=== PATIENT | male | born 1945 | race Caucasian/White ===

== ENCOUNTER → 2017-03-10 | Day surgery (SDC) | payer OTHER ==
[~2017-03-10] MED LIST: ASPI-482 PO; ATEN25TA PO; BICA50TA4 PO; CRESTOR20 MG PO; HYDROmorphone 2 MG/ML VIAL IV PRN; INSU100V13 SQ; IV RINGERS,LACTATED 1000ML 1,000 ML IV SCH; LIDOCAINE 1% 1 ML SYRINGE. ID PRN; LIDOCAINE 2% PF Vial for OR 5 ML VIAL. ONE; MORPHINE SULFATE 2 MG/ML DISP.SYRIN. IV PRN; NAPR-677 PO; ONDANSETRON PF 4 MG/2 ML VIAL. IV PRN; PIOG15TA42 PO; PROCHLORPERAZINE 10 MG/2 ML VIAL. IV PRN; PROPOFOL 20 ML IV ONE; fentaNYL PF VIAL 100 MCG/2 ML VIAL IV PRN
--- NOTE | 2017-03-10 11:42 | PDOC1 ---
History and Physical Date of Admission Date of Admission DATE: 03/10/17 TIME: 11:36 Source Source: Chart review, Patient History of Present Illness History of Present Illness 71 y/o male with h/o colon polyps due for surveillance. Last colonoscopy 5-7 years ago. Intermittent dysphagia with occasional regurgitation of offending bolus. No prior EGD. Past Medical History Cardiovascular: CAD, HTN, Hyperlipidemia Musculoskeletal: Osteoarthritis Renal/: Chronic renal insuff Endocrine: Diabetes Past Surgical History Past Surgical History: Tonsillectomy Family History Family History: No Significant Social History Smoke: Quit ALCOHOL: none Drugs: None Current Medications Current Medications Current Medications Ondansetron HCl (Zofran) 4 mg PRN Q6HRS PRN IV NAUSEA/VOMITING; Start 03/10/17 at 07:00; Stop 03/11/17 at 06:59 Fentanyl Citrate (Fentanyl 2ml Vial) 25 mcg PRN Q5MIN PRN IV MILD PAIN; Start 03/10/17 at 07:00; Stop 03/11/17 at 06:59 Fentanyl Citrate (Fentanyl 2ml Vial) 50 mcg PRN Q5MIN PRN IV MODERATE PAIN; Start 03/10/17 at 07:00; Stop 03/11/17 at 06:59 Morphine Sulfate 1 mg PRN Q10MIN PRN IV SEVERE PAIN; Start 03/10/17 at 07:00; Stop 03/11/17 at 06:59 Ringer's Solution 1,000 ml @ 30 mls/hr Q24H IV Last administered on 03/10/17t 11:04; Start 03/10/17 at 07:00; Stop 03/10/17 at 18:59 Lidocaine HCl 2 ml PRN 1X PRN ID PRIOR TO IV START; Start 03/10/17 at 07:00; Stop 03/11/17 at 06:59 Hydromorphone HCl (Dilaudid) 0.5 mg PRN Q10MIN PRN IV SEV PAIN, Second choice; Start 03/10/17 at 07:00; Stop 03/11/17 at 06:59 Prochlorperazine Edisylate (Compazine) 5 mg PACU PRN PRN IV NAUSEA, MRX1; Start 03/10/17 at 07:00; Stop 03/11/17 at 06:59 Active Scripts Active Reported Levemir (Insulin Detemir) 100 Unit/1 Ml Vial 20 Unit SQ DAILY07 Levemir (Insulin Detemir) 100 Unit/1 Ml Vial 40 Unit SQ HS Levemir (Insulin Detemir) 100 Unit/1 Ml Vial 1 Unit SQ Naproxen Sodium 550 Mg Tablet 220 Mg PO Aspir 81 (Aspirin) 81 Mg Tablet.dr 1 Tab PO DAILY Casodex (Bicalutamide) 50 Mg Tablet 1 Tab PO DAILY Actos (Pioglitazone Hcl) 15 Mg Tablet 1 Tab PO DAILY Crestor (Rosuvastatin Calcium) 20 Mg Tablet 1 Tab PO DAILY Atenolol 25 Mg Tablet 1 Tab PO DAILY Allergies Allergies: Coded Allergies: No Known Drug Allergies (Unverified , 03/10/17) ROS Review of System Otherwise negative. Physical Exam General: Alert, Oriented X3, Cooperative, No acute distress Lungs: Clear to auscultation Heart: S1S2, RRR, no gallops, no murmurs Abdomen: Normal bowel sounds, Soft, No tenderness, No hepatosplenomegaly, No masses Rectal Exam: deferred (to time of procedure) Extremities: No cyanosis, No edema Skin: No significant lesion Neuro: Normal speech, Strength at 5/5 X4 ext, Normal tone, Sensation intact, Cranial nerves 3-12 NL, Reflexes 2+ Psych/Mental Status: Mental status NL, Mood NL Vitals Vitals Vital Signs Date Time Temp Pulse Resp B/P (MAP) Pulse Ox O2 Delivery O2 Flow Rate FiO2 03/10/17 10:53 97.6 58 18 96 97.6 Labs Labs Laboratory Tests Test 03/10/17 10:34 Glucose (Fingerstick) 160 mg/dL (70-99) Laboratory Tests Test 03/10/17 10:34 Glucose (Fingerstick) 160 mg/dL (70-99) VTE Prophylaxis Ordered VTE Prophylaxis Devices: No VTE Pharmacological Prophylaxi: No Assessment/Plan Assessment/Plan IMP: H/o polyps Dysphagia. PLAN: Colonoscopy/EGD. JM GONCALVES MD Mar 10, 2017 11:42
--- NOTE | 2017-03-10 13:01 | PDOC4 ---
PROCEDURE Procedure colonoscopy/EGD Ind: H/o polyps/dysphagia. Meds: per anesthesia. Findings: BASIL normal. Mucosa normal to cecum. No polyps. Scattered diverticula, sigmoid. Small int. hemorrhoids. E--tertiary contractions. ~grade I reflux at 43cm. G--patchy erythema, prepyloric. Pylorus deformed c/w prior PUD. Antral biopsies. D--6-8 mm ulcer posterior wall distal bulb. patchy erythema. Second portion normal. Ba well. IMP: Presbyesophagus Reflux esophagitis. Duodenal ulcer/antral erythema. Diverticulosis Hemorrhoids. REC: OTC PPI daily. Await biopsies. F/u my office in 2 weeks. If H.pylori, treat. Repeat colon in 5 years if remains reasonably healthy. Resume other meds, diet. JM GONCALVES MD Mar 10, 2017 13:01
[2017-03-10 13:23] VITALS: BP 103/56
--- NOTE | 2017-03-12 15:03 | PATHOLOGY ---
PATHOLOGY REPORT * * * * * * * * FINAL DIAGNOSIS: Gastric biopsy, antrum: - Chronic gastritis, mild. (JPM:chiara; 03/12/2017) COMMENT: Sections of the gastric biopsy reveal gastric antral mucosa showing congestion and mild chronic inflammation. There are scattered admixed eosinophils. An immunoperoxidase stain for Helicobacter is obtained. There are no Helicobacter organisms identified. There is no evidence of malignancy. (JPM:chiara; 03/12/2017) REPORT ELECTRONICALLY SIGNED BY: Shira Benson M.D. DATE/TIME: 03/12/2017 15:02 * * * * * * * * GROSS PATHOLOGY: Received in formalin labeled "Shira Perez, antral biopsy," is a segment of bustillo soft tissue measuring 0.4 cm in maximum dimension. The specimen is submitted entirely in cassette A1. (JPM; 03/11/17) INITIAL CPT CODE(S): A; 05787, 42437 Professional services performed [place] [facility] [address] Technical services performed by [facility] at [address] [place] [address]. SPECIMEN(S) RECEIVED: A.Antral biopsy CLINICAL HISTORY: Dysphagia, screening; gastritis PATIENT: SHIRA PEREZ /AGE: 10 1945 (Age: 71) PATIENT #: [id number] ALT CASE #: SPECIMEN COLLECTION DATE: 03/10/2017 SPECIMEN RECEIVED DATE: 03/11/2017 [facility] - [address] [place] [address] - PHONE: [phone] * * * END OF REPORT * * *
== END | disposition home or self-care (01) ==
LOC: ENDOS 10:25
PROVIDERS: ATTEND Internal Medicine Gastroenterology
DX: Z09 Encounter for follow-up examination after completed treatment for conditions other than malignant neoplasm (principal); Z87.19 Personal history of other diseases of the digestive system; K64.8 Other hemorrhoids; K57.30 Diverticulosis of large intestine without perforation or abscess without bleeding; K22.4 Dyskinesia of esophagus; K21.0 Gastro-esophageal reflux disease with esophagitis; K31.89 Other diseases of stomach and duodenum; K26.9 Duodenal ulcer, unspecified as acute or chronic, without hemorrhage or perforation; E78.00 Pure hypercholesterolemia, unspecified; I48.91 Unspecified atrial fibrillation; E11.9 Type 2 diabetes mellitus without complications; F41.9 Anxiety disorder, unspecified; F32.9 Major depressive disorder, single episode, unspecified; F17.200 Nicotine dependence, unspecified, uncomplicated; Z86.39 Personal history of other endocrine, nutritional and metabolic disease
CPT/HCPCS: 43239; 45378; 82962; J2001; J2704; 88305; 88342

== ENCOUNTER 2017-04-26 17:36 | Inpatient (IN) | payer OTHER ==
[~2017-04-26] VITALS: Ht 177.8 cm; Wt 82.6 kg
[~2017-04-26 17:36] MED LIST changes: -HYDROmorphone 2 MG/ML VIAL IV PRN; -IV RINGERS,LACTATED 1000ML 1,000 ML IV SCH; -LIDOCAINE 1% 1 ML SYRINGE. ID PRN; -LIDOCAINE 2% PF Vial for OR 5 ML VIAL. ONE; -MORPHINE SULFATE 2 MG/ML DISP.SYRIN. IV PRN; -ONDANSETRON PF 4 MG/2 ML VIAL. IV PRN; -PROCHLORPERAZINE 10 MG/2 ML VIAL. IV PRN; -PROPOFOL 20 ML IV ONE; -fentaNYL PF VIAL 100 MCG/2 ML VIAL IV PRN
[2017-04-26 18:06] LABS: BASO # 0.1 x10^3/uL (0.0-0.2); BASO % 1 % (0-3); EOS % 2 % (0-3); HEMATOCRIT 32.8 % (39.0-53.0); LYMPH # 1.6 x10^3/uL (1.0-4.8); LYMPH % 17 % (24-48); MEAN CORPUSCULAR HEMOGLOBIN 30 pg (25-35); MEAN CORPUSCULAR HGB CONC 34 g/dL (31-37); MEAN CORPUSCULAR VOLUME 89 fL (79-100); MONO % 8 % (0-9); NEUT % 73 % (31-73); PLATELET COUNT 132 x10^3/uL (140-400); RED CELL DISTRIBUTION WIDTH 13.8 % (11.5-14.5); WHITE BLOOD COUNT 9.6 x10^3/uL (4.0-11.0)
[2017-04-26 18:18] LABS: CREATININE 2.3 mg/dL (0.7-1.3); GFR 28.1; POTASSIUM 4.6 mmol/L (3.5-5.1)
[2017-04-26 18:25] LABS: ALBUMIN 3.4 g/dL (3.4-5.0); ALBUMIN/GLOBULIN RATIO 0.9 (1.0-1.7); TOTAL BILIRUBIN 0.8 mg/dL (0.2-1.0); TOTAL PROTEIN 7.1 g/dL (6.4-8.2)
[2017-04-26] MEDS ORDERED: FUROSEMIDE 20 MG/2 ML VIAL. IVP ONE (19:00)
--- NOTE | 2017-04-26 19:59 | PHYS DOC ---
Past Medical History Past Medical History: A-Fib, Diabetes-Type II, High Cholesterol, Hypertension, [place] Additional Past Medical Histor: [place] MAY 1999 Past Surgical History: Tonsillectomy, Other Additional Past Surgical Histo: CABAG Alcohol Use: None Drug Use: None Adult General Chief Complaint Chief Complaint: SHORTNESS OF BREATH HPI HPI Patient is a 71 year old male with history of CHF, CAD, type 2 diabetes who presents with progressive shortness of breath past 40 hours. Patient also reports increased leg swelling. Denies cough, chest pain, chest pressure, fever chills, nausea vomiting and sweats. This pain is worse with exertion causing patient. Catch his breath. No other acute symptoms or complaints. Patient's tobacco sample puller is Dr. Munoz. Review of Systems Review of Systems Review symptoms as per history of present illness. All other review symptoms are negative. Current Medications Current Medications Current Medications Medications (Trade) Dose Ordered Sig/Yessy Start Time Stop Time Status Last Admin Dose Admin Diltiazem HCl 125 mg/Dextrose 125 ml @ 5 mls/hr 1X ONCE 04/26/17 18:00 04/27/17 18:59 04/26/17 18:19 5 MLS/HR Furosemide (Lasix) 20 mg 1X ONCE 04/26/17 19:00 04/26/17 19:01 DC Allergies Allergies Allergies Coded Allergies Type Severity Reaction Last Updated Verified No Known Drug Allergies 03/10/17 No Physical Exam Physical Exam Constitutional: Well developed, well nourished, no acute distress, non-toxic appearance. [] HENT: Normocephalic, atraumatic, bilateral external ears normal, oropharynx moist, no oral exudates, nose normal. [] Eyes: PERRLA, EOMI, conjunctiva normal, no discharge. [] Neck: Normal range of motion, no tenderness, supple, no stridor. [] Cardiovascular: Regular rate and rhythm are 2+ peripheral edema.[] Lungs & Thorax: Respirations nonlabored, coarse all throughout all lung denson[] Abdomen: Bowel sounds normal, soft, no tenderness, no masses, no pulsatile masses. [] Skin: Warm, dry. [] Back: No tenderness, no CVA tenderness. [] Extremities: No tenderness, no cyanosis, no clubbing, ROM intact, negative Homans signs.[] Neurologic: Alert and oriented X 3, normal motor function, normal sensory function, no focal deficits noted. [] Psychologic: Affect normal, judgement normal, mood normal. [] Current Patient Data Vital Signs Vital Signs Date Time Temp Pulse Resp B/P (MAP) Pulse Ox O2 Delivery O2 Flow Rate FiO2 04/26/17 17:45 97.6 97 28 118/73 (88) 94 Room Air 97.6 Lab Values Laboratory Tests Test 04/26/17 17:57 White Blood Count 9.6 x10^3/uL (4.0-11.0) Red Blood Count 3.70 x10^6/uL (4.30-5.70) L Hemoglobin 11.0 g/dL (13.0-17.5) L Hematocrit 32.8 % (39.0-53.0) L Mean Corpuscular Volume 89 fL (79-100) Mean Corpuscular Hemoglobin 30 pg (25-35) Mean Corpuscular Hemoglobin Concent 34 g/dL (31-37) Red Cell Distribution Width 13.8 % (11.5-14.5) Platelet Count 132 x10^3/uL (140-400) L Neutrophils (%) (Auto) 73 % (31-73) Lymphocytes (%) (Auto) 17 % (24-48) L Monocytes (%) (Auto) 8 % (0-9) Eosinophils (%) (Auto) 2 % (0-3) Basophils (%) (Auto) 1 % (0-3) Neutrophils # (Auto) 7.0 x10^3uL (1.8-7.7) Lymphocytes # (Auto) 1.6 x10^3/uL (1.0-4.8) Monocytes # (Auto) 0.7 x10^3/uL (0.0-1.1) Eosinophils # (Auto) 0.2 x10^3/uL (0.0-0.7) Basophils # (Auto) 0.1 x10^3/uL (0.0-0.2) Sodium Level 137 mmol/L (136-145) Potassium Level 4.6 mmol/L (3.5-5.1) Chloride Level 102 mmol/L (98-107) Carbon Dioxide Level 25 mmol/L (21-32) Anion Gap 10 (6-14) Blood Urea Nitrogen 33 mg/dL (8-26) H Creatinine 2.3 mg/dL (0.7-1.3) H Estimated GFR (Cockcroft-Gault) 28.1 BUN/Creatinine Ratio 14 (6-20) Glucose Level 320 mg/dL (70-99) H Calcium Level 9.0 mg/dL (8.5-10.1) Total Bilirubin 0.8 mg/dL (0.2-1.0) Aspartate Amino Transferase (AST) 26 U/L (15-37) Alanine Aminotransferase (ALT) 30 U/L (16-63) Alkaline Phosphatase 150 U/L (46-116) H Troponin I Quantitative 0.017 ng/mL (0.000-0.055) OY-Ksc-N-Type Natriuretic Peptide 7213 pg/mL (0-124) H Total Protein 7.1 g/dL (6.4-8.2) Albumin 3.4 g/dL (3.4-5.0) Albumin/Globulin Ratio 0.9 (1.0-1.7) L Thyroid Stimulating Hormone (TSH) 3.366 uIU/mL (0.358-3.74) Laboratory Tests 04/26/17 17:57 Laboratory Tests 04/26/17 17:57 EKG EKG [EKG: A. fib, rate 91.] Radiology/Procedures Radiology/Procedures [Chest x-ray: Acute pulmonary edema] Course & Med Decision Making Course & Med Decision Making Pertinent Labs and Imaging studies reviewed. (See chart for details) [Patient A. fib rate controlled with acute congestive heart failure. Patient improved with Lasix, oxygen. Will admit to the hospitalist service with cardiology consult.] Dragon Disclaimer Dragon Disclaimer This electronic medical record was generated, in whole or in part, using a voice recognition dictation system. Departure Departure Disposition: ADMITTED INPATIENT Admitting Physician: Magnolia Martinez Condition: STABLE Referrals: BERNARDA MURDOCK Jr, MD (PCP) SATHISH MILLIGAN DO Apr 26, 2017 19:59
[2017-04-26] MEDS ORDERED: ONDANSETRON PF 4 MG/2 ML VIAL. IV PRN ×2 (20:00→22:30)
[2017-04-26 20:30] VITALS: BP 124/44
[2017-04-26] MEDS ORDERED: INSULIN DETEMIR 300 UNITS/3 ML INSULN.PEN. SQ SCH (21:00)
[2017-04-26] MEDS ORDERED: VENTOLIN HFA18 GM INH (21:40)
[2017-04-26] MEDS ORDERED: NAPR220C4 PO (21:40)
[2017-04-26] MEDS ORDERED: ASPI325T11 PO (21:40)
[2017-04-26] MEDS ORDERED: DEXTROSE 50% 25 GM / 50ML DISP.SYRIN. IV PRN (22:30)
[2017-04-26] MEDS ORDERED: MORPHINE SULFATE 2 MG/ML DISP.SYRIN. IV PRN (22:30)
[2017-04-26] MEDS ORDERED: ACETAMINOPHEN 325 MG TABLET. PO PRN (22:30)
--- NOTE | 2017-04-26 22:54 | ACF ---
Admission Forms Criteria HEART FAILURE: COMMON COMPLICATIONS (Place 'X' for any and all applicable criteria): Ongoing inpatient care may be indicated for heart failure with 1 or more of the following (1)(2)(3)(4)(5)(6)(7)(8): [ ]I. New-onset heart failure [ ]II. Acute cardiac ischemia causing or associated with failure [ ]III. Ongoing need for care for primary condition requiring frequent therapy adjustments because of changes in cardiac function (eg, drug dosage changes for drugs that are renally metabolized) [ X]IV. Complications of heart failure, including 1 or more of the following: [ ]a) Hemodynamic instability [ ]b) Pericardial effusion [ ]c) Symptomatic pleural effusion [ ]d) Hypoxemia [ ]e) Tachypnea [X ]f) Dyspnea [ ]g) Syncope [ ]h) Altered mental status [ ]i) Acute renal insufficiency that is severe (reduction of more than 50% in estimated glomerular filtration rate from baseline) or progressive reduction of more than 25% in estimated glomerular filtration rate from baseline, with creatinine continuing to rise) [ ]j) Debilitating anasarca (eg tissue breakdown with infection, inability to void due to edema) (E) [ ]k) Clinically significant metabolic abnormalities due to heart failure (eg, new-onset metabolic acidosis) Extended stay may be needed until ALL of the following are present (1)(3)(18)(41 )(55) [ ]a) Hemodynamic stability [ ]b) Stable and effective diuretic regimen established (or patient on stable dialysis regimen if in chronic renal failure) [ ]c) Volume status acceptable on oral medication [ ]d) Breathing comfortably at rest [ ]e) Saturation of arterial oxygen greater than 90% or at acceptable baseline [ ]f) Pulmonary edema absent or improved [ ]g) Peripheral or sacral edema absent or improved [ ]h) Renal function stable and manageable at a lower level of care [ ]i) Complications (eg, pleural effusion) resolved or manageable at a lower level of care [ ]g) Patient or caregiver has received written discharge instructions or educational material addressing activity level, diet, discharge medications, follow-up appointment, weight monitoring, and what to do if symptoms worsen.(25)(26) The original [facility] [employer] content created by [employer] has been revised. The portions of the content which have been revised are identified through the use of italic text, and [facility] has neither reviewed nor approved the modified material.All other unmodified content is copyright [facility]. Please see references footnoted in the original [facility] edition 2015 Admission Criteria Met?: Yes LEOBARDO GARCIA Apr 26, 2017 22:54
[2017-04-26 23:00] VITALS: BP 124/49
[2017-04-26] MEDS: INSULIN ASPART 300 UNITS/3 ML INSULN.PEN SQ SCH (23:13)
[2017-04-27 03:00] VITALS: BP 132/52
[2017-04-27 05:39] LABS: BASO # 0.1 x10^3/uL (0.0-0.2); BASO % 1 % (0-3); EOS % 2 % (0-3); HEMATOCRIT 32.2 % (39.0-53.0); HEMOGLOBIN 10.9 g/dL (13.0-17.5); LYMPH # 1.3 x10^3/uL (1.0-4.8); LYMPH % 17 % (24-48); MEAN CORPUSCULAR HEMOGLOBIN 30 pg (25-35); MEAN CORPUSCULAR HGB CONC 34 g/dL (31-37); MEAN CORPUSCULAR VOLUME 89 fL (79-100); MONO % 9 % (0-9); NEUT % 72 % (31-73); PLATELET COUNT 138 x10^3/uL (140-400); RED BLOOD COUNT 3.64 x10^6/uL (4.30-5.70); RED CELL DISTRIBUTION WIDTH 14.2 % (11.5-14.5); WHITE BLOOD COUNT 7.8 x10^3/uL (4.0-11.0)
[2017-04-27 06:06] LABS: ALBUMIN 3.4 g/dL (3.4-5.0); ALBUMIN/GLOBULIN RATIO 1.1 (1.0-1.7); CALCIUM 8.6 mg/dL (8.5-10.1); CREATININE 2.1 mg/dL (0.7-1.3); GFR 31.2; TOTAL BILIRUBIN 0.8 mg/dL (0.2-1.0); TOTAL PROTEIN 6.5 g/dL (6.4-8.2)
[2017-04-27 07:00] VITALS: BP 124/48
--- NOTE | 2017-04-27 08:24 | EKG ---
[facility] [address] [place] [address] Test Date: 2017-04-26 Test Time: 17:45:12 Pat Name: SHIRA ZHAO Department: Room: Gender: M Ekg Monitor: : 1945 Requested By: SATHISH MILLIGAN Order Number: [id number] Reading MD: Measurements Intervals [place] Rate: 91 P: CA: QRS: 24 QRSD: 88 T: -36 QT: 356 QTc: 440 Interpretive Statements ATRIAL FIBRILLATION VENTRICULAR PREMATURE COMPLEX(ES) LOW LIMB LEAD VOLTAGE QRS(T) CONTOUR ABNORMALITY CONSISTENT WITH INFERIOR INFARCT AGE UNDETERMINED RI6.01 Unconfirmed report No previous ECG available for comparison
[2017-04-27] MEDS: INSULIN ASPART 300 UNITS/3 ML INSULN.PEN SQ SCH ×3 (08:28→16:47)
--- NOTE | 2017-04-27 09:11 | RAD ---
Examination: Single frontal view chest History: History of shortness of breath, cough Comparison: 10/17/2014 Findings: Low lung volumes and technique accentuates heart size and pulmonary vascularity. There is diffuse prominent appearing bilateral interstitial lung markings could be chronic interstitial changes or interstitial edema or interstitial infiltrates. Impression: Diffuse prominent appearing bilateral interstitial lung markings could be chronic interstitial changes or interstitial edema or interstitial infiltrates.
[2017-04-27 10:30] VITALS: BP 110/43
[2017-04-27 14:30] VITALS: BP 121/52
--- NOTE | 2017-04-27 14:39 | RAD ---
Examination: 2 views of the chest History: History of congestive heart failure, shortness of breath Comparison: 05/13/2017 Findings: The cardiomediastinal silhouette grossly appears unremarkable. Diffuse prominent bilateral interstitial lung markings grossly similar to prior exam could be chronic interstitial changes or infiltrates similar to prior exam. Impression: Diffuse prominent appearing bilateral interstitial lung markings likely chronic interstitial changes or interstitial infiltrates grossly similar to prior exam.
[2017-04-27] MEDS ORDERED: ASPIRIN 325 MG TABLET PO ONE (15:15)
--- NOTE | 2017-04-27 15:48 | CONS ---
DATE OF CONSULTATION: HISTORY OF PRESENT ILLNESS: This is a 71-year-old white male who presented himself to the Emergency Room yesterday with severe shortness of breath. Along with the shortness of breath, he had some tightness in his chest. He stated that this would get worse when he walked around. However, he had no orthopnea or paroxysmal nocturnal dyspnea. He said he had some swelling of his legs. He had a cough, but there is no sputum production. He had been to the urgent care on April 18 and saw a nurse practitioner. He was told that he has a pneumonia. A chest x-ray was done. He was given antibiotic and albuterol inhaler. He did not seem to get better and thus he went to the urgent care again on April 25. He was again seen there, had a chest x-ray done, again told that he had a pneumonia and a different antibiotic was given. Since he was not getting any better, he came into the Emergency Room on the . He has not been using an inhaler before. He had smoked up until 1998, at which time, he had a myocardial infarction and has not smoked since then. He has had no cough, sputum or wheezing. He claims he has had no chest pain, but does admit to having the chest tightness with shortness of breath when he exerted himself such as walking. He has had hypertension. He also has diabetes mellitus for which he takes insulin. He has dyslipidemia. He sustained a myocardial infarction in 1998, but states he has not had a stent in his coronary arteries. He gives no history of stroke or transient ischemic attacks. 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 He does not have to walk around. He could choose to go around the building in a golf cart. PRESENT MEDICATIONS: 1. Albuterol metered inhaler, which was recently given to him at the urgent care. 2. Aspirin 325 mg a day. 3. Atenolol 25 mg a day. 4. Levemir 40 units at night. 5. Levemir 20 units in the morning. 6. Naproxen 550 mg twice a day. 7. Rosuvastatin 20 mg at night. He also states that he has had atrial fibrillation in the past. He was placed on warfarin. He converted spontaneously to sinus rhythm and had remained in sinus rhythm. He was not informed of atrial fibrillation recurring at the urgent care, but he was informed about it in the ER. SOCIAL HISTORY: He does not take alcohol. PHYSICAL EXAMINATION: GENERAL: He is in no distress. He states he feels much better than he did when he came into the Emergency Room yesterday. VITAL SIGNS: The heart rate was 80 per minute and irregular. The blood pressure was 110/70. LUNGS: Showed bilateral rales, but no wheezing. HEART: The heart sounds are normal. There is a grade 1/6 ejection systolic murmur at the base. No diastolic murmurs heard. ABDOMEN: Soft. EXTREMITIES: There is no edema of the legs. A chest x-ray as compared to the one taken 2 years ago shows increased markings throughout the lung denson. This is suggestive of pulmonary fibrosis or scarring. There are no definite Jayson B lines. PA and lateral view of the chest shows no cardiomegaly. An EKG shows atrial fibrillation and occasional premature ventricular contractions. LABORATORY INVESTIGATIONS: Showed a hemoglobin of 10.9. The BUN on admission was ____ and the creatinine was 2.3. The troponin was 0.017 yesterday and 0.018 today. The TSH was normal at 3.366. IMPRESSION: 1. Exertional shortness of breath and tightness in the chest in a diabetic, probable acute coronary syndrome. 2. No definite evidence of congestive heart failure. 3. Probable pulmonary fibrosis with no evidence of hypoxia. 4. Chronic kidney disease, probably contributed by nonsteroidal anti-inflammatory drugs. 5. Recurrence of atrial fibrillation. PLAN: 1. [place] nebulized bronchodilators. 2. Myocardial perfusion imaging study with Lexiscan tomorrow. Thank you very much for asking me to see him. The echocardiogram was reviewed. 1. The systolic function is normal with an ejection fraction of 55%. 2. Normal diastolic function. 3. Trace mitral regurgitation. 4. Mild aortic regurgitation. 5. No pulmonary hypertension. 6. Left atrial enlargement. FLEX ESCALANTE MD DR: GHAZALA/adelaide JOB#: [id number] / [id number]
[2017-04-27] MEDS ORDERED: NON FORMULARY ITEM (Albuterol Sulfate (Ventolin Hfa Inhaler) 2 PUFF) INH SCH (16:00)
--- NOTE | 2017-04-27 16:31 | HP ---
ADMIT DATE: 04/27/2017 CHIEF COMPLAINT: Shortness of breath. HISTORY OF PRESENT ILLNESS: The patient is a 71-year-old gentleman with past medical history of CAD, CHF, hypertension, diabetes mellitus who presented to the hospital with worsening dyspnea on exertion. He relates that he does not have to walk terribly far before he gets very winded. He has also noted some leg swelling with this over the past few days. He, however, denies any cough, chest pain, dizziness, lightheadedness, nausea, vomiting or other symptoms. In the Emergency Room, he was found with AFib and his symptoms improved after receiving an IV Lasix dose. He is now admitted for further management and care. PAST MEDICAL HISTORY: CAD status post [place] in 1998, hypertension, hypercholesterolemia, diabetes type 2, AFib, spontaneously resolving in the past, currently not on oral anticoagulants. PAST SURGICAL HISTORY: Status post CABG. FAMILY HISTORY: Positive for diabetes in brother, a second brother of lung cancer (smoker). SOCIAL HISTORY: Quit smoking with his [place] in 1998. No toxic habits. ALLERGIES: No known drug allergies. MEDICATIONS: MAR reconciled with home medications. REVIEW OF SYSTEMS: Positive as per HPI. Entire organ system review otherwise is negative. PHYSICAL EXAMINATION: VITAL SIGNS: From today show a blood pressure of 110/43, heart rate of 76, respiratory rate at 18. He is afebrile. GENERAL: This is a 71-year-old gentleman, well nourished, alert and oriented, in no acute distress. LUNGS: Clear. CARDIOVASCULAR: Heart has regular rate and rhythm with a 3/6 systolic murmur. ABDOMEN: Has positive bowel sounds, soft, nontender. EXTREMITIES: Show no edema, no clubbing, no cyanosis. SKIN: Warm, soft and dry. LABORATORY DATA: CBC with a WBC of 7.8, hemoglobin 10.9, platelets of 138. BUN and creatinine of 35 and 2.1. Normal electrolytes, glucose at 284. LFTs normal say for alkaline phosphatase at 155. ProBNP at 7491. Initial troponin is negative. Actually, this is a troponin 12 hours after presentation. RADIOGRAPHIC IMAGING: Chest x-ray obtained in the Emergency Room shows diffuse prominent appearing bilateral interstitial lung markings, likely chronic interstitial changes or interstitial infiltrates. ASSESSMENT AND PLAN: The patient is a 71-year-old gentleman with past medical history of coronary artery disease, congestive heart failure and spontaneously resolving atrial fibrillation in the past who now presents with shortness of breath, findings of congestive heart failure on x-ray and clinically as well as recurrent atrial fibrillation. He is admitted. Case was discussed with Dr. Hancock. Although he apparently ruled out for acute coronary syndrome, he has not been stress or further evaluated for years. We will obtain MPI in the morning, echocardiogram has been done, final report is pending. In the meantime, continue cautious Lasix, monitoring his labs. The patient is significantly diabetic and poorly controlled. He is actually on b.i.d. Levemir, will increase to b.i.d. albeit slightly lower dose than usual. We will also switch his Levemir to higher dose in the morning, lower dose at night. He does take naproxen a very high dose b.i.d. We will hold medication for now due to renal issues. The patient has stable very mild thrombocytopenia in the 130s range. This may be due to low grade idiopathic thrombocytopenic purpura versus malignancy. Monitor for the time being. We will continue the patient's Casodex for prostate carcinoma. Alkaline phosphatase slightly elevated. Suspect this is related to bony disease. Prophylaxis. We will start on heparin subQ. WILFREDO ESPINAL MD DR: UR/nts JOB#: [id number] / [id number] BERNARDA Daniel MD MTDD
[2017-04-27] MEDS: ALBUTEROL SULFATE 2.5 MG/3 ML NEBU. NEB SCH ×2 (16:35→19:05)
--- NOTE | 2017-04-27 17:07 | EKG ---
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
[2017-04-27 19:00] VITALS: BP 133/60
[2017-04-27] MEDS: APIXABAN 5 MG TABLET. PO SCH (20:23)
[2017-04-27] MEDS ORDERED: ATORVASTATIN CALCIUM 40 MG TABLET. PO SCH ×2 (21:00)
[2017-04-27] MEDS ORDERED: INSULIN ASPART 300 UNITS/3 ML INSULN.PEN SQ ONE (21:00)
[2017-04-27] MEDS ORDERED: APIXABAN 2.5 MG TABLET. PO SCH ×2 (21:00)
[2017-04-27] MEDS ORDERED: NAPROXEN SODIUM 550 MG PO SCH (21:00)
[2017-04-27] MEDS ORDERED: INSULIN DETEMIR 300 UNITS/3 ML INSULN.PEN. SQ SCH ×3 (21:00)
[2017-04-27 23:00] VITALS: BP 124/58
[2017-04-28 07:00] VITALS: BP 103/56
[2017-04-28] MEDS ORDERED: INSULIN DETEMIR 300 UNITS/3 ML INSULN.PEN. SQ SCH (07:00)
[2017-04-28] MEDS: ALBUTEROL SULFATE 2.5 MG/3 ML NEBU. NEB SCH ×3 (07:00→14:48)
[2017-04-28] MEDS ORDERED: ASPIRIN CHEWABLE 81 MG TABLET. PO SCH (08:00)
[2017-04-28] MEDS: INSULIN ASPART 300 UNITS/3 ML INSULN.PEN SQ SCH ×3 (08:00→17:00)
[2017-04-28] MEDS ORDERED: ASPIRIN ENTERIC COATED 325 MG TABLET.DR. PO SCH (09:00)
[2017-04-28] MEDS ORDERED: ATENOLOL 25 MG TABLET. PO SCH (09:00)
[2017-04-28] MEDS ORDERED: BICALUTAMIDE 50 MG TABLET PO SCH (09:00)
[2017-04-28] MEDS ORDERED: REGADENOSON 0.4 MG/5 ML DISP.SYRIN. IV ONE (09:30)
[2017-04-28] MEDS ORDERED: HYDROCORTISONE SOD SUCC/PF 100 MG/2 ML VIAL. IV ONE (10:00)
--- NOTE | 2017-04-28 10:40 | CARD ---
APPROVED REPORT EXAM: Two-dimensional and M-mode echocardiogram with Doppler and color Doppler. Other Information Quality : GoodHR: 95bpm Rhythm : Atrial Fibrillation INDICATION Acute CHF 2D DIMENSIONS RVDd2.9 (2.9-3.5cm)Left Atrium(2D)4.2 (1.6-4.0cm) IVSd0.6 (0.7-1.1cm)Aortic Root(2D)2.8 (2.0-3.7cm) LVDd4.9 (3.9-5.9cm)LVOT Diameter2.1 (1.8-2.4cm) PWd0.8 (0.7-1.1cm)LVDs3.5 (2.5-4.0cm) FS (%) 30.0 %SV65.8 ml LVEF(%)57.1 (>50%) Aortic Valve AoV Peak Hung.302.3cm/sAoV VTI63.1cm AO Peak GR.36.6mmHgLVOT Peak Hung.108.8cm/s AO Mean GR.21mmHgAVA (VMAX)1.28cm2 AI P 1/2 [id number] Mitral Valve MV E Peak Gr.8mmHgMV E Mean Gr.4mmHg Pulmonary Valve PV Peak Xrpdhune378.7cm/s Tricuspid Valve TR P. Yqfsextl041le/sTR Peak Gr.34mmHg LEFT VENTRICLE The left ventricle is normal size. There is normal left ventricular wall thickness. The left ventricu lar systolic function is normal. The Ejection Fraction is 55-60%. There is normal LV segmental wall m otion. By E wave velocity deceleration time criteria, the left ventricular diastolic function is norm al. RIGHT VENTRICLE The right ventricle is normal size. There is normal right ventricular wall thickness. The right ventr icular systolic function is normal. ATRIA The left atrium is mildly dilated. The right atrium size is normal. The interatrial septum is intact with no evidence for an atrial septal defect or patent foramen ovale as noted on 2-D or Doppler imagi ng. AORTIC VALVE The aortic valve is mildly sclerotic. The aortic valve is trileaflet. Doppler and Color Flow revealed mild aortic regurgitation. There is no significant aortic valvular stenosis. MITRAL VALVE Mitral annular calcification is mild. The mitral valve leaflets are thickened. There is no evidence o f mitral valve prolapse. There is no mitral valve stenosis. Doppler and Color Flow revealed trace ade ral regurgitation. TRICUSPID VALVE Doppler and Color Flow revealed mild tricuspid regurgitation. The pulmonary artery systolic pressure is estimated at 37 mmHg. There is mild pulmonary hypertension. PULMONIC VALVE The pulmonic valve is not well visualized but appears to open adequately. Doppler and Color Flow reve aled no pulmonic valvular regurgitation. There is no pulmonic valvular stenosis by spectral Doppler. GREAT VESSELS The aortic root is normal in size. The ascending aorta is normal in size. The pulmonary artery is nor mal. The IVC is normal in size and collapses >50% with inspiration. PERICARDIAL EFFUSION There is no evidence of significant pericardial effusion. Critical Notification Critical Value: No <Conclusion> The left ventricle is normal size. There is normal left ventricular wall thickness. The left ventricular systolic function is normal. The Ejection Fraction is 55-60%. By E wave velocity deceleration time criteria, the left ventricular diastolic function is normal. There is no evidence of significant pericardial effusion. There is no mitral stenosis and a trace mitral regurgitation The lsft atrium is enlarged The aortic valve is mildly sclerotic. The aortic valve is trileaflet. There is no significant aortic valvular stenosis and a mild aortic regurgitation The right ventricle is of a normal size with normal systolic function Doppler and Color Flow revealed mild tricuspid regurgitation. The pulmonary artery systolic pressure is estimated at 37 mmHg. There is mild pulmonary hypertension. The pulmonic valve is normal.
[2017-04-28 10:57] VITALS: BP 118/67
[2017-04-28] MEDS: APIXABAN 5 MG TABLET. PO SCH (12:06)
--- NOTE | 2017-04-28 12:58 | PDOC ---
PROGRESS NOTES Subjective Subjective Denies chest pain, chest tightness, SOB, lightheadedness, n/v, or any other symptoms Anxious to be discharged Objective Objective Vital Signs Date Time Temp Pulse Resp B/P (MAP) Pulse Ox O2 Delivery O2 Flow Rate FiO2 04/28/17 12:08 93 118/67 04/28/17 11:19 Room Air 04/28/17 10:57 97.8 20 94 97.8 04/27/17 03:00 2.0 Intake and Output 04/29/17 07:00 Intake Total 120 ml Output Total 400 ml Balance -280 ml Intake Oral 120 ml Output Urine Total 400 ml # Voids 1 # Bowel Movements 1 Physical Exam Physical Exam General: Anxious, no acute distress Heart: Irregular rhythm, normal rate, consistent with Afib. No S2 or S3, no gallops or rubs Lungs: CTA bilaterally Assessment Assessment 1) Shortness of breath and chest tightness 2) Afib 3) Hx multiple pneumonias 4) CKD Plan Plan of Care Concern for ACS. Pt receiving myocardial perfusion imaging with Lexiscan, will review upon availability May also be pulmonary in nature, possibly pulmonary fibrosis Echo showed normal LV EF of 55%, L. atrial enlargement, trace mitral regurg, and no other abnormalities Will continue to follow up with patient closely, he is very anxious to be discharged Thank you for involving us in his care! Comment Review of Relevant I have reviewed the following items magan (where applicable) has been applied. Labs Laboratory Tests Test 04/26/17 17:57 04/26/17 21:33 04/27/17 04:00 04/27/17 07:02 White Blood Count 9.6 x10^3/uL (4.0-11.0) 7.8 x10^3/uL (4.0-11.0) Red Blood Count 3.70 x10^6/uL (4.30-5.70) 3.64 x10^6/uL (4.30-5.70) Hemoglobin 11.0 g/dL (13.0-17.5) 10.9 g/dL (13.0-17.5) Hematocrit 32.8 % (39.0-53.0) 32.2 % (39.0-53.0) Mean Corpuscular Volume 89 fL (79-100) 89 fL (79-100) Mean Corpuscular Hemoglobin 30 pg (25-35) 30 pg (25-35) Mean Corpuscular Hemoglobin Concent 34 g/dL (31-37) 34 g/dL (31-37) Red Cell Distribution Width 13.8 % (11.5-14.5) 14.2 % (11.5-14.5) Platelet Count 132 x10^3/uL (140-400) 138 x10^3/uL (140-400) Neutrophils (%) (Auto) 73 % (31-73) 72 % (31-73) Lymphocytes (%) (Auto) 17 % (24-48) 17 % (24-48) Monocytes (%) (Auto) 8 % (0-9) 9 % (0-9) Eosinophils (%) (Auto) 2 % (0-3) 2 % (0-3) Basophils (%) (Auto) 1 % (0-3) 1 % (0-3) Neutrophils # (Auto) 7.0 x10^3uL (1.8-7.7) 5.6 x10^3uL (1.8-7.7) Lymphocytes # (Auto) 1.6 x10^3/uL (1.0-4.8) 1.3 x10^3/uL (1.0-4.8) Monocytes # (Auto) 0.7 x10^3/uL (0.0-1.1) 0.7 x10^3/uL (0.0-1.1) Eosinophils # (Auto) 0.2 x10^3/uL (0.0-0.7) 0.1 x10^3/uL (0.0-0.7) Basophils # (Auto) 0.1 x10^3/uL (0.0-0.2) 0.1 x10^3/uL (0.0-0.2) Sodium Level 137 mmol/L (136-145) 136 mmol/L (136-145) Potassium Level 4.6 mmol/L (3.5-5.1) 4.0 mmol/L (3.5-5.1) Chloride Level 102 mmol/L (98-107) 100 mmol/L (98-107) Carbon Dioxide Level 25 mmol/L (21-32) 26 mmol/L (21-32) Anion Gap 10 (6-14) 10 (6-14) Blood Urea Nitrogen 33 mg/dL (8-26) 35 mg/dL (8-26) Creatinine 2.3 mg/dL (0.7-1.3) 2.1 mg/dL (0.7-1.3) Estimated GFR (Cockcroft-Gault) 28.1 31.2 BUN/Creatinine Ratio 14 (6-20) 17 (6-20) Glucose Level 320 mg/dL (70-99) 284 mg/dL (70-99) Calcium Level 9.0 mg/dL (8.5-10.1) 8.6 mg/dL (8.5-10.1) Total Bilirubin 0.8 mg/dL (0.2-1.0) 0.8 mg/dL (0.2-1.0) Aspartate Amino Transf (AST/SGOT) 26 U/L (15-37) 25 U/L (15-37) Alanine Aminotransferase (ALT/SGPT) 30 U/L (16-63) 27 U/L (16-63) Alkaline Phosphatase 150 U/L (46-116) 155 U/L (46-116) Troponin I Quantitative 0.017 ng/mL (0.000-0.055) IE-Abb-V-Type Natriuretic Peptide 7213 pg/mL (0-124) 7491 pg/mL (0-124) Total Protein 7.1 g/dL (6.4-8.2) 6.5 g/dL (6.4-8.2) Albumin 3.4 g/dL (3.4-5.0) 3.4 g/dL (3.4-5.0) Albumin/Globulin Ratio 0.9 (1.0-1.7) 1.1 (1.0-1.7) Thyroid Stimulating Hormone (TSH) 3.366 uIU/mL (0.358-3.74) Glucose (Fingerstick) 329 mg/dL (70-99) 238 mg/dL (70-99) Triglycerides Level 120 mg/dL (0-150) Cholesterol Level 120 mg/dL (0-200) LDL Cholesterol, Calculated 56 mg/dL (0-100) VLDL Cholesterol, Calculated 24 mg/dL (0-40) Non-HDL Cholesterol Calculated 80 mg/dL (0-129) HDL Cholesterol 40 mg/dL (40-60) Cholesterol/HDL Ratio 3.0 Test 04/27/17 11:09 04/27/17 13:41 04/27/17 16:14 04/27/17 20:26 Glucose (Fingerstick) 275 mg/dL (70-99) 221 mg/dL (70-99) 369 mg/dL (70-99) Troponin I Quantitative 0.018 ng/mL (0.000-0.055) Test 04/28/17 07:16 04/28/17 10:55 Glucose (Fingerstick) 134 mg/dL (70-99) 210 mg/dL (70-99) Laboratory Tests Test 04/27/17 13:41 04/27/17 16:14 04/27/17 20:26 04/28/17 07:16 Troponin I Quantitative 0.018 ng/mL (0.000-0.055) Glucose (Fingerstick) 221 mg/dL (70-99) 369 mg/dL (70-99) 134 mg/dL (70-99) Test 04/28/17 10:55 Glucose (Fingerstick) 210 mg/dL (70-99) Medications Current Medications Diltiazem HCl 125 mg/Dextrose 125 ml @ 5 mls/hr 1X ONCE IV Last administered on 04/26/17 18:19; Start 04/26/17 at 18:00; Stop 04/27/17 at 00:03; Status DC Furosemide (Lasix) 20 mg 1X ONCE IVP Last administered on 04/26/17 20:10; Start 04/26/17 at 19:00; Stop 04/26/17 at 19:01; Status DC Ondansetron HCl (Zofran) 4 mg PRN Q8HRS PRN IV NAUSEA/VOMITING; Start 04/26/17 at 20:00; Stop 04/26/17 at 22:47; Status DC Insulin Detemir (Levemir) 30 units QHS SQ Last administered on 04/26/17 23:14; Start 04/26/17 at 21:00; Stop 04/27/17 at 16:07; Status DC Insulin Aspart (NovoLOG) 0-9 UNITS TIDWMEALHC SQ Last administered on 04/27/17 16:47; Start 04/26/17 at 22:30; Stop 04/27/17 at 20:37; Status DC Dextrose (Dextrose 50%-Water Syringe) 12.5 gm PRN Q15MIN PRN IV SEE COMMENTS; Start 04/26/17 at 22:30 Acetaminophen (Tylenol) 650 mg PRN Q6HRS PRN PO MILD PAIN; Start 04/26/17 at 22: 30 Ondansetron HCl (Zofran) 4 mg PRN Q6HRS PRN IV NAUSEA/VOMITING; Start 04/26/17 at 22:30 Morphine Sulfate 2 mg PRN Q2HR PRN IV SEVERE PAIN; Start 04/26/17 at 22:30 Albuterol Sulfate (Ventolin Neb Soln) 2.5 mg RTQID NEB Last administered on 04/28 11:18; Start 04/27/17 at 16:00 Hydrocortisone Sodium Succinate (Solu-CORTEF) 50 mg 1X ONCE IV Last administered on 04/28/17 09:40; Start 04/28/17 at 10:00; Stop 04/28/17 at 10:01; Status DC Apixaban (Eliquis) 2.5 mg BID PO ; Start 04/27/17 at 21:00; Status Cancel Apixaban (Eliquis) 2.5 mg BID PO ; Start 04/27/17 at 21:00; Stop 04/27/17 at 21:00 ; Status DC Aspirin (Van Aspirin) 325 mg 1X ONCE PO Last administered on 04/27/17 15:33 ; Start 04/27/17 at 15:15; Stop 04/27/17 at 15:16; Status DC Aspirin (Children'S Aspirin) 81 mg DAILYWBKFT PO Last administered on 04/28/17 12:07; Start 04/28/17 at 08:00 Atorvastatin Calcium (Lipitor) 40 mg QHS PO Last administered on 04/27/17 20:23 ; Start 04/27/17 at 21:00 Aspirin (Ecotrin) 325 mg DAILY PO ; Start 04/28/17 at 09:00; Status Cancel Atenolol (Tenormin) 25 mg DAILY PO Last administered on 04/28/17 12:08; Start 04/28/17 at 09:00 Bicalutamide (Casodex) 50 mg DAILY PO Last administered on 04/28/17 09:00; Start 04/28/17 at 09:00 Non-Formulary Medication 2 puff Q4HRS INH ; Start 04/27/17 at 16:00; Status UNV Insulin Detemir (Levemir) 20 units DAILY07 SQ ; Start 04/27/17 at 21:00; Status Cancel Insulin Detemir (Levemir) 40 units QHS SQ ; Start 04/27/17 at 21:00; Stop at 21:00; Status DC Non-Formulary Medication 550 mg BID PO ; Start 04/27/17 at 21:00; Stop 04/27/17 at 21:00; Status DC Atorvastatin Calcium (Lipitor) 80 mg QHS PO ; Start 04/27/17 at 21:00; Status Cancel Apixaban (Eliquis) 5 mg BID PO Last administered on 04/28/17 12:06; Start at 21:00 Insulin Detemir (Levemir) 20 units QHS SQ Last administered on 04/27/17 20:47; Start 04/27/17 at 21:00 Insulin Detemir (Levemir) 30 units DAILY07 SQ Last administered on 04/28/17 12: 13; Start 04/28/17 at 07:00 Insulin Aspart (NovoLOG) 10 units 1X ONCE SQ Last administered on 04/27/17 20: 46; Start 04/27/17 at 21:00; Stop 04/27/17 at 21:01; Status DC Insulin Aspart (NovoLOG) 0-9 UNITS TIDWMEALS SQ Last administered on 04/28/17 12:15; Start 04/28/17 at 08:00 Regadenoson (Lexiscan) 0.4 mg 1X ONCE IV Last administered on 04/28/17 10:19; Start 04/28/17 at 09:30; Stop 04/28/17 at 09:31; Status DC Active Scripts Active Reported Ventolin Hfa Inhaler (Albuterol Sulfate) 18 Gm Hfa.aer.ad 2 Puff INH Q4HRS Aspirin Ec (Aspirin) 325 Mg Tablet.dr 1 Tab PO DAILY Aleve (Naproxen Sodium) 220 Mg Capsule 550 Mg PO BID Levemir (Insulin Detemir) 100 Unit/1 Ml Vial 20 Unit SQ DAILY07 Levemir (Insulin Detemir) 100 Unit/1 Ml Vial 40 Unit SQ HS Levemir (Insulin Detemir) 100 Unit/1 Ml Vial 1 Unit SQ Casodex (Bicalutamide) 50 Mg Tablet 1 Tab PO DAILY Crestor (Rosuvastatin Calcium) 20 Mg Tablet 1 Tab PO DAILY Atenolol 25 Mg Tablet 1 Tab PO DAILY Vitals/I & O Vital Sign - Last 24 Hours 04/27/17 04/27/17 04/27/17 04/27/17 14:30 16:35 19:00 19:07 Temp 97.9 97.9 97.9 97.9 Pulse 82 79 Resp 18 19 B/P (MAP) 121/52 (75) 133/60 (84) Pulse Ox 93 96 95 94 O2 Delivery Room Air Room Air Room Air Room Air 04/27/17 04/27/17 04/28/17 04/28/17 20:00 23:00 07:00 07:02 Temp 99.5 98.2 99.5 98.2 Pulse 72 99 Resp 18 20 B/P (MAP) 124/58 (80) 103/56 (72) Pulse Ox 96 95 98 O2 Delivery Room Air Room Air Room Air Room Air 04/28/17 04/28/17 04/28/17 04/28/17 08:00 10:57 11:19 12:08 Temp 97.8 97.8 Pulse 93 93 Resp 20 B/P (MAP) 118/67 (84) 118/67 Pulse Ox 94 O2 Delivery Room Air Room Air Room Air Intake and Output 04/28/17 04/28/17 04/29/17 15:00 23:00 07:00 Intake Total 120 ml Output Total 400 ml Balance -280 ml ROSALIA LOMAS MD Apr 28, 2017 12:58
[2017-04-28 15:00] VITALS: BP 91/56
--- NOTE | 2017-04-28 15:14 | RAD ---
APPROVED REPORT Test Type: Pharmacological Stress Nurse/Tech: Fan Kwon RN Test Indications: chest discomfort Cardiac History: see ehr Medications: see ehr Medical History: see ehr Resting ECG: Afib Resting Heart Rate: 103 bpm Resting Blood Pressure: 93/44mmHg Pretest Chest Pain: None Nurse/Tech Notes Lungs CTA Consent: The procedure was explained to the patient in lay terms. Informed consent was witnessed. Blade eout was entered into [employer]. History and Stress Test performed by Michelle MarquezNBirgit Pharm. Details Pharmacologic stress testing was performed using 0.4mg per 5ml of regadenoson given intravenously ove r 7-10 seconds. Stress Symptoms No chest pain or symptoms. POST EXERCISE Reason for Termination: Infusion complete Max HR: 130 bpm Max Blood Pressure: 119/44mmHg Blood Pressure response to exercise: Normal blood pressure response during stress. Chest Pain: No. Arrhythmia: No. ST Change: No. INTERPRETATION Stress EKG Conclusion: No acute changes were noted. Imaging Protocol IMAGE PROTOCOL: Rest Tc-99m/stress Tc-99m 1 day Rest: Stress: Viability: Radiopharm.Tc99m [id number] Sestamibi Dose12.4mCi 34mCi Duration 15min. 10min. Img Date 04/28/2017 04/28/2017 Inj-Img [id number]. 75min. Rest Admin Site:IV - Left ForearmAdministrator:CAROLYN Daniels Stress Admin Site: IV - Left ForearmAdministrator: DENICE Farris, ARRT (R)(N) STRESS DATA End Diast. Vol.80.0mlAv. Heart Buyz558.0bpm End Syst. Vol.32.0mlCO Index BSA0.0L/min Myocardial Ipqe222.0gEject. Nmbrmqon49.0% Stress Rates Pk. Fill Rate5.21EDV/secLVtime Pk. Fill 143.09msec Pk. Empty Rate4.77ESV/secLVtime Pk. Eioov136.27msec 08/26 Pk. Fill0.73EDV/sec Stress Scores Regional WT1.00Summed WT8.00 Regional WM0.00Summed WM10.00 LV Perf. Quant 17 Seg. SSS4.00 17 Seg. SRS2.00 17 Seg. SDS2.00 Stress Defect Extent (% LAD)0.00Rest Defect Extent (% LAD)0.00Rev. Defect Extent (% LAD)0.00 Stress Defect Extent (% LCX) 21.30Rest Defect Extent (% LCX)10.00Rev. Defect Extent (% LCX)2.50 Stress Defect Extent (% RCA)8.90Rest Defect Extent (% RCA)7.80Rev. Defect Extent (% RCA)0.00 Stress Defect Extent (% ANGIE)8.70Rest Defect Extent (% ANGIE)5.70Rev. Defect Extent (% ANGIE)0.40 Conclusion 1. Baseline electrocardiogram shows atrial fibrillation and premature ventricular contractions. 2. There was no ST segment depression suggestive of myocardial ischemia with pharmacological stress. 3. There is a moderate sized perfusion defect in the lateral wall much more prominent with stress boo n with rest. 4. This is suggestive of myocardial ischemia there is no significant myocardial scar. 5. There is normal wall motion and wall thickening except for a small portion over the lateral wall a nd an ejection fraction is 60%. 6. Scan indicates low to moderate risk for future cardiac events.
[2017-04-28] MEDS ORDERED: ANTI-COAG MONITOR BY PHARMACY. MC PRN (15:15)
[2017-04-28] MEDS ORDERED: INSULIN ASPART 300 UNITS/3 ML INSULN.PEN SQ STA (16:59)
--- NOTE | 2017-04-28 20:10 | DS ---
DATE OF DISCHARGE: 04/28/2017 CHIEF COMPLAINT: Dyspnea. HOSPITAL COURSE: The patient is a 71-year-old gentleman with past medical history of CAD, CHF, diabetes, who presented to the hospital with worsening dyspnea on exertion. He was thought to have CHF, was therefore admitted with cardiac consult. Echo however, revealed a normal EF and diastolic function. MPI was obtained as well, which revealed a small area of ischemia, slightly worse on exertion and at rest. This was discussed with his senior medical director, Dr. Munoz. Further workup is planned on an outpatient basis. For his shortness of breath, which was somewhat improved, recommendations were for followup with Pulmonary services for evaluation of underlying lung disease. Diabetes was poorly controlled in house. This was partially due to holding Levemir doses due to n.p.o. status. He also typically works at night and is therefore giving himself higher doses at night than during the day. This, however, was tolerated given the circumstances. PHYSICAL EXAMINATION: VITAL SIGNS: From today show a blood pressure of 118/67, heart rate of 93, respiratory rate at 20. He is afebrile, satting 99% on room air. GENERAL: This is a 71-year-old well-nourished gentleman, alert and oriented, no acute distress. LUNGS: Clear. HEART: Regular rate and rhythm. ABDOMEN: Has positive bowel sounds, soft, nontender. EXTREMITIES: Show no edema. DISCHARGE DATE: 04/28/2017. DISCHARGE DIAGNOSES: Dyspnea, coronary artery disease, diabetes mellitus. DISCHARGE DISPOSITION: To home. DISCHARGE CONDITION: Improved. DISCHARGE MEDICATIONS: Please refer to MAR. DISCHARGE INSTRUCTIONS: The patient will follow up with PCP. He will obtain referral to Pulmonary (Dr. Domingo or Dr. Garcia). He will follow up with Dr. Munoz in 2-4 weeks for further evaluation. WILFREDO ESPINAL MD DR: MONTY/nts JOB#: [id number] / [id number] BERNARDA Daniel MD
== END 2017-04-28 17:17 | disposition home or self-care (01) | DRG 311 ==
LOC: ER 17:36 → 5 SOUTH 19:45
PROVIDERS: ADMIT Internal Medicine; ATTEND Internal Medicine
DX: I24.9 Acute ischemic heart disease, unspecified (principal); D69.3 Immune thrombocytopenic purpura; E11.22 Type 2 diabetes mellitus with diabetic chronic kidney disease; I13.0 Hypertensive heart and chronic kidney disease with heart failure and stage 1 through stage 4 chronic kidney disease, or unspecified chronic kidney disease; E11.65 Type 2 diabetes mellitus with hyperglycemia; D69.6 Thrombocytopenia, unspecified; I50.9 Heart failure, unspecified; I25.10 Atherosclerotic heart disease of native coronary artery without angina pectoris; J84.10 Pulmonary fibrosis, unspecified; C61 Malignant neoplasm of prostate; I48.91 Unspecified atrial fibrillation; E78.00 Pure hypercholesterolemia, unspecified; E78.5 Hyperlipidemia, unspecified; N18.9 Chronic kidney disease, unspecified; Z79.4 Long term (current) use of insulin; Z79.82 Long term (current) use of aspirin; Z79.899 Other long term (current) drug therapy; I25.2 Old myocardial infarction; Z80.1 Family history of malignant neoplasm of trachea, bronchus and lung; Z83.3 Family history of diabetes mellitus; Z87.891 Personal history of nicotine dependence; Z95.1 Presence of aortocoronary bypass graft; Z87.01 Personal history of pneumonia (recurrent); Z90.89 Acquired absence of other organs
CPT/HCPCS: 36415; 71010; 71020; 78452; 80053; 80061; 82962; 83036; 83880; 84443; 84484; 85025; 93005; 93017; 93306; 94250; 94640; 96365; 96366; 96374; 96375; 96376; A9500; J1720; J1815; J2785; J3490; J7613; 99285-25

== ENCOUNTER 2017-06-11 07:37 | Emergency (ER) | payer OTHER ==
[~2017-06-11] VITALS: Ht 177.8 cm; Wt 77.1 kg
[~2017-06-11 07:37] MED LIST changes: +ASPI325T11 PO; +NAPR220C4 PO; +VENTOLIN HFA18 GM INH
--- NOTE | 2017-06-11 08:04 | PHYS DOC ---
Past Medical History Past Medical History: A-Fib, Diabetes-Type II, High Cholesterol, Hypertension, [place] Additional Past Medical Histor: [place] MAY 1999 Past Surgical History: Tonsillectomy, Other Additional Past Surgical Histo: CABAG Alcohol Use: None Drug Use: None Adult General Chief Complaint Chief Complaint: HEADACHE HPI HPI Patient is a 71 year old male with a history of CAD, diabetes, and a-fib on coumadin presents to the ED complaining of left neck swelling x 1 week. States he was seen at an ED and given flonase. Describes the neck pain as sharp. Rates the pain as 6/10. Seen in our ED in early April and worked up for possible CHF but had normal echo. Started on warfarin for his a-fib and has been following up with Dr. Munoz outpatient. Denies chest pain, shortness of breath, dizziness, weakness, vision changes, photophobia, nausea/vomiting, abdominal pain, or syncope. Review of Systems Review of Systems Constitutional: Denies fever or chills [] Eyes: Denies change in visual acuity, redness, or eye pain [] HENT: Denies nasal congestion or sore throat [] Respiratory: Denies cough or shortness of breath [] Cardiovascular: No additional information not addressed in HPI [] GI: Denies abdominal pain, nausea, vomiting, bloody stools or diarrhea [] : Denies dysuria or hematuria [] Musculoskeletal: Denies back pain or joint pain [] Integument: Denies rash or skin lesions [] Neurologic: Denies headache, focal weakness or sensory changes [] Endocrine: Denies polyuria or polydipsia [] Current Medications Current Medications Current Medications Medications (Trade) Dose Ordered Sig/Yessy Start Time Stop Time Status Last Admin Dose Admin Acetaminophen/ Hydrocodone Bitart (Lortab 5/325) 1 tab 1X ONCE 06/11/17 08:30 06/11/17 08:31 DC 06/11/17 08:27 1 TAB Info (Do NOT chart on this entry -- for MONITORING) 1 each PRN DAILY PRN 06/11/17 09:30 06/11/17 11:17 DC Iohexol (Omnipaque 300 Mg/ml) 75 ml 1X ONCE 06/11/17 10:00 06/11/17 10:01 DC 06/11/17 09:39 75 ML Ondansetron HCl (Zofran) 4 mg 1X ONCE 06/11/17 09:00 06/11/17 09:00 DC Sodium Chloride 1,000 ml @ 1,000 mls/hr 1X ONCE 06/11/17 09:15 06/11/17 10:14 DC 06/11/17 08:48 1,000 MLS/HR Allergies Allergies Allergies Coded Allergies Type Severity Reaction Last Updated Verified No Known Drug Allergies 03/10/17 No Physical Exam Physical Exam Constitutional: Well developed, well nourished, no acute distress, non-toxic appearance. [] HENT: Normocephalic, atraumatic, bilateral external ears normal, oropharynx moist, no oral exudates, nose normal. [] Eyes: PERRLA, EOMI, conjunctiva normal, no discharge. [] Neck: Normal range of motion, LEFT ANTERIOR CERVICAL CHAIN NECK MASS, no stridor. [] Cardiovascular:Heart rate regular rhythm, no murmur [] Lungs & Thorax: Bilateral breath sounds clear to auscultation [] Abdomen: Bowel sounds normal, soft, no tenderness, no masses, no pulsatile masses. [] Skin: Warm, dry, no erythema, no rash. [] Back: No tenderness, no CVA tenderness. [] Extremities: No tenderness, no cyanosis, no clubbing, ROM intact, no edema. [] Neurologic: Alert and oriented X 3, normal motor function, normal sensory function, no focal deficits noted. [] Psychologic: Affect normal, judgement normal, mood normal. [] Current Patient Data Vital Signs Vital Signs Date Time Temp Pulse Resp B/P (MAP) Pulse Ox O2 Delivery O2 Flow Rate FiO2 06/11/17 09:27 70 18 95 06/11/17 07:45 98.3 Room Air 98.3 Lab Values Laboratory Tests Test 06/11/17 08:45 White Blood Count 11.4 x10^3/uL (4.0-11.0) H Red Blood Count 4.02 x10^6/uL (4.30-5.70) L Hemoglobin 11.8 g/dL (13.0-17.5) L Hematocrit 35.0 % (39.0-53.0) L Mean Corpuscular Volume 87 fL (79-100) Mean Corpuscular Hemoglobin 29 pg (25-35) Mean Corpuscular Hemoglobin Concent 34 g/dL (31-37) Red Cell Distribution Width 15.2 % (11.5-14.5) H Platelet Count 231 x10^3/uL (140-400) Prothrombin Time 27.3 SEC (11.7-14.0) H Prothrombin Time INR 2.7 (0.8-1.1) H PTT 80 SEC (24-38) H Sodium Level 136 mmol/L (136-145) Potassium Level 4.0 mmol/L (3.5-5.1) Chloride Level 100 mmol/L (98-107) Carbon Dioxide Level 26 mmol/L (21-32) Anion Gap 10 (6-14) Blood Urea Nitrogen 43 mg/dL (8-26) H Creatinine 1.8 mg/dL (0.7-1.3) H Estimated GFR (Cockcroft-Gault) 37.3 BUN/Creatinine Ratio 24 (6-20) H Glucose Level 242 mg/dL (70-99) H Calcium Level 8.7 mg/dL (8.5-10.1) Total Bilirubin 0.4 mg/dL (0.2-1.0) Aspartate Amino Transferase (AST) 40 U/L (15-37) H Alanine Aminotransferase (ALT) 37 U/L (16-63) Alkaline Phosphatase 277 U/L (46-116) H Troponin I Quantitative < 0.017 ng/mL (0.000-0.055) Total Protein 8.1 g/dL (6.4-8.2) Albumin 3.3 g/dL (3.4-5.0) L Albumin/Globulin Ratio 0.7 (1.0-1.7) L Laboratory Tests 06/11/17 08:45 Laboratory Tests 06/11/17 08:45 EKG EKG [] Radiology/Procedures Radiology/Procedures PROCEDURE: CT HEAD WO/W CONTRAST EXAM: 1. CT head with and without contrast. 2. CT neck soft tissues with contrast. HISTORY: Palpable mass left neck. TECHNIQUE: CT of the head was performed before and after the intravenous administration of iodinated contrast. CT of the neck soft tissues was performed after intravenous contrast. COMPARISON: None. FINDINGS: No clear enhancing brain lesions are appreciated by CT. There is no intracranial hemorrhage. Mild hypoattenuation within the periventricular white matter indicates mild chronic small vessel ischemic change. Prominence of the lateral ventricles and hemispheric sulci indicate mild atrophy. The orbits, paranasal sinuses, temporal bones and calvarium are unremarkable. Images of the lung apices reveal interstitial line thickening in the right greater than left upper lobes suggesting interstitial lung disease. Bone windows reveal no clear suspicious lesions. There is an enhancing nodule along the left base of the tongue measuring 2.4 x 1.4 x 1.2 cm. No invasion of adjacent structures or extension 2 additional spaces is identified. There is no regular hypoattenuating mass in the left jugulodigastric territory consistent within the chronic lymph node. It measures 3.0 x 2.0 cm and compresses the left internal jugular vein. Another involves nonnecrotic node just inferior to this measures 2.2 x 1.7 cm. Multiple small additional involvement nodes in the left posterior cervical triangle inferiorly measure up to 12 x 12 mm. There are no clearly pathologic nodes on the right. The necrotic node results in some surrounding edema that extends into the retropharyngeal space. There is no clear drainable collection. The parotid glands, submandibular glands and thyroid gland are unremarkable. IMPRESSION: 1. 2.4 x 1.4 x 1.2 cm enhancing mass along the left base of the tongue, concerning for squamous of carcinoma. The right visualization is recommended. 2. 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 Multiple other involved lymph nodes are suspected on the left. PET/CT could further assess lymph node involvement. 3. The left neck mass results in surrounding and retropharyngeal edema. Correlate to exclude superimposed infection. No drainable collection. 4. No evidence of metastatic disease to the brain by CT. MRI is more sensitive if there is persistent concern. 5. Mild atrophy and chronic small vessel ischemic white matter change. 6. Interstitial opacities in the right greater than left upper lobes may be post inflammatory or indicate interstitial lung disease.[] Course & Med Decision Making Course & Med Decision Making Pertinent Labs and Imaging studies reviewed. (See chart for details) []Discussed labs and imaging with patient. Mass concern for squamous cell carcinoma, necrotic lymph nodes with metastases and retropharyngeal edema. Discussed details indepth at bedside with patient. Patient's pain improved. Patent airway. Tolerating PO. Vital stable, no acute distress. Patient offered transfer to but he refused. States he will follow-up tomorrow outpatient. Will cover with clindamycin although infection doesn't seem to be the cause. Discussed follow-up with patient at Dr. Sands, ENT specialist, tomorrow. Provided contact information and education for follow-up tomorrow. Patient discharged with imaging CD and report. Discussed reasons to return to the ED. Patient understands and agrees with plan. Discussed case with attending physician. Agrees with eval and plan. Dragon Disclaimer Dragon Disclaimer This electronic medical record was generated, in whole or in part, using a voice recognition dictation system. Departure Departure Impression: Primary Impression: Neck mass Disposition: HOME, SELF-CARE Condition: STABLE Referrals: BERNARDA MURDOCK Jr, MD (PCP) Patient Instructions: Squamous Cell Carcinoma Additional Instructions: Dr. Sands/Dr. Flower ENT. Dr. Puneet Sands [facility]ol[facility] [address] [address], [place] [address] [phone] Scripts Clindamycin Hcl (CLINDAMYCIN HCL) 300 Mg Capsule 1 CAP PO TID, #30 CAP Prov: TRI LANG 06/11/17 TRI LANG Jun 11, 2017 08:04
--- NOTE | 2017-06-11 08:23 | EKG ---
[facility] [address] [place] [address] Test Date: 2017-06-11 Test Time: 08:18:52 Pat Name: SHIRA ZHAO Department: Room: Gender: M [employer]: : 1945 Requested By: TRI LANG Order Number: [id number] Reading MD: Measurements Intervals [place] Rate: 77 P: 44 HI: 184 QRS: 22 QRSD: 98 T: -6 QT: 372 QTc: 423 Interpretive Statements SINUS RHYTHM LOW LIMB LEAD VOLTAGE QRS(T) CONTOUR ABNORMALITY CONSISTENT WITH INFERIOR INFARCT AGE UNDETERMINED ABNORMAL ECG RI6.01 No previous ECG available for comparison
[2017-06-11] MEDS ORDERED: HYDROcodone/APAP 5/325MG 1 TAB TABLET PO ONE (08:30)
[2017-06-11 08:55] LABS: HEMOGLOBIN 11.8 g/dL (13.0-17.5); RED BLOOD COUNT 4.02 x10^6/uL (4.30-5.70); RED CELL DISTRIBUTION WIDTH 15.2 % (11.5-14.5); WHITE BLOOD COUNT 11.4 x10^3/uL (4.0-11.0)
[2017-06-11] MEDS ORDERED: ONDANSETRON PF 4 MG/2 ML VIAL. IV ONE (09:00)
[2017-06-11 09:04] LABS: INR 2.7 (0.8-1.1); PROTHROMBIN TIME PATIENT 27.3 SEC (11.7-14.0)
[2017-06-11 09:11] LABS: CALCIUM 8.7 mg/dL (8.5-10.1); CREATININE 1.8 mg/dL (0.7-1.3); GFR 37.3
[2017-06-11] MEDS ORDERED: IV NORMAL SALINE 1000ML BAG 1,000 ML IV ONE (09:15)
[2017-06-11 09:24] LABS: ALBUMIN 3.3 g/dL (3.4-5.0); ALBUMIN/GLOBULIN RATIO 0.7 (1.0-1.7); TOTAL BILIRUBIN 0.4 mg/dL (0.2-1.0); TOTAL PROTEIN 8.1 g/dL (6.4-8.2)
[2017-06-11 09:27] VITALS: BP 156/67
[2017-06-11] MEDS ORDERED: CONTRAST GIVEN MC PRN (09:30)
[2017-06-11] MEDS ORDERED: IOHEXOL 300 MG/ML 75 ML VIAL IV ONE ×2 (10:00)
[2017-06-11] MEDS ORDERED: CLIN300C8 PO (10:38)
--- NOTE | 2017-06-11 13:26 | RAD ---
EXAM: 1. CT head with and without contrast. 2. CT neck soft tissues with contrast. HISTORY: Palpable mass left neck. TECHNIQUE: CT of the head was performed before and after the intravenous administration of iodinated contrast. CT of the neck soft tissues was performed after intravenous contrast. COMPARISON: None. FINDINGS: No clear enhancing brain lesions are appreciated by CT. There is no intracranial hemorrhage. Mild hypoattenuation within the periventricular white matter indicates mild chronic small vessel ischemic change. Prominence of the lateral ventricles and hemispheric sulci indicate mild atrophy. The orbits, paranasal sinuses, temporal bones and calvarium are unremarkable. Images of the lung apices reveal interstitial line thickening in the right greater than left upper lobes suggesting interstitial lung disease. Bone windows reveal no clear suspicious lesions. There is an enhancing nodule along the left base of the tongue measuring 2.4 x 1.4 x 1.2 cm. No invasion of adjacent structures or extension 2 additional spaces is identified. There is no regular hypoattenuating mass in the left jugulodigastric territory consistent within the chronic lymph node. It measures 3.0 x 2.0 cm and compresses the left internal jugular vein. Another involves nonnecrotic node just inferior to this measures 2.2 x 1.7 cm. Multiple small additional involvement nodes in the left posterior cervical triangle inferiorly measure up to 12 x 12 mm. There are no clearly pathologic nodes on the right. The necrotic node results in some surrounding edema that extends into the retropharyngeal space. There is no clear drainable collection. The parotid glands, submandibular glands and thyroid gland are unremarkable. IMPRESSION: 1. 2.4 x 1.4 x 1.2 cm enhancing mass along the left base of the tongue, concerning for squamous of carcinoma. The right visualization is recommended. 2. 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 Multiple other involved lymph nodes are suspected on the left. PET/CT could further assess lymph node involvement. 3. The left neck mass results in surrounding and retropharyngeal edema. Correlate to exclude superimposed infection. No drainable collection. 4. No evidence of metastatic disease to the brain by CT. MRI is more sensitive if there is persistent concern. 5. Mild atrophy and chronic small vessel ischemic white matter change. 6. Interstitial opacities in the right greater than left upper lobes may be post inflammatory or indicate interstitial lung disease. One or more of the following individualized dose reduction techniques were utilized for this examination: 1. Automated exposure control. 2. Adjustment of the mA and/or kV according to patient size. 3. Use of iterative reconstruction technique. MTDD
== END 2017-06-11 10:29 | disposition home or self-care (01) ==
LOC: ER 07:37
DX: R22.1 Localized swelling, mass and lump, neck (principal); E11.9 Type 2 diabetes mellitus without complications; E78.00 Pure hypercholesterolemia, unspecified; I10 Essential (primary) hypertension; I48.91 Unspecified atrial fibrillation; I25.2 Old myocardial infarction; Z79.01 Long term (current) use of anticoagulants; I25.10 Atherosclerotic heart disease of native coronary artery without angina pectoris; Z95.1 Presence of aortocoronary bypass graft
CPT/HCPCS: 36415; 70470; 70491; 80053; 84484; 85027; 85610; 85730; 93005; 96360; 99285; J7030; Q9967

== ENCOUNTER 2017-06-12 09:32 | Emergency (ER) | payer OTHER ==
[~2017-06-12] VITALS: Ht 177.8 cm; Wt 79.4 kg
[~2017-06-12 09:32] MED LIST changes: +CLIN300C8 PO
[2017-06-12 09:40] VITALS: BP 156/67
--- NOTE | 2017-06-12 09:40 | PHYS DOC ---
Past Medical History Past Medical History: A-Fib, Diabetes-Type II, High Cholesterol, Hypertension, [place], Renal Disease, [place] Additional Past Medical Histor: [place] MAY 1999, stage three renal disease Past Surgical History: Tonsillectomy, Other Additional Past Surgical Histo: CABAG Alcohol Use: None Drug Use: None Adult General Chief Complaint Chief Complaint: OTHER COMPLAINTS [facility] HPI Patient is a 71 year old male who presents with feels like a pill stuck in his throat. He states he took his Crestor, atenolol and 2 Aleve a physical and please second back his throat. He states this happened around 8 AM this morning. He states he drinks more watering ate some toast but he still has a sensation of something stuck in the back of his throat. He denies any pain, troubles breathing or swallowing. He was seen yesterday and was evaluated for his mass in his left side of his throat and it was determined that could be cancer and is going to call today an ears nose and throat physician and be evaluated for this mass. He denies any chest pain, confusion, fevers or chills nausea or vomiting. Review of Systems Review of Systems Constitutional: Denies fever or chills [] Eyes: Denies change in visual acuity, redness, or eye pain [] HENT: Denies nasal congestion or sore throat [] Respiratory: Denies cough or shortness of breath [] Cardiovascular: No additional information not addressed in HPI [] GI: Denies abdominal pain, nausea, vomiting, bloody stools or diarrhea [] : Denies dysuria or hematuria [] Musculoskeletal: Denies back pain or joint pain [] Integument: Denies rash or skin lesions [] Neurologic: Denies headache, focal weakness or sensory changes [] Endocrine: Denies polyuria or polydipsia [] Current Medications Current Medications Current Medications Medications (Trade) Dose Ordered Sig/Yessy Start Time Stop Time Status Last Admin Dose Admin Multi-Ingredient Mouthwash/Gargle (Gi Cocktail Single Dose) 15 ml 1X ONCE 06/12/17 10:00 06/12/17 10:01 DC 06/12/17 10:05 15 ML Allergies Allergies Allergies Coded Allergies Type Severity Reaction Last Updated Verified No Known Drug Allergies 03/10/17 No Physical Exam Physical Exam Constitutional: Well developed, well nourished, no acute distress, non-toxic appearance. [] HENT: Normocephalic, atraumatic, bilateral external ears normal, oropharynx moist, no oral exudates, nose normal. Posterior pharynx clear. Eyes: PERRLA, EOMI, conjunctiva normal, no discharge. [] Neck: Normal range of motion, mild tender palpation over the left lateral neck was masses at, supple, no stridor. [] Cardiovascular:Heart rate regular rhythm, no murmur [] Lungs & Thorax: Bilateral breath sounds clear to auscultation [] Abdomen: Bowel sounds normal, soft, no tenderness, no masses, no pulsatile masses. [] Skin: Warm, dry, no erythema, no rash. [] Back: No tenderness, no CVA tenderness. [] Extremities: No tenderness, no cyanosis, no clubbing, ROM intact, no edema. [] Neurologic: Alert and oriented X 3, normal motor function, normal sensory function, no focal deficits noted. [] Psychologic: Affect normal, judgement normal, mood normal. [] Current Patient Data Vital Signs Vital Signs Date Time Temp Pulse Resp B/P (MAP) Pulse Ox O2 Delivery O2 Flow Rate FiO2 06/12/17 09:40 98.6 76 20 156/67 (96) 97 Room Air 98.6 EKG EKG [] Radiology/Procedures Radiology/Procedures [] Impressions: Foreign body sensation in neck Course & Med Decision Making Course & Med Decision Making Pertinent Labs and Imaging studies reviewed. (See chart for details) Patient has no signs of stridor, wheezing, he's handling secretions fine. I suspect that the Aleve irritated the back of his throat and is now dissolved. He was given a GI cocktail which did help relieve his symptoms. He is being discharged home shortly to follow-up with ears nose and throat physician, if his symptoms get worse, he has trouble swallowing breathing or other concerns he is to return back to ER immediately. He is agreeable plan of being discharged in stable condition this time. Dragon Disclaimer Dragon Disclaimer This electronic medical record was generated, in whole or in part, using a voice recognition dictation system. Departure Departure Impression: Primary Impression: Sensation of foreign body in throat Disposition: 01 HOME, SELF-CARE Condition: STABLE Referrals: BERNARDA MURDOCK Jr, MD (PCP) Patient Instructions: Sore Throat Additional Instructions: The Aleve you swallow likely cause an irritation in the back your throat and the sensation should resolve over the next several hours to a day. If you have trouble swallowing, severe pain, troubles breathing, or other concerns please return back to emergency department for further evaluation and treatment. Please call your ears nose and throat physician and schedule follow-up appointment for the mass that you have in your throat. Sooner your evaluated for this mass the sooner the [place] with going on and perhaps resolve this. Any mass in your throat is very concerning for cancer and needs to be followed up on immediately. DRAGAN REDD MD Jun 12, 2017 09:40
[2017-06-12] MEDS ORDERED: LIDO:MAALOX:DONNATAL 1:1:1 15 ML SINGLE DOSE SWSW ONE (10:00)
== END 2017-06-12 10:45 | disposition home or self-care (01) ==
LOC: ER 09:32
DX: R09.89 Other specified symptoms and signs involving the circulatory and respiratory systems (principal); I12.9 Hypertensive chronic kidney disease with stage 1 through stage 4 chronic kidney disease, or unspecified chronic kidney disease; E11.22 Type 2 diabetes mellitus with diabetic chronic kidney disease; N18.9 Chronic kidney disease, unspecified; E78.00 Pure hypercholesterolemia, unspecified; I48.91 Unspecified atrial fibrillation; I25.2 Old myocardial infarction; Z95.5 Presence of coronary angioplasty implant and graft
CPT/HCPCS: 99282

== ENCOUNTER 2018-04-14 10:23 | Emergency (ER) | payer OTHER ==
[~2018-04-14] VITALS: Ht 177.8 cm; Wt 73.9 kg
--- NOTE | 2018-04-14 10:36 | PHYS DOC ---
Past Medical History Past Medical History: CAD, Cancer Additional Past Medical Histor: [place] MAY 1999, stage three renal disease Past Surgical History: Other Additional Past Surgical Histo: CABAG Alcohol Use: None Drug Use: None Adult General Chief Complaint Chief Complaint: CHEST PAIN HPI HPI Patient is a 72-year-old male who presents with complaint of chest discomfort that started this morning. He indicates that prior to the chest pain, he has had pain in his bilateral posterior shoulders and upper back that started 2 days ago while at work. He indicates that pain at first was moderate but then yesterday he went back to work and pain had progressively worsened to the point he hadn't indicated the pain was excruciating. He describes pain as being sharp and stabbing in nature and states the pain is worsened with breathing and movement. He denies any cough. Patient states that nothing improves the symptoms. He also states that pain is worsened when lying flat. Review of Systems Review of Systems Constitutional: Denies fever or chills [] Respiratory: Denies cough or shortness of breath [] Cardiovascular: Positive chest wall pain[] GI: Denies abdominal pain, nausea, vomiting or diarrhea [] Musculoskeletal: Positive upper back and posterior shoulder pain bilaterally[] All other systems were reviewed and found to be within normal limits, except as documented in this note. Current Medications Current Medications Current Medications Medications (Trade) Dose Ordered Sig/Yessy Start Time Stop Time Status Last Admin Dose Admin Fentanyl Citrate (Fentanyl 2ml Vial) 25 mcg PRN Q15MIN PRN 04/14/18 10:45 04/15/18 10:44 04/14/18 10:50 25 MCG Ondansetron HCl (Zofran) 4 mg 1X ONCE 04/14/18 10:45 04/14/18 10:46 DC 04/14/18 10:51 4 MG Orphenadrine Citrate (Norflex) 60 mg 1X ONCE 04/14/18 10:45 04/14/18 10:46 DC 04/14/18 10:51 60 MG Sodium Chloride 1,000 ml @ 100 mls/hr Q10H 04/14/18 10:31 04/14/18 20:30 04/14/18 10:50 100 MLS/HR Allergies Allergies Allergies Coded Allergies Type Severity Reaction Last Updated Verified No Known Drug Allergies 03/10/17 No Physical Exam Physical Exam Constitutional: Well developed, well nourished, no acute distress, non-toxic appearance. [] HENT: Normocephalic, atraumatic, bilateral external ears normal, oropharynx moist, no oral exudates, nose normal. [] Eyes: PERRLA, EOMI, conjunctiva normal, no discharge. [] Neck: Normal range of motion, no tenderness, supple, no stridor. [] Cardiovascular:Heart rate regular rhythm. There is tenderness to palpation along the left mid to upper sternal border, but patient reports reproduces his pain. [] Lungs & Thorax: Bilateral breath sounds clear to auscultation [] Abdomen: Bowel sounds normal, soft, no tenderness. [] Skin: Warm, dry, no erythema, no rash. [] Back: There is tenderness to palpation in the bilateral trapezius as well as upper thoracic paraspinal musculature that reproduces patient's pain. [] Extremities: No tenderness, no cyanosis, no clubbing, ROM intact, no edema. [] Neurologic: Alert and oriented X 3, normal motor function, normal sensory function, no focal deficits noted. [] Current Patient Data Vital Signs Vital Signs Date Time Temp Pulse Resp B/P (MAP) Pulse Ox O2 Delivery O2 Flow Rate FiO2 04/14/18 10:24 98.5 91 18 134/60 (84) 95 Room Air 98.5 Lab Values Laboratory Tests Test 04/14/18 10:36 White Blood Count 8.7 x10^3/uL (4.0-11.0) Red Blood Count 3.71 x10^6/uL (4.30-5.70) L Hemoglobin 11.8 g/dL (13.0-17.5) L Hematocrit 34.1 % (39.0-53.0) L Mean Corpuscular Volume 92 fL (79-100) Mean Corpuscular Hemoglobin 32 pg (25-35) Mean Corpuscular Hemoglobin Concent 35 g/dL (31-37) Red Cell Distribution Width 13.6 % (11.5-14.5) Platelet Count 181 x10^3/uL (140-400) Neutrophils (%) (Auto) 73 % (31-73) Lymphocytes (%) (Auto) 14 % (24-48) L Monocytes (%) (Auto) 10 % (0-9) H Eosinophils (%) (Auto) 2 % (0-3) Basophils (%) (Auto) 1 % (0-3) Neutrophils # (Auto) 6.4 x10^3uL (1.8-7.7) Lymphocytes # (Auto) 1.2 x10^3/uL (1.0-4.8) Monocytes # (Auto) 0.9 x10^3/uL (0.0-1.1) Eosinophils # (Auto) 0.1 x10^3/uL (0.0-0.7) Basophils # (Auto) 0.1 x10^3/uL (0.0-0.2) Sodium Level 133 mmol/L (136-145) L Potassium Level 4.2 mmol/L (3.5-5.1) Chloride Level 97 mmol/L (98-107) L Carbon Dioxide Level 28 mmol/L (21-32) Anion Gap 8 (6-14) Blood Urea Nitrogen 21 mg/dL (8-26) Creatinine 1.4 mg/dL (0.7-1.3) H Estimated GFR (Cockcroft-Gault) 49.7 BUN/Creatinine Ratio 15 (6-20) Glucose Level 250 mg/dL (70-99) H Calcium Level 9.8 mg/dL (8.5-10.1) Magnesium Level 1.9 mg/dL (1.8-2.4) Total Bilirubin 0.8 mg/dL (0.2-1.0) Aspartate Amino Transferase (AST) 61 U/L (15-37) H Alanine Aminotransferase (ALT) 49 U/L (16-63) Alkaline Phosphatase 203 U/L (46-116) H Troponin I Quantitative < 0.017 ng/mL (0.000-0.055) Total Protein 8.4 g/dL (6.4-8.2) H Albumin 3.9 g/dL (3.4-5.0) Albumin/Globulin Ratio 0.9 (1.0-1.7) L Laboratory Tests 04/14/18 10:36 Laboratory Tests 04/14/18 10:36 EKG EKG [] Interpretation Time: EKG demonstrates normal sinus rhythm with rate of 93. There are nonspecific ST- T wave abnormalities. Radiology/Procedures Radiology/Procedures [] Impressions: Impression: 1. Possible mild right midlung infiltrate 2. Chronic diffusion interstitial coarsening and multifocal scarring Course & Med Decision Making Course & Med Decision Making Pertinent Labs and Imaging studies reviewed. (See chart for details) [] Dragon Disclaimer Dragon Disclaimer This electronic medical record was generated, in whole or in part, using a voice recognition dictation system. Departure Departure Impression: Primary Impression: Upper back pain Additional Impressions: Muscle spasm of back Chest wall pain Disposition: HOME, SELF-CARE Condition: STABLE Referrals: BERNARDA MURDOCK Jr, MD (PCP) Patient Instructions: Back Pain, Adult, Chest Wall Pain Additional Instructions: Take prescribed medication as directed and follow-up with your primary care provider in the next few days. Scripts Naproxen (NAPROSYN) 500 Mg Tablet 1 TAB PO BID PRN for PAIN, #20 TAB Prov: GERMAIN DE LOS SANTOS Jr. DO 04/14/18 Orphenadrine Citrate (ORPHENADRINE CITRATE) 100 Mg Tablet.er 1 TAB PO BID PRN for PAIN, #10 TAB Prov: GERMAIN DE LOS SANTOS Jr. DO 04/14/18 Tramadol Hcl (TRAMADOL HCL) 50 Mg Tablet 50 MG PO Q6HRS PRN for PAIN, #15 TAB Prov: GERMAIN DE LOS SANTOS Jr. DO 04/14/18 Problem Qualifiers GERMAIN DE LOS SANTOS Jr. DO Apr 14, 2018 10:36
[2018-04-14 10:48] LABS: BASO # 0.1 x10^3/uL (0.0-0.2); BASO % 1 % (0-3); EOS # 0.1 x10^3/uL (0.0-0.7); EOS % 2 % (0-3); HEMATOCRIT 34.1 % (39.0-53.0); HEMOGLOBIN 11.8 g/dL (13.0-17.5); LYMPH # 1.2 x10^3/uL (1.0-4.8); LYMPH % 14 % (24-48); MEAN CORPUSCULAR HEMOGLOBIN 32 pg (25-35); MEAN CORPUSCULAR HGB CONC 35 g/dL (31-37); MEAN CORPUSCULAR VOLUME 92 fL (79-100); MONO # 0.9 x10^3/uL (0.0-1.1); MONO % 10 % (0-9); NEUT # 6.4 x10^3uL (1.8-7.7); NEUT % 73 % (31-73); PLATELET COUNT 181 x10^3/uL (140-400); RED BLOOD COUNT 3.71 x10^6/uL (4.30-5.70); RED CELL DISTRIBUTION WIDTH 13.6 % (11.5-14.5); WHITE BLOOD COUNT 8.7 x10^3/uL (4.0-11.0)
[2018-04-14] MEDS: IV NORMAL SALINE 1000ML BAG 1,000 ML IV SCH (10:50)
[2018-04-14] MEDS: fentaNYL PF VIAL 100 MCG/2 ML VIAL IV PRN (10:50)
[2018-04-14] MEDS: ORPHENADRINE CITRATE 60 MG/2 ML VIAL. IV ONE (10:51)
[2018-04-14] MEDS: ONDANSETRON PF 4 MG/2 ML VIAL. IV ONE (10:51)
[2018-04-14 11:02] LABS: CALCIUM 9.8 mg/dL (8.5-10.1); CREATININE 1.4 mg/dL (0.7-1.3); GFR 49.7; POTASSIUM 4.2 mmol/L (3.5-5.1)
--- NOTE | 2018-04-14 11:05 | RAD ---
Single view of the chest. 04/14/2018 10:31 AM Indication: CHEST PAIN AND PAIN ACROSS UPPER BACK Comparison: Chest radiograph April 27, 2017 Findings: No pneumothorax or pleural effusion is identified. Heart size is normal. No acute osseous changes are identified. Diffuse interstitial coarsening with multifocal patchy opacities are seen in the right midlung and bilateral lung bases. Majority of this appears to be chronic and is present on prior exams. Mild infiltrate in the right midlung is difficult to completely exclude. Impression: 1. Possible mild right midlung infiltrate 2. Chronic diffusion interstitial coarsening and multifocal scarring Electronically signed by: Jeremias Sorto MD (04/14/2018 11:02 AM) [id number]
[2018-04-14 11:08] LABS: ALBUMIN 3.9 g/dL (3.4-5.0); ALBUMIN/GLOBULIN RATIO 0.9 (1.0-1.7); MAGNESIUM 1.9 mg/dL (1.8-2.4); TOTAL BILIRUBIN 0.8 mg/dL (0.2-1.0); TOTAL PROTEIN 8.4 g/dL (6.4-8.2)
--- NOTE | 2018-04-14 13:34 | EKG ---
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
[2018-04-14] MEDS ORDERED: ORPH100T PO (14:54)
[2018-04-14] MEDS ORDERED: TRAM50TA PO (14:54)
[2018-04-14] MEDS ORDERED: NAPR-683 PO (14:54)
[2018-04-14 15:23] VITALS: BP 176/80
[2018-04-16] MEDS ORDERED: ASPI-630 PO (22:33)
[2018-04-17] MEDS ORDERED: INSU100V13 SQ (07:03)
[2018-04-19] MEDS ORDERED: LEVO75TA PO (09:16)
== END 2018-04-14 15:41 | disposition home or self-care (01) ==
LOC: ER 10:23
DX: R07.89 Other chest pain (principal); M62.830 Muscle spasm of back; M54.6 Pain in thoracic spine; N18.3 Chronic kidney disease, stage 3 (moderate); I25.10 Atherosclerotic heart disease of native coronary artery without angina pectoris; I25.2 Old myocardial infarction; Z95.5 Presence of coronary angioplasty implant and graft
CPT/HCPCS: 99285; J2360; J2405; J3010; J7030; 36415; 71045; 80053; 83735; 84484; 85025; 93005; 96361; 96374; 96375

== ENCOUNTER 2018-05-20 12:13 | Emergency (ER) | payer OTHER ==
[~2018-05-20] VITALS: Ht 180.3 cm; Wt 74.8 kg
[~2018-05-20 12:13] MED LIST changes: +AMOX1TAB10 PO; +ASPI-630 PO; +ATOR40TA59 PO; -BICA50TA4 PO; +BICA50TA47 PO; +CHLO473M SWSP; +IPRA3AMP29 NEB; +LEVO75TA PO; +NAPR-683 PO; +ORPH100T PO; +PROP150T2 PO; +TRAM50TA PO
[2018-05-20] MEDS ORDERED: IV NORMAL SALINE 1000ML BAG 1,000 ML IV ONE ×2 (12:45→14:15)
[2018-05-20 13:04] LABS: BASO # 0.1 x10^3/uL (0.0-0.2); BASO % 1 % (0-3); EOS # 0.2 x10^3/uL (0.0-0.7); EOS % 2 % (0-3); HEMATOCRIT 29.9 % (39.0-53.0); HEMOGLOBIN 10.1 g/dL (13.0-17.5); LYMPH # 1.4 x10^3/uL (1.0-4.8); LYMPH % 18 % (24-48); MEAN CORPUSCULAR HEMOGLOBIN 31 pg (25-35); MEAN CORPUSCULAR HGB CONC 34 g/dL (31-37); MEAN CORPUSCULAR VOLUME 90 fL (79-100); MONO # 0.6 x10^3/uL (0.0-1.1); MONO % 8 % (0-9); NEUT # 5.5 x10^3uL (1.8-7.7); NEUT % 71 % (31-73); PLATELET COUNT 201 x10^3/uL (140-400); RED CELL DISTRIBUTION WIDTH 15.2 % (11.5-14.5); WHITE BLOOD COUNT 7.7 x10^3/uL (4.0-11.0)
[2018-05-20 13:11] LABS: CALCIUM 8.1 mg/dL (8.5-10.1); CREATININE 1.8 mg/dL (0.7-1.3); GFR 37.2
--- NOTE | 2018-05-20 13:35 | EKG ---
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
--- NOTE | 2018-05-20 13:43 | RAD ---
EXAM: CHEST 1 VIEW History: Fall COMPARISON: 04/29/2018 TECHNIQUE: Single portable radiograph of the chest FINDINGS: The cardiac silhouette is unremarkable. Mild diffuse prominent bilateral interstitial lung markings likely chronic interstitial changes or infiltrates. The costophrenic sulci are clear and well demarcated. IMPRESSION: No radiographic evidence of an acute cardiopulmonary process. Electronically signed by: John Mcmahan MD (05/20/2018 1:39 PM) [id number]
[2018-05-20 15:00] VITALS: BP 128/67
--- NOTE | 2018-05-20 15:27 | PHYS DOC ---
Past Medical History Past Medical History: A-Fib, Diabetes-Type I, High Cholesterol, Hypertension, [place] Additional Past Medical Histor: [place] MAY 1999, stage three renal disease Past Surgical History: Other Additional Past Surgical Histo: TNA, THROAT CANCER. CHEMO, RADIATION, IMPLANTED GLUCOMETER L. ARM Alcohol Use: None Drug Use: None Adult General Chief Complaint Chief Complaint: MECHANICAL FALL HPI HPI Patient is a 72 year old male who presents to the ER after a fall at home. Patient reports that he was working with physical therapy and walk across the room when his legs "gave out". Patient reports skin care to right elbow but denies any other injury. Patient reports that he Is up-to-date. Patient denies any head trauma. Patient reports dizziness with sitting up. Patient reports all of his blood pressure medications are discontinued secondary to hypotension. Patient denies any symptoms while supine in the bed. Patient recently hospitalized for pneumonia and discharged from rehabilitation. Patient denies any cough, generalized weakness, fever. Review of Systems Review of Systems Constitutional: Denies fever or chills [] Eyes: Denies change in visual acuity, redness, or eye pain [] HENT: Denies nasal congestion or sore throat [] Respiratory: Denies cough or shortness of breath [] Cardiovascular: Chest pain, no palpitations, no orthopnea GI: Denies abdominal pain, nausea, vomiting, bloody stools or diarrhea [] : Denies dysuria or hematuria [] Musculoskeletal: Denies back pain or joint pain [] Integument: Denies rash or skin lesions [] Neurologic: Denies headache, focal weakness or sensory changes [] Endocrine: Denies polyuria or polydipsia [] All other systems were reviewed and found to be within normal limits, except as documented in this note. Current Medications Current Medications Current Medications Medications (Trade) Dose Ordered Sig/Yessy Start Time Stop Time Status Last Admin Dose Admin Sodium Chloride 1,000 ml @ 1,000 mls/hr 1X ONCE 05/20/18 14:15 05/20/18 15:14 DC 05/20/18 14:19 1,000 MLS/HR Allergies Allergies Allergies Coded Allergies Type Severity Reaction Last Updated Verified No Known Drug Allergies 04/21/18 No Physical Exam Physical Exam Constitutional: Well, appears stated age. HENT: Normocephalic, atraumatic, Eyes: PERRLA, EOMI, conjunctiva normal, no discharge. [] Neck: Normal range of motion, no tenderness, supple, no stridor. [] Cardiovascular:Heart rate regular rhythm, no murmur [] Lungs & Thorax: Bilateral breath sounds clear to auscultation [] Abdomen: Bowel sounds normal, soft, no tenderness, no masses, no pulsatile masses. [] Skin: Warm, dry, no erythema, no rash. [] Back: No tenderness, no CVA tenderness. [] Extremities: No tenderness, no cyanosis, no clubbing, ROM intact, no edema. [] Neurologic: Alert and oriented X 3, normal motor function, normal sensory function, CN 2 through 12 intact bilaterally, cerebellar function intact with finger to nose and heel to khanna bilaterally. Psychologic: Affect normal, judgement normal, mood normal. [] Current Patient Data Vital Signs Vital Signs Date Time Temp Pulse Resp B/P (MAP) Pulse Ox O2 Delivery O2 Flow Rate FiO2 05/20/18 15:30 98 99 05/20/18 14:00 23 05/20/18 12:26 97.9 104/56 (72) Room Air 97.9 Lab Values Laboratory Tests Test 05/20/18 12:22 White Blood Count 7.7 x10^3/uL (4.0-11.0) Red Blood Count 3.30 x10^6/uL (4.30-5.70) L Hemoglobin 10.1 g/dL (13.0-17.5) L Hematocrit 29.9 % (39.0-53.0) L Mean Corpuscular Volume 90 fL (79-100) Mean Corpuscular Hemoglobin 31 pg (25-35) Mean Corpuscular Hemoglobin Concent 34 g/dL (31-37) Red Cell Distribution Width 15.2 % (11.5-14.5) H Platelet Count 201 x10^3/uL (140-400) Neutrophils (%) (Auto) 71 % (31-73) Lymphocytes (%) (Auto) 18 % (24-48) L Monocytes (%) (Auto) 8 % (0-9) Eosinophils (%) (Auto) 2 % (0-3) Basophils (%) (Auto) 1 % (0-3) Neutrophils # (Auto) 5.5 x10^3uL (1.8-7.7) Lymphocytes # (Auto) 1.4 x10^3/uL (1.0-4.8) Monocytes # (Auto) 0.6 x10^3/uL (0.0-1.1) Eosinophils # (Auto) 0.2 x10^3/uL (0.0-0.7) Basophils # (Auto) 0.1 x10^3/uL (0.0-0.2) Sodium Level 135 mmol/L (136-145) L Potassium Level 5.0 mmol/L (3.5-5.1) Chloride Level 100 mmol/L (98-107) Carbon Dioxide Level 25 mmol/L (21-32) Anion Gap 10 (6-14) Blood Urea Nitrogen 26 mg/dL (8-26) Creatinine 1.8 mg/dL (0.7-1.3) H Estimated GFR (Cockcroft-Gault) 37.2 Glucose Level 237 mg/dL (70-99) H Calcium Level 8.1 mg/dL (8.5-10.1) L Troponin I Quantitative < 0.017 ng/mL (0.000-0.055) Procalcitonin < 0.10 ng/mL (0.00-0.10) Laboratory Tests 05/20/18 12:22 Laboratory Tests 05/20/18 12:22 EKG EKG Normal sinus rhythm, no significant ST segment changes.[] Radiology/Procedures Radiology/Procedures [] Course & Med Decision Making Course & Med Decision Making Pertinent Labs and Imaging studies reviewed. (See chart for details) []Patient with significant orthostasis on initial evaluation the ER. Patient was given 1 L with improvement of symptoms but continued orthostatic when standing. Patient given a second liter with resolution of orthostasis. Patient reports significant improvement symptoms as 8 ambulatory in the ER without difficulty. Offered hospital sensation the patient prefers discharge since he has recently been hospitalized. Patient has home health at home. Advised patient close follow-up with PCP to discuss blood pressure. Advised good fluid intake. ER return precautions given. Patient verbalized understanding. All questions answered. Dragon Disclaimer Dragon Disclaimer This electronic medical record was generated, in whole or in part, using a voice recognition dictation system. Departure Departure Impression: Primary Impression: Orthostatic hypotension Additional Impressions: Dehydration Syncope Disposition: HOME, SELF-CARE Condition: IMPROVED Referrals: UNKNOWN PCP NAME (PCP) Patient Instructions: Orthostatic Hypotension Additional Instructions: Thank you for coming to [facility]. Please repeat the attached handouts. Please follow-up with your primary care physician. Return to the ER if your symptoms worsen or you have any other concerns. Please follow-up with your primary care physician's discuss her medications. Please drink plenty of fluids to stay hydrated. Problem Qualifiers RUSS AMARAL DO May 20, 2018 15:27
== END 2018-05-20 15:56 | disposition home or self-care (01) ==
LOC: ER 12:13
DX: I95.1 Orthostatic hypotension (principal); E86.0 Dehydration; R55 Syncope and collapse; I48.91 Unspecified atrial fibrillation; E78.00 Pure hypercholesterolemia, unspecified; I12.9 Hypertensive chronic kidney disease with stage 1 through stage 4 chronic kidney disease, or unspecified chronic kidney disease; E10.22 Type 1 diabetes mellitus with diabetic chronic kidney disease; N18.3 Chronic kidney disease, stage 3 (moderate); I25.2 Old myocardial infarction; W18.39XA Other fall on same level, initial encounter; Y93.01 Activity, walking, marching and hiking; Y99.8 Other external cause status; Y92.89 Other specified places as the place of occurrence of the external cause
CPT/HCPCS: 36415; 71045; 80048; 84145; 84484; 85025; 93005; 96360; 96361; 99285; J7030

== ENCOUNTER 2018-09-11 22:23 | Emergency (ER) | payer OTHER ==
[~2018-09-11] VITALS: Ht 180.3 cm; Wt 68.0 kg
[2018-09-11 23:02] LABS: BASO # 0.1 x10^3/uL (0.0-0.2); BASO % 1 % (0-3); EOS # 0.4 x10^3/uL (0.0-0.7); EOS % 6 % (0-3); HEMATOCRIT 36.9 % (39.0-53.0); LYMPH # 1.1 x10^3/uL (1.0-4.8); LYMPH % 18 % (24-48); MEAN CORPUSCULAR HEMOGLOBIN 31 pg (25-35); MEAN CORPUSCULAR HGB CONC 35 g/dL (31-37); MEAN CORPUSCULAR VOLUME 89 fL (79-100); MONO # 0.5 x10^3/uL (0.0-1.1); MONO % 9 % (0-9); NEUT # 3.9 x10^3uL (1.8-7.7); NEUT % 66 % (31-73); PLATELET COUNT 144 x10^3/uL (140-400); RED BLOOD COUNT 4.13 x10^6/uL (4.30-5.70); RED CELL DISTRIBUTION WIDTH 14.1 % (11.5-14.5); WHITE BLOOD COUNT 5.9 x10^3/uL (4.0-11.0)
[2018-09-11 23:11] LABS: PROTHROMBIN TIME PATIENT 12.7 SEC (11.7-14.0)
[2018-09-11 23:15] LABS: CALCIUM 9.5 mg/dL (8.5-10.1); CREATININE 1.6 mg/dL (0.7-1.3); GFR 42.5; POTASSIUM 4.8 mmol/L (3.5-5.1)
[2018-09-11 23:21] LABS: ALBUMIN 3.6 g/dL (3.4-5.0); ALBUMIN/GLOBULIN RATIO 0.7 (1.0-1.7); TOTAL BILIRUBIN 0.6 mg/dL (0.2-1.0); TOTAL PROTEIN 8.5 g/dL (6.4-8.2)
[2018-09-11 23:28] LABS: CREATINE KINASE 50 U/L (39-308)
[2018-09-11] MEDS ORDERED: IV NORMAL SALINE 1000ML BAG 1,000 ML IV ONE (23:30)
[2018-09-11] MEDS ORDERED: ASPIRIN 325 MG TABLET PO ONE (23:30)
--- NOTE | 2018-09-12 | PHYS DOC ---
Past Medical History Past Medical History: A-Fib, Cancer, Diabetes-Type I, High Cholesterol, Hypertension, [place] Additional Past Medical Histor: [place] MAY 1999, stage three renal disease, HYPOKALEMIA, THROAT CA Past Surgical History: Tonsillectomy, Other Additional Past Surgical Histo: IMPLANTED GLUCOMETER L. ARM Alcohol Use: None Drug Use: None Adult General Chief Complaint Chief Complaint: RAPID HEART RATE HPI HPI Patient is a 73 year old [f__sex] who presents with [] Review of Systems Review of Systems Constitutional: Denies fever or chills [] Eyes: Denies change in visual acuity, redness, or eye pain [] HENT: Denies nasal congestion or sore throat [] Respiratory: Denies cough or shortness of breath [] Cardiovascular: No additional information not addressed in HPI [] GI: Denies abdominal pain, nausea, vomiting, bloody stools or diarrhea [] : Denies dysuria or hematuria [] Musculoskeletal: Denies back pain or joint pain [] Integument: Denies rash or skin lesions [] Neurologic: Denies headache, focal weakness or sensory changes [] Endocrine: Denies polyuria or polydipsia [] All other systems were reviewed and found to be within normal limits, except as documented in this note. Current Medications Current Medications Current Medications Medications (Trade) Dose Ordered Sig/Yessy Start Time Stop Time Status Last Admin Dose Admin Aspirin (Van Aspirin) 325 mg 1X ONCE 09/11/18 23:30 09/11/18 23:31 DC 09/11/18 23:10 325 MG Sodium Chloride 1,000 ml @ 1,000 mls/hr 1X ONCE 09/11/18 23:30 09/12/18 00:29 09/11/18 23:12 1,000 MLS/HR Allergies Allergies Allergies Coded Allergies Type Severity Reaction Last Updated Verified No Known Drug Allergies 04/21/18 No Physical Exam Physical Exam Constitutional: Well developed, well nourished, no acute distress, non-toxic appearance. [] HENT: Normocephalic, atraumatic, bilateral external ears normal, oropharynx moist, no oral exudates, nose normal. [] Eyes: PERRLA, EOMI, conjunctiva normal, no discharge. [] Neck: Normal range of motion, no tenderness, supple, no stridor. [] Cardiovascular:Heart rate regular rhythm, no murmur [] Lungs & Thorax: Bilateral breath sounds clear to auscultation [] Abdomen: Bowel sounds normal, soft, no tenderness, no masses, no pulsatile masses. [] Skin: Warm, dry, no erythema, no rash. [] Back: No tenderness, no CVA tenderness. [] Extremities: No tenderness, no cyanosis, no clubbing, ROM intact, no edema. [] Neurologic: Alert and oriented X 3, normal motor function, normal sensory function, no focal deficits noted. [] Psychologic: Affect normal, judgement normal, mood normal. [] Current Patient Data Vital Signs Vital Signs Date Time Temp Pulse Resp B/P (MAP) Pulse Ox O2 Delivery O2 Flow Rate FiO2 09/11/18 23:30 126 20 119/81 (94) 99 Room Air 09/11/18 22:30 97.2 97.2 Lab Values Laboratory Tests Test 09/11/18 22:45 White Blood Count 5.9 x10^3/uL (4.0-11.0) Red Blood Count 4.13 x10^6/uL (4.30-5.70) L Hemoglobin 13.0 g/dL (13.0-17.5) Hematocrit 36.9 % (39.0-53.0) L Mean Corpuscular Volume 89 fL (79-100) Mean Corpuscular Hemoglobin 31 pg (25-35) Mean Corpuscular Hemoglobin Concent 35 g/dL (31-37) Red Cell Distribution Width 14.1 % (11.5-14.5) Platelet Count 144 x10^3/uL (140-400) Neutrophils (%) (Auto) 66 % (31-73) Lymphocytes (%) (Auto) 18 % (24-48) L Monocytes (%) (Auto) 9 % (0-9) Eosinophils (%) (Auto) 6 % (0-3) H Basophils (%) (Auto) 1 % (0-3) Neutrophils # (Auto) 3.9 x10^3uL (1.8-7.7) Lymphocytes # (Auto) 1.1 x10^3/uL (1.0-4.8) Monocytes # (Auto) 0.5 x10^3/uL (0.0-1.1) Eosinophils # (Auto) 0.4 x10^3/uL (0.0-0.7) Basophils # (Auto) 0.1 x10^3/uL (0.0-0.2) Prothrombin Time 12.7 SEC (11.7-14.0) Prothrombin Time INR 1.0 (0.8-1.1) Sodium Level 135 mmol/L (136-145) L Potassium Level 4.8 mmol/L (3.5-5.1) Chloride Level 101 mmol/L (98-107) Carbon Dioxide Level 27 mmol/L (21-32) Anion Gap 7 (6-14) Blood Urea Nitrogen 35 mg/dL (8-26) H Creatinine 1.6 mg/dL (0.7-1.3) H Estimated GFR (Cockcroft-Gault) 42.5 BUN/Creatinine Ratio 22 (6-20) H Glucose Level 216 mg/dL (70-99) H Calcium Level 9.5 mg/dL (8.5-10.1) Magnesium Level 2.0 mg/dL (1.8-2.4) Total Bilirubin 0.6 mg/dL (0.2-1.0) Aspartate Amino Transferase (AST) 31 U/L (15-37) Alanine Aminotransferase (ALT) 29 U/L (16-63) Alkaline Phosphatase 210 U/L (46-116) H Creatine Kinase 50 U/L (39-308) Creatine Kinase MB (Mass) 0.8 ng/mL (0.0-3.6) Creatine Kinase MB Relative Index % (0-4) Troponin I Quantitative < 0.017 ng/mL (0.000-0.055) [id number]-[id number]-Type Natriuretic Peptide 2563 pg/mL (0-124) H Total Protein 8.5 g/dL (6.4-8.2) H Albumin 3.6 g/dL (3.4-5.0) Albumin/Globulin Ratio 0.7 (1.0-1.7) L Lipase 139 U/L (73-393) Laboratory Tests 09/11/18 22:45 Laboratory Tests 09/11/18 22:45 EKG EKG @2236 Afib RVR at 119bpm, NO ST elevation Radiology/Procedures Radiology/Procedures [] Course & Med Decision Making Course & Med Decision Making Pertinent Labs and Imaging studies reviewed. (See chart for details) [] Dragon Disclaimer Dragon Disclaimer This electronic medical record was generated, in whole or in part, using a voice recognition dictation system. Departure Departure Impression: Primary Impression: Atrial fibrillation Disposition: 01 HOME, SELF-CARE Condition: IMPROVED Referrals: UNKNOWN PCP NAME (PCP) Patient Instructions: Atrial Fibrillation, Utde-rl-[id number] Additional Instructions: Please call and make an appointment with your family doctor and/or emergency management program specialist in the next 2-3 days. Return for symptoms of passing out, dizziness, chest pain, or for any further concern. Problem Qualifiers Primary Impression: Atrial fibrillation Atrial fibrillation type: chronic Qualified Codes: I48.2 - Chronic atrial fibrillation JM SIERRA DO Sep 12, 2018 00:00
[2018-09-12 00:05] VITALS: BP 127/68
--- NOTE | 2018-09-12 07:14 | EKG ---
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
[2019-03-03] MEDS ORDERED: AZIT250T6 PO ×2 (11:05→11:23)
[2019-03-03] MEDS ORDERED: INSU100C4 SQ (13:24)
[2019-03-03] MEDS ORDERED: LEVO75TA5 PO (13:24)
[2019-03-03] MEDS ORDERED: RIVA10TA PO (13:24)
[2019-03-03] MEDS ORDERED: MAGN400T3 PO (13:24)
[2019-03-03] MEDS ORDERED: BICA50TA5 PO (13:24)
[2019-03-03] MEDS ORDERED: POTA20TA84 PO (13:24)
[2019-03-03] MEDS ORDERED: FLUT9.9S NS (13:24)
[2019-03-03] MEDS ORDERED: METO-239 PO (13:24)
[2019-03-03] MEDS ORDERED: INSU100V13 SQ (13:24)
[2019-03-03] MEDS ORDERED: METO50TA6 PO (20:55)
[2019-03-03] MEDS ORDERED: METO25TA4 PO (21:11)
== END 2018-09-12 00:26 | disposition home or self-care (01) ==
LOC: ER 22:23
DX: I48.2 Chronic atrial fibrillation (principal); E10.9 Type 1 diabetes mellitus without complications; E78.00 Pure hypercholesterolemia, unspecified; I10 Essential (primary) hypertension; I25.2 Old myocardial infarction
CPT/HCPCS: 36415; 80053; 82553; 83690; 83735; 83880; 84484; 85025; 85610; 93005; 99284; J7030

== ENCOUNTER 2018-12-05 10:36 | Emergency (ER) | payer OTHER ==
[~2018-12-05] VITALS: Ht 177.8 cm; Wt 65.8 kg
[2018-12-05] MEDS ORDERED: ASPIRIN CHEWABLE 81 MG TABLET. PO ONE (11:00)
--- NOTE | 2018-12-05 11:17 | RAD ---
AP chest. HISTORY: Chest pain AP view was taken of the chest. Heart is within normal limits in size. There is no pleural effusion. There are interstitial changes in the lungs most of which appear chronic. A mild superimposed infiltrate would be difficult to exclude. There is not evidence of heart failure. IMPRESSION: 1. Chronic infiltrates or fibrosis. Electronically signed by: Naresh Kahn MD (12/05/2018 11:14 AM) [facility]
[2018-12-05] MEDS: NITROGLYCERIN SUBLINGUAL 0.4 MG BOTTLE OF 25. SL PRN ×2 (11:22→11:25)
[2018-12-05 11:25] LABS: BASO # 0.1 x10^3/uL (0.0-0.2); BASO % 1 % (0-3); EOS # 0.4 x10^3/uL (0.0-0.7); EOS % 7 % (0-3); HEMATOCRIT 40.9 % (39.0-53.0); HEMOGLOBIN 13.7 g/dL (13.0-17.5); LYMPH # 0.8 x10^3/uL (1.0-4.8); LYMPH % 15 % (24-48); MEAN CORPUSCULAR HEMOGLOBIN 30 pg (25-35); MEAN CORPUSCULAR HGB CONC 34 g/dL (31-37); MEAN CORPUSCULAR VOLUME 90 fL (79-100); MONO # 0.6 x10^3/uL (0.0-1.1); MONO % 11 % (0-9); NEUT # 3.4 x10^3uL (1.8-7.7); NEUT % 66 % (31-73); PLATELET COUNT 113 x10^3/uL (140-400); RED BLOOD COUNT 4.52 x10^6/uL (4.30-5.70); RED CELL DISTRIBUTION WIDTH 14.6 % (11.5-14.5); WHITE BLOOD COUNT 5.2 x10^3/uL (4.0-11.0)
[2018-12-05 11:34] LABS: CALCIUM 9.1 mg/dL (8.5-10.1); CREATININE 1.5 mg/dL (0.7-1.3); GFR 45.7; POTASSIUM 4.7 mmol/L (3.5-5.1)
[2018-12-05 11:35] LABS: PROTHROMBIN TIME PATIENT 21.4 SEC (11.7-14.0)
[2018-12-05 11:40] LABS: ALBUMIN 3.8 g/dL (3.4-5.0); ALBUMIN/GLOBULIN RATIO 0.8 (1.0-1.7); TOTAL BILIRUBIN 0.8 mg/dL (0.2-1.0); TOTAL PROTEIN 8.7 g/dL (6.4-8.2)
[2018-12-05 11:43] LABS: D-DIMER 0.37 ug/mlFEU (0.00-0.50)
--- NOTE | 2018-12-05 12:36 | PHYS DOC ---
Past Medical History Past Medical History: A-Fib, Cancer, Diabetes-Type I, High Cholesterol, Hypertension, [place], Other Additional Past Medical Histor: [place] MAY 1999, stage three renal disease, HYPOKALEMIA, THROAT CA Past Surgical History: Tonsillectomy, Other Additional Past Surgical Histo: IMPLANTED GLUCOMETER L. ARM Alcohol Use: None Drug Use: None Adult General Chief Complaint Chief Complaint: CHEST PAIN HPI HPI Patient is a 73 year old male who presents with complaining of chest pain. Patient complaining of nonexertional left upper chest aching pain that started an over prior to arrival to ER as a mild pain without radiation, shortness of breath, nausea, and of pain with activity. Patient complaining of mild dizziness and palpitation and rated his pain 2/10. 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 Patient states his pain resolved at arrival to ER. The patient denies headache, focal neuro deficit, fever and chills, urinary symptom, history of confusion. Review of Systems Review of Systems Constitutional: Denies fever or chills [] Eyes: Denies change in visual acuity, redness, or eye pain [] HENT: Denies nasal congestion or sore throat [] Respiratory: Denies cough or shortness of breath [] Cardiovascular: No additional information not addressed in HPI [] GI: Denies abdominal pain, nausea, vomiting, bloody stools or diarrhea [] : Denies dysuria or hematuria [] Musculoskeletal: Denies back pain or joint pain [] Integument: Denies rash or skin lesions [] Neurologic: Denies headache, focal weakness or sensory changes [] Endocrine: Denies polyuria or polydipsia [] All other systems were reviewed and found to be within normal limits, except as documented in this note. Current Medications Current Medications Current Medications Medications (Trade) Dose Ordered Sig/Yessy Start Time Stop Time Status Last Admin Dose Admin Aspirin (Children'S Aspirin) 324 mg 1X ONCE 12/05/18 11:00 12/05/18 11:01 DC 12/05/18 11:21 324 MG Nitroglycerin (Nitrostat) 0.4 mg PRN Q5MIN PRN 12/05/18 11:00 12/05/18 14:19 DC 12/05/18 11:22 0.4 MG Allergies Allergies Allergies Coded Allergies Type Severity Reaction Last Updated Verified No Known Drug Allergies 04/21/18 No Physical Exam Physical Exam Constitutional: Well developed, well nourished, no acute distress, non-toxic appearance. [] HENT: Normocephalic, atraumatic, oropharynx moist. Eyes: PERRLA, EOMI, conjunctiva normal, no discharge. [] Neck: Normal range of motion, no tenderness, supple, no stridor. [] Cardiovascular: Irregularly irregular rhythm without tachycardia, no murmur [] Lungs & Thorax: Bilateral breath sounds clear to auscultation [] Abdomen: Bowel sounds normal, soft, no tenderness, no masses, no pulsatile masses. [] Skin: Warm, dry, no erythema, no rash. [] Back: No tenderness, no CVA tenderness. [] Extremities: No tenderness, no cyanosis, no clubbing, ROM intact, no edema. [] Neurologic: Alert and oriented X 3, normal motor function, normal sensory function, no focal deficits noted. [] Psychologic: Affect normal, judgement normal, mood normal. [] Current Patient Data Vital Signs Vital Signs Date Time Temp Pulse Resp B/P (MAP) Pulse Ox O2 Delivery O2 Flow Rate FiO2 12/05/18 14:10 70 16 115/68 (84) 100 12/05/18 13:18 Room Air 12/05/18 10:45 98.0 98.0 Lab Values Laboratory Tests Test 12/05/18 11:14 12/05/18 13:00 White Blood Count 5.2 x10^3/uL (4.0-11.0) Red Blood Count 4.52 x10^6/uL (4.30-5.70) Hemoglobin 13.7 g/dL (13.0-17.5) Hematocrit 40.9 % (39.0-53.0) Mean Corpuscular Volume 90 fL (79-100) Mean Corpuscular Hemoglobin 30 pg (25-35) Mean Corpuscular Hemoglobin Concent 34 g/dL (31-37) Red Cell Distribution Width 14.6 % (11.5-14.5) H Platelet Count 113 x10^3/uL (140-400) L Neutrophils (%) (Auto) 66 % (31-73) Lymphocytes (%) (Auto) 15 % (24-48) L Monocytes (%) (Auto) 11 % (0-9) H Eosinophils (%) (Auto) 7 % (0-3) H Basophils (%) (Auto) 1 % (0-3) Neutrophils # (Auto) 3.4 x10^3uL (1.8-7.7) Lymphocytes # (Auto) 0.8 x10^3/uL (1.0-4.8) L Monocytes # (Auto) 0.6 x10^3/uL (0.0-1.1) Eosinophils # (Auto) 0.4 x10^3/uL (0.0-0.7) Basophils # (Auto) 0.1 x10^3/uL (0.0-0.2) Prothrombin Time 21.4 SEC (11.7-14.0) H Prothrombin Time INR 1.9 (0.8-1.1) H D-Dimer (Yuliana) 0.37 ug/mlFEU (0.00-0.50) Sodium Level 137 mmol/L (136-145) Potassium Level 4.7 mmol/L (3.5-5.1) Chloride Level 99 mmol/L (98-107) Carbon Dioxide Level 26 mmol/L (21-32) Anion Gap 12 (6-14) Blood Urea Nitrogen 31 mg/dL (8-26) H Creatinine 1.5 mg/dL (0.7-1.3) H Estimated GFR (Cockcroft-Gault) 45.7 BUN/Creatinine Ratio 21 (6-20) H Glucose Level 122 mg/dL (70-99) H Calcium Level 9.1 mg/dL (8.5-10.1) Magnesium Level 2.0 mg/dL (1.8-2.4) Total Bilirubin 0.8 mg/dL (0.2-1.0) Aspartate Amino Transferase (AST) 46 U/L (15-37) H Alanine Aminotransferase (ALT) 40 U/L (16-63) Alkaline Phosphatase 209 U/L (46-116) H Creatine Kinase 73 U/L (39-308) Troponin I Quantitative < 0.017 ng/mL (0.000-0.055) ML-Xip-G-Type Natriuretic Peptide 3057 pg/mL (0-124) H Total Protein 8.7 g/dL (6.4-8.2) H Albumin 3.8 g/dL (3.4-5.0) Albumin/Globulin Ratio 0.8 (1.0-1.7) L Lipase 129 U/L (73-393) Urine Collection Type Unknown Urine Color Yellow Urine Clarity Clear Urine pH 6.0 Urine Specific Alexander 1.010 Urine Protein Negative mg/dL (NEG-TRACE) Urine Glucose (UA) Negative mg/dL (NEG) Urine Ketones (Stick) Negative mg/dL (NEG) Urine Blood Negative (NEG) Urine Nitrite Negative (NEG) Urine Bilirubin Negative (NEG) Urine Urobilinogen Dipstick 0.2 mg/dL (0.2 mg/dL) Urine Leukocyte Esterase Negative (NEG) Urine RBC Occ /HPF (0-2) Urine WBC 0 /HPF (0-4) Urine Bacteria 0 /HPF (0-FEW) Laboratory Tests 12/05/18 11:14 Laboratory Tests 12/05/18 11:14 EKG EKG EKG interpreted by me. EKG at 1045 showed atrial fibrillation at rate of 101, low voltage QRS, poor R-wave progress in anteroseptal leads, acute ST and T- wave abnormalities. Radiology/Procedures Radiology/Procedures [facility] [id number], [place] [id number] IMAGING REPORT Signed PATIENT: SHIRA ZHAO ACCOUNT: [id number] : 1945 LOCATION: ER AGE: 73 SEX: M EXAM STATUS: REG ER ORD. PHYSICIAN: NIRAV HARDEN MD REASON: chest pain PROCEDURE: PORTABLE CHEST 1V AP chest. HISTORY: Chest pain AP view was taken of the chest. Heart is within normal limits in size. There is no pleural effusion. There are interstitial changes in the lungs most of which appear chronic. A mild superimposed infiltrate would be difficult to exclude. There is not evidence of heart failure. IMPRESSION: 1. Chronic infiltrates or fibrosis. Electronically signed by: Naresh Kahn MD (12/05/2018 11:14 AM) [facility] DICTATED and SIGNED BY: NARESH KAHN MD DATE: 12/05/18 1114 Course & Med Decision Making Course & Med Decision Making Pertinent Labs and Imaging studies reviewed. (See chart for details) Evaluation of patient in ER showed 73-year-old male patient who missed his work today and came to ER because of chest pain and confusion. Patient had unremarkable physical exam and labs and EKG and CT head and UA. Patient felt comfortable to go home and follow up with his primary care physician. Dragon Disclaimer Dragon Disclaimer This electronic medical record was generated, in whole or in part, using a voice recognition dictation system. Departure Departure Impression: Primary Impression: Chest pain Additional Impressions: Confusion Anxiety about health Atrial fibrillation Disposition: HOME, SELF-CARE (at 1400) Condition: IMPROVED Referrals: JM BUCKLEY MD (PCP) Patient Instructions: Chest Pain (Nonspecific), Confusion Additional Instructions: Follow-up with your primary care physician in 2-3 days Return to ER if not getting better Continue home medication Problem Qualifiers Primary Impression: Chest pain Chest pain type: unspecified Qualified Codes: R07.9 - Chest pain, unspecified Additional Impressions: Atrial fibrillation Atrial fibrillation type: chronic Qualified Codes: I48.2 - Chronic atrial fibrillation NIRAV HARDEN MD Dec 05, 2018 12:36
--- NOTE | 2018-12-05 13:00 | RAD ---
Examination: CT HEAD WO CONTRAST History: CONFUSION
PREVIOUS Comparison/Correlation: 06/11/2017 CT head without contrast Findings: Axial images of the head were obtained without contrast. Atrophy is present. No intracranial hemorrhage, midline shift, or mass effect. Globes and optic nerves are unremarkable. Bony structures are unremarkable. Globes and optic nerves are unremarkable. Visualized paranasal sinuses are unremarkable. Impression: No acute process. PQRS Compliance Statement: One or more of the following individualized dose reduction techniques were utilized for this examination: 1. Automated exposure control 2. Adjustment of the mA and/or kV according to patient size 3. Use of iterative reconstruction technique Electronically signed by: Giancarlo Crowell MD (12/05/2018 12:57 PM) [facility]
[2018-12-05 13:39] LABS: BILIRUBIN,URINE NEGATIVE (NEG); CLARITY,URINE CLEAR; COLOR,URINE YELLOW; NITRITE,URINE NEGATIVE (NEG); PROTEIN,URINE NEGATIVE (NEG-TRACE); UROBILINOGEN,URINE 0.2 mg/dL (0.2 mg/dL)
[2018-12-05 13:50] LABS: BACTERIA,URINE 0 /HPF (0-FEW); RBC,URINE OCC /HPF (0-2); WBC,URINE 0 /HPF (0-4)
[2018-12-05 14:10] VITALS: BP 115/68
--- NOTE | 2018-12-05 16:00 | EKG ---
[facility] [address] [place] [address] Test Date: 2018-12-05 Test Time: 10:45:37 Pat Name: SHIRA ZHAO Department: Room: Gender: M Manager Radio: : 1945 Requested By: NIRAV HARDEN Order Number: [id number] Reading MD: Measurements Intervals [place] Rate: 101 P: MD: QRS: 26 QRSD: 88 T: 11 QT: 362 QTc: 470 Interpretive Statements IRREGULAR RHYTHM, NO P-WAVE FOUND LOW LIMB LEAD VOLTAGE QRS(T) CONTOUR ABNORMALITY CONSIDER ANTEROLATERAL MYOCARDIAL DAMAGE POSSIBLY ABNORMAL ECG RI6.01 Unconfirmed report No previous ECG available for comparison
== END 2018-12-05 14:15 | disposition home or self-care (01) ==
LOC: ER 10:36
DX: R07.89 Other chest pain (principal); I48.2 Chronic atrial fibrillation; R41.0 Disorientation, unspecified; F41.9 Anxiety disorder, unspecified; E78.00 Pure hypercholesterolemia, unspecified; E10.9 Type 1 diabetes mellitus without complications; I10 Essential (primary) hypertension; I25.2 Old myocardial infarction
CPT/HCPCS: 36415; 70450; 71045; 80053; 81001; 82550; 83690; 83735; 83880; 84484; 85025; 85379; 85610; 93005; 99285

== ENCOUNTER 2018-12-05 23:44 | Emergency (ER) | payer OTHER ==
[~2018-12-05] VITALS: Ht 177.8 cm; Wt 66.2 kg
[2018-12-06 00:37] VITALS: BP 130/62
--- NOTE | 2018-12-06 02:44 | PHYS DOC ---
Past Medical History Past Medical History: A-Fib, Cancer, Diabetes-Type I, High Cholesterol, Hypertension, MT, Other Additional Past Medical Histor: MT MAY 1999, stage three renal disease, HYPOKALEMIA, THROAT CA Past Surgical History: Tonsillectomy, Other Additional Past Surgical Histo: IMPLANTED GLUCOMETER L. ARM Alcohol Use: None Drug Use: None Adult General Chief Complaint Chief Complaint: SKIN PROBLEM HPI HPI Patient is a 73 year old male who presents for reevaluation of IV puncture site. Patient was evaluated in this emergency department yesterday morning. He is on Xarelto, and complains of slight oozing from IV puncture site since it was removed. On exam, there is minimal blood on pain date. There is no tenderness. Patient denies any other symptoms or complaints. [] Review of Systems Review of Systems Review symptoms as per history of present illness. All other review symptoms are negative. All other systems were reviewed and found to be within normal limits, except as documented in this note. Allergies Allergies Allergies Coded Allergies Type Severity Reaction Last Updated Verified No Known Drug Allergies 04/21/18 No Physical Exam Physical Exam Constitutional: Well developed, well nourished, no acute distress, non-toxic appearance. [] HENT: Normocephalic, atraumatic, bilateral external ears normal, oropharynx moist, no oral exudates, nose normal. [] Eyes: PERRLA, EOMI, conjunctiva normal, no discharge. [] Extremities: Left arm, IV puncture site with out bruising, minimal blood present on bandage[] Neurologic: Alert and oriented X 3, normal motor function, normal sensory function, no focal deficits noted. [] Psychologic: Affect normal, judgement normal, mood normal. [] Current Patient Data Vital Signs Vital Signs Date Time Temp Pulse Resp B/P (MAP) Pulse Ox O2 Delivery O2 Flow Rate FiO2 12/06/18 00:37 97.8 85 18 130/62 (84) 99 Room Air 97.8 EKG EKG [] Radiology/Procedures Radiology/Procedures [] Course & Med Decision Making Course & Med Decision Making Pertinent Labs and Imaging studies reviewed. (See chart for details) [Patient reassured.] Dragon Disclaimer Dragon Disclaimer This electronic medical record was generated, in whole or in part, using a voice recognition dictation system. Departure Departure Impression: Primary Impression: Encounter for wound re-check Disposition: HOME, SELF-CARE Condition: GOOD Referrals: JM BUCKLEY MD (PCP) SATHISH MILLIGAN DO Dec 06, 2018 02:44
== END 2018-12-06 02:50 | disposition home or self-care (01) ==
LOC: ER 23:44
DX: M79.602 Pain in left arm (principal); I48.91 Unspecified atrial fibrillation; E78.00 Pure hypercholesterolemia, unspecified; I10 Essential (primary) hypertension; E10.9 Type 1 diabetes mellitus without complications; I25.2 Old myocardial infarction
CPT/HCPCS: 99281

== ENCOUNTER 2019-03-12 13:31 | Inpatient (IN) | payer OTHER ==
[~2019-03-12] VITALS: Ht 172.7 cm; Wt 63.2 kg
[~2019-03-12 13:31] MED LIST changes: +AZIT250T6 PO; +BICA50TA5 PO; +FLUT9.9S NS; +INSU100C4 SQ; +LEVO75TA5 PO; +MAGN400T3 PO; +METO-239 PO; +METO25TA4 PO; +METO50TA6 PO; +POTA20TA84 PO; +RIVA10TA PO
[2019-03-12] MEDS ORDERED: dilTIAZem IV PUSH 25 MG/5 ML VIAL IVP ONE (14:00)
[2019-03-12] MEDS ORDERED: dilTIAZem INJ 125 MG in IV DEXTROSE 5% 100ML 100 ML IV ONE (14:00)
[2019-03-12 14:09] LABS: BASO % 1 % (0-3); EOS # 0.1 x10^3/uL (0.0-0.7); EOS % 2 % (0-3); HEMATOCRIT 35.9 % (39.0-53.0); HEMOGLOBIN 12.3 g/dL (13.0-17.5); LYMPH # 0.7 x10^3/uL (1.0-4.8); LYMPH % 10 % (24-48); MEAN CORPUSCULAR HEMOGLOBIN 31 pg (25-35); MEAN CORPUSCULAR HGB CONC 34 g/dL (31-37); MEAN CORPUSCULAR VOLUME 92 fL (79-100); MONO # 0.6 x10^3/uL (0.0-1.1); MONO % 10 % (0-9); NEUT # 5.3 x10^3/uL (1.8-7.7); NEUT % 78 % (31-73); PLATELET COUNT 118 x10^3/uL (140-400); RED BLOOD COUNT 3.91 x10^6/uL (4.30-5.70); RED CELL DISTRIBUTION WIDTH 15.2 % (11.5-14.5); WHITE BLOOD COUNT 6.7 x10^3/uL (4.0-11.0)
[2019-03-12 14:21] LABS: CALCIUM 8.9 mg/dL (8.5-10.1); CREATININE 1.5 mg/dL (0.7-1.3); GFR 45.7; POTASSIUM 4.6 mmol/L (3.5-5.1)
--- NOTE | 2019-03-12 14:24 | RAD ---
Indication: Chest pain TECHNIQUE: Single AP view of the chest. Images incorrectly marked. COMPARISON: Chest x-ray from 03/03/2019 FINDINGS: Heart is normal in size. Diffuse bilateral coarse interstitial opacities are seen without focal consolidation. No pneumothorax or pleural effusion. Visualized bony thorax is within normal limits. IMPRESSION: Bilateral coarse interstitial opacities may be secondary to chronic interstitial changes, atypical/viral infection or interstitial pulmonary edema. Overall no significant change compared to previous exam. Electronically signed by: Francis Judge DO (03/12/2019 2:22 PM) [facility]
[2019-03-12 14:27] LABS: ALBUMIN 3.5 g/dL (3.4-5.0); ALBUMIN/GLOBULIN RATIO 0.7 (1.0-1.7); TOTAL BILIRUBIN 0.8 mg/dL (0.2-1.0); TOTAL PROTEIN 8.4 g/dL (6.4-8.2)
[2019-03-12] MEDS ORDERED: MORPHINE SULFATE 4 MG/ML VIAL. IV ONE (14:30)
[2019-03-12 14:32] LABS: PROTHROMBIN TIME PATIENT 28.7 SEC (11.7-14.0)
[2019-03-12 14:33] LABS: CREATINE KINASE 54 U/L (39-308)
--- NOTE | 2019-03-12 15:42 | PHYS DOC ---
Past Medical History Past Medical History: A-Fib, Cancer, Diabetes-Type I, High Cholesterol, Hypertension, MS, Pneumonia, Renal Failure, Other Additional Past Medical Histor: HYPOKALEMIA,THROAT/PROSTATE CA/RADIATION/CHEMO,ASPIRATION PNEUMONIA Past Surgical History: Tonsillectomy, Other Additional Past Surgical Histo: IMPLANTED GLUCOMETER L. ARM,ADENOIDECTOMY Alcohol Use: None Drug Use: None Adult General Chief Complaint Chief Complaint: CHEST PAIN [facility] HPI Patient is a 73 year old male who presents with complaining of chest pain. Patient complaining of substernal and bilateral chest pain since yesterday as a constant and pressure pain with radiation to the back and rated his pain 9/10. Patient complaining of shortness of breath without palpitation, nausea, fever and chills, cough and congestion. Patient denies history of chest pain. Patient has history of atrial fibrillation on Xarelto. Review of Systems Review of Systems Constitutional: Denies fever or chills [] Eyes: Denies change in visual acuity, redness, or eye pain [] HENT: Denies nasal congestion or sore throat [] Respiratory: Denies cough , reports shortness of breath [] Cardiovascular: No additional information not addressed in HPI [] GI: Denies abdominal pain, nausea, vomiting, bloody stools or diarrhea [] : Denies dysuria or hematuria [] Musculoskeletal: Denies back pain or joint pain [] Integument: Denies rash or skin lesions [] Neurologic: Denies headache, focal weakness or sensory changes [] Endocrine: Denies polyuria or polydipsia [] All other systems were reviewed and found to be within normal limits, except as documented in this note. Current Medications Current Medications Current Medications Medications (Trade) Dose Ordered Sig/Yessy Start Time Stop Time Status Last Admin Dose Admin Diltiazem HCl (Cardizem Iv Push) 20 mg 1X ONCE 03/12/19 14:00 03/12/19 14:01 DC Diltiazem HCl 125 mg/Dextrose 125 ml @ 10 mls/hr 1X ONCE 03/12/19 14:00 03/13/19 02:29 Morphine Sulfate (Morphine Sulfate) 4 mg 1X ONCE 03/12/19 14:30 03/12/19 14:31 DC 03/12/19 14:35 4 MG Allergies Allergies Allergies Coded Allergies Type Severity Reaction Last Updated Verified No Known Drug Allergies 04/21/18 No Physical Exam Physical Exam Constitutional: Well developed, well nourished, mild distress, non-toxic appeara nce. [] HENT: Normocephalic, atraumatic,oropharynx moist. Eyes: PERRLA, EOMI, conjunctiva normal, no discharge. [] Neck: Normal range of motion, no tenderness, supple, no stridor. [] Cardiovascular: Irregularly irregular with tachycardia, no murmur [] Lungs & Thorax: Bilateral breath sounds clear to auscultation [] Abdomen: Bowel sounds normal, soft, no tenderness, no masses, no pulsatile masses. [] Skin: Warm, dry, no erythema, no rash. [] Back: No tenderness, no CVA tenderness. [] Extremities: No tenderness, no cyanosis, no clubbing, ROM intact, no edema. [] Neurologic: Alert and oriented X 3, normal motor function, normal sensory function, no focal deficits noted. [] Psychologic: Affect normal, judgement normal, mood normal. [] Current Patient Data Vital Signs Vital Signs Date Time Temp Pulse Resp B/P (MAP) Pulse Ox O2 Delivery O2 Flow Rate FiO2 03/12/19 14:35 21 100 Room Air 03/12/19 13:40 98.5 89 134/84 (101) 98.5 Lab Values Laboratory Tests Test 03/12/19 13:40 White Blood Count 6.7 x10^3/uL (4.0-11.0) Red Blood Count 3.91 x10^6/uL (4.30-5.70) L Hemoglobin 12.3 g/dL (13.0-17.5) L Hematocrit 35.9 % (39.0-53.0) L Mean Corpuscular Volume 92 fL (79-100) Mean Corpuscular Hemoglobin 31 pg (25-35) Mean Corpuscular Hemoglobin Concent 34 g/dL (31-37) Red Cell Distribution Width 15.2 % (11.5-14.5) H Platelet Count 118 x10^3/uL (140-400) L Neutrophils (%) (Auto) 78 % (31-73) H Lymphocytes (%) (Auto) 10 % (24-48) L Monocytes (%) (Auto) 10 % (0-9) H Eosinophils (%) (Auto) 2 % (0-3) Basophils (%) (Auto) 1 % (0-3) Neutrophils # (Auto) 5.3 x10^3/uL (1.8-7.7) Lymphocytes # (Auto) 0.7 x10^3/uL (1.0-4.8) L Monocytes # (Auto) 0.6 x10^3/uL (0.0-1.1) Eosinophils # (Auto) 0.1 x10^3/uL (0.0-0.7) Basophils # (Auto) 0.0 x10^3/uL (0.0-0.2) Prothrombin Time 28.7 SEC (11.7-14.0) H Prothrombin Time INR 2.7 (0.8-1.1) H Sodium Level 131 mmol/L (136-145) L Potassium Level 4.6 mmol/L (3.5-5.1) Chloride Level 97 mmol/L (98-107) L Carbon Dioxide Level 23 mmol/L (21-32) Anion Gap 11 (6-14) Blood Urea Nitrogen 35 mg/dL (8-26) H Creatinine 1.5 mg/dL (0.7-1.3) H Estimated GFR (Cockcroft-Gault) 45.7 BUN/Creatinine Ratio 23 (6-20) H Glucose Level 250 mg/dL (70-99) H Calcium Level 8.9 mg/dL (8.5-10.1) Magnesium Level 2.0 mg/dL (1.8-2.4) Total Bilirubin 0.8 mg/dL (0.2-1.0) Aspartate Amino Transferase (AST) 42 U/L (15-37) H Alanine Aminotransferase (ALT) 37 U/L (16-63) Alkaline Phosphatase 216 U/L (46-116) H Creatine Kinase 54 U/L (39-308) Creatine Kinase MB (Mass) 0.8 ng/mL (0.0-3.6) Creatine Kinase MB Relative Index % (0-4) Troponin I Quantitative < 0.017 ng/mL (0.000-0.055) GX-Zsu-X-Type Natriuretic Peptide 3002 pg/mL (0-124) H Total Protein 8.4 g/dL (6.4-8.2) H Albumin 3.5 g/dL (3.4-5.0) Albumin/Globulin Ratio 0.7 (1.0-1.7) L Lipase 220 U/L (73-393) Laboratory Tests 03/12/19 13:40 Laboratory Tests 03/12/19 13:40 EKG EKG EKG interpreted by me. EKG at 1340 showed atrial fibrillation with RVR at rate of 120, normal QRS for age, poor R-wave progress in anteroseptal leads, no acute ST and T-wave abnormalities. Radiology/Procedures Radiology/Procedures [facility] [address] [place] [address] IMAGING REPORT Signed PATIENT: SHIRA ZHAO ACCOUNT: [id number] : 1945 LOCATION: ER AGE: 73 SEX: M EXAM STATUS: PRE ER ORD. PHYSICIAN: NIRAV HAREDN MD REASON: chest pain PROCEDURE: PORTABLE CHEST 1V Indication: Chest pain TECHNIQUE: Single AP view of the chest. Images incorrectly marked. COMPARISON: Chest x-ray from 03/03/2019 FINDINGS: Heart is normal in size. Diffuse bilateral coarse interstitial opacities are seen without focal consolidation. No pneumothorax or pleural effusion. Visualized bony thorax is within normal limits. IMPRESSION: Bilateral coarse interstitial opacities may be secondary to chronic interstitial changes, atypical/viral infection or interstitial pulmonary edema. Overall no significant change compared to previous exam. Electronically signed by: Francis Judge DO (03/12/2019 2:22 PM) [facility] DICTATED and SIGNED BY: FRANCIS JUDGE DO DATE: 03/12/19 142 Course & Med Decision Making Course & Med Decision Making Pertinent Labs and Imaging studies reviewed. (See chart for details) Evaluation of patient in ER showed 73-year-old male patient is a 49 patient with complaining of chest pain since yesterday. Patient had atrial flutter patient with RVR with heart rate of 120 that gradually decreased to 100 with dislocation to 110 and 90s. Cardizem 10 mg bolus was given Cardizem drip was not started because of blood pressure of 100. Patient felt better with his chest pain and rated his pain 3 or 4 and was able to fall asleep. patient had heart score of 6. Patient requiring admission for further evaluation and treatment. Discussed with Dr. Amezquita who is in agreement with admission. Discussed findings and plan with patient and family, who acknowledge understanding and agreement. Dragon Disclaimer Dragon Disclaimer This electronic medical record was generated, in whole or in part, using a voice recognition dictation system. Departure Departure Impression: Primary Impression: Acute chest pain Additional Impressions: Atrial fibrillation with RVR Renal insufficiency Congestive heart failure Uncontrolled diabetes mellitus Anticoagulated by anticoagulation treatment Disposition: ADMITTED INPATIENT (1559) Admitting Physician: Shaggy Amezquita (accepted the admission at 1529) Condition: IMPROVED Referrals: JM BUCKLEY MD (PCP) The HEART Score for CP Pts HEART Score for Chest Pain: HEART Score for Chest Pain Response (Comments) Value History Moderately Suspicious 1 ECG Nonspecific Repolarizatio 1 Age > 65 2 Risk Factors >3 Risk Factors or Hx CAD 2 Troponin < Normal Limit 0 Total 6 Risk Factors: Risk Factors: DM, Current or recent (<one month) smoker, HTN, HLP, family history of CAD, obesity. Risk Scores: Score 0 - 3: 2.5% MACE over next 6 weeks - Discharge Home Score 4 - 6: 20.3% MACE over next 6 weeks - Admit for Clinical Observation Score 7 - 10: 72.7% MACE over next 6 weeks - Early Invasive Strategies Critical Care Time Critical care time was 50 minutes exclusive of procedures. Problem Qualifiers Additional Impressions: Congestive heart failure Heart failure type: unspecified Heart failure chronicity: unspecified Qualified Codes: I50.9 - Heart failure, unspecified Uncontrolled diabetes mellitus Diabetes mellitus type: other specified (including CESAR) Glycemic state: with hyperglycemia Qualified Codes: E13.65 - Other specified diabetes mellitus with hyperglycemia NIRAV HARDEN MD Mar 12, 2019 15:42
[2019-03-12 17:09] VITALS: BP 129/61
[2019-03-12] MEDS ORDERED: DULA0.75 SQ (17:19)
[2019-03-12] MEDS: CYCLOBENZAPRINE 10 MG TABLET. PO PRN (17:42)
[2019-03-12] MEDS: IBUPROFEN 400 MG TABLET. PO PRN (17:43)
--- NOTE | 2019-03-12 18:11 | EKG ---
[facility] [address] [place] [address] Test Date: 2019-03-12 Test Time: 13:40:48 Pat Name: SHIRA ZHAO Department: Room: Gender: M Experiential Therapist: : 1945 Requested By: NIRAV HARDEN Order Number: [id number] Reading MD: Measurements Intervals [place] Rate: 120 P: NM: QRS: 37 QRSD: 96 T: -8 QT: 330 QTc: 471 Interpretive Statements IRREGULAR RHYTHM, NO P-WAVE FOUND LOW LIMB LEAD VOLTAGE QRS(T) CONTOUR ABNORMALITY CONSISTENT WITH INFERIOR INFARCT PROBABLY OLD ABNORMAL ECG RI6.01 Unconfirmed report No previous ECG available for comparison
[2019-03-12 18:59] VITALS: BP 85/52
[2019-03-12 22:21] VITALS: BP 99/63
[2019-03-13 03:14] VITALS: BP 111/58
[2019-03-13 03:29] LABS: BILIRUBIN,URINE NEGATIVE (NEG); CLARITY,URINE CLEAR; COLOR,URINE YELLOW; NITRITE,URINE NEGATIVE (NEG); PH,URINE 5.5; PROTEIN,URINE NEGATIVE (NEG-TRACE); UROBILINOGEN,URINE 0.2 mg/dL (0.2 mg/dL)
[2019-03-13 03:36] LABS: BACTERIA,URINE 0 /HPF (0-FEW); RBC,URINE 0 /HPF (0-2); SQUAMOUS EPITHELIAL CELL,UR OCC /LPF
[2019-03-13 07:33] VITALS: BP 125/96
[2019-03-13] MEDS: CYCLOBENZAPRINE 10 MG TABLET. PO PRN (08:39)
[2019-03-13] MEDS: IBUPROFEN 400 MG TABLET. PO PRN (08:41)
[2019-03-13 10:36] VITALS: BP 100/57
[2019-03-13] MEDS ORDERED: NON FORMULARY ITEM (Insulin Aspart (Novolog) 0 UNIT) SQ SCH (11:30)
[2019-03-13] MEDS ORDERED: ANTI-COAG MONITOR BY PHARMACY. MC PRN (11:30)
[2019-03-13] MEDS ORDERED: DEXTROSE 50% 25 GM / 50ML DISP.SYRIN. IV PRN (11:30)
[2019-03-13] MEDS ORDERED: METOPROLOL TART IMMED RELEASE 25 MG TABLET. PO SCH (12:00)
[2019-03-13] MEDS ORDERED: LEVOTHYROXINE 75 MCG TABLET PO SCH (12:00)
[2019-03-13] MEDS ORDERED: BICALUTAMIDE 50 MG TABLET PO SCH (12:00)
[2019-03-13] MEDS ORDERED: FLUTICASONE 50MCG/NASAL SPRAY 16GM BOTTLE. NS SCH (12:00)
[2019-03-13] MEDS ORDERED: INSULIN LISPRO 300 UNITS/3 ML INSULN.PEN. SQ SCH (12:00)
[2019-03-13] MEDS ORDERED: MAGNESIUM OXIDE 400 MG TABLET PO SCH (12:00)
[2019-03-13] MEDS ORDERED: POTASSIUM CHLORIDE 20 MEQ TABLET.ER. PO SCH (12:00)
[2019-03-13] MEDS ORDERED: METO50TA6 PO (13:11)
--- NOTE | 2019-03-13 14:25 | PDOC ---
Provider Note Provider Note combined H&P and DC summary dictated # [id number] José Miguel MANUEL MD Mar 13, 2019 14:25
[2019-03-13 14:40] VITALS: BP 90/54
--- NOTE | 2019-03-13 16:28 | PDOC2 ---
CONSULT Date of Consult Date of Consult DATE: 03/13/19 TIME: 16:23 Reason for Consult Reason for Consult: chest pain Referring Physician Referring Physician: Dr. Amezquita Identification/Chief Complaint Chief Complaint chest pain Source Source: Chart review, Patient History of Present Illness Reason for Visit: The patient is a pleasant 73-year-old male who presented to the emergency room last night for episodes of chest discomfort and shortness of breath. Initial evaluation included an EKG that showed atrial fibrillation rate of [address]-T wave changes. Chest x-ray showed chronic interstitial changes but no acute changes. Troponin was normal on the first draw on has been normal on subsequent a total of 3 drops. Overnight the patient's pain has resolved. He reports feeling well this morning. He denies chest pain. He wishes to be discharged from the hospital. Past Medical History Cardiovascular: AFIB, CAD, HTN, PA, Hyperlipidemia, Aortic stenosis, Valve insufficiency Pulmonary: COPD CENTRAL NERVOUS SYSTEM: Other GI: GERD, Other Heme/Onc: Cancer Musculoskeletal: Osteoarthritis Renal/: Chronic renal insuff, Prostate Ca. Endocrine: Diabetes, Hypothyroidism Past Surgical History Past Surgical History: Tonsillectomy, Colon Resection, Other (prostate surgery) Family History Family History: Coronary Artery Disease, Diabetes, Stroke, Other Social History No ALCOHOL: none Drugs: None Lives: Alone Current Problem List Problem List Problems Medical Problems: (1) Acute chest pain Status: Acute (2) Anticoagulated by anticoagulation treatment Status: Acute (3) Atrial fibrillation with RVR Status: Acute (4) Congestive heart failure Status: Acute (5) Renal insufficiency Status: Acute (6) Uncontrolled diabetes mellitus Status: Acute Current Medications Current Medications Current Medications Diltiazem HCl (Cardizem Iv Push) 20 mg 1X ONCE IVP ; Start 03/12/19 at 14:00; Stop 03/12/19 at 14:01; Status DC Diltiazem HCl 125 mg/Dextrose 125 ml @ 10 mls/hr 1X ONCE IV ; Start 03/12/19 at 14:00; Stop 03/13/19 at 02:29; Status DC Morphine Sulfate (Morphine Sulfate) 4 mg 1X ONCE IV Last administered on 03/12/19at 14:35; Start 03/12/19 at 14:30; Stop 03/12/19 at 14:31; Status DC Ibuprofen (Motrin) 800 mg TID PRN PO INFLAMMATION Last administered on 03/13/19 08:41; Start 03/12/19 at 17:30 Cyclobenzaprine HCl (Flexeril) 10 mg TID PRN PO MUSCLE SPASMS Last administered on 03/13/19 08:39; Start 03/12/19 at 17:30 Bicalutamide (Casodex) 50 mg DAILY PO Last administered on 03/13/19 11:42; Start 03/13/19 at 12:00 Levothyroxine Sodium (Synthroid) 75 mcg DAILY PO Last administered on 03/13/19 11:42; Start 03/13/19 at 12:00 Metoprolol Tartrate (Lopressor) 25 mg BID PO Last administered on 03/13/19 11:41; Start 03/13/19 at 12:00 Rivaroxaban (Xarelto) 20 mg DAILY@1700 PO Last administered on 03/13/19at 15:58; Start 03/13/19 at 17:00 Non-Formulary Medication (Dulaglutide (Trulicity)) 0.75 mg WEEKLY SQ ; Start 03/20/19 at 09:00; Status UNV Fluticasone Propionate (Flonase) 2 spray DAILY NS Last administered on 03/13/19 11:42; Start 03/13/19 at 12:00 Non-Formulary Medication (Insulin Aspart (Novolog)) sliding scale TIDAC SQ ; Start 03/13/19 at 11:30; Status UNV Magnesium Oxide (Magnesium Oxide) 400 mg DAILY PO Last administered on 03/13/19at 11:42; Start 03/13/19 at 12:00 Potassium Chloride (Klor-Con) 20 meq DAILYWBKFT PO Last administered on 03/13/19at 11:42; Start 03/13/19 at 12:00 Info (Anti-Coagulation Monitoring By Pharmacy) 1 each PRN DAILY PRN MC SEE COMMENTS; Start 03/13/19 at 11:30 Insulin Human Lispro (HumaLOG) 0-7 UNITS TIDWMEALS SQ Last administered on 03/13/19at 11:47; Start 03/13/19 at 12:00 Dextrose (Dextrose 50%-Water Syringe) 12.5 gm PRN Q15MIN PRN IV SEE COMMENTS; Start 03/13/19 at 11:30 Active Scripts Active Metoprolol Tartrate 50 Mg Tablet 1 Tab PO BID Reported Trulicity (Dulaglutide) 0.75 Mg/0.5 Ml Pen.injctr 0.75 Mg SQ WEEKLY K-Tab ER (Potassium Chloride) 20 Meq Tablet.er 20 Meq PO DAILY Bicalutamide 50 Mg Tablet 50 Mg PO DAILY Magnesium Oxide 400 Mg Tablet 1 Tab PO DAILY Flonase Allergy Relief (Fluticasone Propionate) 9.9 Ml [place].susp 2 Sprays NS DAILY Levothyroxine Sodium 75 Mcg Tablet 1 Tab PO DAILY Novolog (Insulin Aspart) 100 Unit/1 Ml Cartridge 0-5 Unit SQ TIDAC Xarelto (Rivaroxaban) 10 Mg Tablet 20 Tab PO DAILY Allergies Allergies: Coded Allergies: No Known Drug Allergies (Unverified , 04/21/18) ROS General: YES: Fatigue Cardiovascular: yes Chest Pain Physical Exam General: No acute distress HEENT: Atraumatic Lungs: Clear to auscultation Heart: Other (irregularly irregular) Abdomen: Normal bowel sounds Vitals VITALS Vital Signs Date Time Temp Pulse Resp B/P (MAP) Pulse Ox O2 Delivery O2 Flow Rate FiO2 03/13/19 14:40 98.2 95 16 90/54 (66) 96 Room Air 98.2 03/13/19 10:36 2.0 Labs Labs Laboratory Tests Test 03/12/19 13:40 03/12/19 16:49 03/12/19 21:20 03/13/19 00:30 White Blood Count 6.7 x10^3/uL (4.0-11.0) Red Blood Count 3.91 x10^6/uL (4.30-5.70) Hemoglobin 12.3 g/dL (13.0-17.5) Hematocrit 35.9 % (39.0-53.0) Mean Corpuscular Volume 92 fL (79-100) Mean Corpuscular Hemoglobin 31 pg (25-35) Mean Corpuscular Hemoglobin Concent 34 g/dL (31-37) Red Cell Distribution Width 15.2 % (11.5-14.5) Platelet Count 118 x10^3/uL (140-400) Neutrophils (%) (Auto) 78 % (31-73) Lymphocytes (%) (Auto) 10 % (24-48) Monocytes (%) (Auto) 10 % (0-9) Eosinophils (%) (Auto) 2 % (0-3) Basophils (%) (Auto) 1 % (0-3) Neutrophils # (Auto) 5.3 x10^3/uL (1.8-7.7) Lymphocytes # (Auto) 0.7 x10^3/uL (1.0-4.8) Monocytes # (Auto) 0.6 x10^3/uL (0.0-1.1) Eosinophils # (Auto) 0.1 x10^3/uL (0.0-0.7) Basophils # (Auto) 0.0 x10^3/uL (0.0-0.2) Prothrombin Time 28.7 SEC (11.7-14.0) Prothromb Time International Ratio 2.7 (0.8-1.1) Sodium Level 131 mmol/L (136-145) Potassium Level 4.6 mmol/L (3.5-5.1) Chloride Level 97 mmol/L (98-107) Carbon Dioxide Level 23 mmol/L (21-32) Anion Gap 11 (6-14) Blood Urea Nitrogen 35 mg/dL (8-26) Creatinine 1.5 mg/dL (0.7-1.3) Estimated GFR (Cockcroft-Gault) 45.7 BUN/Creatinine Ratio 23 (6-20) Glucose Level 250 mg/dL (70-99) Calcium Level 8.9 mg/dL (8.5-10.1) Magnesium Level 2.0 mg/dL (1.8-2.4) Total Bilirubin 0.8 mg/dL (0.2-1.0) Aspartate Amino Transf (AST/SGOT) 42 U/L (15-37) Alanine Aminotransferase (ALT/SGPT) 37 U/L (16-63) Alkaline Phosphatase 216 U/L (46-116) Creatine Kinase 54 U/L (39-308) Creatine Kinase MB (Mass) 0.8 ng/mL (0.0-3.6) Creatine Kinase MB Relative Index % (0-4) Troponin I Quantitative < 0.017 ng/mL (0.000-0.055) < 0.017 ng/mL (0.000-0.055) < 0.017 ng/mL (0.000-0.055) BQ-Lwt-P-Type Natriuretic Peptide 3002 pg/mL (0-124) Total Protein 8.4 g/dL (6.4-8.2) Albumin 3.5 g/dL (3.4-5.0) Albumin/Globulin Ratio 0.7 (1.0-1.7) Lipase 220 U/L (73-393) Glucose (Fingerstick) 183 mg/dL (70-99) Test 03/13/19 03:10 03/13/19 10:56 Urine Collection Type Unknown Urine Color Yellow Urine Clarity Clear Urine pH 5.5 Urine Specific Willis 1.015 Urine Protein Negative mg/dL (NEG-TRACE) Urine Glucose (UA) Negative mg/dL (NEG) Urine Ketones (Stick) Negative mg/dL (NEG) Urine Blood Negative (NEG) Urine Nitrite Negative (NEG) Urine Bilirubin Negative (NEG) Urine Urobilinogen Dipstick 0.2 mg/dL (0.2 mg/dL) Urine Leukocyte Esterase Trace (NEG) Urine RBC 0 /HPF (0-2) Urine WBC 5-10 /HPF (0-4) Urine Squamous Epithelial Cells Occ /LPF Urine Bacteria 0 /HPF (0-FEW) Urine Mucus Slight /LPF Glucose (Fingerstick) 318 mg/dL (70-99) Laboratory Tests Test 03/12/19 16:49 03/12/19 21:20 03/13/19 00:30 03/13/19 03:10 Glucose (Fingerstick) 183 mg/dL (70-99) Troponin I Quantitative < 0.017 ng/mL (0.000-0.055) < 0.017 ng/mL (0.000-0.055) Urine Collection Type Unknown Urine Color Yellow Urine Clarity Clear Urine pH 5.5 Urine Specific Willis 1.015 Urine Protein Negative mg/dL (NEG-TRACE) Urine Glucose (UA) Negative mg/dL (NEG) Urine Ketones (Stick) Negative mg/dL (NEG) Urine Blood Negative (NEG) Urine Nitrite Negative (NEG) Urine Bilirubin Negative (NEG) Urine Urobilinogen Dipstick 0.2 mg/dL (0.2 mg/dL) Urine Leukocyte Esterase Trace (NEG) Urine RBC 0 /HPF (0-2) Urine WBC 5-10 /HPF (0-4) Urine Squamous Epithelial Cells Occ /LPF Urine Bacteria 0 /HPF (0-FEW) Urine Mucus Slight /LPF Test 03/13/19 10:56 Glucose (Fingerstick) 318 mg/dL (70-99) Images Images Chest x-ray shows chronic interstitial changes but no acute changes Assessment/Plan Assessment/Plan 1. Episodes of chest discomfort. Pain has resolved. Troponins have been negative �3. Patient has no acute EKG changes. He is feeling significantly better. He is increasing his activities. He has requested to go home later today. 2. Chronic atrial fibrillation. Rate is under better control. Continue present treatments. 3. Mild probable diastolic heart failure. Largely resolved. Continue on present treatments. 4. Hypertension. Continue treatments under better control. 5. Chronic renal insufficiency. Creatinine of 1.5. Overall the patient reports feeling much better. He strongly wishes to go home today. I believe that is reasonable after increasing his activities. We'll call and follow-up with the patient via phone in the next one to 2 days. Thank you for allowing us to participate in the care of your patient. LORENZO ACUNA MD Mar 13, 2019 16:28
[2019-03-13] MEDS ORDERED: RIVAROXABAN 10 MG TABLET. PO SCH (17:00)
--- NOTE | 2019-03-13 17:35 | HP ---
ADMIT DATE: 03/13/2019 Admission history and physical, this is also combined with the discharge short stay summary. ADMISSION DIAGNOSIS: Chest pain. 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 He developed some substernal bilateral chest pain that radiated into his back that he described as a 9/10. He had some shortness of breath and palpitation. He came to the Emergency Room as a result of that. He did not have any acute EKG changes and his troponin was not elevated, but he was noted to be in atrial fib with a rapid heart rate and admitted for further evaluation and treatment. He has been seen in cardiac consultation by Dr. Hua, but no other additional studies are planned at this time. Of note, about a month ago his metoprolol was decreased from 50 mg b.i.d. to 25 mg b.i.d. because of fatigue symptoms, the patient has been taking half a tablet as directed. He was also admitted 03/03 and discharged the following day and evaluated by Cardiology at that time. He was thought then to have some pneumonia initially, but was felt to just have some pleurisy and chest wall pain. He is not complaining of any chest wall pain today or pain with deep breaths. CT imaging at that time revealed some pulmonary fibrosis. He is also undergoing radiation treatment for prostate cancer and has an appointment for treatment later this week. He is anxious to go home today stating that if he does not get to work tonight, he will be fired. PAST MEDICAL HISTORY: Significant for type 2 diabetes, hypertension, hyperlipidemia, chronic kidney disease, myocardial infarction, prostate cancer, cardiac murmur, atrial fib, depression, GERD, tongue cancer treated with radiation in 2017. PAST SURGICAL HISTORY: Include tonsillectomy, adenoidectomy, prostate biopsy, angioplasty x 2. FAMILY HISTORY: Mother from a stroke. Father from lymphoma and prostate cancer, he also had hypertension and was alcoholic. Brother from lung cancer and alcoholism. SOCIAL HISTORY: He has a cousin Marjorie who assists with his care. ROUTINE MEDICATIONS: Include metoprolol 50 mg one-half tab b.i.d., NovoLog 100 units 0-5 units subcutaneous with meals, Trulicity 0.75 mg 1 injection weekly, Xarelto 20 mg 1 tab daily, levothyroxine 75 mcg 1 tab daily, potassium chloride 20 mEq daily, Flonase 50 mcg each nostril daily, magnesium oxide 400 mg p.o. daily, bicalutamide 50 mg tablet once a day. ALLERGIES: He has no known drug allergies. REVIEW OF SYSTEMS: HEENT: No change in vision, hearing, or taste. CONSTITUTIONAL: Weight has been stable lately, but he has had some fatigue symptoms. CARDIAC: As above. PULMONARY: Recently found to have pulmonary fibrosis. GASTROINTESTINAL: No nausea, vomiting, diarrhea, constipation. GENITOURINARY: Prostate cancer, undergoing radiation treatment. Urinating okay. SKIN: He bleeds easily with some minimal contact due to his blood thinner. NEUROLOGIC: No neuropathy or seizures or headaches. MUSCULOSKELETAL: Chest wall pain recently contributing to his prior hospitalization. PHYSICAL EXAMINATION: VITAL SIGNS: His heart rate has been fluctuating from 100-140 and monitor showing atrial fibrillation. HEENT: Unremarkable. Has glasses. NECK: Supple. LUNGS: Diminished, but clear. No cough is present. ABDOMEN: Soft, nondistended, nontender. EXTREMITIES: There is no clubbing, cyanosis or peripheral edema. He has bleeding from his dorsal hand from some minor trauma earlier today bumping his meal tray. LABORATORY DATA: Shows mild anemia, hemoglobin 12.3, hematocrit 35.9, normal MCV, platelets are 118. Coags show an INR of 2.7. Glucose has ranged from 183-318. Chemistries unremarkable. Troponins unremarkable. Sodium is slightly low at 131 with a chloride of 97. His creatinine is stable at 1.5 with a BUN of 35. ProBNP was elevated at 3000. Recent TSH was normal. EKG is unremarkable. Chest x-ray shows bilateral coarse interstitial opacities. Recent CT imaging showed pulmonary fibrosis. ASSESSMENT: Atrial fibrillation, rapid ventricular response. HOSPITAL COURSE: No further cardiac intervention is planned. He wants to go home so he can get to work tonight. We discussed the fact that his RVR has occurred since his metoprolol dose has been decreased, so he will go back to his 50 mg b.i.d. dose and monitor his blood pressure and heart rate. Other home meds will be continued. He did receive cyclobenzaprine and ibuprofen 800 mg while here for his chest wall pain, he may need to resume that as an outpatient, but he is not complaining of any pain today. 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 He is to avoid exertion. He is to avoid tobacco smoke. Diet remains cardiac. He will follow up with his oncologist this week for radiation of his prostate cancer. He will follow up with Dr. Cline in the next week or two for consideration of a stress test. He will follow up with Dr. Posadas in 1-2 weeks to monitor his heart rate and blood pressure. W Michelle MANUEL MD DR: THOMAS/adelaide JOB#: [id number] / [id number]
[2019-03-20] MEDS ORDERED: NON FORMULARY ITEM (Dulaglutide (Trulicity) 0.75 MG) SQ SCH (09:00)
== END 2019-03-13 16:00 | disposition home or self-care (01) | DRG 309 ==
LOC: ER 13:31 → 2 NORTH 14:50
PROVIDERS: ADMIT Family Medicine; ATTEND Family Medicine
DX: I48.2 Chronic atrial fibrillation (principal); I13.0 Hypertensive heart and chronic kidney disease with heart failure and stage 1 through stage 4 chronic kidney disease, or unspecified chronic kidney disease; I24.8 Other forms of acute ischemic heart disease; I50.32 Chronic diastolic (congestive) heart failure; E11.65 Type 2 diabetes mellitus with hyperglycemia; C61 Malignant neoplasm of prostate; E03.9 Hypothyroidism, unspecified; E78.00 Pure hypercholesterolemia, unspecified; E78.5 Hyperlipidemia, unspecified; I25.10 Atherosclerotic heart disease of native coronary artery without angina pectoris; I25.2 Old myocardial infarction; J84.10 Pulmonary fibrosis, unspecified; F32.9 Major depressive disorder, single episode, unspecified; M19.90 Unspecified osteoarthritis, unspecified site; E11.22 Type 2 diabetes mellitus with diabetic chronic kidney disease; K21.9 Gastro-esophageal reflux disease without esophagitis; N18.9 Chronic kidney disease, unspecified; Z79.01 Long term (current) use of anticoagulants; Z79.4 Long term (current) use of insulin; Z79.899 Other long term (current) drug therapy; Z80.1 Family history of malignant neoplasm of trachea, bronchus and lung; Z80.42 Family history of malignant neoplasm of prostate; Z80.7 Family history of other malignant neoplasms of lymphoid, hematopoietic and related tissues; Z82.49 Family history of ischemic heart disease and other diseases of the circulatory system; Z85.46 Personal history of malignant neoplasm of prostate; Z85.810 Personal history of malignant neoplasm of tongue; Z82.3 Family history of stroke; Z83.3 Family history of diabetes mellitus; Z92.3 Personal history of irradiation
CPT/HCPCS: 36415; 71045; 80053; 81001; 82550; 82553; 82962; 83690; 83735; 83880; 84484; 85025; 85610; 87086; 93005; J1815; J2270; 99291-25

== ENCOUNTER 2019-03-23 06:38 | Inpatient (IN) | payer OTHER ==
[~2019-03-23] VITALS: Ht 177.8 cm; Wt 66.8 kg
[2019-03-23] VITALS (10 sets, daily range): BP systolic 100–133; BP diastolic 53–72
[~2019-03-23 06:38] MED LIST changes: +DULA0.75 SQ
[2019-03-23] MEDS ORDERED: dilTIAZem IV PUSH 25 MG/5 ML VIAL IVP ONE (07:00)
[2019-03-23] MEDS ORDERED: IV NORMAL SALINE 500ML BAG 500 ML IV ONE ×2 (07:00→07:15)
[2019-03-23 07:03] LABS: BASO % 0 % (0-3); EOS % 0 % (0-3); HEMOGLOBIN 10.6 g/dL (13.0-17.5); LYMPH # 0.4 x10^3/uL (1.0-4.8); LYMPH % 4 % (24-48); MEAN CORPUSCULAR HEMOGLOBIN 32 pg (25-35); MEAN CORPUSCULAR HGB CONC 34 g/dL (31-37); MEAN CORPUSCULAR VOLUME 92 fL (79-100); MONO # 0.7 x10^3/uL (0.0-1.1); MONO % 8 % (0-9); NEUT # 8.5 x10^3/uL (1.8-7.7); NEUT % 88 % (31-73); PLATELET COUNT 137 x10^3/uL (140-400); RED BLOOD COUNT 3.36 x10^6/uL (4.30-5.70); RED CELL DISTRIBUTION WIDTH 15.5 % (11.5-14.5); WHITE BLOOD COUNT 9.7 x10^3/uL (4.0-11.0)
[2019-03-23 07:10] LABS: CALCIUM 9.4 mg/dL (8.5-10.1); GFR 32.8
[2019-03-23 07:15] LABS: ALBUMIN 2.8 g/dL (3.4-5.0); ALBUMIN/GLOBULIN RATIO 0.6 (1.0-1.7); MAGNESIUM 1.8 mg/dL (1.8-2.4); TOTAL BILIRUBIN 2.3 mg/dL (0.2-1.0); TOTAL PROTEIN 7.6 g/dL (6.4-8.2)
[2019-03-23 07:25] LABS: PROTHROMBIN TIME PATIENT 39.2 SEC (11.7-14.0)
[2019-03-23 07:28] LABS: POTASSIUM 5.2 mmol/L (3.5-5.1)
[2019-03-23] MEDS ORDERED: ACETAMINOPHEN 500 MG TABLET PO ONE (07:45)
--- NOTE | 2019-03-23 07:57 | PHYS DOC ---
Past Medical History Past Medical History: A-Fib, Cancer, Diabetes-Type I, High Cholesterol, Hypertension, [place], Pneumonia, Renal Failure, Other Additional Past Medical Histor: HYPOKALEMIA,THROAT/PROSTATE CA/RADIATION/CHEMO,ASPIRATION PNEUMONIA Past Surgical History: Tonsillectomy, Other Additional Past Surgical Histo: IMPLANTED GLUCOMETER L. ARM,ADENOIDECTOMY Alcohol Use: None Drug Use: None Adult General Chief Complaint Chief Complaint: SHORTNESS OF BREATH HPI HPI Patient is a 73-year-old male who presents with a complaint of shortness of breath this morning via EMS. The patient states this is been getting worse over the last couple days. He denies any pain in his chest. He states he has a chronic nonproductive cough. He states he's been losing quite a bit of weight because he doesn't have any appetite. This morning along with feeling short of breath he feels profoundly weak. He denies any hemoptysis. He does admit to being on Coumadin and taking regularly.[] Review of Systems Review of Systems Constitutional: Denies fever and chills, reports weight loss[] Eyes: Denies change in visual acuity, redness, or eye pain [] HENT: Denies nasal congestion or sore throat [] Respiratory: Denies cough or shortness of breath [] Cardiovascular: No additional information not addressed in HPI [] GI: Denies abdominal pain, nausea, vomiting, bloody stools or diarrhea, reports loss of appetite [] : Denies dysuria or hematuria [] Musculoskeletal: Denies back pain or joint pain [] Integument: Denies rash or skin lesions [] Neurologic: Denies headache, focal weakness or sensory changes [] Endocrine: Denies polyuria or polydipsia [] All other systems were reviewed and found to be within normal limits, except as documented in this note. Current Medications Current Medications Current Medications Medications (Trade) Dose Ordered Sig/Yessy Start Time Stop Time Status Last Admin Dose Admin Acetaminophen (Tylenol) 650 mg PRN Q4HRS PRN 03/23/19 08:15 03/24/19 08:14 Dextrose (Dextrose 50%-Water Syringe) 12.5 gm PRN Q15MIN PRN 03/23/19 08:15 Diltiazem HCl (Cardizem Iv Push) 20 mg 1X ONCE 03/23/19 07:00 03/23/19 07:01 DC 03/23/19 07:04 20 MG Fentanyl Citrate (Fentanyl 2ml Vial) 50 mcg PRN Q3HRS PRN 03/23/19 08:15 03/24/19 08:14 03/23/19 08:42 50 MCG Norepinephrine Bitartrate 250 ml @ 11.567 mls/ hr 1X ONCE 03/23/19 08:00 03/24/19 05:36 03/23/19 08:14 11.567 MLS/HR Ondansetron HCl (Zofran) 4 mg 1X ONCE 03/23/19 08:45 03/23/19 08:46 DC 03/23/19 08:42 4 MG Sodium Chloride 1,000 ml @ 150 mls/hr Q6H40M 03/23/19 08:14 03/24/19 08:13 Allergies Allergies Allergies Coded Allergies Type Severity Reaction Last Updated Verified No Known Drug Allergies 04/21/18 No Physical Exam Physical Exam Constitutional: Frail, elderly appears acutely ill. [] HENT: Normocephalic, atraumatic, bilateral external ears normal, mucous membra siva dry. [] Eyes: PERRLA, EOMI, conjunctiva normal, no discharge. [] Neck: Normal range of motion, no tenderness, supple, no stridor. [] Cardiovascular: Irregularly irregular with a 2+ systolic ejection murmur heard at the left sternal border tachycardic[] Lungs & Thorax: Bilateral breath sounds clear to auscultation [] Abdomen: Bowel sounds normal, soft, no tenderness, no masses, no pulsatile masses. [] Skin: Warm, dry, no erythema, no rash. [] Back: No tenderness, no CVA tenderness. [] Extremities: No tenderness, no cyanosis, no clubbing, ROM intact, no edema. [] Neurologic: Alert and oriented X 3, normal motor function, normal sensory function, no focal deficits noted. [] Psychologic: Anxious[] Current Patient Data Vital Signs Vital Signs Date Time Temp Pulse Resp B/P (MAP) Pulse Ox O2 Delivery O2 Flow Rate FiO2 03/23/19 07:04 133 88/60 03/23/19 06:41 98.1 20 86 Room Air 98.1 Lab Values Laboratory Tests Test 03/23/19 06:48 03/23/19 07:15 White Blood Count 9.7 x10^3/uL (4.0-11.0) Red Blood Count 3.36 x10^6/uL (4.30-5.70) L Hemoglobin 10.6 g/dL (13.0-17.5) L Hematocrit 31.0 % (39.0-53.0) L Mean Corpuscular Volume 92 fL (79-100) Mean Corpuscular Hemoglobin 32 pg (25-35) Mean Corpuscular Hemoglobin Concent 34 g/dL (31-37) Red Cell Distribution Width 15.5 % (11.5-14.5) H Platelet Count 137 x10^3/uL (140-400) L Neutrophils (%) (Auto) 88 % (31-73) H Lymphocytes (%) (Auto) 4 % (24-48) L Monocytes (%) (Auto) 8 % (0-9) Eosinophils (%) (Auto) 0 % (0-3) Basophils (%) (Auto) 0 % (0-3) Neutrophils # (Auto) 8.5 x10^3/uL (1.8-7.7) H Lymphocytes # (Auto) 0.4 x10^3/uL (1.0-4.8) L Monocytes # (Auto) 0.7 x10^3/uL (0.0-1.1) Eosinophils # (Auto) 0.0 x10^3/uL (0.0-0.7) Basophils # (Auto) 0.0 x10^3/uL (0.0-0.2) Segmented Neutrophils % 90 % (35-66) H Band Neutrophils % 2 % (0-9) Lymphocytes % 3 % (24-48) L Monocytes % 5 % (0-10) Dohle Bodies Few Platelet Estimate Decreased (ADEQUATE) Polychromasia Present Prothrombin Time 39.2 SEC (11.7-14.0) H Prothrombin Time INR 4.0 (0.8-1.1) H Sodium Level 121 mmol/L (136-145) L Potassium Level 5.2 mmol/L (3.5-5.1) H Chloride Level 88 mmol/L (98-107) L Carbon Dioxide Level 22 mmol/L (21-32) Anion Gap 11 (6-14) Blood Urea Nitrogen 53 mg/dL (8-26) H Creatinine 2.0 mg/dL (0.7-1.3) H Estimated GFR (Cockcroft-Gault) 32.8 BUN/Creatinine Ratio 27 (6-20) H Glucose Level 295 mg/dL (70-99) H Calcium Level 9.4 mg/dL (8.5-10.1) Magnesium Level 1.8 mg/dL (1.8-2.4) Total Bilirubin 2.3 mg/dL (0.2-1.0) H Aspartate Amino Transferase (AST) 36 U/L (15-37) Alanine Aminotransferase (ALT) 36 U/L (16-63) Alkaline Phosphatase 225 U/L (46-116) H Troponin I Quantitative 0.035 ng/mL (0.000-0.055) Total Protein 7.6 g/dL (6.4-8.2) Albumin 2.8 g/dL (3.4-5.0) L Albumin/Globulin Ratio 0.6 (1.0-1.7) L Lactic Acid Level 3.4 mmol/L (0.4-2.0) H Laboratory Tests 03/23/19 06:48 Laboratory Tests 03/23/19 06:48 EKG EKG [EKG: Atrial fibrillation rate of [address]-T changes there is an occasional PVC] Radiology/Procedures Radiology/Procedures []PROCEDURE: CHEST AP ONLY CHEST AP ONLY Clinical indications: Shortness of air. COMPARISON: March 12, 2019. Findings: Bilateral interstitial lung infiltrates or pulmonary edema are again seen which have increased. Small right-sided pleural effusion is seen. No pneumothorax is evident. Heart size and mediastinum and pulmonary vasculature are stable. Impression: Increase in bilateral interstitial lung infiltrates or pulmonary edema. Impressions: Left ventricle systolic function is moderately impaired. The Ejection Fraction is 35-40%. Mild to moderate aortic stenosis. Mild aortic regurgitation. Mild mitral regurgitation. Trace to mild tricuspid regurgitation. The PA pressure was estimated at 47 mmHg. There is no evidence of significant pericardial effusion. Signed by : Edaur Gallardo, Electronically Approved : 03/04/2019 CURLY: chest/back pain r/o dissection PROCEDURE: CT ANGIOGRAPHY CHEST CTA OF THE CHEST WITH AND WITHOUT CONTRAST Clinical indications: Chest and back pain. Possible dissection. Technique: Noncontrast helical CT scanning of the chest was performed. After IV infusion of 60 cc of Omnipaque 350, helical CT scanning of the chest was performed using the CT pulmonary embolism protocol. A coronal MIP reconstruction was generated. Preprocedure creatinine level was 2.0 and the ER physician Dr. Darek Watson felt strongly that the chest CTA was indicated and therefore, he hydrated the patient before and after the CT study. PQRS compliance Statement One or more of the following individualized dose reduction techniques were utilized for this study: 1. Automated exposure control 2. Adjustment of the mA and/or kV according to patient size 3. Use of iterative reconstruction technique Comparison: April 18, 2018. March 03, 2019. Findings: No hyperdense hemorrhage is seen within the wall of the thoracic aorta. No intimal flap or dissection is seen. No aneurysmal dilatation of the thoracic aorta is seen. The ascending aorta measures up to 2.9 cm in greatest dimension which is normal. The brachial and cephalic arteries enhance normally. Calcification of aortic valve leaflets is seen which may be noted with aortic valvular stenosis. Calcified atheromatous disease of the coronary arteries is seen. Heart size is enlarged. No pericardial effusion is seen. Mediastinal lymphadenopathy is evident. The largest lymph nodes are seen in the right paratracheal region measuring 28 mm and the subcarinal region measuring 32 mm. Right hilar lymph node is seen measuring 21 mm. Moderate size right-sided pleural effusion is seen. Minimal left-sided pleural effusion is seen. Pulmonary arteries are not optimally opacified but no central pulmonary emboli are evident. Bilateral groundglass lung infiltrates are seen. On image 70 and series 7, there is a noncalcified lung nodule measuring 8 mm in size within the posterior aspect of the right lower lobe. Bilateral dilated bronchi are seen consistent with bronchiectasis. The proximal bronchial tree is patent otherwise. No adrenal mass is seen. There is small amount of free fluid within the upper abdomen. There is edema of the retroperitoneum and around the pancreas and within the gastrocolic ligament. No lytic process is seen. IMPRESSION: No thoracic aortic dissection or aneurysm is seen. Cardiomegaly with calcified atheromatous disease of the coronary arteries. Calcified atheromatous disease of the aortic valve which may be seen with aortic valvular stenosis. Moderate-sized right-sided pleural effusion and minimal left-sided pleural effusion. Increase in bilateral groundglass lung infiltrates which may represent pulmonary edema superimposed upon chronic lung disease. These findings may be seen with CHF or fluid overload. Groundglass lung infiltrates may be seen with inflammatory or infectious disease of the lung denson as well especially given the bilateral bronchiectasis which may indicate distal airway disease. There is a small 8 mm noncalcified lung nodule within the right lower lobe. This is unchanged from April 18, 2018 and therefore may be benign. This latter finding may be followed with a chest CT in 12 months. Mediastinal lymphadenopathy which is unchanged from March 03, 2019 but has increased in size since April 18, 2018. This may be due to infectious or inflammatory disease but malignancy is certainly possible. Small amount of free fluid within the upper abdomen. Edema of the retroperitoneum around the pancreas and the gastrohepatic ligament. This could be secondary to anasarca. Pancreatitis is a possibility as well and therefore correlation with pancreatic enzymes is recommended. Electronically signed by: Kerwin Mon MD (03/23/2019 10:34 AM) [facility] Course & Med Decision Making Course & Med Decision Making Pertinent Labs and Imaging studies reviewed. (See chart for details) [ED course: Evaluation reveals a critically ill 73-year-old male who presented to the emergency department short of breath with rapid atrial fibrillation and hypotension. He was afebrile and did not have an obvious source for infection. Despite his low blood pressure he was given a Cardizem bolus in an effort to improve deficiency of his pump to hopefully better perfused peripherally. After the bolus of Cardizem his heart rate did drop to the 70s and his blood pressure improved briefly. The patient was then given a liter of normal saline was still no improvement in his blood pressure he was therefore started on levo effect with excellent result. During his stay in the department he developed some right shoulder chest and back discomfort was given Tylenol, no 50 �g and Zofran with complete resolution of the symptoms. I was concerned that he may have an aortic dissection so a CTA was performed which did not show any evidence of dissection. I spoke with Dr. Reza who agreed to admit the patient to the ICU on a levophed drip.] Kimberly Disclaimer Dragon Disclaimer This electronic medical record was generated, in whole or in part, using a voice recognition dictation system. Departure Departure Impression: Primary Impression: Rapid atrial fibrillation Additional Impressions: Hypotension Hyponatremia Pulmonary fibrosis Renal failure (ARF), acute on chronic Disposition: ADMITTED INPATIENT Admitting Physician: Wendi Reza Condition: GUARDED Referrals: JM BUCKLEY MD (PCP) Critical Care Note Total Time (mins): 45 Comments CRITICAL CARE: Time spent was 45 minutes. This includes medical management, evaluation, reevaluation, discussion with consultants and family. Critical Care does NOT include time spent on separately billed procedures. Problem Qualifiers Additional Impressions: Hypotension Hypotension type: unspecified hypotension type Qualified Codes: I95.9 - Hypotension, unspecified Renal failure (ARF), acute on chronic Acute renal failure type: unspecified Chronic kidney disease stage: unspecified stage Qualified Codes: N17.9 - Acute kidney failure, unspecified; N18.9 - Chronic kidney disease, unspecified DAREK WATSON DO Mar 23, 2019 07:57
[2019-03-23] MEDS ORDERED: NOREPINEPHRIN 8MG/250ML PREMIX 250 ML IV ONE (08:00)
--- NOTE | 2019-03-23 08:07 | RAD ---
CHEST AP ONLY Clinical indications: Shortness of air. COMPARISON: March 12, 2019. Findings: Bilateral interstitial lung infiltrates or pulmonary edema are again seen which have increased. Small right-sided pleural effusion is seen. No pneumothorax is evident. Heart size and mediastinum and pulmonary vasculature are stable. Impression: Increase in bilateral interstitial lung infiltrates or pulmonary edema. Electronically signed by: Kerwin Mon MD (03/23/2019 8:05 AM) [facility]
[2019-03-23] MEDS ORDERED: DEXTROSE 50% 25 GM / 50ML DISP.SYRIN. IV PRN (08:15)
[2019-03-23] MEDS ORDERED: ONDANSETRON PF 4 MG/2 ML VIAL. IV PRN (08:15)
[2019-03-23] MEDS ORDERED: fentaNYL PF VIAL 100 MCG/2 ML VIAL IV PRN (08:15)
[2019-03-23] MEDS ORDERED: ACETAMINOPHEN 325 MG TABLET. PO PRN (08:15)
[2019-03-23] MEDS ORDERED: ONDANSETRON PF 4 MG/2 ML VIAL. IV ONE (08:45)
[2019-03-23] MEDS ORDERED: CONTRAST GIVEN. MC PRN (09:30)
[2019-03-23] MEDS ORDERED: IOHEXOL 350 MG/ML 100 ML VIAL. IV ONE (09:30)
[2019-03-23 09:54] LABS: % BANDS 2 % (0-9); % LYMPHS 3 % (24-48); % MONOS 5 % (0-10); % SEGS 90 % (35-66); POLYCHROMASIA PRESENT
[2019-03-23 09:56] LABS: PLT ESTIMATE DECREASED (ADEQUATE)
[2019-03-23] MEDS: IV NORMAL SALINE 1000ML BAG 1,000 ML IV SCH ×3 (10:00→21:34)
--- NOTE | 2019-03-23 10:24 | CARD ---
MR#: [id number] Date of Study: 03/23/2019 Ordering Physician: DAREK FLETCHER, Referring Physician: DAREK FLETCHER, Tech: Tori Mcknight [facility] APPROVED REPORT EXAM: LIMITED Two-dimensional and M-mode echocardiogram. Other Information Quality : AverageHR: 100bpm Rhythm : Atrial Fibrillation INDICATION Atrial Fibrillation 2D DIMENSIONS RVDd3.2 (2.9-3.5cm)Left Atrium(2D)3.9 (1.6-4.0cm) IVSd0.7 (0.7-1.1cm)Aortic Root(2D)2.8 (2.0-3.7cm) LVDd4.8 (3.9-5.9cm)PWd0.8 (0.7-1.1cm) LVDs4.0 (2.5-4.0cm)FS (%) 16.5 % SV37.2 ml Aortic Valve AoV Peak Hung.248.9cm/Timbo Peak GR.24.8mmHg AI P 1/2 Dunt225uf Tricuspid Valve TR P. Xpccpyid376hw/sTR Peak Gr.15mmHg LEFT VENTRICLE Limited study. The left ventricle is normal size. There is normal left ventricular wall thickness. Th e ejection fraction is moderately to severely impaired. The Ejection Fraction is 30-35%. There is miguelangel bal hypokinesis of the left ventricle. RIGHT VENTRICLE The right ventricle is normal size. There is normal right ventricular wall thickness. The right ventr icular systolic function is normal. ATRIA The left atrium size is normal. The right atrium size is normal. The interatrial septum is intact wit h no evidence for an atrial septal defect or patent foramen ovale as noted on 2-D or Doppler imaging. AORTIC VALVE The aortic valve is moderately calcified. The aortic valve is trileaflet. Doppler and Color Flow reve aled mild aortic regurgitation. MITRAL VALVE Mitral annular calcification is moderate. TRICUSPID VALVE The tricuspid valve is normal in structure and function. Doppler and Color Flow revealed mild tricusp id regurgitation. PULMONIC VALVE The pulmonic valve is not well visualized. GREAT VESSELS The aortic root is normal in size. The ascending aorta is normal in size. The IVC is normal in size a nd collapses >50% with inspiration. PERICARDIAL EFFUSION There is no evidence of significant pericardial effusion. Critical Notification Critical Value: No <Conclusion> Limited study. The left ventricle is normal size. The ejection fraction is moderately to severely impaired. The Ejection Fraction is 30-35%. There is global hypokinesis of the left ventricle. The aortic valve is moderately calcified. There is no evidence of significant pericardial effusion. Signed by : Gopi Lane MD Electronically Approved : 03/23/2019 10:23:51
--- NOTE | 2019-03-23 10:38 | RAD ---
CTA OF THE CHEST WITH AND WITHOUT CONTRAST Clinical indications: Chest and back pain. Possible dissection. Technique: Noncontrast helical CT scanning of the chest was performed. After IV infusion of 60 cc of Omnipaque 350, helical CT scanning of the chest was performed using the CT pulmonary embolism protocol. A coronal MIP reconstruction was generated. Preprocedure creatinine level was 2.0 and the ER physician Dr. Jonas Watson felt strongly that the chest CTA was indicated and therefore, he hydrated the patient before and after the CT study. PQRS compliance Statement One or more of the following individualized dose reduction techniques were utilized for this study: 1. Automated exposure control 2. Adjustment of the mA and/or kV according to patient size 3. Use of iterative reconstruction technique Comparison: April 18, 2018. March 03, 2019. Findings: No hyperdense hemorrhage is seen within the wall of the thoracic aorta. No intimal flap or dissection is seen. No aneurysmal dilatation of the thoracic aorta is seen. The ascending aorta measures up to 2.9 cm in greatest dimension which is normal. The brachial and cephalic arteries enhance normally. Calcification of aortic valve leaflets is seen which may be noted with aortic valvular stenosis. Calcified atheromatous disease of the coronary arteries is seen. Heart size is enlarged. No pericardial effusion is seen. Mediastinal lymphadenopathy is evident. The largest lymph nodes are seen in the right paratracheal region measuring 28 mm and the subcarinal region measuring 32 mm. Right hilar lymph node is seen measuring 21 mm. Moderate size right-sided pleural effusion is seen. Minimal left-sided pleural effusion is seen. Pulmonary arteries are not optimally opacified but no central pulmonary emboli are evident. Bilateral groundglass lung infiltrates are seen. On image 70 and series 7, there is a noncalcified lung nodule measuring 8 mm in size within the posterior aspect of the right lower lobe. Bilateral dilated bronchi are seen consistent with bronchiectasis. The proximal bronchial tree is patent otherwise. No adrenal mass is seen. There is small amount of free fluid within the upper abdomen. There is edema of the retroperitoneum and around the pancreas and within the gastrocolic ligament. No lytic process is seen. IMPRESSION: No thoracic aortic dissection or aneurysm is seen. Cardiomegaly with calcified atheromatous disease of the coronary arteries. Calcified atheromatous disease of the aortic valve which may be seen with aortic valvular stenosis. Moderate-sized right-sided pleural effusion and minimal left-sided pleural effusion. Increase in bilateral groundglass lung infiltrates which may represent pulmonary edema superimposed upon chronic lung disease. These findings may be seen with CHF or fluid overload. Groundglass lung infiltrates may be seen with inflammatory or infectious disease of the lung denson as well especially given the bilateral bronchiectasis which may indicate distal airway disease. There is a small 8 mm noncalcified lung nodule within the right lower lobe. This is unchanged from April 18, 2018 and therefore may be benign. This latter finding may be followed with a chest CT in 12 months. Mediastinal lymphadenopathy which is unchanged from March 03, 2019 but has increased in size since April 18, 2018. This may be due to infectious or inflammatory disease but malignancy is certainly possible. Small amount of free fluid within the upper abdomen. Edema of the retroperitoneum around the pancreas and the gastrohepatic ligament. This could be secondary to anasarca. Pancreatitis is a possibility as well and therefore correlation with pancreatic enzymes is recommended. Electronically signed by: Kerwin Mon MD (03/23/2019 10:34 AM) [facility]
--- NOTE | 2019-03-23 11:10 | EKG ---
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
[2019-03-23] MEDS ORDERED: POTA20TA82 PO (11:28)
[2019-03-23] MEDS ORDERED: BUSP10TA PO (11:28)
[2019-03-23] MEDS ORDERED: MIRT15TA3 PO (11:28)
[2019-03-23] MEDS: INSULIN LISPRO 300 UNITS/3 ML INSULN.PEN. SQ SCH ×3 (12:07→17:29)
--- NOTE | 2019-03-23 12:12 | PDOC2 ---
LUCIA ISBELL PHYSICAL THERAPIST AIDE 03/23/19 1212: CARDIAC CONSULT DATE OF CONSULT Date of Consult DATE: 03/23/19 TIME: 11:58 REASON FOR CONSULT Reason for Consult: AFIB RVR REFERRING PHYSICIAN Referring Physician: Walter SOURCE Source: Chart review, Patient HISTORY OF PRESENT ILLNESS HISTORY OF PRESENT ILLNESS This is a pleasant 73 yo male admitted for complains of shortness of breath. Reports that he had his last dose of antibiotic yesterday for recent pneumonia. He has been having bouts of productive cough mostly white sputum and has been having exertional SOA and chest tightness. No nausea or vomiting but his appetite has decreased. No PND or orthopnea in the last few days and has not had any sustained episodes of palpitations. He did tell he typically dont feel his heart racing when it does. This morning he was more SOA, breathing faster and was slightly dizzy and end up calling the ambulance and was noted upon admission to ED with AFIB RVR and low BP. He does not have any leg swelling and verbal ized that he has been taking his medications regularly. His HR became controlled after 1 dose of cardizem and was eventually placed on levophed due to his BP being low and was given IVF. PAST MEDICAL HISTORY Past Medical History Cardiovascular: AFIB, CAD, HTN, [place], Hyperlipidemia, Aortic stenosis, Valve insufficiency Pulmonary: COPD, ILD CENTRAL NERVOUS SYSTEM: Other GI: GERD, Other Heme/Onc: Cancer Musculoskeletal: Osteoarthritis Renal/: Chronic renal insuff, Prostate Ca. Endocrine: Diabetes, Hypothyroidism PAST SURGICAL HISTORY Past Surgical History Tonsillectomy, Colon Resection, Other (prostate surgery) FAMILY HISTORY Family History: Coronary Artery Disease SOCIAL HISTORY Smoke: No ALCOHOL: none Drugs: None Lives: Alone CURRENT MEDICATIONS CURRENT MEDICATIONS Current Medications Medications (Trade) Dose Ordered Sig/Yessy Route PRN Reason Start Time Stop Time Status Last Admin Dose Admin Sodium Chloride 500 ml @ 500 mls/hr 1X ONCE IV 03/23/19 07:00 03/23/19 07:59 DC 03/23/19 07:01 Diltiazem HCl (Cardizem Iv Push) 20 mg 1X ONCE IVP 03/23/19 07:00 03/23/19 07:01 DC 03/23/19 07:04 Sodium Chloride 500 ml @ 500 mls/hr 1X ONCE IV 03/23/19 07:15 03/23/19 08:14 DC 03/23/19 07:20 Acetaminophen (Tylenol) 1,000 mg 1X ONCE PO 03/23/19 07:45 03/23/19 07:46 DC 03/23/19 07:50 Norepinephrine Bitartrate 250 ml @ 11.567 mls/ hr 1X ONCE IV 03/23/19 08:00 03/24/19 05:36 03/23/19 08:14 Fentanyl Citrate (Fentanyl 2ml Vial) 50 mcg PRN Q3HRS PRN IV PAIN 03/23/19 08:15 03/24/19 08:14 03/23/19 08:42 Sodium Chloride 1,000 ml @ 150 mls/hr Q6H40M IV 03/23/19 08:14 03/24/19 08:13 03/23/19 10:00 Ondansetron HCl (Zofran) 4 mg 1X ONCE IV 03/23/19 08:45 03/23/19 08:46 DC 03/23/19 08:42 Iohexol (Omnipaque 350 Mg/ml) 60 ml 1X ONCE IV 03/23/19 09:30 03/23/19 09:31 DC 03/23/19 09:48 ALLERGIES ALLERGIES: Coded Allergies: No Known Drug Allergies (Unverified , 04/21/18) ROS Review of System 14 point ROS evaluated with pertinent positives noted per HPI PHYSICAL EXAM General: Alert, Oriented X3, Cooperative, No acute distress HEENT: Atraumatic, Mucous membr. moist/pink Lungs: Other (diffuse crackles) Heart: Other (2/6 systolic murmur to LLS border, AFIB rate controlled) Abdomen: Soft, No tenderness Extremities: No cyanosis, No edema Skin: No breakdown, No significant lesion Neuro: Normal speech, Sensation intact Psych/Mental Status: Mental status NL, Mood NL MUSCULOSKELETAL: Osteoarthritic changes both hands VITALS/I&O VITALS/I&O: Vital Signs Date Time Temp Pulse Resp B/P (MAP) Pulse Ox O2 Delivery O2 Flow Rate FiO2 03/23/19 10:36 121 26 95/51 (66) 98 Nasal Cannula 3.0 03/23/19 06:41 98.1 98.1 LABS Lab: Laboratory Tests Test 03/23/19 06:48 03/23/19 07:15 White Blood Count 9.7 x10^3/uL (4.0-11.0) Red Blood Count 3.36 x10^6/uL (4.30-5.70) L Hemoglobin 10.6 g/dL (13.0-17.5) L Hematocrit 31.0 % (39.0-53.0) L Mean Corpuscular Volume 92 fL (79-100) Mean Corpuscular Hemoglobin 32 pg (25-35) Mean Corpuscular Hemoglobin Concent 34 g/dL (31-37) Red Cell Distribution Width 15.5 % (11.5-14.5) H Platelet Count 137 x10^3/uL (140-400) L Neutrophils (%) (Auto) 88 % (31-73) H Lymphocytes (%) (Auto) 4 % (24-48) L Monocytes (%) (Auto) 8 % (0-9) Eosinophils (%) (Auto) 0 % (0-3) Basophils (%) (Auto) 0 % (0-3) Neutrophils # (Auto) 8.5 x10^3/uL (1.8-7.7) H Lymphocytes # (Auto) 0.4 x10^3/uL (1.0-4.8) L Monocytes # (Auto) 0.7 x10^3/uL (0.0-1.1) Eosinophils # (Auto) 0.0 x10^3/uL (0.0-0.7) Basophils # (Auto) 0.0 x10^3/uL (0.0-0.2) Segmented Neutrophils % 90 % (35-66) H Band Neutrophils % 2 % (0-9) Lymphocytes % 3 % (24-48) L Monocytes % 5 % (0-10) Dohle Bodies Few Platelet Estimate Decreased (ADEQUATE) Polychromasia Present Prothrombin Time 39.2 SEC (11.7-14.0) H Prothrombin Time INR 4.0 (0.8-1.1) H Sodium Level 121 mmol/L (136-145) L Potassium Level 5.2 mmol/L (3.5-5.1) H Chloride Level 88 mmol/L (98-107) L Carbon Dioxide Level 22 mmol/L (21-32) Anion Gap 11 (6-14) Blood Urea Nitrogen 53 mg/dL (8-26) H Creatinine 2.0 mg/dL (0.7-1.3) H Estimated GFR (Cockcroft-Gault) 32.8 BUN/Creatinine Ratio 27 (6-20) H Glucose Level 295 mg/dL (70-99) H Calcium Level 9.4 mg/dL (8.5-10.1) Magnesium Level 1.8 mg/dL (1.8-2.4) Total Bilirubin 2.3 mg/dL (0.2-1.0) H Aspartate Amino Transferase (AST) 36 U/L (15-37) Alanine Aminotransferase (ALT) 36 U/L (16-63) Alkaline Phosphatase 225 U/L (46-116) H Troponin I Quantitative 0.035 ng/mL (0.000-0.055) Total Protein 7.6 g/dL (6.4-8.2) Albumin 2.8 g/dL (3.4-5.0) L Albumin/Globulin Ratio 0.6 (1.0-1.7) L Lactic Acid Level 3.4 mmol/L (0.4-2.0) H Laboratory Tests 03/23/19 06:48 Laboratory Tests 03/23/19 06:48 IMAGES IMAGES IMPRESSION: No thoracic aortic dissection or aneurysm is seen. Cardiomegaly with calcified atheromatous disease of the coronary arteries. Calcified atheromatous disease of the aortic valve which may be seen with aortic valvular stenosis. Moderate-sized right-sided pleural effusion and minimal left-sided pleural effusion. Increase in bilateral groundglass lung infiltrates which may represent pulmonary edema superimposed upon chronic lung disease. These findings may be seen with CHF or fluid overload. Groundglass lung infiltrates may be seen with inflammatory or infectious disease of the lung denson as well especially given the bilateral bronchiectasis which may indicate distal airway disease. There is a small 8 mm noncalcified lung nodule within the right lower lobe. This is unchanged from April 18, 2018 and therefore may be benign. This latter finding may be followed with a chest CT in 12 months. Mediastinal lymphadenopathy which is unchanged from March 03, 2019 but has increased in size since April 18, 2018. This may be due to infectious or inflammatory disease but malignancy is certainly possible. Small amount of free fluid within the upper abdomen. Edema of the retroperitoneum around the pancreas and the gastrohepatic ligament. This could be secondary to anasarca. Pancreatitis is a possibility as well and therefore correlation with pancreatic enzymes is recommended. DATE: 03/23/19 1034 ECHOCARDIOGRAM ECHOCARDIOGRAM <Conclusion> Limited study. The left ventricle is normal size. The ejection fraction is moderately to severely impaired. The Ejection Fraction is 30-35%. There is global hypokinesis of the left ventricle. The aortic valve is moderately calcified. There is no evidence of significant pericardial effusion. DATE: 03/23/19 1023 ASSESSMENT/PLAN ASSESSMENT/PLAN 1. AFIB RVR; chronic by baseline Rate improved after 1 dose cardizem 2. Acute on chronic systolic CHF: presently not feeling SOA 3. Cardiomyopathy: EF 30% multifactorial 4. Acute on chronic respiratory failure with COPD/ILD/bronchiectasis/CHF 5. CAD: remote [facility], last MPI 04/2017 6. Suspect sepsis with recently treated pneumonia 7. SATHYA on CKD3 8. Septic shock vs RVR induced hypotension 9. Elevated troponin: 0.14, multiple culprits including ischemia as noted above. 10. Prostate CA: 6 more radiation session Recommendations 1. Procalc, BC, antibiotic per PCP. IVF received in ED. IVF with caution with low EF. Repeat BMP this afternoon. 2. Levophed as warranted. Dig PRN unless BP trend is adequate 3. Pt not SOA despite with pleural effusion, hold lasix for now with BP at low end. Lasix PRN. Monitor I & O 4. Discussed with pt in regards to future ischemic workup. Given his SATHYA and coexisting acute comorbid conditions, the risk for SUNSHINE is high and will revisit as an outpt and currently not having any chest pain. 5. Continue to optimize medical therapy 6. Xarelto at 15 mg po daily PAUL GALLARDO MD 03/23/19 1755: CARDIAC CONSULT ASSESSMENT/PLAN ASSESSMENT/PLAN Patient seen and examined. Agree with above nurse practitioner note. Case discussed with primary care physician and pulmonology. LUCIA ISBELL APRN Mar 23, 2019 12:12 PAUL GALLARDO MD Mar 23, 2019 17:55
--- NOTE | 2019-03-23 12:20 | NUR ---
Patient refused fingerstick for blood sugar, patient has FreeStyle Katherine on left posterior arm. Patient's meter reported blood glucose of 270, 7 units of insulin given by CJ Woodall per sliding scale.
--- NOTE | 2019-03-23 12:57 | CONS ---
DATE OF CONSULTATION: 03/23/2019 ATTENDING PHYSICIAN: Dr. Reza. REASON FOR CONSULTATION: Respiratory failure, dyspnea, abnormal CT chest. HISTORY OF PRESENT ILLNESS: The patient is a 73-year-old male, who has history of COPD, history of cardiomyopathy with an EF of 30% and history of interstitial lung disease/fibrosis. Never been followed by any supervisor gate services. He was brought into the hospital with increasing shortness of breath. He has also lower extremity edema. He has a dry cough. No chest pain, no headaches, no nausea, vomiting, no diarrhea. I have reviewed the patient's CT chest, which was done on 03/23, today. The patient has evidence of underlying pulmonary fibrosis/interstitial lung disease, predominantly in the upper lobes; however, he has now developed increased ground glass infiltrates, superimposed on underlying chronic interstitial lung disease. The patient also has an 8 mm noncalcified nodule in the right lower lobe and development of right pleural effusion and minimal pleural effusion on the left base. The CT comparison was made from before. He also has now increased mediastinal adenopathy especially in the subcarinal area and the precarinal area. I have been asked to see him for further evaluation. He was also noted to be in AFib with RVR. His blood pressure was low initially and he was started on Levophed. PAST MEDICAL HISTORY: Significant for history of cardiomyopathy with an EF of 30%. Never had ischemic workup. History of prostate cancer. History of COPD, history of pneumonia. History of renal insufficiency. History of interstitial lung disease/fibrosis with mediastinal adenopathy, 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osis. PAST SURGICAL HISTORY: 1. Adenoidectomy 2. Tonsillectomy. ALLERGIES: None. MEDICATIONS: Reviewed as listed in the MRAD. REVIEW OF SYSTEMS: Twelve-point system obtained. Pertinent positives discussed in my history of present illness, otherwise noncontributory. All systems that were negative were reviewed as well. SOCIAL HISTORY: He has history of tobacco use for 25 years. FAMILY HISTORY: Noncontributory to lungs. PHYSICAL EXAMINATION: VITAL SIGNS: Reviewed. Blood pressure 95 systolic, afebrile, pulse ox 98% on 3 liters. He is not on home oxygen. NECK: Supple. LUNGS: With crackles at the left base and diminished on the right base. CARDIOVASCULAR: With irregular rhythm. ABDOMEN: Soft, nontender. EXTREMITIES: With bilateral pitting edema. LABORATORY DATA: Reviewed. White cell count 9.7, hemoglobin 10.6 and platelets are 137. BUN 53 and a creatinine of 2.0. Sodium 121. IMPRESSION: 1. Acute hypoxic respiratory failure, likely related to superimposed congestive heart failure in addition to underlying chronic interstitial lung disease. 2. Severe cardiomyopathy with an EF of 30%. Needs ischemic workup. 3. Atrial fibrillation with rapid ventricular response, triggering congestive heart failure. 4. Abnormal CT chest with underlying interstitial lung disease/fibrotic lung disease involving predominantly the upper lobes and also minimal in the lower lobes. Now, he has developed new ground glass infiltrates in the upper lobes suggesting alveolitis and likely related to congestive heart failure. He also has now progression of mediastinal adenopathy. 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 5. Acute kidney injury. 6. Abnormal troponin level. 7. Hyponatremia. 8. Coagulopathy with INR of 4.0. Pt on Eliquis 9. Lower extremity edema secondary to cardiomyopathy. 10. Underlying chronic obstructive pulmonary disease. RECOMMENDATIONS: 1. Continue with present oxygen. 2. Monitor blood pressure closely and if it stabilizes, then consider diuresis. 3. We will also consider adding IV steroids to treat for any acute flare up of interstitial lung disease. 4. Obtain sedimentation rate. 5. He will need a cardiac catheterization to assess for ischemic workup of his cardiomyopathy. 6. PFTs as an outpatient. 7. Bronchodilators. 8. He may need mediastinoscopy once stable for a definite diagnosis of sarcoidosis. 9. Empiric steroids for now. 10. Clinically less likely pneumonia. 11. Discussed with RN. Discussed with Cardiology, Dr. Cline. Discussed with RT and will follow along with you. Critical care time 39 minutes. PAN HOFF MD DR: ANOOP/adelaide JOB#: [id number] / [id number] ZEYAD
--- NOTE | 2019-03-23 13:02 | PDOC ---
PROGRESS NOTES Subjective Subjective Patient denies CP or SOA at present. Objective Objective Vital Signs Date Time Temp Pulse Resp B/P (MAP) Pulse Ox O2 Delivery O2 Flow Rate FiO2 03/23/19 10:36 121 26 95/51 (66) 98 Nasal Cannula 3.0 03/23/19 06:41 98.1 98.1 Physical Exam Abdomen: Normal bowel sounds, Soft, No tenderness Heart: Other (irregular irregular, II/ systolic murmur) Extremities: No edema General: Alert, Oriented X3, No acute distress Lungs: Other (BS mildly decreased throughout, few crackles bilateral upper lobes) Assessment Assessment Problems Medical Problems: (1) Hyponatremia Status: Acute (2) Hypotension Status: Acute (3) Rapid atrial fibrillation Status: Acute (4) Renal failure (ARF), acute on chronic Status: Acute Plan Plan of Care 1. Afib with RVR - patient has chronic afib, unknown how long heart rate has been elevated as he does not have particular symptoms with this. Improved, continue Cardizem gtt. Continue anticoagulation with Xarelto. Cardiology following. 2. Systolic CHF - diuresis as needed if renal function allows. Patient denies being on a diuretic since his last hospitalization. 3. Pulmonary fibrosis with possible sarcoidosis - Dr Domingo plans further evaluation when condition allows. On Solumedrol now. 4. SATHYA with CKD III and hyponatremia - K+ elevated due to his po supplement, will hold this. Received fluid bolus, Renal consulted. 5. DM2 - continue insulins. 6. hypothyroidism - recent lab was good, continue present dose of Levothyroxine. 7. prostate ca - further tx as outpatient. Comment Review of Relevant I have reviewed the following items magan (where applicable) has been applied. Labs Laboratory Tests Test 03/23/19 06:48 03/23/19 07:15 03/23/19 11:05 White Blood Count 9.7 x10^3/uL (4.0-11.0) Red Blood Count 3.36 x10^6/uL (4.30-5.70) Hemoglobin 10.6 g/dL (13.0-17.5) Hematocrit 31.0 % (39.0-53.0) Mean Corpuscular Volume 92 fL (79-100) Mean Corpuscular Hemoglobin 32 pg (25-35) Mean Corpuscular Hemoglobin Concent 34 g/dL (31-37) Red Cell Distribution Width 15.5 % (11.5-14.5) Platelet Count 137 x10^3/uL (140-400) Neutrophils (%) (Auto) 88 % (31-73) Lymphocytes (%) (Auto) 4 % (24-48) Monocytes (%) (Auto) 8 % (0-9) Eosinophils (%) (Auto) 0 % (0-3) Basophils (%) (Auto) 0 % (0-3) Neutrophils # (Auto) 8.5 x10^3/uL (1.8-7.7) Lymphocytes # (Auto) 0.4 x10^3/uL (1.0-4.8) Monocytes # (Auto) 0.7 x10^3/uL (0.0-1.1) Eosinophils # (Auto) 0.0 x10^3/uL (0.0-0.7) Basophils # (Auto) 0.0 x10^3/uL (0.0-0.2) Segmented Neutrophils % 90 % (35-66) Band Neutrophils % 2 % (0-9) Lymphocytes % 3 % (24-48) Monocytes % 5 % (0-10) Dohle Bodies Few Platelet Estimate Decreased (ADEQUATE) Polychromasia Present Prothrombin Time 39.2 SEC (11.7-14.0) Prothromb Time International Ratio 4.0 (0.8-1.1) Sodium Level 121 mmol/L (136-145) Potassium Level 5.2 mmol/L (3.5-5.1) Chloride Level 88 mmol/L (98-107) Carbon Dioxide Level 22 mmol/L (21-32) Anion Gap 11 (6-14) Blood Urea Nitrogen 53 mg/dL (8-26) Creatinine 2.0 mg/dL (0.7-1.3) Estimated GFR (Cockcroft-Gault) 32.8 BUN/Creatinine Ratio 27 (6-20) Glucose Level 295 mg/dL (70-99) Calcium Level 9.4 mg/dL (8.5-10.1) Magnesium Level 1.8 mg/dL (1.8-2.4) Total Bilirubin 2.3 mg/dL (0.2-1.0) Aspartate Amino Transf (AST/SGOT) 36 U/L (15-37) Alanine Aminotransferase (ALT/SGPT) 36 U/L (16-63) Alkaline Phosphatase 225 U/L (46-116) Troponin I Quantitative 0.035 ng/mL (0.000-0.055) 0.141 ng/mL (0.000-0.055) Total Protein 7.6 g/dL (6.4-8.2) Albumin 2.8 g/dL (3.4-5.0) Albumin/Globulin Ratio 0.6 (1.0-1.7) Lactic Acid Level 3.4 mmol/L (0.4-2.0) 3.6 mmol/L (0.4-2.0) Procalcitonin 4.80 ng/mL (0.00-0.10) Laboratory Tests Test 03/23/19 06:48 03/23/19 07:15 03/23/19 11:05 White Blood Count 9.7 x10^3/uL (4.0-11.0) Red Blood Count 3.36 x10^6/uL (4.30-5.70) Hemoglobin 10.6 g/dL (13.0-17.5) Hematocrit 31.0 % (39.0-53.0) Mean Corpuscular Volume 92 fL (79-100) Mean Corpuscular Hemoglobin 32 pg (25-35) Mean Corpuscular Hemoglobin Concent 34 g/dL (31-37) Red Cell Distribution Width 15.5 % (11.5-14.5) Platelet Count 137 x10^3/uL (140-400) Neutrophils (%) (Auto) 88 % (31-73) Lymphocytes (%) (Auto) 4 % (24-48) Monocytes (%) (Auto) 8 % (0-9) Eosinophils (%) (Auto) 0 % (0-3) Basophils (%) (Auto) 0 % (0-3) Neutrophils # (Auto) 8.5 x10^3/uL (1.8-7.7) Lymphocytes # (Auto) 0.4 x10^3/uL (1.0-4.8) Monocytes # (Auto) 0.7 x10^3/uL (0.0-1.1) Eosinophils # (Auto) 0.0 x10^3/uL (0.0-0.7) Basophils # (Auto) 0.0 x10^3/uL (0.0-0.2) Segmented Neutrophils % 90 % (35-66) Band Neutrophils % 2 % (0-9) Lymphocytes % 3 % (24-48) Monocytes % 5 % (0-10) Dohle Bodies Few Platelet Estimate Decreased (ADEQUATE) Polychromasia Present Prothrombin Time 39.2 SEC (11.7-14.0) Prothromb Time International Ratio 4.0 (0.8-1.1) Sodium Level 121 mmol/L (136-145) Potassium Level 5.2 mmol/L (3.5-5.1) Chloride Level 88 mmol/L (98-107) Carbon Dioxide Level 22 mmol/L (21-32) Anion Gap 11 (6-14) Blood Urea Nitrogen 53 mg/dL (8-26) Creatinine 2.0 mg/dL (0.7-1.3) Estimated GFR (Cockcroft-Gault) 32.8 BUN/Creatinine Ratio 27 (6-20) Glucose Level 295 mg/dL (70-99) Calcium Level 9.4 mg/dL (8.5-10.1) Magnesium Level 1.8 mg/dL (1.8-2.4) Total Bilirubin 2.3 mg/dL (0.2-1.0) Aspartate Amino Transf (AST/SGOT) 36 U/L (15-37) Alanine Aminotransferase (ALT/SGPT) 36 U/L (16-63) Alkaline Phosphatase 225 U/L (46-116) Troponin I Quantitative 0.035 ng/mL (0.000-0.055) 0.141 ng/mL (0.000-0.055) Total Protein 7.6 g/dL (6.4-8.2) Albumin 2.8 g/dL (3.4-5.0) Albumin/Globulin Ratio 0.6 (1.0-1.7) Lactic Acid Level 3.4 mmol/L (0.4-2.0) 3.6 mmol/L (0.4-2.0) Procalcitonin 4.80 ng/mL (0.00-0.10) Medications Current Medications Sodium Chloride 500 ml @ 500 mls/hr 1X ONCE IV Last administered on 03/23/19at 07:01; Start 03/23/19 at 07:00; Stop 03/23/19 at 07:59; Status DC Diltiazem HCl (Cardizem Iv Push) 20 mg 1X ONCE IVP Last administered on 9at 07:04; Start 03/23/19 at 07:00; Stop 03/23/19 at 07:01; Status DC Sodium Chloride 500 ml @ 500 mls/hr 1X ONCE IV Last administered on 03/23/19at 07:20; Start 03/23/19 at 07:15; Stop 03/23/19 at 08:14; Status DC Acetaminophen (Tylenol) 1,000 mg 1X ONCE PO Last administered on 03/23/19at 07:50; Start 03/23/19 at 07:45; Stop 03/23/19 at 07:46; Status DC Norepinephrine Bitartrate 250 ml @ 11.567 mls/ hr 1X ONCE IV Last administered on 03/23/19at 08:14; Start 03/23/19 at 08:00; Stop 03/24/19 at 05:36 Ondansetron HCl (Zofran) 4 mg PRN Q8HRS PRN IV NAUSEA/VOMITING; Start 03/23/19 at 08:15; Stop 03/24/19 at 08:14 Fentanyl Citrate (Fentanyl 2ml Vial) 50 mcg PRN Q3HRS PRN IV PAIN Last administered on 03/23/19at 08:42; Start 03/23/19 at 08:15; Stop 03/24/19 at 08:14 Sodium Chloride 1,000 ml @ 150 mls/hr Q6H40M IV Last administered on 03/23/19at 10:00; Start 03/23/19 at 08:14; Stop 03/24/19 at 08:13 Acetaminophen (Tylenol) 650 mg PRN Q4HRS PRN PO FEVER; Start 03/23/19 at 08:15; Stop 03/24/19 at 08:14 Insulin Human Lispro (HumaLOG) 0-7 UNITS TIDWMEALS SQ Last administered on 03/23/19at 12:07; Start 03/23/19 at 12:00 Dextrose (Dextrose 50%-Water Syringe) 12.5 gm PRN Q15MIN PRN IV SEE COMMENTS; Start 03/23/19 at 08:15 Ondansetron HCl (Zofran) 4 mg 1X ONCE IV Last administered on 03/23/19at 08:42; Start 03/23/19 at 08:45; Stop 03/23/19 at 08:46; Status DC Iohexol (Omnipaque 350 Mg/ml) 60 ml 1X ONCE IV Last administered on 03/23/19at 09:48; Start 03/23/19 at 09:30; Stop 03/23/19 at 09:31; Status DC Info (CONTRAST GIVEN -- Rx MONITORING) 1 each PRN DAILY PRN MC SEE COMMENTS; Start 03/23/19 at 09:30; Stop 03/25/19 at 09:29 Methylprednisolone Sodium Succinate (SOLU-Medrol 40MG VIAL) 60 mg Q8HRS IV ; Start 03/23/19 at 14:00 Buspirone HCl (Buspar) 10 mg BID PO ; Start 03/23/19 at 21:00; Status UNV Levothyroxine Sodium (Synthroid) 75 mcg DAILY PO ; Start 03/24/19 at 09:00; Status UNV Rivaroxaban (Xarelto) 200 mg DAILY PO ; Start 03/24/19 at 09:00; Status UNV Non-Formulary Medication (Dulaglutide (Trulicity)) 0.75 mg WEEKLY SQ ; Start 03/30/19 at 09:00; Status UNV Non-Formulary Medication (Magnesium Oxide ) 1 tab DAILY PO ; Start 03/24/19 at 09:00; Status UNV Non-Formulary Medication (Mirtazapine ) 1 tab QHS PO ; Start 03/23/19 at 21:00; Status UNV Active Scripts Active Metoprolol Tartrate 50 Mg Tablet 1 Tab PO BID Reported Mirtazapine 15 Mg Tablet 1 Tab PO QHS Buspirone Hcl 10 Mg Tablet 10 Mg PO BID Potassium Chloride 20 Meq Tablet.er 20 Meq PO BID Trulicity (Dulaglutide) 0.75 Mg/0.5 Ml Pen.injctr 0.75 Mg SQ WEEKLY Magnesium Oxide 400 Mg Tablet 1 Tab PO DAILY Levothyroxine Sodium 75 Mcg Tablet 1 Tab PO DAILY Novolog (Insulin Aspart) 100 Unit/1 Ml Cartridge 0-5 Unit SQ TIDAC Xarelto (Rivaroxaban) 10 Mg Tablet 20 Tab PO DAILY Vitals/I & O Vital Sign - Last 24 Hours 03/23/19 03/23/19 03/23/19/31/19 06:41 07:04 08:41 08:51 Temp 98.1 98.1 Pulse 146 133 80 83 Resp B/P (MAP) 80/55 (63) 88/60 110/53 (72) 81/50 (60) Pulse Ox 86 99 98 O2 Delivery Room Air Nasal Cannula Nasal Cannula O2 Flow Rate 3.0 3.0 03/23/19 03/23/19 03/23/19 03/23/19 09:06 09:16 09:21 09:31 Pulse 81 86 75 88 Resp B/P (MAP) 81/54 (63) 117/50 (72) 103/57 (72) 108/56 (73) Pulse Ox 97 97 97 96 O2 Delivery Nasal Cannula Nasal Cannula Nasal Cannula Nasal Cannula O2 Flow Rate 3.0 3.0 3.0 3.0 03/23/19 03/23/19 03/23/19 03/23/19 09:49 09:57 10:09 10:26 Pulse 94 132 121 85 Resp B/P (MAP) 79/45 (56) 135/61 (85) 114/53 (73) 103/57 (72) Pulse Ox 98 97 97 O2 Delivery Nasal Cannula Nasal Cannula Nasal Cannula Nasal Cannula O2 Flow Rate 3.0 3.0 3.0 3.0 03/23/19 03/23/19 10:31 10:36 Pulse 86 121 Resp B/P (MAP) 95/50 (65) 95/51 (66) Pulse Ox 96 98 O2 Delivery Nasal Cannula Nasal Cannula O2 Flow Rate 3.0 3.0 AUNDREA KOENIG MD Mar 23, 2019 13:02
--- NOTE | 2019-03-23 13:13 | NUR ---
1015 NN Adm form ER after increased SOA @ home worse this am. EMS notified ,Sat 86% w Afib RVR rate 150+ in amb. Cardizem bolus in ER x1. Convert to "controlled " AFib ( persistent for patient) . Hypotensive-levo started in ER .1 mcg/kg/min w pressures improved. Lactic ^,ER bolus 1000 fluid. CRR w congestion. Denies SOA on admission. Pain relieved right shoulder area arter IV RX In ER. Foul disposition / short temper observed w initial assessment. Attempted cordiality w little results. Reported " I am very ornry". Consults notified of admission
--- NOTE | 2019-03-23 13:24 | PDOC2 ---
CONSULT Date of Consult Date of Consult DATE: 03/23/19 TIME: 13:18 Reason for Consult Reason for Consult: SATHYA Identification/Chief Complaint Chief Complaint " I think Im dehydrated" Source Source: Chart review, Patient History of Present Illness Reason for Visit: Pt is [id number] CM with a known history of chronic atrial fibrillation who presented to the Emergency Room with several-day history of increasing dyspnea on exertion. He called the EMS and was brought to the Emergency Room. He was found to be in atrial fibrillation with rapid ventricular response. He reports he was [facility] yesterday for follow up of ? throat cancer , had a CT done and he was told its completely gone. He denies any urinary complaints. No CP, No N/V/D. He states he is sure he is dehydrated Past Medical History Cardiovascular: AFIB, CAD, HTN, OR, Hyperlipidemia, Aortic stenosis, Valve insufficiency Pulmonary: COPD CENTRAL NERVOUS SYSTEM: Other GI: GERD, Other Heme/Onc: Cancer Musculoskeletal: Osteoarthritis Renal/: Chronic renal insuff, Prostate Ca. Endocrine: Diabetes, Hypothyroidism Past Surgical History Past Surgical History: Tonsillectomy, Colon Resection, Other Family History Family History: Coronary Artery Disease Social History No ALCOHOL: none Drugs: None Lives: Alone Current Problem List Problem List Problems Medical Problems: (1) Hyponatremia Status: Acute (2) Hypotension Status: Acute (3) Rapid atrial fibrillation Status: Acute (4) Renal failure (ARF), acute on chronic Status: Acute Current Medications Current Medications Current Medications Sodium Chloride 500 ml @ 500 mls/hr 1X ONCE IV Last administered on 03/23/19at 07:01; Start 03/23/19 at 07:00; Stop 03/23/19 at 07:59; Status DC Diltiazem HCl (Cardizem Iv Push) 20 mg 1X ONCE IVP Last administered on 03/23/19at 07:04; Start 03/23/19 at 07:00; Stop 03/23/19 at 07:01; Status DC Sodium Chloride 500 ml @ 500 mls/hr 1X ONCE IV Last administered on 03/23/19at 07:20; Start 03/23/19 at 07:15; Stop 03/23/19 at 08:14; Status DC Acetaminophen (Tylenol) 1,000 mg 1X ONCE PO Last administered on 03/23/19at 07:50; Start 03/23/19 at 07:45; Stop 03/23/19 at 07:46; Status DC Norepinephrine Bitartrate 250 ml @ 11.567 mls/ hr 1X ONCE IV Last administered on 03/23/19at 08:14; Start 03/23/19 at 08:00; Stop 03/24/19 at 05:36 Ondansetron HCl (Zofran) 4 mg PRN Q8HRS PRN IV NAUSEA/VOMITING; Start 03/23/19 at 08:15; Stop 03/24/19 at 08:14 Fentanyl Citrate (Fentanyl 2ml Vial) 50 mcg PRN Q3HRS PRN IV PAIN Last administered on 03/23/19at 08:42; Start 03/23/19 at 08:15; Stop 03/24/19 at 08:14 Sodium Chloride 1,000 ml @ 150 mls/hr Q6H40M IV Last administered on 03/23/19at 10:00; Start 03/23/19 at 08:14; Stop 03/24/19 at 08:13 Acetaminophen (Tylenol) 650 mg PRN Q4HRS PRN PO FEVER; Start 03/23/19 at 08:15; Stop 03/24/19 at 08:14 Insulin Human Lispro (HumaLOG) 0-7 UNITS TIDWMEALS SQ Last administered on 03/23/19at 12:07; Start 03/23/19 at 12:00 Dextrose (Dextrose 50%-Water Syringe) 12.5 gm PRN Q15MIN PRN IV SEE COMMENTS; Start 03/23/19 at 08:15 Ondansetron HCl (Zofran) 4 mg 1X ONCE IV Last administered on 03/23/19at 08:42; Start 03/23/19 at 08:45; Stop 03/23/19 at 08:46; Status DC Iohexol (Omnipaque 350 Mg/ml) 60 ml 1X ONCE IV Last administered on 03/23/19at 09:48; Start 03/23/19 at 09:30; Stop 03/23/19 at 09:31; Status DC Info (CONTRAST GIVEN -- Rx MONITORING) 1 each PRN DAILY PRN MC SEE COMMENTS; Start 03/23/19 at 09:30; Stop 03/25/19 at 09:29 Methylprednisolone Sodium Succinate (SOLU-Medrol 40MG VIAL) 60 mg Q8HRS IV ; Start 03/23/19 at 14:00 Buspirone HCl (Buspar) 10 mg BID PO ; Start 03/23/19 at 21:00 Levothyroxine Sodium (Synthroid) 75 mcg DAILY07 PO ; Start 03/24/19 at 07:00 Rivaroxaban (Xarelto) 20 mg DAILYWSUP PO ; Start 03/23/19 at 17:00 Non-Formulary Medication (Dulaglutide (Trulicity)) 0.75 mg WEEKLY SQ ; Start 03/30/19 at 09:00; Status UNV Magnesium Oxide (Magnesium Oxide) 400 mg DAILY PO ; Start 03/24/19 at 09:00 Mirtazapine (Remeron) 15 mg QHS PO ; Start 03/23/19 at 21:00 Info (Anti-Coagulation Monitoring By Pharmacy) 1 each PRN DAILY PRN MC SEE COMMENTS; Start 03/23/19 at 13:15 Active Scripts Active Metoprolol Tartrate 50 Mg Tablet 1 Tab PO BID Reported Mirtazapine 15 Mg Tablet 1 Tab PO QHS Buspirone Hcl 10 Mg Tablet 10 Mg PO BID Potassium Chloride 20 Meq Tablet.er 20 Meq PO BID Trulicity (Dulaglutide) 0.75 Mg/0.5 Ml Pen.injctr 0.75 Mg SQ WEEKLY Magnesium Oxide 400 Mg Tablet 1 Tab PO DAILY Levothyroxine Sodium 75 Mcg Tablet 1 Tab PO DAILY Novolog (Insulin Aspart) 100 Unit/1 Ml Cartridge 0-5 Unit SQ TIDAC Xarelto (Rivaroxaban) 10 Mg Tablet 20 Tab PO DAILY Allergies Allergies: Coded Allergies: No Known Drug Allergies (Unverified , 04/21/18) ROS Review of System per HPI Physical Exam Physical Exam GENERAL: NAD HEENT: Mucous membranes dry NECK: Supple, CHEST: Breath sounds mildly decreased throughout. No use of accessory muscles CARDIOVASCULAR: Irregularly irregular, 2/6 systolic murmur. ABDOMEN: Soft, nontender EXTREMITIES: No Edema Bilateral lower extremities No Quinn SKIN No rash NEURO Grossly Normal Vital Signs Vital Signs Date Time Temp Pulse Resp B/P (MAP) Pulse Ox O2 Delivery O2 Flow Rate FiO2 03/23/19 10:36 121 26 95/51 (66) 98 Nasal Cannula 3.0 03/23/19 06:41 98.1 98.1 Assessment & Plan SATHYA- vasomotor/Cardiorenal /Hypotensive Urinary retention of 30O ml on bladder scan IV Boluses as discussed , Levophed is off Post Contrast with CTA on 03/23 K and Bicarb Normal , supportive care, I/O , Monitor Hyponatremia- sec to CHF Monitor Hyperkalemia - mild On PO supplements CHF - pulm edema on CTA Cautious with IVF, Cardiology managing DM- per Primary \\ Atrial fibrillation with rapid ventricular response Pulmonary fibrosis with possible sarcoidosis. Pulm following Labs Labs Laboratory Tests Test 03/23/19 06:48 03/23/19 07:15 03/23/19 11:05 White Blood Count 9.7 x10^3/uL (4.0-11.0) Red Blood Count 3.36 x10^6/uL (4.30-5.70) Hemoglobin 10.6 g/dL (13.0-17.5) Hematocrit 31.0 % (39.0-53.0) Mean Corpuscular Volume 92 fL (79-100) Mean Corpuscular Hemoglobin 32 pg (25-35) Mean Corpuscular Hemoglobin Concent 34 g/dL (31-37) Red Cell Distribution Width 15.5 % (11.5-14.5) Platelet Count 137 x10^3/uL (140-400) Neutrophils (%) (Auto) 88 % (31-73) Lymphocytes (%) (Auto) 4 % (24-48) Monocytes (%) (Auto) 8 % (0-9) Eosinophils (%) (Auto) 0 % (0-3) Basophils (%) (Auto) 0 % (0-3) Neutrophils # (Auto) 8.5 x10^3/uL (1.8-7.7) Lymphocytes # (Auto) 0.4 x10^3/uL (1.0-4.8) Monocytes # (Auto) 0.7 x10^3/uL (0.0-1.1) Eosinophils # (Auto) 0.0 x10^3/uL (0.0-0.7) Basophils # (Auto) 0.0 x10^3/uL (0.0-0.2) Segmented Neutrophils % 90 % (35-66) Band Neutrophils % 2 % (0-9) Lymphocytes % 3 % (24-48) Monocytes % 5 % (0-10) Dohle Bodies Few Platelet Estimate Decreased (ADEQUATE) Polychromasia Present Prothrombin Time 39.2 SEC (11.7-14.0) Prothromb Time International Ratio 4.0 (0.8-1.1) Sodium Level 121 mmol/L (136-145) Potassium Level 5.2 mmol/L (3.5-5.1) Chloride Level 88 mmol/L (98-107) Carbon Dioxide Level 22 mmol/L (21-32) Anion Gap 11 (6-14) Blood Urea Nitrogen 53 mg/dL (8-26) Creatinine 2.0 mg/dL (0.7-1.3) Estimated GFR (Cockcroft-Gault) 32.8 BUN/Creatinine Ratio 27 (6-20) Glucose Level 295 mg/dL (70-99) Calcium Level 9.4 mg/dL (8.5-10.1) Magnesium Level 1.8 mg/dL (1.8-2.4) Total Bilirubin 2.3 mg/dL (0.2-1.0) Aspartate Amino Transf (AST/SGOT) 36 U/L (15-37) Alanine Aminotransferase (ALT/SGPT) 36 U/L (16-63) Alkaline Phosphatase 225 U/L (46-116) Troponin I Quantitative 0.035 ng/mL (0.000-0.055) 0.141 ng/mL (0.000-0.055) Total Protein 7.6 g/dL (6.4-8.2) Albumin 2.8 g/dL (3.4-5.0) Albumin/Globulin Ratio 0.6 (1.0-1.7) Lactic Acid Level 3.4 mmol/L (0.4-2.0) 3.6 mmol/L (0.4-2.0) Procalcitonin 4.80 ng/mL (0.00-0.10) Laboratory Tests Test 03/23/19 06:48 03/23/19 07:15 03/23/19 11:05 White Blood Count 9.7 x10^3/uL (4.0-11.0) Red Blood Count 3.36 x10^6/uL (4.30-5.70) Hemoglobin 10.6 g/dL (13.0-17.5) Hematocrit 31.0 % (39.0-53.0) Mean Corpuscular Volume 92 fL (79-100) Mean Corpuscular Hemoglobin 32 pg (25-35) Mean Corpuscular Hemoglobin Concent 34 g/dL (31-37) Red Cell Distribution Width 15.5 % (11.5-14.5) Platelet Count 137 x10^3/uL (140-400) Neutrophils (%) (Auto) 88 % (31-73) Lymphocytes (%) (Auto) 4 % (24-48) Monocytes (%) (Auto) 8 % (0-9) Eosinophils (%) (Auto) 0 % (0-3) Basophils (%) (Auto) 0 % (0-3) Neutrophils # (Auto) 8.5 x10^3/uL (1.8-7.7) Lymphocytes # (Auto) 0.4 x10^3/uL (1.0-4.8) Monocytes # (Auto) 0.7 x10^3/uL (0.0-1.1) Eosinophils # (Auto) 0.0 x10^3/uL (0.0-0.7) Basophils # (Auto) 0.0 x10^3/uL (0.0-0.2) Segmented Neutrophils % 90 % (35-66) Band Neutrophils % 2 % (0-9) Lymphocytes % 3 % (24-48) Monocytes % 5 % (0-10) Dohle Bodies Few Platelet Estimate Decreased (ADEQUATE) Polychromasia Present Prothrombin Time 39.2 SEC (11.7-14.0) Prothromb Time International Ratio 4.0 (0.8-1.1) Sodium Level 121 mmol/L (136-145) Potassium Level 5.2 mmol/L (3.5-5.1) Chloride Level 88 mmol/L (98-107) Carbon Dioxide Level 22 mmol/L (21-32) Anion Gap 11 (6-14) Blood Urea Nitrogen 53 mg/dL (8-26) Creatinine 2.0 mg/dL (0.7-1.3) Estimated GFR (Cockcroft-Gault) 32.8 BUN/Creatinine Ratio 27 (6-20) Glucose Level 295 mg/dL (70-99) Calcium Level 9.4 mg/dL (8.5-10.1) Magnesium Level 1.8 mg/dL (1.8-2.4) Total Bilirubin 2.3 mg/dL (0.2-1.0) Aspartate Amino Transf (AST/SGOT) 36 U/L (15-37) Alanine Aminotransferase (ALT/SGPT) 36 U/L (16-63) Alkaline Phosphatase 225 U/L (46-116) Troponin I Quantitative 0.035 ng/mL (0.000-0.055) 0.141 ng/mL (0.000-0.055) Total Protein 7.6 g/dL (6.4-8.2) Albumin 2.8 g/dL (3.4-5.0) Albumin/Globulin Ratio 0.6 (1.0-1.7) Lactic Acid Level 3.4 mmol/L (0.4-2.0) 3.6 mmol/L (0.4-2.0) Procalcitonin 4.80 ng/mL (0.00-0.10) Review All relevant outside records, renal labs, imaging studies, telemetry/EKG's were reviewed. Images Images CTA 03/23 Moderate-sized right-sided pleural effusion and minimal left-sided pleural effusion. Increase in bilateral groundglass lung infiltrates which may represent pulmonary edema superimposed upon chronic lung disease. These findings may be seen with CHF or fluid overload. Groundglass lung infiltrates may be seen with inflammatory or infectious disease of the lung denson as well especially given the bilateral bronchiectasis which may indicate distal airway disease. There is a small 8 mm noncalcified lung nodule within the right lower lobe. This is unchanged from April 18, 2018 and therefore may be benign. This latter finding may be followed with a chest CT in 12 months. Mediastinal lymphadenopathy which is unchanged from March 03, 2019 but has increased in size since April 18, 2018. This may be due to infectious or inflammatory disease but malignancy is certainly possible. Small amount of free fluid within the upper abdomen. Edema of the retroperitoneum around the pancreas and the gastrohepatic ligament. This could be secondary to anasarca. Pancreatitis is a possibility as well and therefore correlation with pancreatic enzymes is recommended. DINORAH KIDD MD Mar 23, 2019 13:24
--- NOTE | 2019-03-23 13:51 | HP ---
ADMIT DATE: 03/23/2019 CHIEF COMPLAINT: Dyspnea on exertion. HISTORY OF PRESENT ILLNESS: The patient is a 73-year-old male with a known history of chronic atrial fibrillation who presented to the Emergency Room with the above complaint. He reported a several-day history of increasing dyspnea on exertion. He noticed that it became difficult to walk across the room without getting short of breath. Some of this may be chronic for him, but it seemed worse to him than usual. He called the EMS and was brought to the Emergency Room. He was found to be in atrial fibrillation with rapid ventricular response. Treatment was started and he was admitted for further care. PAST MEDICAL HISTORY: Chronic atrial fibrillation, congestive heart failure with systolic dysfunction, pulmonary fibrosis, COPD, diabetes mellitus type 2, hypertension, hyperlipidemia, chronic kidney disease stage 3, previous myocardial infarction, prostate cancer, chronic anxiety, GERD, cancer of the tongue 2017 and hypothyroidism. PAST SURGICAL HISTORY: Tonsillectomy, adenoidectomy, prostate biopsy, angioplasty x 2. ALLERGIES: The patient has no known drug allergies. HOME MEDICATIONS: Buspirone 10 mg b.i.d., Trulicity 0.75 mg 1 injection weekly, NovoLog insulin sliding scale, levothyroxine 75 mcg daily, magnesium oxide 400 mg daily, metoprolol tartrate 50 mg b.i.d., mirtazapine 15 mg at bedtime, potassium chloride 20 mEq b.i.d., and Xarelto 20 mg daily. FAMILY HISTORY: Noncontributory. SOCIAL HISTORY: The patient is . 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 He has a long smoking history. He does not drink alcohol to excess. REVIEW OF SYSTEMS: The patient denies fever or chills. He denies chest pain, chest pressure, or palpitations. He has not had a significant cough and does not feel short of breath at rest. He denies abdominal pain, nausea or vomiting. He has been taking the medications that he was recently prescribed. He takes the Xarelto, but states that his Coumadin was discontinued and he has not been taking Coumadin. PHYSICAL EXAMINATION: GENERAL: The patient is alert and oriented x 3, sitting up comfortably in bed in no acute distress. HEENT: PERRL, EOMI, sclerae clear. Oropharynx: Mucous membranes moist. NECK: Supple, without lymphadenopathy. CHEST: Breath sounds mildly decreased throughout. There are fine crackles in the bilateral upper lobes. CARDIOVASCULAR: Irregularly irregular, 2/6 systolic murmur. ABDOMEN: Soft, nontender, normoactive bowel sounds are present. EXTREMITIES: Bilateral lower extremities are without edema. ASSESSMENT AND PLAN: 1. Atrial fibrillation with rapid ventricular response. The patient's heart rate has improved with a Cardizem drip and this will be continued. He is anticoagulated with Xarelto. Further management per Cardiology recommendations. 2. Systolic congestive heart failure, can give diuretics as needed if the patient's renal function allows. He denies taking a diuretic since his last hospitalization. 3. Pulmonary fibrosis with possible sarcoidosis. Dr. Domingo plans further evaluation of this when the patient's condition allows. He has started him on Solu-Medrol. 4. Acute kidney injury with chronic kidney disease stage 3 and hyponatremia. The patient's baseline creatinine is about 1.5 and is elevated to 2.0 today. His potassium is elevated, but this should resolve with discontinuation of his oral potassium replacement. He has received one fluid bolus. Nephrology consult is pending. 5. Diabetes mellitus type 2. Continue medication, use sliding scale as needed. 6. Hypothyroidism. The patient's recent lab was good. We will continue his present dose of levothyroxine. 7. Prostate cancer. Continue further treatment with radiation as an outpatient. AUNDREA KOENIG MD DR: MARIELLE/adelaide JOB#: [id number] / [id number] MTDD
[2019-03-23] MEDS ORDERED: LIDOCAINE 2% JELLY 6ML IN APPLICATOR. MM ONE (14:15)
--- NOTE | 2019-03-23 15:10 | NUR ---
Patient took own blood sugar via [employer] Katherine, result 236. Patient requested insulin at this time, 4units given and verified by CJ Srivastava
--- NOTE | 2019-03-23 15:39 | NUR ---
Called Dr. Reza's office to discuss need for antibiotic therapy. Cardiology suggested antibiotic treatment for lactic of 3.6. Left message with [employer], awaiting orders
[2019-03-23 15:52] LABS: CALCIUM 8.5 mg/dL (8.5-10.1); CREATININE 2.1 mg/dL (0.7-1.3); POTASSIUM 5.2 mmol/L (3.5-5.1)
--- NOTE | 2019-03-23 15:53 | NUR ---
Return call received from Dr. Reza, no infectious indication for antibiotic use at this time. Continue with plan of care.
[2019-03-23] MEDS: methylPREDNISolone SOD SUCC PF 40 MG/ML VIAL. IV SCH ×2 (15:57→21:19)
[2019-03-23 16:16] LABS: BILIRUBIN,URINE NEGATIVE (NEG); CLARITY,URINE CLEAR; COLOR,URINE YELLOW; NITRITE,URINE NEGATIVE (NEG); PROTEIN,URINE 100 mg/dL (NEG-TRACE); UROBILINOGEN,URINE 0.2 mg/dL (0.2 mg/dL)
[2019-03-23 16:20] LABS: BACTERIA,URINE 0 /HPF (0-FEW); HYALINE CASTS, URINE FEW /HPF
[2019-03-23 16:21] LABS: WBC,URINE OCC /HPF (0-4)
[2019-03-23] MEDS ORDERED: IV NORMAL SALINE 500ML BAG 500 ML IV PRN (16:30)
[2019-03-23] MEDS ORDERED: RIVAROXABAN 15 MG TABLET. PO SCH (17:00)
[2019-03-23] MEDS ORDERED: RIVAROXABAN 10 MG TABLET. PO SCH (17:00)
--- NOTE | 2019-03-23 17:25 | NUR ---
Patient had dinner brought in from outside by friend of family, Patient took blood sugar via [employer] Katherine, BG 170, patient requested 1unit insulin at this time.
--- NOTE | 2019-03-23 18:00 | NUR ---
Spoke with CÉSAR Bauman for Efren. Lena confirmed medications, dosage and time of day that they are taken. Potassium Chloride 20mEq BID Metropolol Tartrate 50mg BID Xarelto 20mg At Breakfast Levothyroxine 75mcg 1 hr before or 2 hours after Breakfast Mirtazapine 15mg AT Breakfast Buspirone 10mg BID PRN Lena also confirmed patient was seen by [facility] of [facility] Insurance plan, by ANAIS Norman who prescribed Levaquin for possible pneumonia which was finished yesterday.
[2019-03-23] MEDS ORDERED: MIRTAZAPINE 15 MG TABLET PO SCH (21:00)
[2019-03-23] MEDS: busPIRone 10 MG TABLET. PO SCH (21:19)
[2019-03-24] VITALS (22 sets, daily range): BP systolic 16–148; BP diastolic 51–75
[2019-03-24] MEDS: IV NORMAL SALINE 1000ML BAG 1,000 ML IV SCH (03:51)
[2019-03-24 04:18] LABS: HEMATOCRIT 29.8 % (39.0-53.0); HEMOGLOBIN 10.2 g/dL (13.0-17.5); RED BLOOD COUNT 3.24 x10^6/uL (4.30-5.70); RED CELL DISTRIBUTION WIDTH 15.8 % (11.5-14.5); WHITE BLOOD COUNT 10.5 x10^3/uL (4.0-11.0)
[2019-03-24 04:31] LABS: CREATININE 1.8 mg/dL (0.7-1.3); GFR 37.1; POTASSIUM 4.9 mmol/L (3.5-5.1)
[2019-03-24] MEDS: LEVOTHYROXINE 75 MCG TABLET PO SCH (06:22)
[2019-03-24] MEDS: methylPREDNISolone SOD SUCC PF 40 MG/ML VIAL. IV SCH ×3 (06:22→22:13)
[2019-03-24] MEDS: INSULIN LISPRO 300 UNITS/3 ML INSULN.PEN. SQ SCH ×3 (07:38→17:32)
--- NOTE | 2019-03-24 07:38 | NUR ---
Blood Sugar 238 this morning and patient states he needs 4 units of insulin. According to the ordered sliding scale patient should receive 6 units but he declines stating "that is too much."
[2019-03-24] MEDS ORDERED: RIVAROXABAN 15 MG TABLET. PO SCH (08:00)
[2019-03-24] MEDS: busPIRone 10 MG TABLET. PO SCH ×2 (08:17→22:12)
[2019-03-24] MEDS: MAGNESIUM OXIDE 400 MG TABLET PO SCH (08:17)
[2019-03-24] MEDS: MIRTAZAPINE 15 MG TABLET PO SCH (08:19)
--- NOTE | 2019-03-24 08:23 | PDOC ---
PROGRESS NOTES Subjective Subjective Patient reports decreased SOA. No other complaints. Objective Objective Vital Signs Date Time Temp Pulse Resp B/P (MAP) Pulse Ox O2 Delivery O2 Flow Rate FiO2 03/24/19 06:00 100 12 115/56 (75) 99 Nasal Cannula 3.0 03/24/19 04:00 98.5 98.5 Intake and Output 03/24/19 07:00 Intake Total 2616.85 ml Output Total 1805 ml Balance 811.85 ml Intake Oral 905 ml IV Total 1711.85 ml Output Urine Total 1805 ml Physical Exam Abdomen: Normal bowel sounds, Soft, No tenderness Heart: Other (irregularly irregular, II/ systolic murmur) Extremities: No edema General: Alert, Oriented X3, No acute distress Lungs: Other (BS decreased in upper lobes with fine crackles present, no wheezes) Assessment Assessment Problems Medical Problems: (1) Hyponatremia Status: Acute (2) Hypotension Status: Acute (3) Rapid atrial fibrillation Status: Acute (4) Renal failure (ARF), acute on chronic Status: Acute Plan Plan of Care 1. Afib with RVR and hypotention - HR much improved, continue present medication. No longer requiring pressors to maintain BP. Continue Xarelto. 2. acute respiratory failure with pulmonary fibrosis and recent pneumonia - stable, still requiring O2 to maintain sats. Continue Solumedrol. Dr Domingo does not feel abx are indicated at this time. Further evaluation for possible sarcoidosis as patient's condition allows. 3. SATHYA with CKD - lab improved. appears at baseline now. Hyponatremia improved after IVF. Hyperkalemia resolved with holding po replacement. 4. urinary retention - patient had PVR of 300 cc's yesterday so acosta was placed. UA without evidence of infection. Patient reports chronic nocturia 3-4x nightly. Will start Flomax, patient states he took this in the past but does not know why it was stopped. 5. CHF with systolic dysfunction - Echo noted, EF 30%. Diuretics as needed per Cardiology. 6. DM2 - controlled, continue insulins. FSBG per patient's [employer] Katherine. Comment Review of Relevant I have reviewed the following items magan (where applicable) has been applied. Labs Laboratory Tests Test 03/23/19 06:48 03/23/19 07:15 03/23/19 10:03/23/19 11:05 White Blood Count 9.7 x10^3/uL (4.0-11.0) Red Blood Count 3.36 x10^6/uL (4.30-5.70) Hemoglobin 10.6 g/dL (13.0-17.5) Hematocrit 31.0 % (39.0-53.0) Mean Corpuscular Volume 92 fL (79-100) Mean Corpuscular Hemoglobin 32 pg (25-35) Mean Corpuscular Hemoglobin Concent 34 g/dL (31-37) Red Cell Distribution Width 15.5 % (11.5-14.5) Platelet Count 137 x10^3/uL (140-400) Neutrophils (%) (Auto) 88 % (31-73) Lymphocytes (%) (Auto) 4 % (24-48) Monocytes (%) (Auto) 8 % (0-9) Eosinophils (%) (Auto) 0 % (0-3) Basophils (%) (Auto) 0 % (0-3) Neutrophils # (Auto) 8.5 x10^3/uL (1.8-7.7) Lymphocytes # (Auto) 0.4 x10^3/uL (1.0-4.8) Monocytes # (Auto) 0.7 x10^3/uL (0.0-1.1) Eosinophils # (Auto) 0.0 x10^3/uL (0.0-0.7) Basophils # (Auto) 0.0 x10^3/uL (0.0-0.2) Segmented Neutrophils % 90 % (35-66) Band Neutrophils % 2 % (0-9) Lymphocytes % 3 % (24-48) Monocytes % 5 % (0-10) Dohle Bodies Few Platelet Estimate Decreased (ADEQUATE) Polychromasia Present Prothrombin Time 39.2 SEC (11.7-14.0) Prothromb Time International Ratio 4.0 (0.8-1.1) Sodium Level 121 mmol/L (136-145) Potassium Level 5.2 mmol/L (3.5-5.1) Chloride Level 88 mmol/L (98-107) Carbon Dioxide Level 22 mmol/L (21-32) Anion Gap 11 (6-14) Blood Urea Nitrogen 53 mg/dL (8-26) Creatinine 2.0 mg/dL (0.7-1.3) Estimated GFR (Cockcroft-Gault) 32.8 BUN/Creatinine Ratio 27 (6-20) Glucose Level 295 mg/dL (70-99) Calcium Level 9.4 mg/dL (8.5-10.1) Magnesium Level 1.8 mg/dL (1.8-2.4) Total Bilirubin 2.3 mg/dL (0.2-1.0) Aspartate Amino Transf (AST/SGOT) 36 U/L (15-37) Alanine Aminotransferase (ALT/SGPT) 36 U/L (16-63) Alkaline Phosphatase 225 U/L (46-116) Troponin I Quantitative 0.035 ng/mL (0.000-0.055) 0.141 ng/mL (0.000-0.055) Total Protein 7.6 g/dL (6.4-8.2) Albumin 2.8 g/dL (3.4-5.0) Albumin/Globulin Ratio 0.6 (1.0-1.7) Lactic Acid Level 3.4 mmol/L (0.4-2.0) 3.6 mmol/L (0.4-2.0) Nasal Screen MRSA (PCR) Negative (Negative) Procalcitonin 4.80 ng/mL (0.00-0.10) Test 03/23/19 14:00 03/23/19 14:45 03/24/19 04:00 Sodium Level 123 mmol/L (136-145) 127 mmol/L (136-145) Potassium Level 5.2 mmol/L (3.5-5.1) 4.9 mmol/L (3.5-5.1) Chloride Level 92 mmol/L (98-107) 95 mmol/L (98-107) Carbon Dioxide Level 21 mmol/L (21-32) 21 mmol/L (21-32) Anion Gap 10 (6-14) 11 (6-14) Blood Urea Nitrogen 64 mg/dL (8-26) 60 mg/dL (8-26) Creatinine 2.1 mg/dL (0.7-1.3) 1.8 mg/dL (0.7-1.3) Estimated GFR (Cockcroft-Gault) 31.0 37.1 Glucose Level 278 mg/dL (70-99) 293 mg/dL (70-99) Calcium Level 8.5 mg/dL (8.5-10.1) 9.0 mg/dL (8.5-10.1) Troponin I Quantitative 0.159 ng/mL (0.000-0.055) Urine Collection Type U cath Urine Color Yellow Urine Clarity Clear Urine pH 5.0 Urine Specific [place] 1.025 Urine Protein 100 mg/dL (NEG-TRACE) Urine Glucose (UA) Negative mg/dL (NEG) Urine Ketones (Stick) Negative mg/dL (NEG) Urine Blood Small (NEG) Urine Nitrite Negative (NEG) Urine Bilirubin Negative (NEG) Urine Urobilinogen Dipstick 0.2 mg/dL (0.2 mg/dL) Urine Leukocyte Esterase Negative (NEG) Urine RBC 6-10 /HPF (0-2) Urine WBC Occ /HPF (0-4) Urine Bacteria 0 /HPF (0-FEW) Urine Hyaline Casts Few /HPF Urine Mucus Mod /LPF White Blood Count 10.5 x10^3/uL (4.0-11.0) Red Blood Count 3.24 x10^6/uL (4.30-5.70) Hemoglobin 10.2 g/dL (13.0-17.5) Hematocrit 29.8 % (39.0-53.0) Mean Corpuscular Volume 92 fL (79-100) Mean Corpuscular Hemoglobin 32 pg (25-35) Mean Corpuscular Hemoglobin Concent 34 g/dL (31-37) Red Cell Distribution Width 15.8 % (11.5-14.5) Platelet Count 130 x10^3/uL (140-400) Laboratory Tests Test 03/23/19 10:30 03/23/19 11:05 03/23/19 14:00 03/23/19 14:45 Nasal Screen MRSA (PCR) Negative (Negative) Lactic Acid Level 3.6 mmol/L (0.4-2.0) Troponin I Quantitative 0.141 ng/mL (0.000-0.055) 0.159 ng/mL (0.000-0.055) Procalcitonin 4.80 ng/mL (0.00-0.10) Sodium Level 123 mmol/L (136-145) Potassium Level 5.2 mmol/L (3.5-5.1) Chloride Level 92 mmol/L (98-107) Carbon Dioxide Level 21 mmol/L (21-32) Anion Gap 10 (6-14) Blood Urea Nitrogen 64 mg/dL (8-26) Creatinine 2.1 mg/dL (0.7-1.3) Estimated GFR (Cockcroft-Gault) 31.0 Glucose Level 278 mg/dL (70-99) Calcium Level 8.5 mg/dL (8.5-10.1) Urine Collection Type U cath Urine Color Yellow Urine Clarity Clear Urine pH 5.0 Urine Specific [place] 1.025 Urine Protein 100 mg/dL (NEG-TRACE) Urine Glucose (UA) Negative mg/dL (NEG) Urine Ketones (Stick) Negative mg/dL (NEG) Urine Blood Small (NEG) Urine Nitrite Negative (NEG) Urine Bilirubin Negative (NEG) Urine Urobilinogen Dipstick 0.2 mg/dL (0.2 mg/dL) Urine Leukocyte Esterase Negative (NEG) Urine RBC 6-10 /HPF (0-2) Urine WBC Occ /HPF (0-4) Urine Bacteria 0 /HPF (0-FEW) Urine Hyaline Casts Few /HPF Urine Mucus Mod /LPF Test 03/24/19 04:00 White Blood Count 10.5 x10^3/uL (4.0-11.0) Red Blood Count 3.24 x10^6/uL (4.30-5.70) Hemoglobin 10.2 g/dL (13.0-17.5) Hematocrit 29.8 % (39.0-53.0) Mean Corpuscular Volume 92 fL (79-100) Mean Corpuscular Hemoglobin 32 pg (25-35) Mean Corpuscular Hemoglobin Concent 34 g/dL (31-37) Red Cell Distribution Width 15.8 % (11.5-14.5) Platelet Count 130 x10^3/uL (140-400) Sodium Level 127 mmol/L (136-145) Potassium Level 4.9 mmol/L (3.5-5.1) Chloride Level 95 mmol/L (98-107) Carbon Dioxide Level 21 mmol/L (21-32) Anion Gap 11 (6-14) Blood Urea Nitrogen 60 mg/dL (8-26) Creatinine 1.8 mg/dL (0.7-1.3) Estimated GFR (Cockcroft-Gault) 37.1 Glucose Level 293 mg/dL (70-99) Calcium Level 9.0 mg/dL (8.5-10.1) Microbiology 03/23/19 Blood Culture - Preliminary, Resulted NO GROWTH AFTER 1 DAY Medications Current Medications Sodium Chloride 500 ml @ 500 mls/hr 1X ONCE IV Last administered on 03/23/19at 07:01; Start 03/23/19 at 07:00; Stop 03/23/19 at 07:59; Status DC Diltiazem HCl (Cardizem Iv Push) 20 mg 1X ONCE IVP Last administered on 03/23/19at 07:04; Start 03/23/19 at 07:00; Stop 03/23/19 at 07:01; Status DC Sodium Chloride 500 ml @ 500 mls/hr 1X ONCE IV Last administered on 03/23/19at 07:20; Start 03/23/19 at 07:15; Stop 03/23/19 at 08:14; Status DC Acetaminophen (Tylenol) 1,000 mg 1X ONCE PO Last administered on 03/23/19at 07:50; Start 03/23/19 at 07:45; Stop 03/23/19 at 07:46; Status DC Norepinephrine Bitartrate 250 ml @ 11.567 mls/ hr 1X ONCE IV Last administered on 03/23/19at 08:14; Start 03/23/19 at 08:00; Stop 03/24/19 at 05:36; Status DC Ondansetron HCl (Zofran) 4 mg PRN Q8HRS PRN IV NAUSEA/VOMITING; Start 03/23/19 at 08:15; Stop 03/24/19 at 08:14 Fentanyl Citrate (Fentanyl 2ml Vial) 50 mcg PRN Q3HRS PRN IV PAIN Last admin istered on 03/23/19at 08:42; Start 03/23/19 at 08:15; Stop 03/24/19 at 08:14 Sodium Chloride 1,000 ml @ 150 mls/hr Q6H40M IV Last administered on 03/23/19at 10:00; Start 03/23/19 at 08:14; Stop 03/24/19 at 08:13 Acetaminophen (Tylenol) 650 mg PRN Q4HRS PRN PO FEVER; Start 03/23/19 at 08:15; Stop 03/24/19 at 08:14 Insulin Human Lispro (HumaLOG) 0-7 UNITS TIDWMEALS SQ Last administered on 03/23/19at 17:29; Start 03/23/19 at 12:00; Stop 03/24/19 at 04:04; Status DC Dextrose (Dextrose 50%-Water Syringe) 12.5 gm PRN Q15MIN PRN IV SEE COMMENTS; Start 03/23/19 at 08:15 Ondansetron HCl (Zofran) 4 mg 1X ONCE IV Last administered on 03/23/19at 08:42; Start 03/23/19 at 08:45; Stop 03/23/19 at 08:46; Status DC Iohexol (Omnipaque 350 Mg/ml) 60 ml 1X ONCE IV Last administered on 03/23/19at 09:48; Start 03/23/19 at 09:30; Stop 03/23/19 at 09:31; Status DC Info (CONTRAST GIVEN -- Rx MONITORING) 1 each PRN DAILY PRN MC SEE COMMENTS; Start 03/23/19 at 09:30; Stop 03/25/19 at 09:29 Methylprednisolone Sodium Succinate (SOLU-Medrol 40MG VIAL) 60 mg Q8HRS IV Last administered on 03/24/19at 06:22; Start 03/23/19 at 14:00 Buspirone HCl (Buspar) 10 mg BID PO Last administered on 03/23/19at 21:19; Start 03/23/19 at 21:00 Levothyroxine Sodium (Synthroid) 75 mcg DAILY07 PO Last administered on 03/24/19at 06:22; Start 03/24/19 at 07:00 Rivaroxaban (Xarelto) 20 mg DAILYWSUP PO ; Start 03/23/19 at 17:00; Stop at 17:00; Status DC Non-Formulary Medication (Dulaglutide (Trulicity)) 0.75 mg WEEKLY SQ ; Start 03/30/19 at 09:00; Status UNV Magnesium Oxide (Magnesium Oxide) 400 mg DAILY PO ; Start 03/24/19 at 09:00 Mirtazapine (Remeron) 15 mg QHS PO ; Start 03/23/19 at 21:00; Stop 03/23/19 at 21:00; Status DC Info (Anti-Coagulation Monitoring By Pharmacy) 1 each PRN DAILY PRN MC SEE COMMENTS; Start 03/23/19 at 13:15 Lidocaine HCl (Glydo (Lidocaine) Jelly) 1 su 1X ONCE MM Last administered on 03/23/19at 14:40; Start 03/23/19 at 14:15; Stop 03/23/19 at 14:17; Status DC Rivaroxaban (Xarelto) 15 mg DAILYWSUP PO ; Start 03/23/19 at 17:00; Stop 03/23/19 at 17:35; Status DC Sodium Chloride 500 ml @ 250 mls/hr PRN Q4HRS PRN IV SEE COMMENTS; Start 03/23/19 at 16:30 Rivaroxaban (Xarelto) 15 mg DAILYWBKFT PO ; Start 03/24/19 at 08:00 Mirtazapine (Remeron) 15 mg DAILYWBKFT PO ; Start 03/24/19 at 08:00 Insulin Human Lispro (HumaLOG) 0-7 UNITS TIDWMEALS SQ Last administered on 03/24/19at 07:38; Start 03/24/19 at 08:00 Active Scripts Active Metoprolol Tartrate 50 Mg Tablet 1 Tab PO BID Reported Mirtazapine 15 Mg Tablet 1 Tab PO QHS Buspirone Hcl 10 Mg Tablet 10 Mg PO BID Potassium Chloride 20 Meq Tablet.er 20 Meq PO BID Trulicity (Dulaglutide) 0.75 Mg/0.5 Ml Pen.injctr 0.75 Mg SQ WEEKLY Magnesium Oxide 400 Mg Tablet 1 Tab PO DAILY Levothyroxine Sodium 75 Mcg Tablet 1 Tab PO DAILY Novolog (Insulin Aspart) 100 Unit/1 Ml Cartridge 0-5 Unit SQ TIDAC Xarelto (Rivaroxaban) 10 Mg Tablet 20 Tab PO DAILY Vitals/I & O Vital Sign - Last 24 Hours 03/23/19 03/23/19 03/23/19 03/23/19 08:41 08:51 09:06 09:16 Pulse 80 83 81 86 Resp 26 26 B/P (MAP) 110/53 (72) 81/50 (60) 81/54 (63) 117/50 (72) Pulse Ox 99 98 97 97 O2 Delivery Nasal Cannula Nasal Cannula Nasal Cannula Nasal Cannula O2 Flow Rate 3.0 3.0 3.0 3.0 7/3103/23/19 03/23/19 03/23/19 09:21 09:31 09:49 09:57 Pulse 75 88 94 132 Resp B/P (MAP) 103/57 (72) 108/56 (73) 79/45 (56) 135/61 (85) Pulse Ox 97 96 98 O2 Delivery Nasal Cannula Nasal Cannula Nasal Cannula Nasal Cannula O2 Flow Rate 3.0 3.0 3.0 3.0 03/23/19 03/23/19 03/23/19 03/23/19 10:09 10:26 10:30 10:31 Pulse 121 85 86 Resp B/P (MAP) 114/53 (73) 103/57 (72) 95/50 (65) Pulse Ox 97 97 96 O2 Delivery Nasal Cannula Nasal Cannula Nasal Cannula Nasal Cannula O2 Flow Rate 3.0 3.0 3.0 3.0 03/23/19 03/23/19 03/23/19 03/23/19 10:36 14:00 15:00 16:00 Temp 98.4 98.4 Pulse 121 78 85 92 Resp B/P (MAP) 95/51 (66) 119/53 (75) 121/65 (83) 114/55 (74) Pulse Ox 98 99 98 99 O2 Delivery Nasal Cannula Nasal Cannula Nasal Cannula Nasal Cannula O2 Flow Rate 3.0 3.0 3.0 3.0 03/23/19 03/23/19 03/23/19 03/23/19 16:00 17:00 18:00 19:00 Pulse 85 89 84 Resp B/P (MAP) 104/55 (71) 100/72 (81) 133/66 (88) Pulse Ox 99 98 98 O2 Delivery Nasal Cannula Nasal Cannula Nasal Cannula Nasal Cannula O2 Flow Rate 3.0 3.0 3.0 3.0 03/23/19 03/23/19 03/23/19 03/23/19 20:00 20:00 21:00 22:00 Temp 98.3 98.3 Pulse 93 93 96 Resp B/P (MAP) 129/70 (89) 129/62 (84) 124/61 (82) Pulse Ox 98 98 94 O2 Delivery Nasal Cannula Nasal Cannula Nasal Cannula Nasal Cannula O2 Flow Rate 3.0 3.0 3.0 3.0 03/23/19 03/23/19 03/24/19 03/24/19 23:00 23:59 00:00 01:00 Temp 98.7 98.7 Pulse 100 104 100 Resp 16 15 15 B/P (MAP) 115/61 (79) 125/75 (92) 133/67 (89) Pulse Ox 96 97 97 O2 Delivery Nasal Cannula Nasal Cannula Nasal Cannula Nasal Cannula O2 Flow Rate 3.0 3.0 3.0 3.0 03/24/19 03/24/19 03/24/19 03/24/19 02:00 03:00 04:00 04:00 Temp 98.5 98.5 Pulse 98 105 110 Resp 14 13 14 B/P (MAP) 116/60 (78) 118/53 (74) 121/62 (81) Pulse Ox 98 99 98 O2 Delivery Nasal Cannula Nasal Cannula Nasal Cannula Nasal Cannula O2 Flow Rate 3.0 3.0 3.0 3.0 03/24/19 03/24/19 05:00 06:00 Pulse 104 100 Resp 11 12 B/P (MAP) 111/61 (78) 115/56 (75) Pulse Ox 99 99 O2 Delivery Nasal Cannula Nasal Cannula O2 Flow Rate 3.0 3.0 Intake and Output 03/23/19 03/23/19 03/24/19 15:00 23:00 07:00 Intake Total 1490 ml 1126.85 ml Output Total 450 ml 705 ml 650 ml Balance 1040 ml 421.85 ml -650 ml AUNDREA KOENIG MD Mar 24, 2019 08:23
[2019-03-24] MEDS: TAMSULOSIN 0.4 MG CAP.ER.24H. PO SCH (08:57)
--- NOTE | 2019-03-24 09:22 | NUR ---
Pt admitted with afib RVR. would benefit from PT/OT assessment to ensure safe discharge plan. Please write PT/OT eval and treat orders if you agree. Addendum: 03/24/19 at 0922 by OLE CAZARES PT Amended: Links added.
--- NOTE | 2019-03-24 09:26 | PDOC ---
SUBJECTIVE ROS Stable, No acute events overnight, has acosta OBJECTIVE Vital Signs Vital Signs Date Time Temp Pulse Resp B/P (MAP) Pulse Ox O2 Delivery O2 Flow Rate FiO2 03/24/19 06:00 100 12 115/56 (75) 99 Nasal Cannula 3.0 03/24/19 04:00 98.5 98.5 I & 0 Intake and Output 03/24/19 06:59 Intake Total 2616.85 ml Output Total 1805 ml Balance 811.85 ml Intake Oral 905 ml IV Total 1711.85 ml Output Urine Total 1805 ml PHYSICAL EXAM Physical Exam GENERAL: NAD HEENT: Mucous membranes dry NECK: Supple, CHEST: Breath sounds mildly decreased throughout. No use of accessory muscles CARDIOVASCULAR: Irregularly irregular, 2/6 systolic murmur. ABDOMEN: Soft, nontender EXTREMITIES: No Edema Bilateral lower extremities No Acosta SKIN No rash NEURO Grossly Normal DIAGNOSIS/ASSESSMENT Assessment & Plan SATHYA- vasomotor/Cardiorenal /Hypotensive Urinary retention of 300 ml on bladder scan , Now has a acosta Post Contrast with CTA on 03/23 Renal function stable . Good UOp K and Bicarb Normal , supportive care, I/O , Monitor Hyponatremia- sec to CHF Improving- corrected 130 Hyperkalemia - Resolved Was on PO supplements CHF - pulm edema on CTA Cautious with IVF, Cardiology managing DM- per Primary \ Atrial fibrillation with rapid ventricular response Pulmonary fibrosis with possible sarcoidosis. Pulm following COMMENT/RELEVANT DATA Meds Current Medications Medications (Trade) Dose Ordered Sig/Yessy Start Time Stop Time Status Last Admin Dose Admin Acetaminophen (Tylenol) 650 mg PRN Q4HRS PRN 03/23/19 08:15 03/24/19 08:14 DC Buspirone HCl (Buspar) 10 mg BID 03/23/19 21:00 03/24/19 08:17 10 MG Dextrose (Dextrose 50%-Water Syringe) 12.5 gm PRN Q15MIN PRN 03/23/19 08:15 Diltiazem HCl (Cardizem Iv Push) 20 mg 1X ONCE 03/23/19 07:00 03/23/19 07:01 DC 03/23/19 07:04 20 MG Fentanyl Citrate (Fentanyl 2ml Vial) 50 mcg PRN Q3HRS PRN 03/23/19 08:15 03/24/19 08:14 DC 03/23/19 08:42 50 MCG Info (Anti-Coagulation Monitoring By Pharmacy) 1 each PRN DAILY PRN 03/23/19 13:15 Info (CONTRAST GIVEN -- Rx MONITORING) 1 each PRN DAILY PRN 03/23/19 09:30 03/25/19 09:29 Insulin Human Lispro (HumaLOG) 0-7 UNITS TIDWMEALS 03/24/19 08:00 03/24/19 07:38 4 UNITS Iohexol (Omnipaque 350 Mg/ml) 60 ml 1X ONCE 03/23/19 09:30 03/23/19 09:31 DC 03/23/19 09:48 60 ML Levothyroxine Sodium (Synthroid) 75 mcg DAILY07 03/24/19 07:00 03/24/19 06:22 75 MCG Lidocaine HCl (Glydo (Lidocaine) Jelly) 1 su 1X ONCE 03/23/19 14:15 03/23/19 14:17 DC 03/23/19 14:40 1 SU Magnesium Oxide (Magnesium Oxide) 400 mg DAILY 03/24/19 09:00 03/24/19 08:17 400 MG Methylprednisolone Sodium Succinate (SOLU-Medrol 40MG VIAL) 60 mg Q8HRS 03/23/19 14:00 03/24/19 06:22 60 MG Mirtazapine (Remeron) 15 mg DAILYWBKFT 03/24/19 08:00 03/24/19 08:19 15 MG Non-Formulary Medication (Dulaglutide (Trulicity)) 0.75 mg WEEKLY 03/30/19 09:00 UNV Norepinephrine Bitartrate 250 ml @ 11.567 mls/ hr 1X ONCE 03/23/19 08:00 03/24/19 05:36 DC 03/23/19 08:14 11.567 MLS/HR Ondansetron HCl (Zofran) 4 mg 1X ONCE 03/23/19 08:45 03/23/19 08:46 DC 03/23/19 08:42 4 MG Rivaroxaban (Xarelto) 15 mg DAILYWBKFT 03/24/19 08:00 03/24/19 08:19 15 MG Sodium Chloride 500 ml @ 250 mls/hr PRN Q4HRS PRN 03/23/19 16:30 Tamsulosin HCl (Flomax) 0.4 mg DAILY 03/24/19 09:00 03/24/19 08:57 0.4 MG Lab Laboratory Tests Test 03/23/19 10:30 03/23/19 11:05 03/23/19 14:00 03/23/19 14:45 Nasal Screen MRSA (PCR) Negative (Negative) Lactic Acid Level 3.6 mmol/L (0.4-2.0) Troponin I Quantitative 0.141 ng/mL (0.000-0.055) 0.159 ng/mL (0.000-0.055) Procalcitonin 4.80 ng/mL (0.00-0.10) Sodium Level 123 mmol/L (136-145) Potassium Level 5.2 mmol/L (3.5-5.1) Chloride Level 92 mmol/L (98-107) Carbon Dioxide Level 21 mmol/L (21-32) Anion Gap 10 (6-14) Blood Urea Nitrogen 64 mg/dL (8-26) Creatinine 2.1 mg/dL (0.7-1.3) Estimated GFR (Cockcroft-Gault) 31.0 Glucose Level 278 mg/dL (70-99) Calcium Level 8.5 mg/dL (8.5-10.1) Urine Collection Type U cath Urine Color Yellow Urine Clarity Clear Urine pH 5.0 Urine Specific [place] 1.025 Urine Protein 100 mg/dL (NEG-TRACE) Urine Glucose (UA) Negative mg/dL (NEG) Urine Ketones (Stick) Negative mg/dL (NEG) Urine Blood Small (NEG) Urine Nitrite Negative (NEG) Urine Bilirubin Negative (NEG) Urine Urobilinogen Dipstick 0.2 mg/dL (0.2 mg/dL) Urine Leukocyte Esterase Negative (NEG) Urine RBC 6-10 /HPF (0-2) Urine WBC Occ /HPF (0-4) Urine Bacteria 0 /HPF (0-FEW) Urine Hyaline Casts Few /HPF Urine Mucus Mod /LPF Test 03/24/19 04:00 White Blood Count 10.5 x10^3/uL (4.0-11.0) Red Blood Count 3.24 x10^6/uL (4.30-5.70) Hemoglobin 10.2 g/dL (13.0-17.5) Hematocrit 29.8 % (39.0-53.0) Mean Corpuscular Volume 92 fL (79-100) Mean Corpuscular Hemoglobin 32 pg (25-35) Mean Corpuscular Hemoglobin Concent 34 g/dL (31-37) Red Cell Distribution Width 15.8 % (11.5-14.5) Platelet Count 130 x10^3/uL (140-400) Sodium Level 127 mmol/L (136-145) Potassium Level 4.9 mmol/L (3.5-5.1) Chloride Level 95 mmol/L (98-107) Carbon Dioxide Level 21 mmol/L (21-32) Anion Gap 11 (6-14) Blood Urea Nitrogen 60 mg/dL (8-26) Creatinine 1.8 mg/dL (0.7-1.3) Estimated GFR (Cockcroft-Gault) 37.1 Glucose Level 293 mg/dL (70-99) Calcium Level 9.0 mg/dL (8.5-10.1) Results All relevant outside records, renal labs, imaging studies, telemetry/EKG's were reviewed. DINORAH KIDD MD Mar 24, 2019 09:26
[2019-03-24] MEDS: ANTI-COAG MONITOR BY PHARMACY. MC PRN (10:05)
--- NOTE | 2019-03-24 11:41 | PDOC ---
PULMONARY PROGRESS NOTES Subjective feels better off levophed Vitals Vital Signs Date Time Temp Pulse Resp B/P (MAP) Pulse Ox O2 Delivery O2 Flow Rate FiO2 03/24/19 11:00 96 15 96/60 (72) 99 Nasal Cannula 3.0 03/24/19 07:00 97.7 97.7 General: Alert, No acute distress Lungs: Crackles (bases) Cardiovascular: S1, S2 Abdomen: Soft, Non-tender Neuro Exam: Alert Extremities: Other (1+edema) Labs Laboratory Tests Test 03/23/19 06:48 03/23/19 07:15 03/23/19 10:30 03/23/19 11:05 White Blood Count 9.7 x10^3/uL (4.0-11.0) Red Blood Count 3.36 x10^6/uL (4.30-5.70) Hemoglobin 10.6 g/dL (13.0-17.5) Hematocrit 31.0 % (39.0-53.0) Mean Corpuscular Volume 92 fL (79-100) Mean Corpuscular Hemoglobin 32 pg (25-35) Mean Corpuscular Hemoglobin Concent 34 g/dL (31-37) Red Cell Distribution Width 15.5 % (11.5-14.5) Platelet Count 137 x10^3/uL (140-400) Neutrophils (%) (Auto) 88 % (31-73) Lymphocytes (%) (Auto) 4 % (24-48) Monocytes (%) (Auto) 8 % (0-9) Eosinophils (%) (Auto) 0 % (0-3) Basophils (%) (Auto) 0 % (0-3) Neutrophils # (Auto) 8.5 x10^3/uL (1.8-7.7) Lymphocytes # (Auto) 0.4 x10^3/uL (1.0-4.8) Monocytes # (Auto) 0.7 x10^3/uL (0.0-1.1) Eosinophils # (Auto) 0.0 x10^3/uL (0.0-0.7) Basophils # (Auto) 0.0 x10^3/uL (0.0-0.2) Segmented Neutrophils % 90 % (35-66) Band Neutrophils % 2 % (0-9) Lymphocytes % 3 % (24-48) Monocytes % 5 % (0-10) Dohle Bodies Few Platelet Estimate Decreased (ADEQUATE) Polychromasia Present Prothrombin Time 39.2 SEC (11.7-14.0) Prothromb Time International Ratio 4.0 (0.8-1.1) Sodium Level 121 mmol/L (136-145) Potassium Level 5.2 mmol/L (3.5-5.1) Chloride Level 88 mmol/L (98-107) Carbon Dioxide Level 22 mmol/L (21-32) Anion Gap 11 (6-14) Blood Urea Nitrogen 53 mg/dL (8-26) Creatinine 2.0 mg/dL (0.7-1.3) Estimated GFR (Cockcroft-Gault) 32.8 BUN/Creatinine Ratio 27 (6-20) Glucose Level 295 mg/dL (70-99) Calcium Level 9.4 mg/dL (8.5-10.1) Magnesium Level 1.8 mg/dL (1.8-2.4) Total Bilirubin 2.3 mg/dL (0.2-1.0) Aspartate Amino Transf (AST/SGOT) 36 U/L (15-37) Alanine Aminotransferase (ALT/SGPT) 36 U/L (16-63) Alkaline Phosphatase 225 U/L (46-116) Troponin I Quantitative 0.035 ng/mL (0.000-0.055) 0.141 ng/mL (0.000-0.055) Total Protein 7.6 g/dL (6.4-8.2) Albumin 2.8 g/dL (3.4-5.0) Albumin/Globulin Ratio 0.6 (1.0-1.7) Lactic Acid Level 3.4 mmol/L (0.4-2.0) 3.6 mmol/L (0.4-2.0) Nasal Screen MRSA (PCR) Negative (Negative) Procalcitonin 4.80 ng/mL (0.00-0.10) Test 03/23/19 14:00 03/23/19 14:45 03/24/19 04:00 Sodium Level 123 mmol/L (136-145) 127 mmol/L (136-145) Potassium Level 5.2 mmol/L (3.5-5.1) 4.9 mmol/L (3.5-5.1) Chloride Level 92 mmol/L (98-107) 95 mmol/L (98-107) Carbon Dioxide Level 21 mmol/L (21-32) 21 mmol/L (21-32) Anion Gap 10 (6-14) 11 (6-14) Blood Urea Nitrogen 64 mg/dL (8-26) 60 mg/dL (8-26) Creatinine 2.1 mg/dL (0.7-1.3) 1.8 mg/dL (0.7-1.3) Estimated GFR (Cockcroft-Gault) 31.0 37.1 Glucose Level 278 mg/dL (70-99) 293 mg/dL (70-99) Calcium Level 8.5 mg/dL (8.5-10.1) 9.0 mg/dL (8.5-10.1) Troponin I Quantitative 0.159 ng/mL (0.000-0.055) Urine Collection Type U cath Urine Color Yellow Urine Clarity Clear Urine pH 5.0 Urine Specific [place] 1.025 Urine Protein 100 mg/dL (NEG-TRACE) Urine Glucose (UA) Negative mg/dL (NEG) Urine Ketones (Stick) Negative mg/dL (NEG) Urine Blood Small (NEG) Urine Nitrite Negative (NEG) Urine Bilirubin Negative (NEG) Urine Urobilinogen Dipstick 0.2 mg/dL (0.2 mg/dL) Urine Leukocyte Esterase Negative (NEG) Urine RBC 6-10 /HPF (0-2) Urine WBC Occ /HPF (0-4) Urine Bacteria 0 /HPF (0-FEW) Urine Hyaline Casts Few /HPF Urine Mucus Mod /LPF White Blood Count 10.5 x10^3/uL (4.0-11.0) Red Blood Count 3.24 x10^6/uL (4.30-5.70) Hemoglobin 10.2 g/dL (13.0-17.5) Hematocrit 29.8 % (39.0-53.0) Mean Corpuscular Volume 92 fL (79-100) Mean Corpuscular Hemoglobin 32 pg (25-35) Mean Corpuscular Hemoglobin Concent 34 g/dL (31-37) Red Cell Distribution Width 15.8 % (11.5-14.5) Platelet Count 130 x10^3/uL (140-400) Laboratory Tests Test 03/23/19 14:00 03/23/19 14:45 03/24/19 04:00 Sodium Level 123 mmol/L (136-145) 127 mmol/L (136-145) Potassium Level 5.2 mmol/L (3.5-5.1) 4.9 mmol/L (3.5-5.1) Chloride Level 92 mmol/L (98-107) 95 mmol/L (98-107) Carbon Dioxide Level 21 mmol/L (21-32) 21 mmol/L (21-32) Anion Gap 10 (6-14) 11 (6-14) Blood Urea Nitrogen 64 mg/dL (8-26) 60 mg/dL (8-26) Creatinine 2.1 mg/dL (0.7-1.3) 1.8 mg/dL (0.7-1.3) Estimated GFR (Cockcroft-Gault) 31.0 37.1 Glucose Level 278 mg/dL (70-99) 293 mg/dL (70-99) Calcium Level 8.5 mg/dL (8.5-10.1) 9.0 mg/dL (8.5-10.1) Troponin I Quantitative 0.159 ng/mL (0.000-0.055) Urine Collection Type U cath Urine Color Yellow Urine Clarity Clear Urine pH 5.0 Urine Specific [place] 1.025 Urine Protein 100 mg/dL (NEG-TRACE) Urine Glucose (UA) Negative mg/dL (NEG) Urine Ketones (Stick) Negative mg/dL (NEG) Urine Blood Small (NEG) Urine Nitrite Negative (NEG) Urine Bilirubin Negative (NEG) Urine Urobilinogen Dipstick 0.2 mg/dL (0.2 mg/dL) Urine Leukocyte Esterase Negative (NEG) Urine RBC 6-10 /HPF (0-2) Urine WBC Occ /HPF (0-4) Urine Bacteria 0 /HPF (0-FEW) Urine Hyaline Casts Few /HPF Urine Mucus Mod /LPF White Blood Count 10.5 x10^3/uL (4.0-11.0) Red Blood Count 3.24 x10^6/uL (4.30-5.70) Hemoglobin 10.2 g/dL (13.0-17.5) Hematocrit 29.8 % (39.0-53.0) Mean Corpuscular Volume 92 fL (79-100) Mean Corpuscular Hemoglobin 32 pg (25-35) Mean Corpuscular Hemoglobin Concent 34 g/dL (31-37) Red Cell Distribution Width 15.8 % (11.5-14.5) Platelet Count 130 x10^3/uL (140-400) Medications Active Scripts Medications Dose Route/Sig Max Daily Dose Days Date Category Mirtazapine 15 Mg Tablet 1 Tab PO QHS 03/23/19 Reported Buspirone Hcl 10 Mg Tablet 10 Mg PO BID 03/23/19 Reported Potassium Chloride 20 Meq Tablet.er 20 Meq PO BID 03/23/19 Reported Metoprolol Tartrate 50 Mg Tablet 1 Tab PO BID 03/13/19 Rx Trulicity (Dulaglutide) 0.75 Mg/0.5 Ml Pen.injctr 0.75 Mg SQ WEEKLY 03/12/19 Reported Magnesium Oxide 400 Mg Tablet 1 Tab PO DAILY 03/03/19 Reported Levothyroxine Sodium 75 Mcg Tablet 1 Tab PO DAILY 03/03/19 Reported Novolog (Insulin Aspart) 100 Unit/1 Ml Cartridge 0-5 Unit SQ TIDAC 03/03/19 Reported Xarelto (Rivaroxaban) 10 Mg Tablet 20 Tab PO DAILY 03/03/19 Reported Impression . 1. Acute hypoxic respiratory failure, likely related to superimposed congestive heart failure in addition to underlying chronic interstitial lung disease. 2. Severe cardiomyopathy with an EF of 30%. Needs ischemic workup. 3. Atrial fibrillation with rapid ventricular response, triggering congestive heart failure. 4. Abnormal CT chest with underlying interstitial lung disease/fibrotic lung disease involving predominantly the upper lobes and also minimal in the lower lobes. Now, he has developed new ground glass infiltrates in the upper lobes suggesting alveolitis and likely related to congestive heart failure. He also has now progression of mediastinal adenopathy. 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 5. Acute kidney injury. 6. Abnormal troponin level. 7. Hyponatremia. 8. Coagulopathy with INR of 4.0. POA. On eliquis at home 9. Lower extremity edema secondary to cardiomyopathy. 10. Underlying chronic obstructive pulmonary disease. Plan . 1. Continue with present oxygen. 2. blood pressure better. consider diuresis. 3. IV steroids to treat for any acute flare up of interstitial lung disease. 4. Obtain sedimentation rate. 5. He will need a cardiac catheterization to assess for ischemic workup of his cardiomyopathy. 6. PFTs as an outpatient. 7. Bronchodilators. 8. He may need mediastinoscopy once stable for a definite diagnosis of sarcoidosis. 9. Empiric steroids for now. 10. Clinically less likely pneumonia but pro-calcitonin 4.0 will add abx 11. Discussed with RN. Discussed with Cardiology, Dr. Cline. Discussed with cousin and will follow along with you. PAN HOFF MD Mar 24, 2019 11:41
[2019-03-24] MEDS: cefTRIAXone IV Push 1 GM VIAL. IVP SCH (11:57)
--- NOTE | 2019-03-24 12:48 | PDOC ---
LUCIA ISBELL ASSEMBLY INSPECTOR 03/24/19 1248: CARDIO Progress Notes Date and Time Date of Service 03/24/2019 Time of Evaluation 1230 Subjective Subjective: No Chest Pain, No shortness of breath, No Palpitations, Other (irritated due to politics on TV) Vitals Vitals Vital Signs Date Time Temp Pulse Resp B/P (MAP) Pulse Ox O2 Delivery O2 Flow Rate FiO2 03/24/19 12:00 97.7 100 12 101/63 (76) 97 Nasal Cannula 3.0 97.7 Weight Weight [ ] Input and Output Intake and Output Intake and Output 03/24/19 07:00 Intake Total 2616.85 ml Output Total 1955 ml Balance 661.85 ml Intake Oral 905 ml IV Total 1711.85 ml Output Urine Total 1955 ml Laboratory Labs Laboratory Tests Test 03/23/19 14:00 03/23/19 14:45 03/24/19 04:00 Sodium Level 123 mmol/L (136-145) 127 mmol/L (136-145) Potassium Level 5.2 mmol/L (3.5-5.1) 4.9 mmol/L (3.5-5.1) Chloride Level 92 mmol/L (98-107) 95 mmol/L (98-107) Carbon Dioxide Level 21 mmol/L (21-32) 21 mmol/L (21-32) Anion Gap 10 (6-14) 11 (6-14) Blood Urea Nitrogen 64 mg/dL (8-26) 60 mg/dL (8-26) Creatinine 2.1 mg/dL (0.7-1.3) 1.8 mg/dL (0.7-1.3) Estimated GFR (Cockcroft-Gault) 31.0 37.1 Glucose Level 278 mg/dL (70-99) 293 mg/dL (70-99) Calcium Level 8.5 mg/dL (8.5-10.1) 9.0 mg/dL (8.5-10.1) Troponin I Quantitative 0.159 ng/mL (0.000-0.055) Urine Collection Type U cath Urine Color Yellow Urine Clarity Clear Urine pH 5.0 Urine Specific [place] 1.025 Urine Protein 100 mg/dL (NEG-TRACE) Urine Glucose (UA) Negative mg/dL (NEG) Urine Ketones (Stick) Negative mg/dL (NEG) Urine Blood Small (NEG) Urine Nitrite Negative (NEG) Urine Bilirubin Negative (NEG) Urine Urobilinogen Dipstick 0.2 mg/dL (0.2 mg/dL) Urine Leukocyte Esterase Negative (NEG) Urine RBC 6-10 /HPF (0-2) Urine WBC Occ /HPF (0-4) Urine Bacteria 0 /HPF (0-FEW) Urine Hyaline Casts Few /HPF Urine Mucus Mod /LPF White Blood Count 10.5 x10^3/uL (4.0-11.0) Red Blood Count 3.24 x10^6/uL (4.30-5.70) Hemoglobin 10.2 g/dL (13.0-17.5) Hematocrit 29.8 % (39.0-53.0) Mean Corpuscular Volume 92 fL (79-100) Mean Corpuscular Hemoglobin 32 pg (25-35) Mean Corpuscular Hemoglobin Concent 34 g/dL (31-37) Red Cell Distribution Width 15.8 % (11.5-14.5) Platelet Count 130 x10^3/uL (140-400) Microbiology Micro Microbiology 03/23/19 Blood Culture - Preliminary, Resulted NO GROWTH AFTER 1 DAY Physical Exam HEENT: Neck Supple W Full Motion Chest: Symmetric LUNGS: Other (diminished with diffuse crackles) Heart: irregularly irregular (AFIB) Abdomen: Soft N/T Extremities: No Edema, No Calf Tenderness Neurology: alert, oriented, follow commands Assessment Assessment 1. AFIB RVR; chronic by baseline rate 90-120s 2. Acute on chronic systolic CHF: presently not feeling SOA 3. Cardiomyopathy: EF 30% multifactorial 4. Acute on chronic respiratory failure with COPD/ILD/bronchiectasis/CHF: possible sarcoid component 5. CAD: remote [facility], last MPI 04/2017 6. Suspect sepsis with recently treated pneumonia 7. SATHYA on CKD3: nephrology following 8. Hypotension: septic shock vs RVR induced 9. Elevated troponin: 0.14, multiple culprits including ischemia as noted above. 10. Prostate CA: 6 more radiation session 11. Chronic hyponatremia Recommendations 1. Repeat procalc. Antibiotic per pulmonary 2. Off levophed, BP maginal but better. Dig x1 today. Hold lasix for now. 3. Discussed with pt in regards to future ischemic workup. Given his SATHYA and coexisting acute comorbid conditions, the risk for SUNSHINE is high and will revisit as an outpt and currently not having any chest pain. 4. Continue to optimize medical therapy 5. Xarelto at 15 mg po daily PAUL GALLARDO MD 03/24/19 1807: CARDIO Progress Notes Plan Plan Patient seen and examined. Agree with above nurse practitioner note. Supportive care for now. Heart rate is better controlled. We will stop his anticoagulation with Xarelo, as his INR yesterday was 4.1 Will follow along peripherally. LUCIA ISBELL APRN Mar 24, 2019 12:48 PAUL GALLARDO MD Mar 24, 2019 18:07
[2019-03-24] MEDS ORDERED: DIGOXIN IV 500 MCG/2 ML AMPUL. IV ONE (13:00)
--- NOTE | 2019-03-24 15:00 | NUR ---
Dr. Domingo notified of procalcitonin level elevated to 6.7 now at the direction of Amy Mott APRN. No orders received.
--- NOTE | 2019-03-24 16:08 | NUR ---
SS following for discharge planning. Pt is from home and is currently requiring oxygen. No discharge needs noted at this time. SS will continue to follow for discharge planning.
--- NOTE | 2019-03-24 16:30 | NUR ---
Hold Xarelto per Dr. Cline since INR elevated at this time. Will resume when INR is lower and per the direction of Dr. Cline.
[2019-03-24] MEDS ORDERED: INSULIN LISPRO 300 UNITS/3 ML INSULN.PEN. SQ ONE (20:15)
[2019-03-24] MEDS ORDERED: INSULIN GLARGINE 300 UNITS/3 ML INSULN.PEN. SQ SCH (21:00)
[2019-03-25] MEDS ORDERED: INSULIN LISPRO 300 UNITS/3 ML INSULN.PEN. SQ ONE (01:00)
--- NOTE | 2019-03-25 01:49 | NUR ---
AT 1999 CALLED LINDA KOENIG WITH [facility], ORDER FOR 20 HUMOLOG AND 10 LANTUS, ADMIN BOTH. THEN PT REACHED 475. DR KOENIG ORDERED 20 UNITS . PT SAID HE WOULD BOTTOM OUT AND TO ONLY GIVE HIM 6 UNITS, TRIED TO EXPLAIN TO PT THE DOSAGES AT 8 PM, BUT HE WAS SURE THAT HE ONLY NEEDS 6 UNIT. THEN IF PT IS GREATER THAN 300 AT 3PM CAN GIVE 20 MORE. WILL RECHECK AT 3AM. LCRN
[2019-03-25 03:00] VITALS: BP 127/58
[2019-03-25 05:01] LABS: CALCIUM 8.7 mg/dL (8.5-10.1); CREATININE 1.9 mg/dL (0.7-1.3); GFR 34.8; POTASSIUM 4.5 mmol/L (3.5-5.1)
--- NOTE | 2019-03-25 06:30 | NUR ---
EACH TIME PT WAS TO GET 20 UNITS AT 2000 AND 0300 HE ONLY WANTED 5 UNITS . HE WOULD CALL THAT IS BS WAS HIGH TRIED TO EXPLAIN TO PT IF INSULIN WOULD BE GIVEN DR ORDERED IT HE STILL WOULDNT BE HIGH. PT SCANS HIS OWN GLUCOSE PATCH ON THE BACK OF HIS LEFT ARM. LCRN
[2019-03-25 07:00] VITALS: BP 116/55
[2019-03-25] MEDS: LEVOTHYROXINE 75 MCG TABLET PO SCH (08:08)
[2019-03-25] MEDS: methylPREDNISolone SOD SUCC PF 40 MG/ML VIAL. IV SCH ×3 (08:08→21:40)
[2019-03-25] MEDS: MAGNESIUM OXIDE 400 MG TABLET PO SCH (08:32)
[2019-03-25] MEDS: busPIRone 10 MG TABLET. PO SCH ×2 (08:33→21:39)
[2019-03-25] MEDS: TAMSULOSIN 0.4 MG CAP.ER.24H. PO SCH (08:33)
[2019-03-25] MEDS: MIRTAZAPINE 15 MG TABLET PO SCH (08:33)
--- NOTE | 2019-03-25 08:36 | PDOC ---
PULMONARY PROGRESS NOTES Subjective PT SOA WITH EXERTION NO INCREASING COUGH Vitals Vital Signs Date Time Temp Pulse Resp B/P (MAP) Pulse Ox O2 Delivery O2 Flow Rate FiO2 03/25/19 07:00 97.3 100 16 116/55 (75) 92 Room Air 3.0 97.3 ROS: No Nausea, No Chest Pain, No Abdominal Pain, No Increase Cough General: Alert, No acute distress Lungs: Crackles (bases) Cardiovascular: S1, S2 Abdomen: Soft, Non-tender Neuro Exam: Alert Extremities: Other (1+edema) Labs Laboratory Tests Test 03/23/19 10:30 03/23/19 11:05 03/23/19 14:00 03/23/19 14:45 Nasal Screen MRSA (PCR) Negative (Negative) Lactic Acid Level 3.6 mmol/L (0.4-2.0) Troponin I Quantitative 0.141 ng/mL (0.000-0.055) 0.159 ng/mL (0.000-0.055) Procalcitonin 4.80 ng/mL (0.00-0.10) Sodium Level 123 mmol/L (136-145) Potassium Level 5.2 mmol/L (3.5-5.1) Chloride Level 92 mmol/L (98-107) Carbon Dioxide Level 21 mmol/L (21-32) Anion Gap 10 (6-14) Blood Urea Nitrogen 64 mg/dL (8-26) Creatinine 2.1 mg/dL (0.7-1.3) Estimated GFR (Cockcroft-Gault) 31.0 Glucose Level 278 mg/dL (70-99) Calcium Level 8.5 mg/dL (8.5-10.1) Urine Collection Type U cath Urine Color Yellow Urine Clarity Clear Urine pH 5.0 Urine Specific [place] 1.025 Urine Protein 100 mg/dL (NEG-TRACE) Urine Glucose (UA) Negative mg/dL (NEG) Urine Ketones (Stick) Negative mg/dL (NEG) Urine Blood Small (NEG) Urine Nitrite Negative (NEG) Urine Bilirubin Negative (NEG) Urine Urobilinogen Dipstick 0.2 mg/dL (0.2 mg/dL) Urine Leukocyte Esterase Negative (NEG) Urine RBC 6-10 /HPF (0-2) Urine WBC Occ /HPF (0-4) Urine Bacteria 0 /HPF (0-FEW) Urine Hyaline Casts Few /HPF Urine Mucus Mod /LPF Test 03/24/19 04:00 03/24/19 11:55 03/24/19 19:55 03/25/19 03:30 White Blood Count 10.5 x10^3/uL (4.0-11.0) Red Blood Count 3.24 x10^6/uL (4.30-5.70) Hemoglobin 10.2 g/dL (13.0-17.5) Hematocrit 29.8 % (39.0-53.0) Mean Corpuscular Volume 92 fL (79-100) Mean Corpuscular Hemoglobin 32 pg (25-35) Mean Corpuscular Hemoglobin Concent 34 g/dL (31-37) Red Cell Distribution Width 15.8 % (11.5-14.5) Platelet Count 130 x10^3/uL (140-400) Sodium Level 127 mmol/L (136-145) 132 mmol/L (136-145) Potassium Level 4.9 mmol/L (3.5-5.1) 4.5 mmol/L (3.5-5.1) Chloride Level 95 mmol/L (98-107) 98 mmol/L (98-107) Carbon Dioxide Level 21 mmol/L (21-32) 24 mmol/L (21-32) Anion Gap 11 (6-14) 10 (6-14) Blood Urea Nitrogen 60 mg/dL (8-26) 58 mg/dL (8-26) Creatinine 1.8 mg/dL (0.7-1.3) 1.9 mg/dL (0.7-1.3) Estimated GFR (Cockcroft-Gault) 37.1 34.8 Glucose Level 293 mg/dL (70-99) 481 mg/dL (70-99) Calcium Level 9.0 mg/dL (8.5-10.1) 8.7 mg/dL (8.5-10.1) Erythrocyte Sedimentation Rate 110 (0-15) Procalcitonin 6.48 ng/mL (0.00-0.10) Glucose (Fingerstick) 562 mg/dL (70-99) Laboratory Tests Test 03/24/19 11:55 03/24/19 19:55 03/25/19 03:30 Erythrocyte Sedimentation Rate 110 (0-15) Procalcitonin 6.48 ng/mL (0.00-0.10) Glucose (Fingerstick) 562 mg/dL (70-99) Sodium Level 132 mmol/L (136-145) Potassium Level 4.5 mmol/L (3.5-5.1) Chloride Level 98 mmol/L (98-107) Carbon Dioxide Level 24 mmol/L (21-32) Anion Gap 10 (6-14) Blood Urea Nitrogen 58 mg/dL (8-26) Creatinine 1.9 mg/dL (0.7-1.3) Estimated GFR (Cockcroft-Gault) 34.8 Glucose Level 481 mg/dL (70-99) Calcium Level 8.7 mg/dL (8.5-10.1) Medications Active Scripts Medications Dose Route/Sig Max Daily Dose Days Date Category Mirtazapine 15 Mg Tablet 1 Tab PO QHS 03/23/19 Reported Buspirone Hcl 10 Mg Tablet 10 Mg PO BID 03/23/19 Reported Potassium Chloride 20 Meq Tablet.er 20 Meq PO BID 03/23/19 Reported Metoprolol Tartrate 50 Mg Tablet 1 Tab PO BID 03/13/19 Rx Trulicity (Dulaglutide) 0.75 Mg/0.5 Ml Pen.injctr 0.75 Mg SQ WEEKLY 03/12/19 Reported Magnesium Oxide 400 Mg Tablet 1 Tab PO DAILY 03/03/19 Reported Levothyroxine Sodium 75 Mcg Tablet 1 Tab PO DAILY 03/03/19 Reported Novolog (Insulin Aspart) 100 Unit/1 Ml Cartridge 0-5 Unit SQ TIDAC 03/03/19 Reported Xarelto (Rivaroxaban) 10 Mg Tablet 20 Tab PO DAILY 03/03/19 Reported Impression . 1. Acute hypoxic respiratory failure, likely related to superimposed congestive heart failure in addition to underlying chronic interstitial lung disease. 2. Severe cardiomyopathy with an EF of 30%. 3. Atrial fibrillation with rapid ventricular response, triggering congestive heart failure. 4. Abnormal CT chest with underlying interstitial lung disease/fibrotic lung disease involving predominantly the upper lobes and also minimal in the lower lobes. Now, he has developed new ground glass infiltrates in the upper lobes suggesting alveolitis and likely related to congestive heart failure. He also has now progression of mediastinal adenopathy. 5. Acute kidney injury. 6. Abnormal troponin level. 7. Hyponatremia. 8. Coagulopathy with INR of 4.0. POA. On eliquis at home 9. Lower extremity edema secondary to cardiomyopathy. 10. Underlying chronic obstructive pulmonary disease. Plan . WILL CONTINUE THE SAME 02 DIURESE FOLLOW CARD INPUT PROCALCITONIN ELEVATED WILL FOLLOW REPEAT CT IN 2 MONTHS POSSIBLE BX OF LYMPH NODES ONCE STABLE SED RATE ELEVATED APOLONIA JACINTO MD Mar 25, 2019 08:36
[2019-03-25] MEDS: INSULIN LISPRO 300 UNITS/3 ML INSULN.PEN. SQ SCH (08:40)
--- NOTE | 2019-03-25 10:11 | PDOC ---
PROGRESS NOTES Subjective Subjective Patient concerned about receiving too much insulin. No SOA or CP. Objective Objective Vital Signs Date Time Temp Pulse Resp B/P (MAP) Pulse Ox O2 Delivery O2 Flow Rate FiO2 03/25/19 07:00 97.3 100 16 116/55 (75) 92 Room Air 3.0 97.3 Intake and Output 03/25/19 06:59 Intake Total 1414 ml Output Total 2710 ml Balance -1296 ml Intake Oral 1414 ml Output Urine Total 2710 ml # Bowel Movements 1 Physical Exam Abdomen: Normal bowel sounds, Soft, No tenderness Heart: Regular rate Extremities: No edema General: Alert, Oriented X3, No acute distress Lungs: Other (few crackles in upper lobes otherwise CTA) Assessment Assessment Problems Medical Problems: (1) ACUTE AND CHRONIC RESPIRATORY FAILURE WITH HYPOXIA Status: Acute (2) ACUTE ON CHRONIC SYSTOLIC (CONGESTIVE) HEART FAILURE Status: Acute (3) Hyponatremia Status: Acute (4) Hypotension Status: Acute (5) Pulmonary fibrosis Status: Chronic (6) Rapid atrial fibrillation Status: Acute (7) Renal failure (ARF), acute on chronic Status: Acute Plan Plan of Care 1. Afib with RVR - improved, rate presently controlled, continue medication per Cardiology. Xarelto on hold due to elevated INR at admission. 2. acute respiratory failure with pulmonary fibrosis and possible sarcoidosis - continue tx per Pulmonary with abx and Solumedrol. 3. DM2 - glucose elevated due to Solumedrol. Patient will not take more than 5 units of insulin at a time due to concern for possible hypoglycemia. Increase Lantus tonight (if patient agrees), continue SS. 4. urinary retention - started Flomax, continue Quinn for now. 5. SATHYA with CKD - renal function back to baseline. 6. CHF with systolic dysfunction - stable, continue tx per Cardiology. I<O yesterday. Comment Review of Relevant I have reviewed the following items magan (where applicable) has been applied. Labs Laboratory Tests Test 03/23/19 10:30 03/23/19 11:05 03/23/19 14:00 03/23/19 14:45 Nasal Screen MRSA (PCR) Negative (Negative) Lactic Acid Level 3.6 mmol/L (0.4-2.0) Troponin I Quantitative 0.141 ng/mL (0.000-0.055) 0.159 ng/mL (0.000-0.055) Procalcitonin 4.80 ng/mL (0.00-0.10) Sodium Level 123 mmol/L (136-145) Potassium Level 5.2 mmol/L (3.5-5.1) Chloride Level 92 mmol/L (98-107) Carbon Dioxide Level 21 mmol/L (21-32) Anion Gap 10 (6-14) Blood Urea Nitrogen 64 mg/dL (8-26) Creatinine 2.1 mg/dL (0.7-1.3) Estimated GFR (Cockcroft-Gault) 31.0 Glucose Level 278 mg/dL (70-99) Calcium Level 8.5 mg/dL (8.5-10.1) Urine Collection Type U cath Urine Color Yellow Urine Clarity Clear Urine pH 5.0 Urine Specific [place] 1.025 Urine Protein 100 mg/dL (NEG-TRACE) Urine Glucose (UA) Negative mg/dL (NEG) Urine Ketones (Stick) Negative mg/dL (NEG) Urine Blood Small (NEG) Urine Nitrite Negative (NEG) Urine Bilirubin Negative (NEG) Urine Urobilinogen Dipstick 0.2 mg/dL (0.2 mg/dL) Urine Leukocyte Esterase Negative (NEG) Urine RBC 6-10 /HPF (0-2) Urine WBC Occ /HPF (0-4) Urine Bacteria 0 /HPF (0-FEW) Urine Hyaline Casts Few /HPF Urine Mucus Mod /LPF Test 03/24/19 04:00 03/24/19 11:55 03/24/19 19:55 03/25/19 03:30 White Blood Count 10.5 x10^3/uL (4.0-11.0) Red Blood Count 3.24 x10^6/uL (4.30-5.70) Hemoglobin 10.2 g/dL (13.0-17.5) Hematocrit 29.8 % (39.0-53.0) Mean Corpuscular Volume 92 fL (79-100) Mean Corpuscular Hemoglobin 32 pg (25-35) Mean Corpuscular Hemoglobin Concent 34 g/dL (31-37) Red Cell Distribution Width 15.8 % (11.5-14.5) Platelet Count 130 x10^3/uL (140-400) Sodium Level 127 mmol/L (136-145) 132 mmol/L (136-145) Potassium Level 4.9 mmol/L (3.5-5.1) 4.5 mmol/L (3.5-5.1) Chloride Level 95 mmol/L (98-107) 98 mmol/L (98-107) Carbon Dioxide Level 21 mmol/L (21-32) 24 mmol/L (21-32) Anion Gap 11 (6-14) 10 (6-14) Blood Urea Nitrogen 60 mg/dL (8-26) 58 mg/dL (8-26) Creatinine 1.8 mg/dL (0.7-1.3) 1.9 mg/dL (0.7-1.3) Estimated GFR (Cockcroft-Gault) 37.1 34.8 Glucose Level 293 mg/dL (70-99) 481 mg/dL (70-99) Calcium Level 9.0 mg/dL (8.5-10.1) 8.7 mg/dL (8.5-10.1) Erythrocyte Sedimentation Rate 110 (0-15) Procalcitonin 6.48 ng/mL (0.00-0.10) Glucose (Fingerstick) 562 mg/dL (70-99) Laboratory Tests Test 03/24/19 11:55 03/24/19 19:55 03/25/19 03:30 Erythrocyte Sedimentation Rate 110 (0-15) Procalcitonin 6.48 ng/mL (0.00-0.10) Glucose (Fingerstick) 562 mg/dL (70-99) Sodium Level 132 mmol/L (136-145) Potassium Level 4.5 mmol/L (3.5-5.1) Chloride Level 98 mmol/L (98-107) Carbon Dioxide Level 24 mmol/L (21-32) Anion Gap 10 (6-14) Blood Urea Nitrogen 58 mg/dL (8-26) Creatinine 1.9 mg/dL (0.7-1.3) Estimated GFR (Cockcroft-Gault) 34.8 Glucose Level 481 mg/dL (70-99) Calcium Level 8.7 mg/dL (8.5-10.1) Microbiology 03/23/19 Blood Culture - Preliminary, Resulted NO GROWTH AFTER 2 DAYS Medications Current Medications Sodium Chloride 500 ml @ 500 mls/hr 1X ONCE IV Last administered on 03/23/19at 07:01; Start 7/31/19 at 07:00; Stop 03/23/19 at 07:59; Status DC Diltiazem HCl (Cardizem Iv Push) 20 mg 1X ONCE IVP Last administered on 03/23/19at 07:04; Start 03/23/19 at 07:00; Stop 03/23/19 at 07:01; Status DC Sodium Chloride 500 ml @ 500 mls/hr 1X ONCE IV Last administered on 03/23/19at 07:20; Start 03/23/19 at 07:15; Stop 03/23/19 at 08:14; Status DC Acetaminophen (Tylenol) 1,000 mg 1X ONCE PO Last administered on 03/23/19at 07:50; Start 03/23/19 at 07:45; Stop 03/23/19 at 07:46; Status DC Norepinephrine Bitartrate 250 ml @ 11.567 mls/ hr 1X ONCE IV Last administered on 03/23/19at 08:14; Start 03/23/19 at 08:00; Stop 03/24/19 at 05:36; Status DC Ondansetron HCl (Zofran) 4 mg PRN Q8HRS PRN IV NAUSEA/VOMITING; Start 03/23/19 at 08:15; Stop 03/24/19 at 08:14; Status DC Fentanyl Citrate (Fentanyl 2ml Vial) 50 mcg PRN Q3HRS PRN IV PAIN Last administered on 03/23/19at 08:42; Start 03/23/19 at 08:15; Stop 03/24/19 at 08:14; Status DC Sodium Chloride 1,000 ml @ 150 mls/hr Q6H40M IV Last administered on 03/23/19at 10:00; Start 03/23/19 at 08:14; Stop 03/24/19 at 08:13; Status DC Acetaminophen (Tylenol) 650 mg PRN Q4HRS PRN PO FEVER; Start 03/23/19 at 08:15; Stop 03/24/19 at 08:14; Status DC Insulin Human Lispro (HumaLOG) 0-7 UNITS TIDWMEALS SQ Last administered on 03/23/19at 17:29; Start 03/23/19 at 12:00; Stop 03/24/19 at 04:04; Status DC Dextrose (Dextrose 50%-Water Syringe) 12.5 gm PRN Q15MIN PRN IV SEE COMMENTS; Start 03/23/19 at 08:15 Ondansetron HCl (Zofran) 4 mg 1X ONCE IV Last administered on 03/23/19at 08:42; Start 03/23/19 at 08:45; Stop 03/23/19 at 08:46; Status DC Iohexol (Omnipaque 350 Mg/ml) 60 ml 1X ONCE IV Last administered on 03/23/19at 09:48; Start 03/23/19 at 09:30; Stop 03/23/19 at 09:31; Status DC Info (CONTRAST GIVEN -- Rx MONITORING) 1 each PRN DAILY PRN MC SEE COMMENTS; Start 03/23/19 at 09:30; Stop 03/25/19 at 09:29; Status DC Methylprednisolone Sodium Succinate (SOLU-Medrol 40MG VIAL) 60 mg Q8HRS IV Last administered on 03/25/19at 08:08; Start 03/23/19 at 14:00 Buspirone HCl (Buspar) 10 mg BID PO Last administered on 03/25/19at 08:33; Start 03/23/19 at 21:00 Levothyroxine Sodium (Synthroid) 75 mcg DAILY07 PO Last administered on 03/25/19at 08:08; Start 03/24/19 at 07:00 Rivaroxaban (Xarelto) 20 mg DAILYWSUP PO ; Start 03/23/19 at 17:00; Stop 03/23/19 at 17:00; Status DC Non-Formulary Medication (Dulaglutide (Trulicity)) 0.75 mg WEEKLY SQ ; Start 03/30/19 at 09:00; Status UNV Magnesium Oxide (Magnesium Oxide) 400 mg DAILY PO Last administered on 03/25/19at 08:32; Start 03/24/19 at 09:00 Mirtazapine (Remeron) 15 mg QHS PO ; Start 03/23/19 at 21:00; Stop 03/23/19 at 21:00; Status DC Info (Anti-Coagulation Monitoring By Pharmacy) 1 each PRN DAILY PRN MC SEE COMMENTS Last administered on 03/24/19at 10:05; Start 03/23/19 at 13:15 Lidocaine HCl (Glydo (Lidocaine) Jelly) 1 su 1X ONCE MM Last administered on 03/23/19at 14:40; Start 03/23/19 at 14:15; Stop 03/23/19 at 14:17; Status DC Rivaroxaban (Xarelto) 15 mg DAILYWSUP PO ; Start 03/23/19 at 17:00; Stop 03/23/19 at 17:35; Status DC Sodium Chloride 500 ml @ 250 mls/hr PRN Q4HRS PRN IV SEE COMMENTS; Start 03/23/19 at 16:30 Rivaroxaban (Xarelto) 15 mg DAILYWBKFT PO Last administered on 03/24/19at 08:19; Start 03/24/19 at 08:00; Stop 03/24/19 at 16:32; Status DC Mirtazapine (Remeron) 15 mg DAILYWBKFT PO Last administered on 03/25/19at 08:33; Start 03/24/19 at 08:00 Insulin Human Lispro (HumaLOG) 0-7 UNITS TIDWMEALS SQ Last administered on 03/25/19at 08:40; Start 03/24/19 at 08:00 Tamsulosin HCl (Flomax) 0.4 mg DAILY PO Last administered on 03/25/19at 08:33; Start 03/24/19 at 09:00 Ceftriaxone Sodium (Rocephin) 1 gm Q24H IVP Last administered on 03/24/19at 11:57; Start 03/24/19 at 12:00 Digoxin (Lanoxin) 250 mcg 1X ONCE IV Last administered on 03/24/19at 14:37; S tart 03/24/19 at 13:00; Stop 03/24/19 at 13:01; Status DC Insulin Human Lispro (HumaLOG) 20 units 1X ONCE SQ Last administered on 03/24/19at 20:21; Start 03/24/19 at 20:15; Stop 03/24/19 at 20:16; Status DC Insulin Glargine (Lantus) 10 units QHS SQ Last administered on 03/24/19at 20:20; Start 03/24/19 at 21:00; Stop 03/25/19 at 10:00; Status DC Insulin Human Lispro (HumaLOG) 20 units 1X ONCE SQ Last administered on 03/25/19at 01:00; Start 03/25/19 at 01:00; Stop 03/25/19 at 01:01; Status DC Lactobacillus Rhamnosus (Culturelle) 1 cap BID PO ; Start 03/25/19 at 09:00 Insulin Glargine (Lantus) 20 units QHS SQ ; Start 03/25/19 at 21:00 Active Scripts Active Metoprolol Tartrate 50 Mg Tablet 1 Tab PO BID Reported Mirtazapine 15 Mg Tablet 1 Tab PO QHS Buspirone Hcl 10 Mg Tablet 10 Mg PO BID Potassium Chloride 20 Meq Tablet.er 20 Meq PO BID Trulicity (Dulaglutide) 0.75 Mg/0.5 Ml Pen.injctr 0.75 Mg SQ WEEKLY Magnesium Oxide 400 Mg Tablet 1 Tab PO DAILY Levothyroxine Sodium 75 Mcg Tablet 1 Tab PO DAILY Novolog (Insulin Aspart) 100 Unit/1 Ml Cartridge 0-5 Unit SQ TIDAC Xarelto (Rivaroxaban) 10 Mg Tablet 20 Tab PO DAILY Vitals/I & O Vital Sign - Last 24 Hours 03/24/19 03/24/19 03/24/19 03/24/19 11:00 12:00 12:00 13:00 Temp 97.7 97.7 Pulse 96 100 118 Resp 15 12 22 B/P (MAP) 96/60 (72) 101/63 (76) 120/69 (86) Pulse Ox 99 97 96 O2 Delivery Nasal Cannula Nasal Cannula Nasal Cannula Nasal Cannula O2 Flow Rate 3.0 3.0 3.0 1.0 03/24/19 03/24/19 03/24/19 03/24/19 14:00 14:37 15:00 16:00 Pulse 100 100 84 Resp 26 14 B/P (MAP) 105/51 (69) 105/57 116/59 (78) Pulse Ox 100 100 O2 Delivery Nasal Cannula Nasal Cannula Nasal Cannula O2 Flow Rate 1.0 1.0 1.0 03/24/19 03/24/19 03/24/19 03/24/19 16:00 17:00 18:00 19:00 Temp 97.7 97.4 97.7 97.4 Pulse 81 110 92 109 Resp 18 18 18 18 B/P (MAP) 119/60 (79) 110/58 (75) 121/52 (75) 120/58 (78) Pulse Ox 100 94 96 98 O2 Delivery Nasal Cannula Nasal Cannula Nasal Cannula Nasal Cannula O2 Flow Rate 1.0 1.0 1.0 1.0 03/24/19 03/24/19 03/24/19 03/24/19 20:00 20:00 20:00 23:31 Temp 97.7 97.5 97.7 97.5 Pulse 81 104 Resp 18 20 B/P (MAP) 119/60 (79) 148/67 (94) Pulse Ox 100 96 O2 Delivery Nasal Cannula Nasal Cannula Nasal Cannula Nasal Cannula O2 Flow Rate 1.0 3.0 3.0 1.0 03/24/19 03/25/19 03/25/19 03/25/19 23:59 02:00 03:00 04:00 Temp 97.5 97.5 Pulse 101 Resp 18 B/P (MAP) 127/58 (81) Pulse Ox 96 O2 Delivery Nasal Cannula Nasal Cannula Nasal Cannula Nasal Cannula O2 Flow Rate 3.0 3.0 1.0 3.0 03/25/19 07:00 Temp 97.3 97.3 Pulse 100 Resp 16 B/P (MAP) 116/55 (75) Pulse Ox 92 O2 Delivery Room Air O2 Flow Rate 3.0 Intake and Output 03/24/19 03/24/19 03/25/19 14:59 22:59 06:59 Intake Total 600 ml 514 ml 300 ml Output Total 975 ml 735 ml 1000 ml Balance -375 ml -221 ml -700 ml Nutrition Consultation Dietary Evaluation: Recommendations by RD: Increase Calorie Intake, Protein supplementation Comments: Continue w/diet as ordered, honor food preferences, and provide snacks as requested; add extra gravy/sauce w/all meats and biscuits REC glucerna TID (chocolate) Expected Outcomes/Goals: PO intake to meet >75% est needs Interpretation of weight loss: >20% in 1 year Malnutrition Findings: Food and Nutrition Intake (Mod: <75% est energy req 7days Weight Status: Appropriate AUNDREA KOENIG MD Mar 25, 2019 10:11
[2019-03-25] MEDS ORDERED: DEXTROSE 50% 25 GM / 50ML DISP.SYRIN. IV PRN (10:15)
[2019-03-25] MEDS ORDERED: IV DEXTROSE 5% 250 ML BAG. IV PRN (10:15)
[2019-03-25] MEDS: INSULIN LISPRO 300 UNITS/3 ML INSULN.PEN. SQ PRN ×4 (10:28→23:12)
[2019-03-25 10:46] LABS: PROTHROMBIN TIME PATIENT 27.9 SEC (11.7-14.0)
[2019-03-25 10:55] VITALS: BP 107/59
[2019-03-25] MEDS: ANTI-COAG MONITOR BY PHARMACY. MC PRN (11:07)
[2019-03-25] MEDS: cefTRIAXone IV Push 1 GM VIAL. IVP SCH (12:34)
[2019-03-25] MEDS: LACTOBACILLUS RHAMNOSUS GG 1 CAPSULE. PO SCH ×2 (12:34→21:39)
--- NOTE | 2019-03-25 13:34 | PDOC ---
SUBJECTIVE ROS Stable, No acute events overnight OBJECTIVE Vital Signs Vital Signs Date Time Temp Pulse Resp B/P (MAP) Pulse Ox O2 Delivery O2 Flow Rate FiO2 03/25/19 10:55 97.6 98 16 107/59 (75) 92 Room Air 3.0 97.6 I & 0 Intake and Output 03/25/19 07:00 Intake Total 1414 ml Output Total 2560 ml Balance -1146 ml Intake Oral 1414 ml Output Urine Total 2560 ml # Bowel Movements 1 PHYSICAL EXAM Physical Exam GENERAL: NAD HEENT: Mucous membranes moist NECK: Supple, CHEST: Breath sounds mildly decreased throughout. No use of accessory muscles CARDIOVASCULAR: Irregularly irregular, 2/6 systolic murmur. ABDOMEN: Soft, nontender EXTREMITIES: No Edema Bilateral lower extremities Quinn + SKIN No rash NEURO Grossly Normal DIAGNOSIS/ASSESSMENT Assessment & Plan SATHYA- vasomotor/Cardiorenal /Hypotensive Post Contrast with CTA on 03/23 Renal function stable . Good UOp K and Bicarb Normal , supportive care, I/O , Monitor CKD - baseline Cr 1.5-1.6 with intermittent SATHYA Hyponatremia- Improved Correct for Hyperglycemia Hyperkalemia - Resolved Was on PO supplements CHF - pulm edema on CTA Cautious with IVF, Cardiology managing DM- per Primary \ Atrial fibrillation with rapid ventricular response Pulmonary fibrosis with possible sarcoidosis. Pulm following COMMENT/RELEVANT DATA Meds Current Medications Medications (Trade) Dose Ordered Sig/Yessy Start Time Stop Time Status Last Admin Dose Admin Acetaminophen (Tylenol) 650 mg PRN Q4HRS PRN 03/23/19 08:15 03/24/19 08:14 DC Buspirone HCl (Buspar) 10 mg BID 03/23/19 21:00 03/25/19 08:33 10 MG Ceftriaxone Sodium (Rocephin) 1 gm Q24H 03/24/19 12:00 03/25/19 12:34 1 GM Dextrose 250 ml PRN Q15MIN PRN 03/25/19 10:15 Dextrose (Dextrose 50%-Water Syringe) 12.5 gm PRN Q15MIN PRN 03/25/19 10:15 UNV Digoxin (Lanoxin) 250 mcg 1X ONCE 03/24/19 13:00 03/24/19 13:01 DC 03/24/19 14:37 250 MCG Diltiazem HCl (Cardizem Iv Push) 20 mg 1X ONCE 03/23/19 07:00 7/31/19 07:01 DC 03/23/19 07:04 20 MG Fentanyl Citrate (Fentanyl 2ml Vial) 50 mcg PRN Q3HRS PRN 03/23/19 08:15 03/24/19 08:14 DC 03/23/19 08:42 50 MCG Info (Anti-Coagulation Monitoring By Pharmacy) 1 each PRN DAILY PRN 03/23/19 13:15 03/25/19 11:07 1 EACH Info (CONTRAST GIVEN -- Rx MONITORING) 1 each PRN DAILY PRN 03/23/19 09:30 03/25/19 09:29 DC Insulin Glargine (Lantus) 20 units QHS 03/25/19 21:00 Insulin Human Lispro (HumaLOG) 0-9 UNITS PRN Q2HR PRN 03/25/19 10:15 03/25/19 12:49 10 UNITS Iohexol (Omnipaque 350 Mg/ml) 60 ml 1X ONCE 03/23/19 09:30 03/23/19 09:31 DC 03/23/19 09:48 60 ML Lactobacillus Rhamnosus (Culturelle) 1 cap BID 03/25/19 09:00 03/25/19 12:34 1 CAP Levothyroxine Sodium (Synthroid) 75 mcg DAILY07 03/24/19 07:00 03/25/19 08:08 75 MCG Lidocaine HCl (Glydo (Lidocaine) Jelly) 1 su 1X ONCE 03/23/19 14:15 03/23/19 14:17 DC 03/23/19 14:40 1 SU Magnesium Oxide (Magnesium Oxide) 400 mg DAILY 03/24/19 09:00 03/25/19 08:32 400 MG Methylprednisolone Sodium Succinate (SOLU-Medrol 40MG VIAL) 60 mg Q8HRS 03/23/19 14:00 03/25/19 08:08 60 MG Mirtazapine (Remeron) 15 mg DAILYWBKFT 03/24/19 08:00 03/25/19 08:33 15 MG Non-Formulary Medication (Dulaglutide (Trulicity)) 0.75 mg WEEKLY 03/30/19 09:00 UNV Norepinephrine Bitartrate 250 ml @ 11.567 mls/ hr 1X ONCE 03/23/19 08:00 03/24/19 05:36 DC 03/23/19 08:14 11.567 MLS/HR Ondansetron HCl (Zofran) 4 mg 1X ONCE 03/23/19 08:45 03/23/19 08:46 DC 03/23/19 08:42 4 MG Rivaroxaban (Xarelto) 15 mg DAILYWBKFT 03/24/19 08:00 03/24/19 16:32 DC 03/24/19 08:19 15 MG Sodium Chloride 500 ml @ 250 mls/hr PRN Q4HRS PRN 03/23/19 16:30 Tamsulosin HCl (Flomax) 0.4 mg DAILY 03/24/19 09:00 03/25/19 08:33 0.4 MG Lab Laboratory Tests Test 03/24/19 19:55 03/25/19 03:30 03/25/19 08:50 Glucose (Fingerstick) 562 mg/dL (70-99) Sodium Level 132 mmol/L (136-145) Potassium Level 4.5 mmol/L (3.5-5.1) Chloride Level 98 mmol/L (98-107) Carbon Dioxide Level 24 mmol/L (21-32) Anion Gap 10 (6-14) Blood Urea Nitrogen 58 mg/dL (8-26) Creatinine 1.9 mg/dL (0.7-1.3) Estimated GFR (Cockcroft-Gault) 34.8 Glucose Level 481 mg/dL (70-99) Calcium Level 8.7 mg/dL (8.5-10.1) Prothrombin Time 27.9 SEC (11.7-14.0) Prothromb Time International Ratio 2.6 (0.8-1.1) Results All relevant outside records, renal labs, imaging studies, telemetry/EKG's were reviewed. DINORAH KIDD MD Mar 25, 2019 13:34
[2019-03-25 15:00] VITALS: BP 120/60
[2019-03-25] MEDS: METOPROLOL SUCC 24HR ER 25 MG TAB.ER.24H. PO SCH (16:04)
--- NOTE | 2019-03-25 18:02 | NUR ---
Nursing: Patient checked his own blood sugar on his "freestyle silvia". As charted below. 0835: 356 1025: 393 1110: 401 1240: 382 1605: 348
[2019-03-25 19:00] VITALS: BP 172/67
[2019-03-25] MEDS: INSULIN GLARGINE 300 UNITS/3 ML INSULN.PEN. SQ SCH (21:48)
[2019-03-25 23:37] VITALS: BP 150/73
[2019-03-26 03:00] VITALS: BP 121/61
[2019-03-26 05:28] LABS: CALCIUM 8.7 mg/dL (8.5-10.1); CREATININE 1.4 mg/dL (0.7-1.3); GFR 49.5; POTASSIUM 4.4 mmol/L (3.5-5.1)
[2019-03-26] MEDS: LEVOTHYROXINE 75 MCG TABLET PO SCH (06:34)
[2019-03-26] MEDS: methylPREDNISolone SOD SUCC PF 40 MG/ML VIAL. IV SCH (06:38)
[2019-03-26 07:00] VITALS: BP 165/91
[2019-03-26] MEDS: LACTOBACILLUS RHAMNOSUS GG 1 CAPSULE. PO SCH ×2 (08:17→21:28)
[2019-03-26] MEDS: busPIRone 10 MG TABLET. PO SCH ×2 (08:17→21:28)
[2019-03-26] MEDS: MAGNESIUM OXIDE 400 MG TABLET PO SCH (08:17)
[2019-03-26] MEDS: MIRTAZAPINE 15 MG TABLET PO SCH (08:17)
[2019-03-26] MEDS: METOPROLOL SUCC 24HR ER 25 MG TAB.ER.24H. PO SCH (08:18)
[2019-03-26] MEDS: TAMSULOSIN 0.4 MG CAP.ER.24H. PO SCH (08:20)
[2019-03-26] MEDS: INSULIN LISPRO 300 UNITS/3 ML INSULN.PEN. SQ PRN ×5 (08:26→23:31)
--- NOTE | 2019-03-26 10:03 | PDOC ---
PROGRESS NOTES Subjective sugars uncontrolled, on IV steroids still for possible sarcoid, CHF symptoms stable, monitor still Afib (chronic), still over anticoagulated and off eliquis Objective Afebrile General: A&O Heart: irreg, irreg, rate around 100 Lungs: clear Abd: soft, non tender Ext: no C/C/E Vital Signs Vital Signs Date Time Temp Pulse Resp B/P (MAP) Pulse Ox O2 Delivery O2 Flow Rate FiO2 03/26/19 08:18 116 165/91 03/26/19 08:00 Room Air 1.0 03/26/19 07:00 98.3 18 93 98.3 I & O Intake and Output 03/26/19 06:59 Intake Total 410 ml Output Total 2350 ml Balance -1940 ml Intake Oral 410 ml Output Urine Total 2350 ml Assessment and Plan (1) ACUTE AND CHRONIC RESPIRATORY FAILURE WITH HYPOXIA -due to CHF, possible sarcoid Status: Acute (2) ACUTE ON CHRONIC SYSTOLIC (CONGESTIVE) HEART FAILURE - now compensated but uncontrolled diabetes will affect fluid balance Status: Acute (3) Hyponatremia Status: Acute (4) Hypotension Status: Acute (5) Pulmonary fibrosis/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 - stop IV steroids, start nebulized budesonide and then steroid inhaler at diacharge Status: Chronic (6) Rapid atrial fibrillation Status: Acute (7) Renal failure (ARF), acute on chronic - improved Status: Acute (8) uncontrolled type 2 diabetes, - continue insulin, SSI, stop IV steroids (9) urinary retention - on Flomax - DC acosta, bladder scan post voids Nutrition Consultation Dietary Evaluation: Recommendations by RD: Increase Calorie Intake, Protein supplementation Comments: Continue w/diet as ordered, honor food preferences, and provide snacks as requested; add extra gravy/sauce w/all meats and biscuits REC glucerna TID (chocolate) Expected Outcomes/Goals: PO intake to meet >75% est needs Interpretation of weight loss: >20% in 1 year Malnutrition Findings: Food and Nutrition Intake (Mod: <75% est energy req 7days Weight Status: Appropriate José Miguel MANUEL MD Mar 26, 2019 10:03
[2019-03-26] MEDS: BUDESONIDE 0.5 MG/2 ML NEBU. NEB SCH ×2 (10:30→19:21)
[2019-03-26 11:00] VITALS: BP 116/56
--- NOTE | 2019-03-26 11:06 | PDOC ---
PULMONARY PROGRESS NOTES Subjective PT WITH NO NEW SYMPTOMS Vitals Vital Signs Date Time Temp Pulse Resp B/P (MAP) Pulse Ox O2 Delivery O2 Flow Rate FiO2 03/26/19 08:18 116 165/91 03/26/19 08:00 Room Air 1.0 03/26/19 07:00 98.3 18 93 98.3 ROS: No Nausea, No Chest Pain, No Abdominal Pain, No Increase Cough General: Alert, No acute distress Lungs: Crackles (bases) Cardiovascular: S1, S2 Abdomen: Soft, Non-tender Neuro Exam: Alert Extremities: Other (1+edema) Labs Laboratory Tests Test 03/24/19 11:55 03/24/19 19:55 03/25/19 03:30 03/25/19 08:50 Erythrocyte Sedimentation Rate 110 (0-15) Procalcitonin 6.48 ng/mL (0.00-0.10) Glucose (Fingerstick) 562 mg/dL (70-99) Sodium Level 132 mmol/L (136-145) Potassium Level 4.5 mmol/L (3.5-5.1) Chloride Level 98 mmol/L (98-107) Carbon Dioxide Level 24 mmol/L (21-32) Anion Gap 10 (6-14) Blood Urea Nitrogen 58 mg/dL (8-26) Creatinine 1.9 mg/dL (0.7-1.3) Estimated GFR (Cockcroft-Gault) 34.8 Glucose Level 481 mg/dL (70-99) Calcium Level 8.7 mg/dL (8.5-10.1) Prothrombin Time 27.9 SEC (11.7-14.0) Prothromb Time International Ratio 2.6 (0.8-1.1) Test 03/26/19 04:00 Sodium Level 137 mmol/L (136-145) Potassium Level 4.4 mmol/L (3.5-5.1) Chloride Level 100 mmol/L (98-107) Carbon Dioxide Level 27 mmol/L (21-32) Anion Gap 10 (6-14) Blood Urea Nitrogen 52 mg/dL (8-26) Creatinine 1.4 mg/dL (0.7-1.3) Estimated GFR (Cockcroft-Gault) 49.5 Glucose Level 276 mg/dL (70-99) Calcium Level 8.7 mg/dL (8.5-10.1) Laboratory Tests Test 03/26/19 04:00 Sodium Level 137 mmol/L (136-145) Potassium Level 4.4 mmol/L (3.5-5.1) Chloride Level 100 mmol/L (98-107) Carbon Dioxide Level 27 mmol/L (21-32) Anion Gap 10 (6-14) Blood Urea Nitrogen 52 mg/dL (8-26) Creatinine 1.4 mg/dL (0.7-1.3) Estimated GFR (Cockcroft-Gault) 49.5 Glucose Level 276 mg/dL (70-99) Calcium Level 8.7 mg/dL (8.5-10.1) Medications Active Scripts Medications Dose Route/Sig Max Daily Dose Days Date Category Mirtazapine 15 Mg Tablet 1 Tab PO QHS 03/23/19 Reported Buspirone Hcl 10 Mg Tablet 10 Mg PO BID 03/23/19 Reported Potassium Chloride 20 Meq Tablet.er 20 Meq PO BID 03/23/19 Reported Metoprolol Tartrate 50 Mg Tablet 1 Tab PO BID 03/13/19 Rx Trulicity (Dulaglutide) 0.75 Mg/0.5 Ml Pen.injctr 0.75 Mg SQ WEEKLY 03/12/19 Reported Magnesium Oxide 400 Mg Tablet 1 Tab PO DAILY 03/03/19 Reported Levothyroxine Sodium 75 Mcg Tablet 1 Tab PO DAILY 03/03/19 Reported Novolog (Insulin Aspart) 100 Unit/1 Ml Cartridge 0-5 Unit SQ TIDAC 03/03/19 Reported Xarelto (Rivaroxaban) 10 Mg Tablet 20 Tab PO DAILY 03/03/19 Reported Impression . 1. Acute hypoxic respiratory failure, likely related to superimposed congestive heart failure in addition to underlying chronic interstitial lung disease. 2. Severe cardiomyopathy with an EF of 30%. 3. Atrial fibrillation with rapid ventricular response, triggering congestive heart failure. 4. Abnormal CT chest with underlying interstitial lung disease/fibrotic lung disease involving predominantly the upper lobes and also minimal in the lower lobes. Now, he has developed new ground glass infiltrates in the upper lobes suggesting alveolitis and likely related to congestive heart failure. He also has now progression of mediastinal adenopathy. 5. Acute kidney injury. 6. Abnormal troponin level. 7. Hyponatremia. 8. Coagulopathy with INR of 4.0. POA. On eliquis at home 9. Lower extremity edema secondary to cardiomyopathy. 10. Underlying chronic obstructive pulmonary disease. Plan . CHANGE TO ORAL ANTIBX AND STEROIDS HOME SOON OK BY ME 02 DIURESE FOLLOW CARD INPUT PROCALCITONIN ELEVATED WILL FOLLOW REPEAT CT IN 2 MONTHS POSSIBLE BX OF LYMPH NODES ONCE STABLE SED RATE ELEVATED APOLONIA JACINTO MD Mar 26, 2019 11:06
[2019-03-26] MEDS ORDERED: predniSONE 10 MG TABLET PO ONE (11:15)
--- NOTE | 2019-03-26 12:31 | PDOC ---
PROGRESS NOTES Subjective Subjective SEEN IN FOLLOW UP OF ARF/CKD Objective Objective Vital Signs Date Time Temp Pulse Resp B/P (MAP) Pulse Ox O2 Delivery O2 Flow Rate FiO2 03/26/19 08:18 116 165/91 03/26/19 08:00 Room Air 1.0 03/26/19 07:00 98.3 18 93 98.3 Intake and Output 03/26/19 07:00 Intake Total 410 ml Output Total 2350 ml Balance -1940 ml Intake Oral 410 ml Output Urine Total 2350 ml Physical Exam Abdomen: Normal bowel sounds, Soft, No tenderness, No hepatosplenomegaly, No masses Heart: Regular rate, Normal S1, Normal S2, No murmurs, Gallops Extremities: No clubbing, No cyanosis, No edema, Normal pulses, No tenderness/swelling General: Alert, Oriented X3, Cooperative, No acute distress Lungs: Clear to auscultation, Normal air movement Psych/Mental Status: Mental status NL, Mood NL Diagnosis RENAL FAILURE: Acute Assessment Assessment Problems Medical Problems: (1) ACUTE AND CHRONIC RESPIRATORY FAILURE WITH HYPOXIA Status: Acute (2) ACUTE ON CHRONIC SYSTOLIC (CONGESTIVE) HEART FAILURE Status: Acute (3) Hyponatremia Status: Acute (4) Hypotension Status: Acute (5) Pulmonary fibrosis Status: Chronic (6) Rapid atrial fibrillation Status: Acute (7) Renal failure (ARF), acute on chronic Status: Acute Plan Plan of Care RENAL FUNCTION IS IMPROVING. CONT FLUID BALANCE Comment Review of Relevant I have reviewed the following items magan (where applicable) has been applied. Labs Laboratory Tests Test 03/24/19 19:55 03/25/19 03:30 03/25/19 08:50 03/26/19 04:00 Glucose (Fingerstick) 562 mg/dL (70-99) Sodium Level 132 mmol/L (136-145) 137 mmol/L (136-145) Potassium Level 4.5 mmol/L (3.5-5.1) 4.4 mmol/L (3.5-5.1) Chloride Level 98 mmol/L (98-107) 100 mmol/L (98-107) Carbon Dioxide Level 24 mmol/L (21-32) 27 mmol/L (21-32) Anion Gap 10 (6-14) 10 (6-14) Blood Urea Nitrogen 58 mg/dL (8-26) 52 mg/dL (8-26) Creatinine 1.9 mg/dL (0.7-1.3) 1.4 mg/dL (0.7-1.3) Estimated GFR (Cockcroft-Gault) 34.8 49.5 Glucose Level 481 mg/dL (70-99) 276 mg/dL (70-99) Calcium Level 8.7 mg/dL (8.5-10.1) 8.7 mg/dL (8.5-10.1) Prothrombin Time 27.9 SEC (11.7-14.0) Prothromb Time International Ratio 2.6 (0.8-1.1) Laboratory Tests Test 03/26/19 04:00 Sodium Level 137 mmol/L (136-145) Potassium Level 4.4 mmol/L (3.5-5.1) Chloride Level 100 mmol/L (98-107) Carbon Dioxide Level 27 mmol/L (21-32) Anion Gap 10 (6-14) Blood Urea Nitrogen 52 mg/dL (8-26) Creatinine 1.4 mg/dL (0.7-1.3) Estimated GFR (Cockcroft-Gault) 49.5 Glucose Level 276 mg/dL (70-99) Calcium Level 8.7 mg/dL (8.5-10.1) Microbiology 03/23/19 Blood Culture - Preliminary, Resulted NO GROWTH AFTER 3 DAYS Medications Current Medications Sodium Chloride 500 ml @ 500 mls/hr 1X ONCE IV Last administered on 03/23/19at 07:01; Start 03/23/19 at 07:00; Stop 03/23/19 at 07:59; Status DC Diltiazem HCl (Cardizem Iv Push) 20 mg 1X ONCE IVP Last administered on 03/23/19at 07:04; Start 03/23/19 at 07:00; Stop 03/23/19 at 07:01; Status DC Sodium Chloride 500 ml @ 500 mls/hr 1X ONCE IV Last administered on 03/23/19at 07:20; Start 03/23/19 at 07:15; Stop 03/23/19 at 08:14; Status DC Acetaminophen (Tylenol) 1,000 mg 1X ONCE PO Last administered on 03/23/19at 07:50; Start 03/23/19 at 07:45; Stop 03/23/19 at 07:46; Status DC Norepinephrine Bitartrate 250 ml @ 11.567 mls/ hr 1X ONCE IV Last administered on 03/23/19at 08:14; Start 03/23/19 at 08:00; Stop 03/24/19 at 05:36; Status DC Ondansetron HCl (Zofran) 4 mg PRN Q8HRS PRN IV NAUSEA/VOMITING; Start 03/23/19 at 08:15; Stop 03/24/19 at 08:14; Status DC Fentanyl Citrate (Fentanyl 2ml Vial) 50 mcg PRN Q3HRS PRN IV PAIN Last administered on 03/23/19at 08:42; Start 03/23/19 at 08:15; Stop 03/24/19 at 08:14; Status DC Sodium Chloride 1,000 ml @ 150 mls/hr Q6H40M IV Last administered on 03/23/19at 10:00; Start 03/23/19 at 08:14; Stop 03/24/19 at 08:13; Status DC Acetaminophen (Tylenol) 650 mg PRN Q4HRS PRN PO FEVER; Start 03/23/19 at 08:15; Stop 03/24/19 at 08:14; Status DC Insulin Human Lispro (HumaLOG) 0-7 UNITS TIDWMEALS SQ Last administered on 03/23/19at 17:29; Start 03/23/19 at 12:00; Stop 03/24/19 at 04:04; Status DC Dextrose (Dextrose 50%-Water Syringe) 12.5 gm PRN Q15MIN PRN IV SEE COMMENTS; Start 03/23/19 at 08:15; Stop 03/25/19 at 10:14; Status DC Ondansetron HCl (Zofran) 4 mg 1X ONCE IV Last administered on 03/23/19at 08:42; Start 03/23/19 at 08:45; Stop 03/23/19 at 08:46; Status DC Iohexol (Omnipaque 350 Mg/ml) 60 ml 1X ONCE IV Last administered on 03/23/19at 09:48; Start 03/23/19 at 09:30; Stop 03/23/19 at 09:31; Status DC Info (CONTRAST GIVEN -- Rx MONITORING) 1 each PRN DAILY PRN MC SEE COMMENTS; Start 03/23/19 at 09:30; Stop 03/25/19 at 09:29; Status DC Methylprednisolone Sodium Succinate (SOLU-Medrol 40MG VIAL) 60 mg Q8HRS IV Last administered on 03/26/19at 06:38; Start 03/23/19 at 14:00; Stop 03/26/19 at 09:56; Status DC Buspirone HCl (Buspar) 10 mg BID PO Last administered on 03/26/19at 08:17; Start 03/23/19 at 21:00 Levothyroxine Sodium (Synthroid) 75 mcg DAILY07 PO Last administered on 03/26/19at 06:34; Start 03/24/19 at 07:00 Rivaroxaban (Xarelto) 20 mg DAILYWSUP PO ; Start 03/23/19 at 17:00; Stop 03/23/19 at 17:00; Status DC Non-Formulary Medication (Dulaglutide (Trulicity)) 0.75 mg WEEKLY SQ ; Start 03/30/19 at 09:00; Status UNV Magnesium Oxide (Magnesium Oxide) 400 mg DAILY PO Last administered on 03/26/19at 08:17; Start 03/24/19 at 09:00 Mirtazapine (Remeron) 15 mg QHS PO ; Start 03/23/19 at 21:00; Stop 03/23/19 at 21:00; Status DC Info (Anti-Coagulation Monitoring By Pharmacy) 1 each PRN DAILY PRN MC SEE COMMENTS Last administered on 03/25/19at 11:07; Start 03/23/19 at 13:15 Lidocaine HCl (Glydo (Lidocaine) Jelly) 1 su 1X ONCE MM Last administered on 03/23/19at 14:40; Start 03/23/19 at 14:15; Stop 03/23/19 at 14:17; Status DC Rivaroxaban (Xarelto) 15 mg DAILYWSUP PO ; Start 03/23/19 at 17:00; Stop 03/23/19 at 17:35; Status DC Sodium Chloride 500 ml @ 250 mls/hr PRN Q4HRS PRN IV SEE COMMENTS; Start 03/23/19 at 16:30 Rivaroxaban (Xarelto) 15 mg DAILYWBKFT PO Last administered on 03/24/19at 08:19; Start 03/24/19 at 08:00; Stop 03/24/19 at 16:32; Status DC Mirtazapine (Remeron) 15 mg DAILYWBKFT PO Last administered on 03/26/19 08:17; Start 03/24/19 at 08:00 Insulin Human Lispro (HumaLOG) 0-7 UNITS TIDWMEALS SQ Last administered on 03/25/19 08:40; Start 03/24/19 at 08:00; Stop 03/25/19 at 10:14; Status DC Tamsulosin HCl (Flomax) 0.4 mg DAILY PO Last administered on 03/26/19 08:20; Start 03/24/19 at 09:00 Ceftriaxone Sodium (Rocephin) 1 gm Q24H IVP Last administered on 03/25/19 12:34; Start 03/24/19 at 12:00; Stop 03/26/19 at 11:05; Status DC Digoxin (Lanoxin) 250 mcg 1X ONCE IV Last administered on 03/24/19 14:37; Start 03/24/19 at 13:00; Stop 03/24/19 at 13:01; Status DC Insulin Human Lispro (HumaLOG) 20 units 1X ONCE SQ Last administered on 03/24/19 20:21; Start 03/24/19 at 20:15; Stop 03/24/19 at 20:16; Status DC Insulin Glargine (Lantus) 10 units QHS SQ Last administered on 03/24/19at 20:20; Start 03/24/19 at 21:00; Stop 03/25/19 at 10:00; Status DC Insulin Human Lispro (HumaLOG) 20 units 1X ONCE SQ Last administered on 03/25/19at 01:00; Start 03/25/19 at 01:00; Stop 03/25/19 at 01:01; Status DC Lactobacillus Rhamnosus (Culturelle) 1 cap BID PO Last administered on 03/26/19 08:17; Start 03/25/19 at 09:00 Insulin Glargine (Lantus) 20 units QHS SQ Last administered on 03/25/19at 21:48; Start 03/25/19 at 21:00 Insulin Human Lispro (HumaLOG) 0-9 UNITS PRN Q2HR PRN SQ hyperglycemia Last administered on 03/26/19 08:26; Start 03/25/19 at 10:15 Dextrose (Dextrose 50%-Water Syringe) 12.5 gm PRN Q15MIN PRN IV SEE COMMENTS; Start 03/25/19 at 10:15; Status UNV Dextrose 250 ml PRN Q15MIN PRN IV SEE COMMENTS; Start 03/25/19 at 10:15 Metoprolol Succinate (Toprol Xl) 12.5 mg DAILY PO Last administered on 03/26/19at 08:18; Start 03/25/19 at 15:30 Budesonide (Pulmicort) 0.5 mg RTBID NEB ; Start 03/26/19 at 10:30 Amoxicillin/ Clavulanate Potassium (Augmentin 875/ 125mg) 1 tab BID PO ; Start 03/26/19 at 21:00 Prednisone (Prednisone) 30 mg 1X ONCE PO Last administered on 03/26/19at 11:38; Start 03/26/19 at 11:15; Stop 03/26/19 at 11:16; Status DC Prednisone (Prednisone) 30 mg DAILY PO ; Start 03/27/19 at 09:00 Active Scripts Active Metoprolol Tartrate 50 Mg Tablet 1 Tab PO BID Reported Mirtazapine 15 Mg Tablet 1 Tab PO QHS Buspirone Hcl 10 Mg Tablet 10 Mg PO BID Potassium Chloride 20 Meq Tablet.er 20 Meq PO BID Trulicity (Dulaglutide) 0.75 Mg/0.5 Ml Pen.injctr 0.75 Mg SQ WEEKLY Magnesium Oxide 400 Mg Tablet 1 Tab PO DAILY Levothyroxine Sodium 75 Mcg Tablet 1 Tab PO DAILY Novolog (Insulin Aspart) 100 Unit/1 Ml Cartridge 0-5 Unit SQ TIDAC Xarelto (Rivaroxaban) 10 Mg Tablet 20 Tab PO DAILY Vitals/I & O Vital Sign - Last 24 Hours 03/25/19 03/25/19 03/25/19 03/25/19 15:00 16:04 19:00 20:00 Temp 97.6 97.7 97.6 97.7 Pulse 85 92 86 Resp 16 17 B/P (MAP) 120/60 (80) 172/67 (102) Pulse Ox 95 97 O2 Delivery Room Air Nasal Cannula Nasal Cannula O2 Flow Rate 1.5 1.0 03/25/19 03/26/19 03/26/19 03/26/19 23:37 03:00 07:00 08:00 Temp 97.5 98.1 98.3 97.5 98.1 98.3 Pulse 88 85 83 Resp 18 17 18 B/P (MAP) 150/73 (98) 121/61 (81) 165/91 (115) Pulse Ox 97 94 93 O2 Delivery Nasal Cannula Room Air Room Air Room Air O2 Flow Rate 1.5 1.0 03/26/19 08:18 Pulse 116 B/P (MAP) 165/91 Intake and Output 03/25/19 03/25/19 03/26/19 15:00 23:00 07:00 Intake Total 50 ml 360 ml Output Total 350 ml 650 ml 1350 ml Balance -300 ml -650 ml -990 ml Nutrition Consultation Dietary Evaluation: Recommendations by RD: Increase Calorie Intake, Protein supplementation Comments: Continue w/diet as ordered, honor food preferences, and provide snacks as requested; add extra gravy/sauce w/all meats and biscuits REC glucerna TID (chocolate) Expected Outcomes/Goals: PO intake to meet >75% est needs Interpretation of weight loss: >20% in 1 year Malnutrition Findings: Food and Nutrition Intake (Mod: <75% est energy req 7days Weight Status: Appropriate JM RIVERA MD Mar 26, 2019 12:31
[2019-03-26 15:00] VITALS: BP 137/76
[2019-03-26 19:05] VITALS: BP 150/71
[2019-03-26] MEDS: AMOXICILLIN/K CLAV 875/125MG TABLET. PO SCH (21:28)
[2019-03-26] MEDS: INSULIN GLARGINE 300 UNITS/3 ML INSULN.PEN. SQ SCH (21:31)
[2019-03-26 23:43] VITALS: BP 179/77
[2019-03-27] MEDS: INSULIN LISPRO 300 UNITS/3 ML INSULN.PEN. SQ PRN ×8 (03:09→21:44)
[2019-03-27 03:30] VITALS: BP 159/72
[2019-03-27] MEDS: LEVOTHYROXINE 75 MCG TABLET PO SCH (05:36)
[2019-03-27 05:55] LABS: CALCIUM 8.6 mg/dL (8.5-10.1); CREATININE 1.4 mg/dL (0.7-1.3); GFR 49.5; POTASSIUM 4.2 mmol/L (3.5-5.1)
[2019-03-27 06:04] LABS: PROTHROMBIN TIME PATIENT 14.3 SEC (11.7-14.0)
[2019-03-27 07:00] VITALS: BP 122/65
[2019-03-27] MEDS: BUDESONIDE 0.5 MG/2 ML NEBU. NEB SCH (07:07)
[2019-03-27] MEDS: busPIRone 10 MG TABLET. PO SCH ×2 (08:05→20:18)
[2019-03-27] MEDS: LACTOBACILLUS RHAMNOSUS GG 1 CAPSULE. PO SCH ×2 (08:05→20:18)
[2019-03-27] MEDS: TAMSULOSIN 0.4 MG CAP.ER.24H. PO SCH (08:05)
[2019-03-27] MEDS: MIRTAZAPINE 15 MG TABLET PO SCH (08:05)
[2019-03-27] MEDS: AMOXICILLIN/K CLAV 875/125MG TABLET. PO SCH ×2 (08:05→20:18)
[2019-03-27] MEDS: MAGNESIUM OXIDE 400 MG TABLET PO SCH (08:05)
[2019-03-27] MEDS: METOPROLOL SUCC 24HR ER 25 MG TAB.ER.24H. PO SCH (08:09)
[2019-03-27] MEDS: predniSONE 10 MG TABLET PO SCH (08:09)
--- NOTE | 2019-03-27 09:22 | PDOC ---
PULMONARY PROGRESS NOTES Subjective PT WITH NO NEW SYMPTOMS Vitals Vital Signs Date Time Temp Pulse Resp B/P (MAP) Pulse Ox O2 Delivery O2 Flow Rate FiO2 03/27/19 08:09 96 122/65 03/27/19 08:00 Room Air 1.0 03/27/19 07:10 93 03/27/19 07:00 98.0 18 98.0 ROS: No Nausea, No Chest Pain, No Abdominal Pain, No Increase Cough General: Alert, No acute distress Lungs: Crackles (bases) Cardiovascular: S1, S2 Abdomen: Soft, Non-tender Neuro Exam: Alert Extremities: Other (1+edema) Labs Laboratory Tests Test 03/26/19 04:00 03/27/19 05:15 Sodium Level 137 mmol/L (136-145) 138 mmol/L (136-145) Potassium Level 4.4 mmol/L (3.5-5.1) 4.2 mmol/L (3.5-5.1) Chloride Level 100 mmol/L (98-107) 102 mmol/L (98-107) Carbon Dioxide Level 27 mmol/L (21-32) 28 mmol/L (21-32) Anion Gap 10 (6-14) 8 (6-14) Blood Urea Nitrogen 52 mg/dL (8-26) 47 mg/dL (8-26) Creatinine 1.4 mg/dL (0.7-1.3) 1.4 mg/dL (0.7-1.3) Estimated GFR (Cockcroft-Gault) 49.5 49.5 Glucose Level 276 mg/dL (70-99) 203 mg/dL (70-99) Calcium Level 8.7 mg/dL (8.5-10.1) 8.6 mg/dL (8.5-10.1) Prothrombin Time 14.3 SEC (11.7-14.0) Prothromb Time International Ratio 1.1 (0.8-1.1) Laboratory Tests Test 03/27/19 05:15 Prothrombin Time 14.3 SEC (11.7-14.0) Prothromb Time International Ratio 1.1 (0.8-1.1) Sodium Level 138 mmol/L (136-145) Potassium Level 4.2 mmol/L (3.5-5.1) Chloride Level 102 mmol/L (98-107) Carbon Dioxide Level 28 mmol/L (21-32) Anion Gap 8 (6-14) Blood Urea Nitrogen 47 mg/dL (8-26) Creatinine 1.4 mg/dL (0.7-1.3) Estimated GFR (Cockcroft-Gault) 49.5 Glucose Level 203 mg/dL (70-99) Calcium Level 8.6 mg/dL (8.5-10.1) Medications Active Scripts Medications Dose Route/Sig Max Daily Dose Days Date Category Mirtazapine 15 Mg Tablet 1 Tab PO QHS 03/23/19 Reported Buspirone Hcl 10 Mg Tablet 10 Mg PO BID 03/23/19 Reported Potassium Chloride 20 Meq Tablet.er 20 Meq PO BID 03/23/19 Reported Metoprolol Tartrate 50 Mg Tablet 1 Tab PO BID 03/13/19 Rx Trulicity (Dulaglutide) 0.75 Mg/0.5 Ml Pen.injctr 0.75 Mg SQ WEEKLY 03/12/19 Reported Magnesium Oxide 400 Mg Tablet 1 Tab PO DAILY 03/03/19 Reported Levothyroxine Sodium 75 Mcg Tablet 1 Tab PO DAILY 03/03/19 Reported Novolog (Insulin Aspart) 100 Unit/1 Ml Cartridge 0-5 Unit SQ TIDAC 03/03/19 Reported Xarelto (Rivaroxaban) 10 Mg Tablet 20 Tab PO DAILY 03/03/19 Reported Impression . 1. Acute hypoxic respiratory failure, likely related to superimposed congestive heart failure in addition to underlying chronic interstitial lung disease. 2. Severe cardiomyopathy with an EF of 30%. 3. Atrial fibrillation with rapid ventricular response, triggering congestive heart failure. 4. Abnormal CT chest with underlying interstitial lung disease/fibrotic lung disease involving predominantly the upper lobes and also minimal in the lower lobes. Now, he has developed new ground glass infiltrates in the upper lobes suggesting alveolitis and likely related to congestive heart failure. He also has now progression of mediastinal adenopathy. 5. Acute kidney injury. 6. Abnormal troponin level. 7. Hyponatremia. 8. Coagulopathy with INR of 4.0. POA. On eliquis at home 9. Lower extremity edema secondary to cardiomyopathy. 10. Underlying chronic obstructive pulmonary disease. Plan . WILL DEFER D/C TO PCP CHANGE TO ORAL ANTIBX AND STEROIDS 02 DIURESE FOLLOW CARD INPUT PROCALCITONIN ELEVATED WILL FOLLOW REPEAT CT IN 2 MONTHS POSSIBLE BX OF LYMPH NODES ONCE STABLE SED RATE ELEVATED APOLONIA JACINTO MD Mar 27, 2019 09:22
[2019-03-27 11:00] VITALS: BP 132/65
--- NOTE | 2019-03-27 11:44 | PDOC ---
PROGRESS NOTES Subjective He feels much better, now on po steroids, still hyperglycemic but he understands the need now for basal/bolus insulin, he was not on basal insulin at home. He usually takes Trulicity on Sundays but it is not available here. HR upper limits of normal, metoprolol decreased earlier during hospital stay from reported home dose, voiding without Acosta but some hesitation, he remains on tamsulosin started earlier during this stay, INR back down so will resume Xarelto Objective Afebrile General: NAD Heart: rate 90s Lungs: clear anteriorly Abd: soft and non tender Ext: no C/C/E Vital Signs Vital Signs Date Time Temp Pulse Resp B/P (MAP) Pulse Ox O2 Delivery O2 Flow Rate FiO2 03/27/19 11:00 98.1 95 18 132/65 (87) 95 Room Air 1.0 98.1 I & O Intake and Output 03/27/19 07:00 Intake Total 700 ml Output Total 1600 ml Balance -900 ml Intake Oral 700 ml Output Urine Total 1600 ml # Voids 1 Assessment and Plan (1) ACUTE AND CHRONIC RESPIRATORY FAILURE WITH HYPOXIA -due to CHF, possible sarcoid - now on po steroids Status: Acute (2) ACUTE ON CHRONIC SYSTOLIC (CONGESTIVE) HEART FAILURE - now compensated but uncontrolled diabetes will affect fluid balance Status: Acute (3) Hyponatremia - resolved Status: Acute (4) Hypotension - resolved but HR is back up so will increase metoprolol ER from 12.5 to 25 mg Status: Acute (5) Pulmonary fibrosis/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 - stop IV steroids, start po prednisone per pulm Status: Chronic (6) Rapid atrial fibrillation - resolved Status: Acute (7) Renal failure (ARF), acute on chronic - improved Status: Acute (8) uncontrolled type 2 diabetes, - increase Lantus from 20 to 30 units as he will be on steroids, continue SSI, off IV steroids, he is also on Trulicity at home but it is not available here (9) urinary retention - now on Flomax - DCed acosta, some hesitancy Nutrition Consultation Dietary Evaluation: Recommendations by RD: Increase Calorie Intake, Protein supplementation Comments: Continue w/diet as ordered, honor food preferences, and provide snacks as requested; add extra gravy/sauce w/all meats and biscuits REC glucerna TID (chocolate) Expected Outcomes/Goals: PO intake to meet >75% est needs Interpretation of weight loss: >20% in 1 year Malnutrition Findings: Food and Nutrition Intake (Mod: <75% est energy req 7days Weight Status: Appropriate José Miguel MANUEL MD Mar 27, 2019 11:44
[2019-03-27 14:50] VITALS: BP 121/58
[2019-03-27] MEDS: ANTI-COAG MONITOR BY PHARMACY. MC PRN (15:34)
[2019-03-27] MEDS: RIVAROXABAN 10 MG TABLET. PO SCH (17:22)
--- NOTE | 2019-03-27 19:25 | NUR ---
Patient checked BG multiple times throughout shift. BG results varied from 236-275. Patient requested insulin amounts of 4 and 7 units.
[2019-03-27 19:53] VITALS: BP 131/59
--- NOTE | 2019-03-27 20:15 | NUR ---
Pt checked blood sugar at this time, it is 269. Pt request to have 6 units of Humalog. Pt injected self with pen.
--- NOTE | 2019-03-27 21:34 | NUR ---
Pt refusing to take any more than 3 units of Lantus. States that he doesn't need more than that because his blood sugar will drop. Explained that Lantus is a long acting insulin and that it works over 24 hours to help manage blood sugar. Pt refuses to listen to education. States he wants 6 units of Humalog and 3 units of Lantus. Also asking for sandwich and skim milk.
[2019-03-27] MEDS: INSULIN GLARGINE 300 UNITS/3 ML INSULN.PEN. SQ SCH (21:45)
--- NOTE | 2019-03-27 23:00 | NUR ---
Pt has his cousin Chang bring up his Trulicity pen and gave himself the injection of 0.75mg.
[2019-03-27 23:10] VITALS: BP 133/62
[2019-03-28] MEDS: INSULIN LISPRO 300 UNITS/3 ML INSULN.PEN. SQ PRN ×5 (00:14→17:50)
--- NOTE | 2019-03-28 00:14 | NUR ---
Pt requesting Humalog 5 units for blood sugar of 273. Pt administered to self.
[2019-03-28 03:40] VITALS: BP 141/67
[2019-03-28] MEDS: LEVOTHYROXINE 75 MCG TABLET PO SCH (05:59)
[2019-03-28 07:00] VITALS: BP 123/67
--- NOTE | 2019-03-28 08:36 | PDOC ---
SUBJECTIVE Subjective Pt states that he is feeling much better. Hoping to get one more day to gain strength prior to going home. Feels that his breathing is doing well. Eating okay OBJECTIVE Vital Signs Vital Signs Date Time Temp Pulse Resp B/P (MAP) Pulse Ox O2 Delivery O2 Flow Rate FiO2 03/28/19 07:00 97.5 89 16 123/67 (85) 91 Room Air 97.5 03/28/19 03:40 97.7 82 22 141/67 (91) 93 Room Air 97.7 03/27/19 23:10 98.4 119 20 133/62 (85) 93 Room Air 98.4 03/27/19 19:53 97.9 81 20 131/59 (83) 95 Room Air 97.9 03/27/19 19:50 Room Air 03/27/19 14:50 98.1 84 18 121/58 (79) 96 Room Air 1.0 98.1 03/27/19 11:00 98.1 95 18 132/65 (87) 95 Room Air 1.0 98.1 I & O Intake and Output 03/28/19 06:59 Intake Total 710 ml Balance 710 ml Intake Oral 710 ml # Voids 2 PHYSICAL EXAM Physical Exam General: NAD, AOx3 Heart: irregular rate, normal rhythm, no M/R/G Lungs: CTAB, regular breathing rate and effort Abd: soft and non tender Neuro: CN2-12 GI Ext: no C/C/E ASSESSMENT/PLAN Assessment/Plan Pt is a 73yo CM admitted for acute respiratory failure 2/2 CHF exacerbation 1)Acute respiratory failure- likely multifactorial, resolved. Pt treated for CHF exacerbation. Pt also may have possible sarcoid, interstitial fibrosis. Pulmonary following. Pt on Augmentin and Prednisone 2)Atrial fibrillation- intially with RVR, but now rate controlled. Cardiology has seen but no longer following. Pt continued on Xarelto 20mg and Metoprolol 25mg 3)DM2- not well controlled. HbA1C pending. Exacerbated by steroids. Fasting BS this am was 109. Currently receiving Lantus 30U QHS (increased) and SSI (addtional 21U over last 24H). Normally on Trulicity 4) Acute on CKD- Renal has seen. Pt back to baseline 5)Prostate cancer with urinary retention- dave Bentley. Pt currently receiving flomax 6)Hypothyroidism- well controlled. Continue levothyroxine 75mcg 7)Anxiety- pt continued on Buspar 8)Anemia- acute on chronic, no active bleeding. CTM 9)Thrombocytopenia- stable. COMMENT Lab Laboratory Tests Test 03/27/19 11:34 Glucose (Fingerstick) 263 mg/dL (70-99) Nutrition Consultation Dietary Evaluation: Recommendations by RD: Increase Calorie Intake, Protein supplementation Comments: Continue w/diet as ordered, honor food preferences, and provide snacks as requested; add extra gravy/sauce w/all meats and biscuits REC glucerna TID (chocolate) Expected Outcomes/Goals: PO intake to meet >75% est needs Interpretation of weight loss: >20% in 1 year Malnutrition Findings: Food and Nutrition Intake (Mod: <75% est energy req 7days Weight Status: Appropriate STEPHANIA ARCHIBALD MD Mar 28, 2019 08:35
--- NOTE | 2019-03-28 08:39 | PDOC ---
PULMONARY PROGRESS NOTES Subjective PT WITH NO NEW SYMPTOMS Vitals Vital Signs Date Time Temp Pulse Resp B/P (MAP) Pulse Ox O2 Delivery O2 Flow Rate FiO2 03/28/19 07:00 97.5 89 16 123/67 (85) 91 Room Air 97.5 03/27/19 14:50 1.0 ROS: No Nausea, No Chest Pain, No Abdominal Pain, No Increase Cough General: Alert, No acute distress Lungs: Crackles (bases) Cardiovascular: S1, S2 Abdomen: Soft, Non-tender Neuro Exam: Alert Extremities: Other (1+edema) Labs Laboratory Tests Test 03/27/19 05:15 03/27/19 11:34 Prothrombin Time 14.3 SEC (11.7-14.0) Prothromb Time International Ratio 1.1 (0.8-1.1) Sodium Level 138 mmol/L (136-145) Potassium Level 4.2 mmol/L (3.5-5.1) Chloride Level 102 mmol/L (98-107) Carbon Dioxide Level 28 mmol/L (21-32) Anion Gap 8 (6-14) Blood Urea Nitrogen 47 mg/dL (8-26) Creatinine 1.4 mg/dL (0.7-1.3) Estimated GFR (Cockcroft-Gault) 49.5 Glucose Level 203 mg/dL (70-99) Calcium Level 8.6 mg/dL (8.5-10.1) Glucose (Fingerstick) 263 mg/dL (70-99) Laboratory Tests Test 03/27/19 11:34 Glucose (Fingerstick) 263 mg/dL (70-99) Medications Active Scripts Medications Dose Route/Sig Max Daily Dose Days Date Category Mirtazapine 15 Mg Tablet 1 Tab PO QHS 03/23/19 Reported Buspirone Hcl 10 Mg Tablet 10 Mg PO BID 03/23/19 Reported Potassium Chloride 20 Meq Tablet.er 20 Meq PO BID 03/23/19 Reported Metoprolol Tartrate 50 Mg Tablet 1 Tab PO BID 03/13/19 Rx Trulicity (Dulaglutide) 0.75 Mg/0.5 Ml Pen.injctr 0.75 Mg SQ WEEKLY 03/12/19 Reported Magnesium Oxide 400 Mg Tablet 1 Tab PO DAILY 03/03/19 Reported Levothyroxine Sodium 75 Mcg Tablet 1 Tab PO DAILY 03/03/19 Reported Novolog (Insulin Aspart) 100 Unit/1 Ml Cartridge 0-5 Unit SQ TIDAC 03/03/19 Reported Xarelto (Rivaroxaban) 10 Mg Tablet 20 Tab PO DAILY 03/03/19 Reported Impression . 1. Acute hypoxic respiratory failure, likely related to superimposed congestive heart failure in addition to underlying chronic interstitial lung disease. 2. Severe cardiomyopathy with an EF of 30%. 3. Atrial fibrillation with rapid ventricular response, triggering congestive heart failure. 4. Abnormal CT chest with underlying interstitial lung disease/fibrotic lung disease involving predominantly the upper lobes and also minimal in the lower lobes. Now, he has developed new ground glass infiltrates in the upper lobes suggesting alveolitis and likely related to congestive heart failure. He also has now progression of mediastinal adenopathy. 5. Acute kidney injury. 6. Abnormal troponin level. 7. Hyponatremia. 8. Coagulopathy with INR of 4.0. POA. On eliquis at home 9. Lower extremity edema secondary to cardiomyopathy. 10. Underlying chronic obstructive pulmonary disease. Plan . RESP STATUS ABOUT THE SAME WILL CHECK CXR WILL DEFER D/C TO PCP CHANGE TO ORAL ANTIBX AND STEROIDS 02 DIURESE FOLLOW CARD INPUT PROCALCITONIN ELEVATED WILL FOLLOW REPEAT CT IN 2 MONTHS POSSIBLE BX OF LYMPH NODES ONCE STABLE SED RATE ELEVATED APOLONIA JACINTO MD Mar 28, 2019 08:39
[2019-03-28] MEDS: LACTOBACILLUS RHAMNOSUS GG 1 CAPSULE. PO SCH ×2 (09:08→20:55)
[2019-03-28] MEDS: MIRTAZAPINE 15 MG TABLET PO SCH (09:08)
[2019-03-28] MEDS: predniSONE 10 MG TABLET PO SCH (09:08)
[2019-03-28] MEDS: AMOXICILLIN/K CLAV 875/125MG TABLET. PO SCH ×2 (09:08→20:54)
[2019-03-28] MEDS: busPIRone 10 MG TABLET. PO SCH ×2 (09:09→20:54)
[2019-03-28] MEDS: TAMSULOSIN 0.4 MG CAP.ER.24H. PO SCH (09:09)
[2019-03-28] MEDS: MAGNESIUM OXIDE 400 MG TABLET PO SCH (09:09)
[2019-03-28] MEDS: METOPROLOL SUCC 24HR ER 25 MG TAB.ER.24H. PO SCH (09:09)
--- NOTE | 2019-03-28 09:35 | PDOC ---
SUBJECTIVE ROS Stable, No acute events overnight OBJECTIVE Vital Signs Vital Signs Date Time Temp Pulse Resp B/P (MAP) Pulse Ox O2 Delivery O2 Flow Rate FiO2 03/28/19 09:09 85 123/67 03/28/19 07:00 97.5 16 91 Room Air 97.5 03/27/19 14:50 1.0 I & 0 Intake and Output 03/28/19 07:00 Intake Total 710 ml Balance 710 ml Intake Oral 710 ml # Voids 2 PHYSICAL EXAM Physical Exam GENERAL: NAD HEENT: Mucous membranes moist NECK: Supple, CHEST: Breath sounds mildly decreased throughout. No use of accessory muscles CARDIOVASCULAR: Irregularly irregular, 2/6 systolic murmur. ABDOMEN: Soft, nontender EXTREMITIES: No Edema Bilateral lower extremities Quinn + SKIN No rash NEURO Grossly Normal DIAGNOSIS/ASSESSMENT Assessment & Plan SATHYA- vasomotor/Cardiorenal /Hypotensive Post Contrast with CTA on 03/23 Renal function at baseline CKD - baseline Cr 1.5-1.6 with intermittent SATHYA Hyponatremia- Resolved Hyperkalemia - Resolved Was on PO supplements CHF - pulm edema on CTA Cautious with IVF, Cardiology managing DM- per Primary \ Atrial fibrillation with rapid ventricular response Acute respiratory failure- likely multifactorial, resolved- possible sarcoid, interstitial fibrosis Pulmonary following, on Augmentin and Prednisone Prostate cancer with urinary retention- dave HAYWARD'blayne. COMMENT/RELEVANT DATA Meds Current Medications Medications (Trade) Dose Ordered Sig/Yessy Start Time Stop Time Status Last Admin Dose Admin Acetaminophen (Tylenol) 650 mg PRN Q4HRS PRN 03/23/19 08:15 03/24/19 08:14 DC Amoxicillin/ Clavulanate Potassium (Augmentin 875/ 125mg) 1 tab BID 03/26/19 21:00 03/28/19 09:08 1 TAB Budesonide (Pulmicort) 0.5 mg RTBID 03/26/19 10:30 03/27/19 11:34 DC 03/27/19 07:07 0.5 MG Buspirone HCl (Buspar) 10 mg BID 03/23/19 21:00 03/28/19 09:09 10 MG Ceftriaxone Sodium (Rocephin) 1 gm Q24H 03/24/19 12:00 03/26/19 11:05 DC 03/25/19 12:34 1 GM Dextrose 250 ml PRN Q15MIN PRN 03/25/19 10:15 Dextrose (Dextrose 50%-Water Syringe) 12.5 gm PRN Q15MIN PRN 03/25/19 10:15 UNV Digoxin (Lanoxin) 250 mcg 1X ONCE 03/24/19 13:00 03/24/19 13:01 DC 03/24/19 14:37 250 MCG Diltiazem HCl (Cardizem Iv Push) 20 mg 1X ONCE 03/23/19 07:00 03/23/19 07:01 DC 03/23/19 07:04 20 MG Fentanyl Citrate (Fentanyl 2ml Vial) 50 mcg PRN Q3HRS PRN 03/23/19 08:15 03/24/19 08:14 DC 03/23/19 08:42 50 MCG Info (Anti-Coagulation Monitoring By Pharmacy) 1 each PRN DAILY PRN 03/23/19 13:15 03/27/19 15:34 1 EACH Info (CONTRAST GIVEN -- Rx MONITORING) 1 each PRN DAILY PRN 03/23/19 09:30 03/25/19 09:29 DC Insulin Glargine (Lantus) 30 units QHS 03/27/19 21:00 03/27/19 21:45 3 UNITS Insulin Human Lispro (HumaLOG) 0-9 UNITS PRN Q2HR PRN 03/25/19 10:15 03/28/19 09:20 2 UNITS Iohexol (Omnipaque 350 Mg/ml) 60 ml 1X ONCE 03/23/19 09:30 03/23/19 09:31 DC 03/23/19 09:48 60 ML Lactobacillus Rhamnosus (Culturelle) 1 cap BID 03/25/19 09:00 03/28/19 09:08 1 CAP Levothyroxine Sodium (Synthroid) 75 mcg DAILY07 03/24/19 07:00 03/28/19 05:59 75 MCG Lidocaine HCl (Glydo (Lidocaine) Jelly) 1 su 1X ONCE 03/23/19 14:15 03/23/19 14:17 DC 03/23/19 14:40 1 SU Magnesium Oxide (Magnesium Oxide) 400 mg DAILY 03/24/19 09:00 03/28/19 09:09 400 MG Methylprednisolone Sodium Succinate (SOLU-Medrol 40MG VIAL) 60 mg Q8HRS 03/23/19 14:00 03/26/19 09:56 DC 03/26/19 06:38 60 MG Metoprolol Succinate (Toprol Xl) 25 mg DAILY 03/28/19 09:00 03/28/19 09:09 25 MG Mirtazapine (Remeron) 15 mg DAILYWBKFT 03/24/19 08:00 03/28/19 09:08 15 MG Non-Formulary Medication (Dulaglutide (Trulicity)) 0.75 mg WEEKLY 03/30/19 09:00 UNV Norepinephrine Bitartrate 250 ml @ 11.567 mls/ hr 1X ONCE 03/23/19 08:00 03/24/19 05:36 DC 03/23/19 08:14 11.567 MLS/HR Ondansetron HCl (Zofran) 4 mg 1X ONCE 03/23/19 08:45 03/23/19 08:46 DC 03/23/19 08:42 4 MG Prednisone (Prednisone) 30 mg DAILY 03/27/19 09:00 03/28/19 09:08 30 MG Rivaroxaban (Xarelto) 20 mg DAILYWSUP 03/27/19 17:00 03/27/19 17:22 20 MG Sodium Chloride 500 ml @ 250 mls/hr PRN Q4HRS PRN 03/23/19 16:30 Tamsulosin HCl (Flomax) 0.4 mg DAILY 03/24/19 09:00 03/28/19 09:09 0.4 MG Lab Laboratory Tests Test 03/27/19 11:34 Glucose (Fingerstick) 263 mg/dL (70-99) Results All relevant outside records, renal labs, imaging studies, telemetry/EKG's were reviewed. DINORAH KIDD MD Mar 28, 2019 09:35
[2019-03-28 11:00] VITALS: BP 142/70
[2019-03-28] MEDS: ANTI-COAG MONITOR BY PHARMACY. MC PRN (12:47)
--- NOTE | 2019-03-28 12:52 | NUR ---
SS following for discharge planning. SS reviewed pt chart. Pt is from home and is currently on room air. No discharge needs noted at this time. SS will continue to follow for discharge planning.
[2019-03-28 15:00] VITALS: BP_SYST 125; BP_SYST 130; BP_DIAS 61; BP_DIAS 66
--- NOTE | 2019-03-28 16:36 | RAD ---
EXAM: Chest, single view. HISTORY: Shortness of air. COMPARISON: CT angiogram dated 03/23/2019. FINDINGS: A frontal view of the chest obtained. There is a small right pleural effusion, stable when allowing for differences in imaging modality. There is diffuse mixed interstitial and alveolar infiltrate superimposed on suspected chronic interstitial changes. There is mild cardia mentally. There is no pneumothorax. IMPRESSION: 1. Stable suspected mixed interstitial and alveolar infiltrate superimposed on chronic interstitial changes. 2. Stable suspected small right pleural effusion. 3. Stable cardiomegaly. Electronically signed by: Kay Boyce MD (03/28/2019 4:32 PM) [place] [id number]
[2019-03-28] MEDS: RIVAROXABAN 10 MG TABLET. PO SCH (17:44)
[2019-03-28 19:10] VITALS: BP 145/61
[2019-03-28] MEDS: INSULIN GLARGINE 300 UNITS/3 ML INSULN.PEN. SQ SCH (21:04)
[2019-03-28 22:30] VITALS: BP 142/62
[2019-03-29 00:07] LABS: HEMOGLOBIN A1C 7.8 % (4.8-5.6)
[2019-03-29 02:45] VITALS: BP 144/67
[2019-03-29] MEDS ORDERED: ACETAMINOPHEN 325 MG TABLET. PO PRN (03:00)
[2019-03-29] MEDS: LEVOTHYROXINE 75 MCG TABLET PO SCH (03:07)
[2019-03-29 07:52] LABS: CREATININE 1.3 mg/dL (0.7-1.3); POTASSIUM 5.1 mmol/L (3.5-5.1)
[2019-03-29 08:08] LABS: BASO % 0 % (0-3); EOS % 0 % (0-3); HEMATOCRIT 30.2 % (39.0-53.0); HEMOGLOBIN 10.1 g/dL (13.0-17.5); LYMPH # 0.4 x10^3/uL (1.0-4.8); LYMPH % 3 % (24-48); MEAN CORPUSCULAR HEMOGLOBIN 31 pg (25-35); MEAN CORPUSCULAR HGB CONC 34 g/dL (31-37); MEAN CORPUSCULAR VOLUME 92 fL (79-100); MONO # 0.6 x10^3/uL (0.0-1.1); MONO % 5 % (0-9); NEUT # 12.2 x10^3/uL (1.8-7.7); NEUT % 92 % (31-73); PLATELET COUNT 121 x10^3/uL (140-400); RED BLOOD COUNT 3.29 x10^6/uL (4.30-5.70); RED CELL DISTRIBUTION WIDTH 15.9 % (11.5-14.5); WHITE BLOOD COUNT 13.2 x10^3/uL (4.0-11.0)
[2019-03-29] MEDS: AMOXICILLIN/K CLAV 875/125MG TABLET. PO SCH (08:36)
[2019-03-29] MEDS: METOPROLOL SUCC 24HR ER 25 MG TAB.ER.24H. PO SCH (08:37)
[2019-03-29] MEDS: TAMSULOSIN 0.4 MG CAP.ER.24H. PO SCH (08:37)
[2019-03-29] MEDS: MIRTAZAPINE 15 MG TABLET PO SCH (08:37)
[2019-03-29] MEDS: LACTOBACILLUS RHAMNOSUS GG 1 CAPSULE. PO SCH (08:37)
[2019-03-29] MEDS: predniSONE 10 MG TABLET PO SCH (08:37)
[2019-03-29] MEDS: busPIRone 10 MG TABLET. PO SCH (08:37)
[2019-03-29] MEDS: MAGNESIUM OXIDE 400 MG TABLET PO SCH (08:38)
[2019-03-29] MEDS: INSULIN LISPRO 300 UNITS/3 ML INSULN.PEN. SQ PRN ×2 (08:43→12:44)
[2019-03-29] MEDS ORDERED: guaiFENesin/CODEINE 100mg/10mg 5 ML LIQUID PO PRN (09:45)
[2019-03-29 10:56] VITALS: BP 131/81
--- NOTE | 2019-03-29 12:18 | PDOC ---
SUBJECTIVE ROS Stable, No acute events overnight OBJECTIVE Vital Signs Vital Signs Date Time Temp Pulse Resp B/P (MAP) Pulse Ox O2 Delivery O2 Flow Rate FiO2 03/29/19 10:56 98.7 115 20 131/81 (98) 89 Nasal Cannula 2.0 98.7 I & 0 Intake and Output 03/29/19 07:00 Intake Total 1160 ml Output Total 300 ml Balance 860 ml Intake Oral 1160 ml Output Urine Total 300 ml # Voids 3 PHYSICAL EXAM Physical Exam GENERAL: NAD HEENT: Mucous membranes moist NECK: Supple, CHEST: Breath sounds mildly decreased throughout. No use of accessory muscles CARDIOVASCULAR: Irregularly irregular, 2/6 systolic murmur. ABDOMEN: Soft, nontender EXTREMITIES: No Edema Bilateral lower extremities Quinn + SKIN No rash NEURO Grossly Normal DIAGNOSIS/ASSESSMENT Assessment & Plan SATHYA- vasomotor/Cardiorenal /Hypotensive Post Contrast with CTA on 03/23 Renal function at baseline CKD - baseline Cr 1.5-1.6 with intermittent SATHYA Hyponatremia-Normal after correcting for glucose Hyperkalemia - Resolved Was on PO supplements CHF - pulm edema on CTA Cautious with IVF, Cardiology managing DM- per Primary \ Atrial fibrillation with rapid ventricular response Acute respiratory failure- likely multifactorial, resolved- possible sarcoid, interstitial fibrosis Pulmonary following, on Augmentin and Prednisone Prostate cancer with urinary retention- dave HAYWARD'd. Will sign off COMMENT/RELEVANT DATA Meds Current Medications Medications (Trade) Dose Ordered Sig/Yessy Start Time Stop Time Status Last Admin Dose Admin Acetaminophen (Tylenol) 650 mg PRN Q6HRS PRN 03/29/19 03:00 03/29/19 03:03 650 MG Amoxicillin/ Clavulanate Potassium (Augmentin 875/ 125mg) 1 tab BID 03/26/19 21:00 03/29/19 08:44 1 TAB Budesonide (Pulmicort) 0.5 mg RTBID 03/26/19 10:30 03/27/19 11:34 DC 03/27/19 07:07 0.5 MG Buspirone HCl (Buspar) 10 mg BID 03/23/19 21:00 03/29/19 08:44 10 MG Ceftriaxone Sodium (Rocephin) 1 gm Q24H 03/24/19 12:00 03/26/19 11:05 DC 03/25/19 12:34 1 GM Dextrose 250 ml PRN Q15MIN PRN 03/25/19 10:15 Dextrose (Dextrose 50%-Water Syringe) 12.5 gm PRN Q15MIN PRN 03/25/19 10:15 UNV Digoxin (Lanoxin) 250 mcg 1X ONCE 03/24/19 13:00 03/24/19 13:01 DC 03/24/19 14:37 250 MCG Diltiazem HCl (Cardizem Iv Push) 20 mg 1X ONCE 03/23/19 07:00 03/23/19 07:01 DC 03/23/19 07:04 20 MG Fentanyl Citrate (Fentanyl 2ml Vial) 50 mcg PRN Q3HRS PRN 03/23/19 08:15 03/24/19 08:14 DC 03/23/19 08:42 50 MCG Guaifenesin/ Codeine Phosphate (Robitussin Ac) 5 ml PRN Q6HRS PRN 03/29/19 09:45 03/29/19 10:53 5 ML Info (Anti-Coagulation Monitoring By Pharmacy) 1 each PRN DAILY PRN 03/23/19 13:15 03/28/19 12:47 1 EACH Info (CONTRAST GIVEN -- Rx MONITORING) 1 each PRN DAILY PRN 03/23/19 09:30 03/25/19 09:29 DC Insulin Glargine (Lantus) 30 units QHS 03/27/19 21:00 03/28/19 21:04 30 UNITS Insulin Human Lispro (HumaLOG) 0-9 UNITS PRN Q2HR PRN 03/25/19 10:15 03/29/19 08:44 7 UNITS Iohexol (Omnipaque 350 Mg/ml) 60 ml 1X ONCE 03/23/19 09:30 03/23/19 09:31 DC 03/23/19 09:48 60 ML Lactobacillus Rhamnosus (Culturelle) 1 cap BID 03/25/19 09:00 03/29/19 08:44 1 CAP Levothyroxine Sodium (Synthroid) 75 mcg DAILY07 03/24/19 07:00 03/29/19 03:07 75 MCG Lidocaine HCl (Glydo (Lidocaine) Jelly) 1 su 1X ONCE 03/23/19 14:15 03/23/19 14:17 DC 03/23/19 14:40 1 SU Magnesium Oxide (Magnesium Oxide) 400 mg DAILY 03/24/19 09:00 03/29/19 08:44 400 MG Methylprednisolone Sodium Succinate (SOLU-Medrol 40MG VIAL) 60 mg Q8HRS 03/23/19 14:00 03/26/19 09:56 DC 03/26/19 06:38 60 MG Metoprolol Succinate (Toprol Xl) 25 mg DAILY 03/28/19 09:00 03/29/19 08:44 25 MG Mirtazapine (Remeron) 15 mg DAILYWBKFT 03/24/19 08:00 03/29/19 08:44 15 MG Non-Formulary Medication (Dulaglutide (Trulicity)) 0.75 mg WEEKLY 03/30/19 09:00 UNV Norepinephrine Bitartrate 250 ml @ 11.567 mls/ hr 1X ONCE 03/23/19 08:00 03/24/19 05:36 DC 03/23/19 08:14 11.567 MLS/HR Ondansetron HCl (Zofran) 4 mg 1X ONCE 03/23/19 08:45 03/23/19 08:46 DC 03/23/19 08:42 4 MG Prednisone (Prednisone) 30 mg DAILY 03/27/19 09:00 03/29/19 08:44 30 MG Rivaroxaban (Xarelto) 15 mg DAILYWSUP 03/29/19 17:00 Sodium Chloride 500 ml @ 250 mls/hr PRN Q4HRS PRN 03/23/19 16:30 Tamsulosin HCl (Flomax) 0.4 mg DAILY 03/24/19 09:00 03/29/19 08:44 0.4 MG Lab Laboratory Tests Test 03/29/19 04:05 White Blood Count 13.2 x10^3/uL (4.0-11.0) Red Blood Count 3.29 x10^6/uL (4.30-5.70) Hemoglobin 10.1 g/dL (13.0-17.5) Hematocrit 30.2 % (39.0-53.0) Mean Corpuscular Volume 92 fL (79-100) Mean Corpuscular Hemoglobin 31 pg (25-35) Mean Corpuscular Hemoglobin Concent 34 g/dL (31-37) Red Cell Distribution Width 15.9 % (11.5-14.5) Platelet Count 121 x10^3/uL (140-400) Neutrophils (%) (Auto) 92 % (31-73) Lymphocytes (%) (Auto) 3 % (24-48) Monocytes (%) (Auto) 5 % (0-9) Eosinophils (%) (Auto) 0 % (0-3) Basophils (%) (Auto) 0 % (0-3) Neutrophils # (Auto) 12.2 x10^3/uL (1.8-7.7) Lymphocytes # (Auto) 0.4 x10^3/uL (1.0-4.8) Monocytes # (Auto) 0.6 x10^3/uL (0.0-1.1) Eosinophils # (Auto) 0.0 x10^3/uL (0.0-0.7) Basophils # (Auto) 0.0 x10^3/uL (0.0-0.2) Sodium Level 133 mmol/L (136-145) Potassium Level 5.1 mmol/L (3.5-5.1) Chloride Level 98 mmol/L (98-107) Carbon Dioxide Level 28 mmol/L (21-32) Anion Gap 7 (6-14) Blood Urea Nitrogen 41 mg/dL (8-26) Creatinine 1.3 mg/dL (0.7-1.3) Estimated GFR (Cockcroft-Gault) 54.0 Glucose Level 377 mg/dL (70-99) Calcium Level 8.0 mg/dL (8.5-10.1) Results All relevant outside records, renal labs, imaging studies, telemetry/EKG's were reviewed. DINORAH KIDD MD Mar 29, 2019 12:18
--- NOTE | 2019-03-29 13:13 | PDOC ---
PULMONARY PROGRESS NOTES Subjective PT WITH NO NEW SYMPTOMS Vitals Vital Signs Date Time Temp Pulse Resp B/P (MAP) Pulse Ox O2 Delivery O2 Flow Rate FiO2 03/29/19 10:56 98.7 115 20 131/81 (98) 89 Nasal Cannula 2.0 98.7 ROS: No Nausea, No Chest Pain, No Abdominal Pain, No Increase Cough General: Alert, No acute distress Lungs: Crackles (bases) Cardiovascular: S1, S2 Abdomen: Soft, Non-tender Neuro Exam: Alert Extremities: Other (1+edema) Labs Laboratory Tests Test 03/29/19 04:05 White Blood Count 13.2 x10^3/uL (4.0-11.0) Red Blood Count 3.29 x10^6/uL (4.30-5.70) Hemoglobin 10.1 g/dL (13.0-17.5) Hematocrit 30.2 % (39.0-53.0) Mean Corpuscular Volume 92 fL (79-100) Mean Corpuscular Hemoglobin 31 pg (25-35) Mean Corpuscular Hemoglobin Concent 34 g/dL (31-37) Red Cell Distribution Width 15.9 % (11.5-14.5) Platelet Count 121 x10^3/uL (140-400) Neutrophils (%) (Auto) 92 % (31-73) Lymphocytes (%) (Auto) 3 % (24-48) Monocytes (%) (Auto) 5 % (0-9) Eosinophils (%) (Auto) 0 % (0-3) Basophils (%) (Auto) 0 % (0-3) Neutrophils # (Auto) 12.2 x10^3/uL (1.8-7.7) Lymphocytes # (Auto) 0.4 x10^3/uL (1.0-4.8) Monocytes # (Auto) 0.6 x10^3/uL (0.0-1.1) Eosinophils # (Auto) 0.0 x10^3/uL (0.0-0.7) Basophils # (Auto) 0.0 x10^3/uL (0.0-0.2) Sodium Level 133 mmol/L (136-145) Potassium Level 5.1 mmol/L (3.5-5.1) Chloride Level 98 mmol/L (98-107) Carbon Dioxide Level 28 mmol/L (21-32) Anion Gap 7 (6-14) Blood Urea Nitrogen 41 mg/dL (8-26) Creatinine 1.3 mg/dL (0.7-1.3) Estimated GFR (Cockcroft-Gault) 54.0 Glucose Level 377 mg/dL (70-99) Calcium Level 8.0 mg/dL (8.5-10.1) Laboratory Tests Test 03/29/19 04:05 White Blood Count 13.2 x10^3/uL (4.0-11.0) Red Blood Count 3.29 x10^6/uL (4.30-5.70) Hemoglobin 10.1 g/dL (13.0-17.5) Hematocrit 30.2 % (39.0-53.0) Mean Corpuscular Volume 92 fL (79-100) Mean Corpuscular Hemoglobin 31 pg (25-35) Mean Corpuscular Hemoglobin Concent 34 g/dL (31-37) Red Cell Distribution Width 15.9 % (11.5-14.5) Platelet Count 121 x10^3/uL (140-400) Neutrophils (%) (Auto) 92 % (31-73) Lymphocytes (%) (Auto) 3 % (24-48) Monocytes (%) (Auto) 5 % (0-9) Eosinophils (%) (Auto) 0 % (0-3) Basophils (%) (Auto) 0 % (0-3) Neutrophils # (Auto) 12.2 x10^3/uL (1.8-7.7) Lymphocytes # (Auto) 0.4 x10^3/uL (1.0-4.8) Monocytes # (Auto) 0.6 x10^3/uL (0.0-1.1) Eosinophils # (Auto) 0.0 x10^3/uL (0.0-0.7) Basophils # (Auto) 0.0 x10^3/uL (0.0-0.2) Sodium Level 133 mmol/L (136-145) Potassium Level 5.1 mmol/L (3.5-5.1) Chloride Level 98 mmol/L (98-107) Carbon Dioxide Level 28 mmol/L (21-32) Anion Gap 7 (6-14) Blood Urea Nitrogen 41 mg/dL (8-26) Creatinine 1.3 mg/dL (0.7-1.3) Estimated GFR (Cockcroft-Gault) 54.0 Glucose Level 377 mg/dL (70-99) Calcium Level 8.0 mg/dL (8.5-10.1) Medications Active Scripts Medications Dose Route/Sig Max Daily Dose Days Date Category Mirtazapine 15 Mg Tablet 1 Tab PO QHS 03/23/19 Reported Buspirone Hcl 10 Mg Tablet 10 Mg PO BID 03/23/19 Reported Potassium Chloride 20 Meq Tablet.er 20 Meq PO BID 03/23/19 Reported Metoprolol Tartrate 50 Mg Tablet 1 Tab PO BID 03/13/19 Rx Trulicity (Dulaglutide) 0.75 Mg/0.5 Ml Pen.injctr 0.75 Mg SQ WEEKLY 03/12/19 Reported Magnesium Oxide 400 Mg Tablet 1 Tab PO DAILY 03/03/19 Reported Levothyroxine Sodium 75 Mcg Tablet 1 Tab PO DAILY 03/03/19 Reported Novolog (Insulin Aspart) 100 Unit/1 Ml Cartridge 0-5 Unit SQ TIDAC 03/03/19 Reported Xarelto (Rivaroxaban) 10 Mg Tablet 20 Tab PO DAILY 03/03/19 Reported Impression . 1. Acute hypoxic respiratory failure, likely related to superimposed congestive heart failure in addition to underlying chronic interstitial lung disease. 2. Severe cardiomyopathy with an EF of 30%. 3. Atrial fibrillation with rapid ventricular response, triggering congestive heart failure. 4. Abnormal CT chest with underlying interstitial lung disease/fibrotic lung disease involving predominantly the upper lobes and also minimal in the lower lobes. Now, he has developed new ground glass infiltrates in the upper lobes suggesting alveolitis and likely related to congestive heart failure. He also has now progression of mediastinal adenopathy. SUSPECT SARCOIDOSIS 5. Acute kidney injury. 6. Abnormal troponin level. 7. Hyponatremia. 8. Coagulopathy with INR of 4.0. POA. On eliquis at home 9. Lower extremity edema secondary to cardiomyopathy. 10. Underlying chronic obstructive pulmonary disease. Plan . RESP STATUS ABOUT THE SAME. CXR 03/28 unchanged WILL DEFER D/C TO PCP CHANGE TO ORAL ANTIBX AND STEROIDS 02 DIURESE FOLLOW CARD INPUT REPEAT CT IN 2 MONTHS POSSIBLE BX OF LYMPH NODES ONCE STABLE ASK CV SURGERY TO SEE OP SED RATE ELEVATED F/U WITH ME IN POST DC D/W PAN SUMMERS MD Mar 29, 2019 13:13
[2019-03-29] MEDS ORDERED: TAMS0.4C97 PO (13:59)
[2019-03-29] MEDS ORDERED: INSU100I13 SQ (13:59)
[2019-03-29] MEDS ORDERED: AMOX1TAB11 PO (13:59)
[2019-03-29] MEDS ORDERED: PRED-220 PO (13:59)
[2019-03-29] MEDS ORDERED: guaiFENesin/CODEINE 100mg/10mg PO (13:59)
--- NOTE | 2019-03-29 14:00 | PDOC3 ---
Discharge Summary Date of Admission: Mar 23, 2019 Date of Discharge: Mar 29, 2019 Follow-Up: Other (1-[address] Posadas) Admitting Diagnosis comment: Respiratory failure 2/2 CHF exacerbation FINAL DIAGNOSIS Acute respiratory failure 2/2 CHF exacerbation, pulmonary effusion, atrial fibrillation, DM2, Acute on CKD, Prostate cancer with urinary retention, Hypothyroidism, Anxiety, Anemia, Thrombocytopenia Brief Hospital Course DISCHARGE PHYSICAL EXAM General: NAD, AOx3 Heart: irregular rate, normal rhythm, no M/R/G Lungs: CTAB, regular breathing rate and effort Abd: soft and non tender Neuro: CN2-12 GI Ext: no C/C/E Pt is a 73yo CM admitted for acute respiratory failure 2/2 CHF exacerbation 1)Acute respiratory failure- likely multifactorial, improved. Pt treated for CHF exacerbation. Pt also may have possible sarcoid, interstitial fibrosis. Pulmonary following. Will need LN biopsy outpatient. Pt was on Augmentin and Prednisone and this was stopped by pulmonary day of discharge. 6 minute walk showing that pt needs 1L at rest and 3L with activity. 2)Atrial fibrillation- intially with RVR, but now rate controlled. Cardiology has seen but no longer following. Pt continued on Xarelto 20mg and Metoprolol 25mg 3)DM2- not well controlled, HbA1C 7.8 this admission. Exacerbated by steroids. Improved with increased dose of Lantus to 30U QHS. Also has SSI (addtional 21U over last 24H). Normally on Trulicity 4) Acute on CKD- Renal has seen. Pt back to baseline 5)Prostate cancer with urinary retention- dave DC'd. Pt currently receiving flomax 6)Hypothyroidism- well controlled. Continue levothyroxine 75mcg 7)Anxiety- pt continued on Buspar 8)Anemia- acute on chronic, no active bleeding. CTM 9)Thrombocytopenia- stable. Discharge Medications Current Medications Sodium Chloride 500 ml @ 500 mls/hr 1X ONCE IV Last administered on 03/23/19at 07:01; Start 03/23/19 at 07:00; Stop 03/23/19 at 07:59; Status DC Diltiazem HCl (Cardizem Iv Push) 20 mg 1X ONCE IVP Last administered on 03/23/19at 07:04; Start 03/23/19 at 07:00; Stop 03/23/19 at 07:01; Status DC Sodium Chloride 500 ml @ 500 mls/hr 1X ONCE IV Last administered on 03/23/19at 07:20; Start 03/23/19 at 07:15; Stop 03/23/19 at 08:14; Status DC Acetaminophen (Tylenol) 1,000 mg 1X ONCE PO Last administered on 03/23/19at 07:50; Start 03/23/19 at 07:45; Stop 03/23/19 at 07:46; Status DC Norepinephrine Bitartrate 250 ml @ 11.567 mls/ hr 1X ONCE IV Last administered on 03/23/19at 08:14; Start 03/23/19 at 08:00; Stop 03/24/19 at 05:36; Status DC Ondansetron HCl (Zofran) 4 mg PRN Q8HRS PRN IV NAUSEA/VOMITING; Start 03/23/19 at 08:15; Stop 03/24/19 at 08:14; Status DC Fentanyl Citrate (Fentanyl 2ml Vial) 50 mcg PRN Q3HRS PRN IV PAIN Last admi nistered on 03/23/19at 08:42; Start 03/23/19 at 08:15; Stop 03/24/19 at 08:14; Status DC Sodium Chloride 1,000 ml @ 150 mls/hr Q6H40M IV Last administered on 03/23/19at 10:00; Start 03/23/19 at 08:14; Stop 03/24/19 at 08:13; Status DC Acetaminophen (Tylenol) 650 mg PRN Q4HRS PRN PO FEVER; Start 03/23/19 at 08:15; Stop 03/24/19 at 08:14; Status DC Insulin Human Lispro (HumaLOG) 0-7 UNITS TIDWMEALS SQ Last administered on 03/23/19at 17:29; Start 03/23/19 at 12:00; Stop 03/24/19 at 04:04; Status DC Dextrose (Dextrose 50%-Water Syringe) 12.5 gm PRN Q15MIN PRN IV SEE COMMENTS; Start 03/23/19 at 08:15; Stop 03/25/19 at 10:14; Status DC Ondansetron HCl (Zofran) 4 mg 1X ONCE IV Last administered on 03/23/19at 08:42; Start 03/23/19 at 08:45; Stop 03/23/19 at 08:46; Status DC Iohexol (Omnipaque 350 Mg/ml) 60 ml 1X ONCE IV Last administered on 03/23/19at 09:48; Start 03/23/19 at 09:30; Stop 03/23/19 at 09:31; Status DC Info (CONTRAST GIVEN -- Rx MONITORING) 1 each PRN DAILY PRN MC SEE COMMENTS; Start 03/23/19 at 09:30; Stop 03/25/19 at 09:29; Status DC Methylprednisolone Sodium Succinate (SOLU-Medrol 40MG VIAL) 60 mg Q8HRS IV Last administered on 03/26/19at 06:38; Start 03/23/19 at 14:00; Stop 03/26/19 at 09:56; Status DC Buspirone HCl (Buspar) 10 mg BID PO Last administered on 03/29/19at 08:44; Start 03/23/19 at 21:00 Levothyroxine Sodium (Synthroid) 75 mcg DAILY07 PO Last administered on 03/29/19at 03:07; Start 03/24/19 at 07:00 Rivaroxaban (Xarelto) 20 mg DAILYWSUP PO ; Start 03/23/19 at 17:00; Stop 03/23/19 at 17:00; Status DC Non-Formulary Medication (Dulaglutide (Trulicity)) 0.75 mg WEEKLY SQ ; Start 03/30/19 at 09:00; Status UNV Magnesium Oxide (Magnesium Oxide) 400 mg DAILY PO Last administered on 03/29/19at 08:44; Start 03/24/19 at 09:00 Mirtazapine (Remeron) 15 mg QHS PO ; Start 03/23/19 at 21:00; Stop 03/23/19 at 21:00; Status DC Info (Anti-Coagulation Monitoring By Pharmacy) 1 each PRN DAILY PRN MC SEE COMMENTS Last administered on 03/28/19at 12:47; Start 03/23/19 at 13:15 Lidocaine HCl (Glydo (Lidocaine) Jelly) 1 su 1X ONCE MM Last administered on 03/23/19at 14:40; Start 03/23/19 at 14:15; Stop 03/23/19 at 14:17; Status DC Rivaroxaban (Xarelto) 15 mg DAILYWSUP PO ; Start 03/23/19 at 17:00; Stop 03/23/19 at 17:35; Status DC Sodium Chloride 500 ml @ 250 mls/hr PRN Q4HRS PRN IV SEE COMMENTS; Start 03/23/19 at 16:30 Rivaroxaban (Xarelto) 15 mg DAILYWBKFT PO Last administered on 03/24/19at 08:19; Start 03/24/19 at 08:00; Stop 03/24/19 at 16:32; Status DC Mirtazapine (Remeron) 15 mg DAILYWBKFT PO Last administered on 03/29/19at 08:44; Start 03/24/19 at 08:00 Insulin Human Lispro (HumaLOG) 0-7 UNITS TIDWMEALS SQ Last administered on 03/25/19at 08:40; Start 03/24/19 at 08:00; Stop 03/25/19 at 10:14; Status DC Tamsulosin HCl (Flomax) 0.4 mg DAILY PO Last administered on 03/29/19at 08:44; Start 03/24/19 at 09:00 Ceftriaxone Sodium (Rocephin) 1 gm Q24H IVP Last administered on 03/25/19at 12:34; Start 03/24/19 at 12:00; Stop 03/26/19 at 11:05; Status DC Digoxin (Lanoxin) 250 mcg 1X ONCE IV Last administered on 03/24/19at 14:37; Start 03/24/19 at 13:00; Stop 03/24/19 at 13:01; Status DC Insulin Human Lispro (HumaLOG) 20 units 1X ONCE SQ Last administered on 03/24/19at 20:21; Start 03/24/19 at 20:15; Stop 03/24/19 at 20:16; Status DC Insulin Glargine (Lantus) 10 units QHS SQ Last administered on 03/24/19at 20:20; Start 03/24/19 at 21:00; Stop 03/25/19 at 10:00; Status DC Insulin Human Lispro (HumaLOG) 20 units 1X ONCE SQ Last administered on 03/25/19at 01:00; Start 03/25/19 at 01:00; Stop 03/25/19 at 01:01; Status DC Lactobacillus Rhamnosus (Culturelle) 1 cap BID PO Last administered on 03/29/19 08:44; Start 03/25/19 at 09:00 Insulin Glargine (Lantus) 20 units QHS SQ Last administered on 03/26/19 21:31; Start 03/25/19 at 21:00; Stop 03/27/19 at 11:34; Status DC Insulin Human Lispro (HumaLOG) 0-9 UNITS PRN Q2HR PRN SQ hyperglycemia Last administered on 03/29/19 12:44; Start 03/25/19 at 10:15 Dextrose (Dextrose 50%-Water Syringe) 12.5 gm PRN Q15MIN PRN IV SEE COMMENTS; Start 03/25/19 at 10:15; Status UNV Dextrose 250 ml PRN Q15MIN PRN IV SEE COMMENTS; Start 03/25/19 at 10:15 Metoprolol Succinate (Toprol Xl) 12.5 mg DAILY PO Last administered on 03/27/19 08:09; Start 03/25/19 at 15:30; Stop 03/27/19 at 11:35; Status DC Budesonide (Pulmicort) 0.5 mg RTBID NEB Last administered on 03/27/19 07:07; Start 03/26/19 at 10:30; Stop 03/27/19 at 11:34; Status DC Amoxicillin/ Clavulanate Potassium (Augmentin 875/ 125mg) 1 tab BID PO Last administered on 03/29/19 08:44; Start 03/26/19 at 21:00 Prednisone (Prednisone) 30 mg 1X ONCE PO Last administered on 03/26/19 11:38; Start 03/26/19 at 11:15; Stop 03/26/19 at 11:16; Status DC Prednisone (Prednisone) 30 mg DAILY PO Last administered on 03/29/19 08:44; Start 03/27/19 at 09:00 Insulin Glargine (Lantus) 30 units QHS SQ Last administered on 03/28/19 21:04; Start 03/27/19 at 21:00 Rivaroxaban (Xarelto) 20 mg DAILYWSUP PO Last administered on 03/28/19 17:44; Start 03/27/19 at 17:00; Stop 03/29/19 at 07:31; Status DC Metoprolol Succinate (Toprol Xl) 25 mg DAILY PO Last administered on 03/29/19at 08:44; Start 03/28/19 at 09:00 Acetaminophen (Tylenol) 650 mg PRN Q6HRS PRN PO MILD PAIN 1-3 Last administered on 03/29/19at 03:03; Start 03/29/19 at 03:00 Rivaroxaban (Xarelto) 15 mg DAILYWSUP PO ; Start 03/29/19 at 17:00 Guaifenesin/ Codeine Phosphate (Robitussin Ac) 5 ml PRN Q6HRS PRN PO COUGH Last administered on 03/29/19at 10:53; Start 03/29/19 at 09:45 Active Scripts Active Metoprolol Tartrate 50 Mg Tablet 1 Tab PO BID Reported Mirtazapine 15 Mg Tablet 1 Tab PO QHS Buspirone Hcl 10 Mg Tablet 10 Mg PO BID Potassium Chloride 20 Meq Tablet.er 20 Meq PO BID Trulicity (Dulaglutide) 0.75 Mg/0.5 Ml Pen.injctr 0.75 Mg SQ WEEKLY Magnesium Oxide 400 Mg Tablet 1 Tab PO DAILY Levothyroxine Sodium 75 Mcg Tablet 1 Tab PO DAILY Novolog (Insulin Aspart) 100 Unit/1 Ml Cartridge 0-5 Unit SQ TIDAC Xarelto (Rivaroxaban) 10 Mg Tablet 20 Tab PO DAILY Vital Signs Vital Signs Date Time Temp Pulse Resp B/P (MAP) Pulse Ox O2 Delivery O2 Flow Rate FiO2 03/29/19 10:56 98.7 115 20 131/81 (98) 89 Nasal Cannula 2.0 98.7 Labs Laboratory Tests Test 03/29/19 04:05 White Blood Count 13.2 x10^3/uL (4.0-11.0) Red Blood Count 3.29 x10^6/uL (4.30-5.70) Hemoglobin 10.1 g/dL (13.0-17.5) Hematocrit 30.2 % (39.0-53.0) Mean Corpuscular Volume 92 fL (79-100) Mean Corpuscular Hemoglobin 31 pg (25-35) Mean Corpuscular Hemoglobin Concent 34 g/dL (31-37) Red Cell Distribution Width 15.9 % (11.5-14.5) Platelet Count 121 x10^3/uL (140-400) Neutrophils (%) (Auto) 92 % (31-73) Lymphocytes (%) (Auto) 3 % (24-48) Monocytes (%) (Auto) 5 % (0-9) Eosinophils (%) (Auto) 0 % (0-3) Basophils (%) (Auto) 0 % (0-3) Neutrophils # (Auto) 12.2 x10^3/uL (1.8-7.7) Lymphocytes # (Auto) 0.4 x10^3/uL (1.0-4.8) Monocytes # (Auto) 0.6 x10^3/uL (0.0-1.1) Eosinophils # (Auto) 0.0 x10^3/uL (0.0-0.7) Basophils # (Auto) 0.0 x10^3/uL (0.0-0.2) Sodium Level 133 mmol/L (136-145) Potassium Level 5.1 mmol/L (3.5-5.1) Chloride Level 98 mmol/L (98-107) Carbon Dioxide Level 28 mmol/L (21-32) Anion Gap 7 (6-14) Blood Urea Nitrogen 41 mg/dL (8-26) Creatinine 1.3 mg/dL (0.7-1.3) Estimated GFR (Cockcroft-Gault) 54.0 Glucose Level 377 mg/dL (70-99) Calcium Level 8.0 mg/dL (8.5-10.1) Laboratory Tests Test 03/29/19 04:05 White Blood Count 13.2 x10^3/uL (4.0-11.0) Red Blood Count 3.29 x10^6/uL (4.30-5.70) Hemoglobin 10.1 g/dL (13.0-17.5) Hematocrit 30.2 % (39.0-53.0) Mean Corpuscular Volume 92 fL (79-100) Mean Corpuscular Hemoglobin 31 pg (25-35) Mean Corpuscular Hemoglobin Concent 34 g/dL (31-37) Red Cell Distribution Width 15.9 % (11.5-14.5) Platelet Count 121 x10^3/uL (140-400) Neutrophils (%) (Auto) 92 % (31-73) Lymphocytes (%) (Auto) 3 % (24-48) Monocytes (%) (Auto) 5 % (0-9) Eosinophils (%) (Auto) 0 % (0-3) Basophils (%) (Auto) 0 % (0-3) Neutrophils # (Auto) 12.2 x10^3/uL (1.8-7.7) Lymphocytes # (Auto) 0.4 x10^3/uL (1.0-4.8) Monocytes # (Auto) 0.6 x10^3/uL (0.0-1.1) Eosinophils # (Auto) 0.0 x10^3/uL (0.0-0.7) Basophils # (Auto) 0.0 x10^3/uL (0.0-0.2) Sodium Level 133 mmol/L (136-145) Potassium Level 5.1 mmol/L (3.5-5.1) Chloride Level 98 mmol/L (98-107) Carbon Dioxide Level 28 mmol/L (21-32) Anion Gap 7 (6-14) Blood Urea Nitrogen 41 mg/dL (8-26) Creatinine 1.3 mg/dL (0.7-1.3) Estimated GFR (Cockcroft-Gault) 54.0 Glucose Level 377 mg/dL (70-99) Calcium Level 8.0 mg/dL (8.5-10.1) Allergies Allergies Coded Allergies Type Severity Reaction Last Updated Verified No Known Drug Allergies 04/21/18 No Disposition/Orders: D/C to Home STEPHANIA ARCHIBALD MD Mar 29, 2019 14:00
[2019-03-29 14:31] VITALS: BP 147/66
--- NOTE | 2019-03-29 14:51 | NUR ---
SW following Pt. Orders for 02 faxed to [facility] by STUART Deal and approved. [facility] will deliver a tank to pt's room in about an hour. RN notified.
--- NOTE | 2019-03-29 16:47 | NUR ---
Discharge Note: [facility] Discharge instructions and discharge home medications reviewed with Patient and a copy given. All questions have been answered and understanding verbalized. The following instructions and handouts were given: discharge medications, oxygen tanl, written presctiptions Discontinued lines and drains: IV discontinued and dressing intact. Patient discharged to home with oxygen via taxi cab
[2019-03-29] MEDS ORDERED: RIVAROXABAN 15 MG TABLET. PO SCH (17:00)
[2019-03-30] MEDS ORDERED: NON FORMULARY ITEM (Dulaglutide (Trulicity) 0.75 MG) SQ SCH (09:00)
== END 2019-03-29 16:20 | disposition home or self-care (01) | DRG 682 ==
LOC: ER 06:38 → 1 WEST ICU 09:20 → 2 SOUTH 03-24 17:58
PROVIDERS: ADMIT Family Medicine; ATTEND Family Medicine
DX: N17.9 Acute kidney failure, unspecified (principal); I50.23 Acute on chronic systolic (congestive) heart failure; J96.21 Acute and chronic respiratory failure with hypoxia; D68.9 Coagulation defect, unspecified; E87.1 Hypo-osmolality and hyponatremia; I13.0 Hypertensive heart and chronic kidney disease with heart failure and stage 1 through stage 4 chronic kidney disease, or unspecified chronic kidney disease; I42.9 Cardiomyopathy, unspecified; C61 Malignant neoplasm of prostate; D64.9 Anemia, unspecified; D69.6 Thrombocytopenia, unspecified; D86.9 Sarcoidosis, unspecified; E03.9 Hypothyroidism, unspecified; E11.22 Type 2 diabetes mellitus with diabetic chronic kidney disease; E11.65 Type 2 diabetes mellitus with hyperglycemia; E78.00 Pure hypercholesterolemia, unspecified; E78.5 Hyperlipidemia, unspecified; E86.0 Dehydration; F41.9 Anxiety disorder, unspecified; I25.2 Old myocardial infarction; I95.9 Hypotension, unspecified; I25.10 Atherosclerotic heart disease of native coronary artery without angina pectoris; I48.2 Chronic atrial fibrillation; J84.10 Pulmonary fibrosis, unspecified; J44.9 Chronic obstructive pulmonary disease, unspecified; E87.6 Hypokalemia; M19.90 Unspecified osteoarthritis, unspecified site; K21.9 Gastro-esophageal reflux disease without esophagitis; N18.3 Chronic kidney disease, stage 3 (moderate); T38.0X5A Adverse effect of glucocorticoids and synthetic analogues, initial encounter; Z79.01 Long term (current) use of anticoagulants; Z79.4 Long term (current) use of insulin; Z82.49 Family history of ischemic heart disease and other diseases of the circulatory system; Z85.46 Personal history of malignant neoplasm of prostate; Z85.810 Personal history of malignant neoplasm of tongue; Z87.01 Personal history of pneumonia (recurrent); Z87.891 Personal history of nicotine dependence; Z90.49 Acquired absence of other specified parts of digestive tract; Y92.89 Other specified places as the place of occurrence of the external cause
CPT/HCPCS: 36415; 71045; 71275; 80048; 80053; 81001; 82962; 83036; 83605; 83735; 84145; 84484; 85007; 85025; 85027; 85610; 85651; 87040; 87641; 93005; 93308; 94618; 94640; 94760; 96361; 96365; 96366; 96375; J0696; J1160; J1815; J2405; J2920; J3010; J3490; J7030; J7040; J7512; J7626; Q9967; 97116; 97530; 97535; 99291-25; G0378